=== PATIENT | male | born 1950 | race Caucasian/White ===

== ENCOUNTER → 2017-12-21 13:20 | Outpatient (CLI) | payer MEDICARE, SELFPAY ==
[2017-12-21 14:35] LABS: INR 3.3 (1.0-3.5)
== END ==
PROVIDERS: Emergency Medicine; PCP Family Medicine; Visit Provider Family Medicine
DX: I48.91 Unspecified atrial fibrillation (principal); Z79.01 Long term (current) use of anticoagulants
CPT/HCPCS: 36415; 85610

== ENCOUNTER → 2017-12-28 12:58 | Outpatient (CLI) | payer MEDICARE, SELFPAY ==
[2017-12-28 15:17] LABS: INR 2.9 (1.0-3.5); Prothrombin Time 27.5 sec (9.3-10.8)
== END ==
PROVIDERS: PCP Family Medicine; Visit Provider Family Medicine
DX: I48.91 Unspecified atrial fibrillation (principal); Z79.01 Long term (current) use of anticoagulants
CPT/HCPCS: 36415; 85610

== ENCOUNTER 2018-01-05 10:10 | Outpatient (CLI) | payer MEDICARE, SELFPAY ==
[2018-01-05 10:51] LABS: INR 2.9 (1.0-3.5); Prothrombin Time 27.6 sec (9.3-10.8)
== END 2018-01-05 10:30 ==
PROVIDERS: PCP Family Medicine; Visit Provider Family Medicine
DX: I48.91 Unspecified atrial fibrillation (principal); Z79.01 Long term (current) use of anticoagulants
CPT/HCPCS: 36415; 85610

== ENCOUNTER 2018-02-05 11:25 | Outpatient (CLI) | payer MEDICARE, SELFPAY ==
[2018-02-05 12:42] LABS: Prothrombin Time 19.4 sec (9.3-10.8)
== END 2018-02-05 11:45 ==
PROVIDERS: PCP Family Medicine; Visit Provider Emergency Medicine
DX: I48.91 Unspecified atrial fibrillation (principal); Z79.01 Long term (current) use of anticoagulants
CPT/HCPCS: 36415; 85610

== ENCOUNTER 2018-03-18 08:02 | Outpatient (CLI) | payer MEDICARE, SELFPAY ==
[2018-03-18 11:37] LABS: INR 2.4 (1.0-3.5)
== END 2018-03-18 08:22 ==
PROVIDERS: Emergency Medicine; PCP Family Medicine; Visit Provider Family Medicine
DX: I48.91 Unspecified atrial fibrillation (principal); Z79.01 Long term (current) use of anticoagulants
CPT/HCPCS: 36415; 85610

== ENCOUNTER 2018-04-09 10:53 | Outpatient (CLI) | payer MEDICARE, SELFPAY ==
[2018-04-09 11:26] LABS: INR 2.6 (1.0-3.5); Prothrombin Time 24.5 sec (9.3-10.8)
== END 2018-04-09 11:13 ==
PROVIDERS: PCP Family Medicine; Visit Provider Family Medicine
DX: I48.91 Unspecified atrial fibrillation (principal); Z79.01 Long term (current) use of anticoagulants
CPT/HCPCS: 36415; 85610

== ENCOUNTER 2018-05-08 17:07 | Emergency (ER) | payer MEDICARE, SELFPAY ==
[2018-05-08 17:13] VITALS: BP 150/104; PULSE 80; RESP 12; TEMP 37.3; O2SAT 96
--- NOTE | 2018-05-08 17:38 | NUR.NOTE ---
Nursing Note: MD Mcmahon is at the bedside.
--- NOTE | 2018-05-08 18:10 | DI.RAD_ITS ---
SYMPTOM/DIAGNOSIS: PRODUCTIVE COUGH FRONTAL AND LATERAL CHEST: Comparison is made with 03/08/16. The heart is mildly enlarged but stable. Pulmonary vasculature is within normal limits. There is again seen a large hiatal hernia. The lungs are free of infiltrates or effusions. No pneumothoraces are identified. The bones are intact. IMPRESSION: No acute pulmonary process.
--- NOTE | 2018-05-08 18:16 | ED.GENADUL_ITS ---
Discharge Plan Disposition Patient Disposition: HOME Discharge Details Chief Complaint: GenMedical Clinical Impression: Cough, URI (upper respiratory infection) Primary Care Provider: Dylan Easton ED Provider: Vladislav Mcmahon Home Meds and New Rx's Prescriptions: Continued zoster vaccine live (PF) [Zostavax (PF)] 19,400 UNIT/0.65 ML suspension for reconstitution 0.5 ml SQ ONCE Qty: 1 RF: 0 amlodipine 5 MG tablet 5 mg PO DAILY Qty: 90 RF: 4 magnesium oxide [MagOx] 400 MG tablet 400 mg PO BID Qty: 60 RF: 11 Advair Diskus 1 EACH blister with device 1 puff Inhalation BID Qty: 3 RF: 4 omeprazole 20 MG capsule,delayed release(DR/EC) 20 mg PO DAILY Qty: 90 RF: 4 lisinopril 40 MG tablet 1 tab PO DAILY Qty: 90 RF: 4 loratadine [Claritin] 10 MG tablet 1 tab PO DAILY Qty: 90 RF: 4 metoprolol tartrate 25 MG tablet 12.5 mg PO BID Qty: 90 RF: 3 levalbuterol tartrate [Xopenex HFA] 15 GM HFA aerosol inhaler 2 puff Inhalation QID PRNQty: 3 RF: 4 digoxin 250 mcg tablet 0.25 mg PO DAILY Qty: 90 RF: 4 warfarin [Coumadin] 5 mg tablet See Rx Instructions PO .COMPLEX Qty: 100 RF: 3 acetaminophen [Mapap Extra Strength] 500 MG tablet 1,000 mg PO Q6H PRN PRNRF: 0 Discharge Instructions Instructions: Upper Respiratory Infection (ED) Additional Instructions: Please drink plenty of fluids to stay hydrated. Allow for plenty of rest. Please contact your primary care physician to arrange follow-up. Return to the ER for any worsening or new concerning symptoms. Referrals: Dylan Easton MD [Primary Care Provider] - Discharge Data Discharge Date/Time-TO BE ENTERED AT DEPARTURE: 05/08/18 19:20 Medical Decision Making 67yo m here with cough, myalgias, headache, fever over the past 2 days. Patient did receive influenza immunization. Rapid flu testing was negative here today. Considered pneumonia: Lungs are clear, patient saturating well in no respiratory distress. Chest x-ray reviewed and interpreted by radiology: Large hiatal hernia, no evidence of acute cardiopulmonary disease. Suspect viral URI. Supportive care advised. Reassessment, patient remained stable. Usual and customary discharge instructions were provided. HPI General Mode of arrival: ambulatory . Date/Time Provider Initiated Documentation: 05/08/18 17:29 . Limitations to Documentation: no limitations . Information obtained by: patient and family . HPI Narrative: 67-year-old male with multiple medical problems including history of asthma, diabetes, hypertension, presents with chief complaint of cough. Patient notes that he has had cough for the past 2 days. Cough is intermittently productive of white sputum. He has associated full body aches, feels feverish, headaches, no chest pain or shortness of breath. Symptoms are moderate. No modifiers. Flu immunization is up-to-date. He also notes that the mild swelling of his lower lip yesterday that has resolved. Related Data Home Medications Medication Instructions Recorded Confirmed acetaminophen [Mapap Extra 1,000 mg PO Q6H PRN PRN 02/07/13 05/08/18 Strength] zoster vaccine live (PF) [Zostavax 0.5 ml SQ ONCE #1 vial 12/18/16 (PF)] Advair Diskus 1 puff INHALATION BID #3 disk 11/13/17 05/08/18 amlodipine 5 mg PO DAILY #90 tab-cap 11/13/17 05/08/18 levalbuterol tartrate [Xopenex HFA] 2 puff INHALATION QID PRN #3 11/13/17 05/08/18 inhaler lisinopril 1 tab PO DAILY #90 tab 11/13/17 loratadine [Claritin] 1 tab PO DAILY #90 tab 11/13/17 05/08/18 magnesium oxide [MagOx] 400 mg PO BID #60 tab-cap 11/13/17 05/08/18 metoprolol tartrate 12.5 mg PO BID #90 tab-cap 11/13/17 05/08/18 omeprazole 20 mg PO DAILY #90 tab-cap 11/13/17 05/08/18 digoxin 250 mcg tablet 0.25 mg PO DAILY #90 tab 01/07/18 05/08/18 warfarin 5 mg tablet See Rx Instructions PO .COMPLEX 03/29/18 05/08/18 #100 tab-cap Previous Rx's Medication Instructions Recorded Advair Diskus 1 puff INHALATION BID #3 disk 11/13/17 amlodipine 5 mg PO DAILY #90 tab-cap 11/13/17 lisinopril 1 tab PO DAILY #90 tab 11/13/17 loratadine [Claritin] 1 tab PO DAILY #90 tab 11/13/17 magnesium oxide [MagOx] 400 mg PO BID #60 tab-cap 11/13/17 metoprolol tartrate 12.5 mg PO BID #90 tab-cap 11/13/17 omeprazole 20 mg PO DAILY #90 tab-cap 11/13/17 digoxin 250 mcg tablet 0.25 mg PO DAILY #90 tab 01/07/18 warfarin 5 mg tablet See Rx Instructions PO .COMPLEX 03/29/18 #100 tab-cap Allergies Allergy/AdvReac Type Severity Reaction Status Date / Time doxycycline Allergy Intermediate FACIAL RASH Unverified 05/08/18 17:18 Tetracyclines Allergy Intermediate FACIAL RASH Unverified 05/08/18 17:18 General Stated Complaint: GenMedical DANIA: 3 Review of Systems Constitutional Reports body ache(s) and Reports fever(s) ENT Reports nasal congestion and Reports post nasal drip Respiratory Reports cough Genitourinary Denies dysuria [facility] Medical History Asthma Atrial fibrillation Hypertension Surgical History Repair of inguinal hernia Family History Mother Diabetes Essential hypertension Stroke Father Essential hypertension Asthma Sister Alzheimer disease Sister Essential hypertension Depression Sister No problems noted. Sister No problems noted. Sister No problems noted. Brother Diabetes Essential hypertension Stroke Brother No problems noted. Son ADHD Daughter Alcohol abuse Depression Social History Smoking/Tobacco Use Status: Never Exam Const General: cooperative and no acute distress HENMT Head: normocephalic and atraumatic Mouth: oral mucosae normal and moist mucous membranes Throat: posterior oropharynx normal Eyes Conjunctivae: normal conjunctivae Sclera: normal sclerae Neck Neck: trachea midline and supple Resp Auscultation: clear to auscultation bilaterally, no rales, no rhonchi and no wheezes Cardio Jugular venous pressure: no JVD Rate: regular rate and not tachycardic Rhythm: regular rhythm GI Palpation: soft, not firm, no guarding, no masses, not rigid and nontender Skin General skin exam: no rashes or lesions noted Neuro General: alert, awake, oriented x3 and tone normal Extrem General: no edema Psych Appearance: grossly normal Mental Status: mental status grossly normal Speech and Movement: speech and movement normal Course Vital Signs Temperature 37.3 C 05/08/18 17:13 Pulse 80 05/08/18 17:13 Respiratory Rate 12 05/08/18 17:13 Blood Pressure 150/104 H 05/08/18 17:13 Pulse Oximetry 96 05/08/18 17:13 Temperature 37.3 C 05/08/18 17:13 Temperature Source Temporal Artery Scan 05/08/18 17:13 Pulse 80 05/08/18 17:13 Respiratory Rate 12 05/08/18 17:13 Respiratory Effort 05/08/18 17:48 Blood Pressure 150/104 H 05/08/18 17:13 Blood Pressure Position Sitting 05/08/18 17:13 Pulse Oximetry 96 05/08/18 17:13 Oxygen Delivery Method Room Air 05/08/18 17:13 Oxygen Flow Rate 0 05/08/18 17:13 Pain Level 0 05/08/18 17:13 Lab/Test Results Lab/Test Results: 05/08/18 17:22 Nasopharynx Influenza Types A,B Antigen - Final
--- NOTE | 2018-05-08 19:00 | DI.VRAD_ITS ---
EXAM: XR Chest, 2 Views EXAM DATE/TIME: 05/08/2018 6:11 PM CLINICAL HISTORY: 67 years old, male; Signs and symptoms; Cough; Patient HX: Cough productive; Per PT: Have had 2-3 days TECHNIQUE: XR of the chest, 2 views. COMPARISON: CR PORTABLE CHEST ONE VIEW 03/08/2016 5:19 PM FINDINGS: Large hiatal hernia. No focal pulmonary consolidation. Mild cardiomegaly unchanged. Costophrenic angles sharp. Bony structures unremarkable for age. IMPRESSION: 1. Large hiatal hernia. 2. No evidence of acute cardiopulmonary disease. Dictated and Authenticated by: Sb Wilson MD. Ordering:DEMETRIS Loomis MD
[2018-05-08 19:16] VITALS: BP 158/97; PULSE 75; RESP 17; TEMP 37.2; O2SAT 96
[2018-05-08] MEDS: Acetaminophen 325 MG TAB 650 MG PO (19:18)
== END 2018-05-08 19:20 | disposition home or self-care (01) ==
PROVIDERS: Emergency Provider Student in an Organized Health Care Education/Training Program; PCP Family Medicine
DX: R05 Cough (principal); J06.9 Acute upper respiratory infection, unspecified; M79.10 Myalgia, unspecified site; R50.9 Fever, unspecified; I10 Essential (primary) hypertension
CPT/HCPCS: 87449; 99283; 71046

== ENCOUNTER 2018-05-10 01:42 | Outpatient (CLI) | payer MEDICARE, SELFPAY ==
[2018-05-10 11:51] LABS: INR 2.8 (0.9-1.1); Prothrombin Time 28.7 sec (9.3-11.0)
== END 2018-05-10 02:02 ==
PROVIDERS: Emergency Medicine; PCP Family Medicine; Visit Provider Family Medicine
DX: I48.91 Unspecified atrial fibrillation (principal); Z79.01 Long term (current) use of anticoagulants
CPT/HCPCS: 36415; 85610

== ENCOUNTER 2018-06-10 14:44 | Outpatient (CLI) | payer MEDICARE, SELFPAY ==
[2018-06-10 15:11] LABS: Prothrombin Time 25.7 sec (9.3-11.0)
[2018-06-10 15:14] LABS: INR 2.5 (0.9-1.1)
[2018-06-10 16:35] LABS: Magnesium 1.6 mg/dL (1.8-2.4); TSH 2.04 uIU/mL (0.358-3.74)
== END 2018-06-10 15:04 ==
PROVIDERS: PCP Family Medicine; Visit Provider Family Medicine
DX: E83.42 Hypomagnesemia (principal); R53.83 Other fatigue; I48.91 Unspecified atrial fibrillation; Z79.01 Long term (current) use of anticoagulants
CPT/HCPCS: 36415; 83735; 84443; 85610

== ENCOUNTER 2018-07-14 13:31 | Outpatient (CLI) | payer MEDICARE, SELFPAY ==
[2018-07-14 14:12] LABS: Prothrombin Time 28.8 sec (9.3-11.0)
[2018-07-14 14:14] LABS: INR 2.8 (0.9-1.1)
== END 2018-07-14 13:51 ==
PROVIDERS: Emergency Medicine; PCP Family Medicine; Visit Provider Family Medicine
DX: I48.91 Unspecified atrial fibrillation (principal); Z79.01 Long term (current) use of anticoagulants
CPT/HCPCS: 36415; 85610

== ENCOUNTER 2018-07-19 11:43 | Emergency (ER) | payer MEDICARE, SELFPAY ==
[2018-07-19 12:20] VITALS: BP 147/97; PULSE 68; RESP 18; TEMP 37; O2SAT 99
--- NOTE | 2018-07-19 12:33 | W.ED.GENAD ---
Discharge Plan Disposition Patient Disposition: HOME Condition: Stable Discharge Details Chief Complaint: Vascular Clinical Impression: Leg pain, Cellulitis Reason For Visit: bunch on low leg Primary Care Provider: Dylan Easton ED Provider: Khalida Mcmahon Home Meds and New Rx's Prescriptions: New clindamycin HCl 150 mg capsule 450 mg PO QID 10 Days Qty: 120 RF: 0 No Action amlodipine 5 MG tablet 5 mg PO DAILY Qty: 90 RF: 4 magnesium oxide [MagOx] 400 MG tablet 400 mg PO BID Qty: 60 RF: 11 fluticasone propion-salmeterol [Advair Diskus] 1 EACH blister with device 1 puff Inhalation BID Qty: 3 RF: 4 omeprazole 20 MG capsule,delayed release(DR/EC) 20 mg PO DAILY Qty: 90 RF: 4 lisinopril 40 MG tablet 1 tab PO DAILY Qty: 90 RF: 4 loratadine [Claritin] 10 MG tablet 1 tab PO DAILY Qty: 90 RF: 4 metoprolol tartrate 25 MG tablet 12.5 mg PO BID Qty: 90 RF: 3 levalbuterol tartrate [Xopenex HFA] 15 GM HFA aerosol inhaler 2 puff Inhalation QID PRNQty: 3 RF: 4 digoxin 250 mcg tablet 0.25 mg PO DAILY Qty: 90 RF: 4 warfarin [Coumadin] 5 mg tablet See Rx Instructions PO .COMPLEX Qty: 100 RF: 3 acetaminophen [Mapap Extra Strength] 500 MG tablet 1,000 mg PO Q6H PRN PRNRF: 0 Discharge Instructions Instructions: Cellulitis (ED), Leg Pain (ED) Additional Instructions: Please return immediately to the emergency department if you develop any new or worsening symptoms or if you become otherwise concerned. It is extremely important that you make an appointment to be seen in follow-up for this visit as soon as possible by your primary care doctor, and that you return here for wound check in 48 hours. Referrals: Dylan Easton MD [Primary Care Provider] - Discharge Data Discharge Date/Time-TO BE ENTERED AT DEPARTURE: 07/19/18 16:38 Medical Decision Making Jesse Carranza is a 67-year-old man with history of A. fib on Coumadin, GERD, COPD, hypertension presents emergency department with left lower leg swelling and pain without known trauma. On exam patient is well and nontoxic appearing. There is erythema over the anterior left lower leg and general edema of the lower leg with focal area of edema to the anterior leg adjacent to erythema. The extremity is neurovascularly intact. There is no joint tenderness palpation and there is full range of motion of the knee and ankle. Concern for occult trauma causing hematoma/cellulitis, DVT, doubt abscess. Doubt neoplasm. Exam/history is not consistent with sepsis, PE, other acute emergent life-threatening process. Plan for x-rays, ultrasound. Imaging studies negative for DVT, acute bony process. Plan to aspirate fluid collection for possible culture. Skin was anesthetized with 1 cc 1% lidocaine and was cleaned and prepped in the usual sterile fashion. Aspiration was attempted, but no fluid was returned. Plan for clindamycin for cellulitis and outpatient follow-up for recheck. I had a lengthy discussion with the patient regarding return to emergency department precautions and home care. Patient was discharged with clear outpatient follow-up plans. Patient verbalized understanding of the plan and was amenable. All questions were answered. Medical Records Medical records reviewed: Yes I reviewed the patient's medical records. Imaging Data Radiologic Study: Attestation: I personally reviewed and interpreted this imaging study as follows: Radiologist's impression: LEFT LOWER EXTREMITY ULTRASOUND: The deeps veins of the left lower extremity show normal compression, augmentation and color flow. No evidence of a deep venous thrombus is identified. The saphenofemoral junction appears unremarkable. There is an ovoid complex hypoechoic area in the lower leg. No internal blood flow is seen. It measures 4.4 x 1.6 x 4.2 cm. This may represent a hematoma. Please correlate with the patient's history. Abscess is considered less likely. Mass can not be entirely excluded. There is edema seen in the soft tissues of the lower leg. IMPRESSION: 1. No evidence of a left lower extremity DVT. 2. 4.4 cm complex lesion in the lower leg anteriorly corresponding to an area of swelling on physical exam. No internal blood flow is seen. This may represent a complex fluid collection such as a hematoma. Abscess is considered less likely. Mass can not be entirely excluded. Please correlate clinically. LEFT LEG: Two views. No acute fracture or dislocation is identified. No suspicious lytic or sclerotic lesions are seen. There does appear to be some soft tissue swelling of the lower leg. IMPRESSION: 1. No acute fracture or dislocation. 2. Soft tissue swelling. HPI General Mode of arrival: ambulatory. Date/Time Provider Initiated Documentation: 07/19/18 12:33. Limitations to Documentation: no limitations. Information obtained by: patient, RN notes reviewed and old records reviewed. HPI Narrative: Jesse Carranza is a 67-year-old man with a history of asthma, hypertension, A. fib on Coumadin presented to the emergency department with leg pain. Patient reports that about 4 days ago he noticed that there was a bump on his left leg, and also that his left leg seemed swollen and painful. He reports the pain is worse when he stands. He denies any trauma or injury to the area. He has had no recent falls. He denies any other pain, fevers, cough, shortness of breath, numbness/tingling, weakness. Otherwise in his usual state of health. Has never had similar symptoms in the past. Has been eating and drinking as usual. Related Data Home Medications Medication Instructions Recorded Confirmed acetaminophen [Mapap Extra 1,000 mg PO Q6H PRN PRN 02/07/13 07/21/18 Strength] amlodipine 5 mg PO DAILY #90 tab-cap 11/13/17 07/21/18 fluticasone propion-salmeterol 1 puff INHALATION BID #3 disk 11/13/17 07/21/18 [Advair Diskus] levalbuterol tartrate [Xopenex HFA] 2 puff INHALATION QID PRN #3 11/13/17 07/21/18 inhaler lisinopril 1 tab PO DAILY #90 tab 11/13/17 07/21/18 loratadine [Claritin] 1 tab PO DAILY #90 tab 11/13/17 07/21/18 magnesium oxide [MagOx] 400 mg PO BID #60 tab-cap 11/13/17 07/21/18 metoprolol tartrate 12.5 mg PO BID #90 tab-cap 11/13/17 07/21/18 omeprazole 20 mg PO DAILY #90 tab-cap 11/13/17 07/21/18 digoxin 250 mcg tablet 0.25 mg PO DAILY #90 tab 01/07/18 07/21/18 warfarin 5 mg tablet See Rx Instructions PO .COMPLEX 03/29/18 07/21/18 #100 tab-cap clindamycin HCl 450 mg PO QID 10 Days #120 cap 07/19/18 07/21/18 Previous Rx's Medication Instructions Recorded amlodipine 5 mg PO DAILY #90 tab-cap 11/13/17 fluticasone propion-salmeterol 1 puff INHALATION BID #3 disk 11/13/17 [Advair Diskus] lisinopril 1 tab PO DAILY #90 tab 11/13/17 loratadine [Claritin] 1 tab PO DAILY #90 tab 11/13/17 magnesium oxide [MagOx] 400 mg PO BID #60 tab-cap 11/13/17 metoprolol tartrate 12.5 mg PO BID #90 tab-cap 11/13/17 omeprazole 20 mg PO DAILY #90 tab-cap 11/13/17 digoxin 250 mcg tablet 0.25 mg PO DAILY #90 tab 01/07/18 warfarin 5 mg tablet See Rx Instructions PO .COMPLEX 03/29/18 #100 tab-cap clindamycin HCl 450 mg PO QID 10 Days #120 cap 07/19/18 Allergies Allergy/AdvReac Type Severity Reaction Status Date / Time doxycycline Allergy Intermediate FACIAL RASH Verified 07/21/18 14:03 Tetracyclines Allergy Intermediate FACIAL RASH Verified 07/21/18 14:03 General Stated Complaint: Vascular DANIA: 3 Review of Systems Review of Systems Constitutional: denies fevers Eyes: denies eye pain ENT: denies facial pain, dental pain, sore throat Cardiovascular: denies chest pain, edema Respiratory: denies SOB, cough GI: denies abdominal pain, vomiting, diarrhea : denies flank pain MSK: denies back pain, neck pain, arthralgias, reports leg pain as per HPI Skin: Reports rash to lower leg in area of pain Neuro: denies headaches, numbness, weakness [facility] Social History Smoking/Tobacco Use Status: Never Alcohol Intake: never Drug use: Never Substance use type: does not use Do you feel safe at home: Yes Do you feel safe in your relationship?: Yes Exam Narrative Exam Narrative: Constitutional: well and [id number], pleasant, conversing normally HENT: head atraumatic/normocephalic/normal inspection, mucous membranes moist Eyes: conjunctiva normal, sclera normal, pupils 3mm b/l Neck: no stridor, normal ROM, trachea midline Resp: normal work of breathing, LCTAB Cardio: normal rate, normal rhythm, no murmur appreciated Back: normal inspection, no rash Skin: warm, dry, normal color, no rash Neuro: alert, not altered, grossly non-focal, normal tone Ext: Left lower leg with 1+ nonpitting edema to mid calf, 4 x 10 cm anterior erythema with adjacent 4 x 4 centimeter area of focal edema without overlying erythema. No apparent skin wound. DP pulses intact and symmetric. There is tenderness over focal edema and over erythema, no posterior calf tenderness and no tenderness of the ankle or knee. Psych: normal mood, normal affect, normal behavior Course Vital Signs Temperature 37 C 07/19/18 12:20 Pulse 68 07/19/18 12:20 Respiratory Rate 18 07/19/18 12:20 Blood Pressure 147/97 H 07/19/18 12:20 Pulse Oximetry 99 07/19/18 12:20 Temperature 37 C 07/19/18 12:20 Temperature Source Temporal Artery Scan 07/19/18 12:20 Pulse 68 07/19/18 12:20 Respiratory Rate 18 07/19/18 12:20 Blood Pressure 147/97 H 07/19/18 12:20 Pulse Oximetry 99 07/19/18 12:20 Oxygen Delivery Method Room Air 07/19/18 12:20 Oxygen Flow Rate 0 07/19/18 12:20
--- NOTE | 2018-07-19 13:34 | DI.US_ITS ---
SYMPTOMS/DIAGNOSIS: PAIN, REDNESS, SWELLING LEFT LOWER EXTREMITY ULTRASOUND: The deeps veins of the left lower extremity show normal compression, augmentation and color flow. No evidence of a deep venous thrombus is identified. The saphenofemoral junction appears unremarkable. There is an ovoid complex hypoechoic area in the lower leg. No internal blood flow is seen. It measures 4.4 x 1.6 x 4.2 cm. This may represent a hematoma. Please correlate with the patient's history. Abscess is considered less likely. Mass can not be entirely excluded. There is edema seen in the soft tissues of the lower leg. IMPRESSION: 1. No evidence of a left lower extremity DVT. 2. 4.4 cm complex lesion in the lower leg anteriorly corresponding to an area of swelling on physical exam. No internal blood flow is seen. This may represent a complex fluid collection such as a hematoma. Abscess is considered less likely. Mass can not be entirely excluded. Please correlate clinically. The findings were discussed with the emergency department on the date of the examination.
--- NOTE | 2018-07-19 13:35 | DI.RAD_ITS ---
SYMPTOMS/DIAGNOSIS: LEG PAIN, NO TRAUMA LEFT LEG: Two views. No acute fracture or dislocation is identified. No suspicious lytic or sclerotic lesions are seen. There does appear to be some soft tissue swelling of the lower leg. IMPRESSION: 1. No acute fracture or dislocation. 2. Soft tissue swelling.
[2018-07-19] MEDS: Clindamycin 150 MG CAP 450 MG PO (16:33)
== END 2018-07-19 16:38 | disposition home or self-care (01) ==
PROVIDERS: Emergency Provider Student in an Organized Health Care Education/Training Program; PCP Family Medicine
DX: L03.116 Cellulitis of left lower limb (principal); J44.9 Chronic obstructive pulmonary disease, unspecified; I10 Essential (primary) hypertension; Z79.01 Long term (current) use of anticoagulants
CPT/HCPCS: 99284; 73590; 93971; 99283

== ENCOUNTER 2018-08-06 08:46 | Outpatient (CLI) | payer MEDICARE, SELFPAY ==
[2018-08-06 09:31] LABS: HCT 49.2 % (40.0-50.0); HGB 16.6 g/dL (13.5-17.5); Mean Corp. HGB Concentration 33.7 g/dL (32.0-36.0); Mean Corpuscular Hemoglobin 30.5 pg (27.0-33.0); Mean Corpuscular Volume 90.4 fL (80-95); Mean Platelet Volume 11.5 fL (8.0-11.0); Platelet Count 191 x1000/uL (130-400); RBC 5.44 m/cumm (4.50-6.00); RBC Distribution Width 13.4 % (11.8-14.1); White Blood Cell Count 10.44 k/cumm (4.4-10.8)
[2018-08-06 09:46] LABS: INR 2.1 (0.9-1.1); Prothrombin Time 21.5 sec (9.3-11.0)
[2018-08-06 14:49] LABS: Digoxin 0.88 ng/mL (0.90-2.00)
== END 2018-08-06 09:06 ==
PROVIDERS: PCP Family Medicine; Visit Provider Family Medicine
DX: I48.2 Chronic atrial fibrillation (principal); R53.83 Other fatigue; Z79.899 Other long term (current) drug therapy; Z79.01 Long term (current) use of anticoagulants
CPT/HCPCS: 36415; 85027; 80162; 85610

== ENCOUNTER 2018-08-30 13:30 | Outpatient (CLI) | payer MEDICARE, SELFPAY ==
[2018-08-30 14:16] LABS: Prothrombin Time 30.6 sec (9.3-11.0)
== END 2018-08-30 13:50 ==
PROVIDERS: Emergency Medicine; PCP Family Medicine; Visit Provider Family Medicine
DX: I48.91 Unspecified atrial fibrillation (principal); Z79.01 Long term (current) use of anticoagulants; Z79.899 Other long term (current) drug therapy
CPT/HCPCS: 36415; 85610

== ENCOUNTER 2018-10-12 08:42 | Outpatient (CLI) | payer MEDICARE, SELFPAY ==
[2018-10-12 13:10] LABS: INR 2.7 (0.9-1.1); Prothrombin Time 27.1 sec (9.3-11.0)
== END 2018-10-12 09:02 ==
PROVIDERS: PCP Family Medicine; Visit Provider Family Medicine
DX: I48.91 Unspecified atrial fibrillation (principal); Z79.01 Long term (current) use of anticoagulants
CPT/HCPCS: 36415; 85610

== ENCOUNTER 2018-11-17 13:12 | Outpatient (CLI) | payer MEDICARE, SELFPAY ==
[2018-11-17 14:03] LABS: Prothrombin Time 30.4 sec (9.3-11.0)
== END 2018-11-17 13:32 ==
PROVIDERS: PCP Family Medicine; Visit Provider Emergency Medicine
DX: I48.91 Unspecified atrial fibrillation (principal); Z79.01 Long term (current) use of anticoagulants
CPT/HCPCS: 36415; 85610

== ENCOUNTER 2018-12-16 08:15 | Outpatient (CLI) | payer MEDICARE, SELFPAY ==
[2018-12-16 13:21] LABS: INR 2.8 (0.9-1.1); Prothrombin Time 28.3 sec (9.3-11.0)
== END 2018-12-16 08:35 ==
PROVIDERS: Emergency Medicine; PCP Family Medicine; Visit Provider Family Medicine
DX: I48.91 Unspecified atrial fibrillation (principal); Z79.01 Long term (current) use of anticoagulants
CPT/HCPCS: 36415; 85610

== ENCOUNTER 2019-01-21 07:33 | Outpatient (CLI) | payer MEDICARE, SELFPAY ==
[2019-01-21 08:15] LABS: INR 2.2 (0.9-1.1); Prothrombin Time 21.4 sec (9.3-11.0)
[2019-01-21 09:23] LABS: Anion Gap 8.2 mmol/L (3-11); BUN 14 mg/dL (7-18); CO2 27.8 mmol/L (21.0-32.0); CREATININE 1.02 mg/dL (0.70-1.30); Calcium 9.2 mg/dL (8.5-10.1); Calculated LDL 97 mg/dL; Chloride 103 mmol/L (98-107); Cholesterol 157 mg/dL (50-200); Glucose 91 mg/dL (70-100); HDL Cholesterol 52 mg/dL (40-60); Potassium 4.1 mmol/L (3.5-5.1); Sodium 139 mmol/L (136-145); Triglyceride 42 mg/dL (30-150)
== END 2019-01-21 07:53 ==
PROVIDERS: PCP Family Medicine; Visit Provider Emergency Medicine
DX: I10 Essential (primary) hypertension (principal); I48.91 Unspecified atrial fibrillation; Z79.01 Long term (current) use of anticoagulants
CPT/HCPCS: 36415; 80048; 80061; 85610

== ENCOUNTER 2019-03-16 12:29 | Outpatient (CLI) | payer MEDICARE, SELFPAY ==
[2019-03-16 14:07] LABS: INR 2.6 (0.9-1.1); Prothrombin Time 25.2 sec (9.3-11.0)
== END 2019-03-16 12:49 ==
PROVIDERS: PCP Family Medicine; Visit Provider Family Medicine
DX: I48.91 Unspecified atrial fibrillation (principal); Z79.01 Long term (current) use of anticoagulants
CPT/HCPCS: 36415; 85610

== ENCOUNTER 2019-04-04 13:02 | Outpatient (CLI) | payer MEDICARE, SELFPAY ==
[2019-04-04 14:29] LABS: Prothrombin Time 50.4 sec (9.3-11.0)
[2019-04-04 14:39] LABS: INR 5.2 (0.9-1.1)
== END 2019-04-04 13:22 ==
PROVIDERS: PCP Family Medicine; Visit Provider Emergency Medicine
DX: I48.91 Unspecified atrial fibrillation (principal); Z79.01 Long term (current) use of anticoagulants
CPT/HCPCS: 36415; 85610

== ENCOUNTER 2019-04-07 11:24 | Outpatient (CLI) | payer MEDICARE, SELFPAY ==
[2019-04-07 12:09] LABS: INR 2.4 (0.9-1.1); Prothrombin Time 23.9 sec (9.3-11.0)
== END 2019-04-07 11:44 ==
PROVIDERS: Emergency Medicine; PCP Family Medicine; Visit Provider Family Medicine
DX: I48.91 Unspecified atrial fibrillation (principal); Z79.01 Long term (current) use of anticoagulants; Z79.899 Other long term (current) drug therapy
CPT/HCPCS: 36415; 85610

== ENCOUNTER 2019-04-21 09:01 | Outpatient (CLI) | payer MEDICARE, SELFPAY ==
[2019-04-21 09:56] LABS: INR 2.1 (0.9-1.1); Prothrombin Time 20.9 sec (9.3-11.0)
== END 2019-04-21 09:21 ==
PROVIDERS: PCP Family Medicine; Visit Provider Emergency Medicine
DX: I48.91 Unspecified atrial fibrillation (principal); Z79.01 Long term (current) use of anticoagulants
CPT/HCPCS: 36415; 85610

== ENCOUNTER 2019-05-19 11:16 | Outpatient (CLI) | payer MEDICARE, SELFPAY ==
[2019-05-19 13:00] LABS: INR 2.4 (0.9-1.1); Prothrombin Time 23.3 sec (9.3-11.0)
== END 2019-05-19 11:36 ==
PROVIDERS: Emergency Medicine; PCP Family Medicine; Visit Provider Family Medicine
DX: I48.91 Unspecified atrial fibrillation (principal); Z79.01 Long term (current) use of anticoagulants; Z79.899 Other long term (current) drug therapy
CPT/HCPCS: 36415; 85610

== ENCOUNTER 2019-06-17 10:01 | Outpatient (CLI) | payer MEDICARE, SELFPAY ==
[2019-06-17 10:54] LABS: INR 2.1 (0.9-1.1); Prothrombin Time 20.6 sec (9.3-11.0)
== END 2019-06-17 10:21 ==
PROVIDERS: PCP Family Medicine; Visit Provider Emergency Medicine
DX: I48.91 Unspecified atrial fibrillation (principal); Z79.01 Long term (current) use of anticoagulants; Z79.899 Other long term (current) drug therapy
CPT/HCPCS: 36415; 85610

== ENCOUNTER 2019-12-01 09:42 | Outpatient (CLI) | payer MEDICARE, SELFPAY ==
[2019-12-01 13:12] LABS: INR 2.8 (0.9-1.1); Prothrombin Time 27.1 sec (9.3-11.0)
== END 2019-12-01 10:02 ==
PROVIDERS: PCP Family Medicine; Visit Provider Emergency Medicine
DX: I48.91 Unspecified atrial fibrillation (principal); Z79.01 Long term (current) use of anticoagulants; Z79.899 Other long term (current) drug therapy
CPT/HCPCS: 36415; 85610

== ENCOUNTER 2019-12-21 03:04 | Outpatient (CLI) | payer MEDICARE, SELFPAY ==
[2019-12-21 12:34] LABS: INR 2.8 (0.9-1.1); Prothrombin Time 27.3 sec (9.3-11.0)
== END 2019-12-21 03:24 ==
PROVIDERS: Emergency Medicine; PCP Family Medicine; Visit Provider Family Medicine
DX: I48.91 Unspecified atrial fibrillation (principal); Z79.01 Long term (current) use of anticoagulants; Z79.899 Other long term (current) drug therapy
CPT/HCPCS: 36415; 85610

== ENCOUNTER 2020-01-03 07:05 | Outpatient (CLI) | payer MEDICARE, SELFPAY ==
[2020-01-04 17:24] LABS: COVID-19 RT-PCR Result NEGATIVE (Negative)
== END 2020-01-03 07:25 ==
PROVIDERS: PCP Family Medicine; Visit Provider Family Medicine
DX: R06.09 Other forms of dyspnea (principal)
CPT/HCPCS: U0003

== ENCOUNTER 2020-01-06 01:15 | Outpatient (CLI) | payer MEDICARE, SELFPAY ==
[2020-01-06] MEDS: Albuterol HFA 18 GM 200 PUFF INH IH (16:20)
[2020-01-06] MEDS: Inhaler, Assist Device 1 EACH MC (16:20)
--- NOTE | 2020-01-11 07:44 | W.PFT ---
Date of service: 01/06/20 Time of Service: 03:32 Pulmonary Function Test Result Interpretation Spirometry: Shows mild obstructive airways disease, no bronchodilator response Lung Volumes: No evidence of restriction Diffusion Capacity: Mildly decreased, which is normal when corrected to alveolar volume Airway Pressure: Mildly elevated Impression Mild obstructive airways disease with no significant bronchodilator response, this is associated with mild diffusion defect and mildly elevated airways resistance. Clinical correlation recommended Clinical Correlation therefore is recommended.
== END 2020-01-06 01:35 ==
PROVIDERS: PCP Family Medicine; Visit Provider Family Medicine
DX: R06.09 Other forms of dyspnea (principal)
CPT/HCPCS: 94060; 94726; 94729

== ENCOUNTER 2020-03-23 01:31 | Outpatient (CLI) | payer MEDICARE, SELFPAY ==
[2020-03-23 12:52] LABS: Abs Immature Grans 0.03 10^3/uL (0.0-0.06); Absolute Basophil Count 0.09 10^3/uL (0.0-0.2); Absolute Lymphocyte Count 1.79 10^3/uL (1.2-3.4); Absolute Monocyte Count 1.04 10^3/uL (0.1-0.8); Absolute Neutrophil Count 5.45 10^3/uL (1.2-6.7); Eosinophils % 4.5; HCT 49.7 % (40.0-50.0); HGB 16.5 g/dL (13.5-17.5); Immature Grans % 0.3; Lymphocytes % 20.3; MCH 30.2 pg (27.0-33.0); MCHC 33.2 % (32.0-36.0); MPV 11.6 fL (8.0-11.0); Monocytes % 11.8; Neutrophils % 62.1; Nucleated RBC 0 %; Platelet Count 174 10^3/uL (130-400); RBC 5.46 10^6/uL (4.36-5.78); RDW 13.1 % (11.8-14.1); RDW-SD 43.2 fL
[2020-03-23 13:21] LABS: Prothrombin Time 23.1 sec (9.3-11.0)
[2020-03-23 13:22] LABS: INR 2.3 (0.9-1.1)
[2020-03-23 13:30] LABS: ALT 29 U/L (16-63); AST 20 U/L (15-37); Albumin 3.7 g/dL (3.4-5.0); Alkaline Phosphatase 64 U/L (46-116); Anion Gap 6.8 mmol/L (3-11); BUN 13 mg/dL (7-18); Bilirubin, Total 1.3 mg/dL (0.2-1.0); CO2 29.2 mmol/L (21.0-32.0); CREATININE 1.06 mg/dL (0.70-1.30); Calcium 9.1 mg/dL (8.5-10.1); Chloride 102 mmol/L (98-107); Glucose 106 mg/dL (74-106); Magnesium 1.7 mg/dL (1.8-2.4); Potassium 4.4 mmol/L (3.5-5.1); Sodium 138 mmol/L (136-145); T4 8.3 ug/mL (4.7-13.3); TSH 1.14 uIU/mL (0.36-3.74); Total Protein 6.6 g/dL (6.4-8.2)
== END 2020-03-23 01:51 ==
PROVIDERS: PCP Family Medicine; Visit Provider Family Medicine
DX: I10 Essential (primary) hypertension (principal); I48.91 Unspecified atrial fibrillation; Z79.01 Long term (current) use of anticoagulants; Z79.899 Other long term (current) drug therapy
CPT/HCPCS: 36415; 80053; 85027; 83735; 84436; 84443; 85025; 85610

== ENCOUNTER → 2020-04-05 09:51 | Outpatient (BNVA) | payer MEDICARE, SELFPAY | PROVIDERS: PCP Family Medicine; Referring Provider Family Medicine; Visit Provider Physical Therapy Assistant | DX: K62.5 Hemorrhage of anus and rectum (principal); I10 Essential (primary) hypertension | CPT/HCPCS: 99212; 99213 ==

== ENCOUNTER 2020-04-18 02:36 | Outpatient (CLI) | payer MEDICARE, SELFPAY ==
[2020-04-18 12:32] LABS: INR 2.7 (0.9-1.1); Prothrombin Time 26.7 sec (9.3-11.0)
== END 2020-04-18 02:56 ==
PROVIDERS: PCP Family Medicine; Visit Provider Family Medicine
DX: I48.91 Unspecified atrial fibrillation (principal); Z79.01 Long term (current) use of anticoagulants
CPT/HCPCS: 36415; 85610

== ENCOUNTER 2020-05-23 03:58 | Outpatient (CLI) | payer MEDICARE, SELFPAY ==
[2020-05-23 12:52] LABS: Prothrombin Time 29.1 sec (9.3-11.0)
== END 2020-05-23 04:18 ==
PROVIDERS: PCP Family Medicine; Visit Provider Family Medicine
DX: I48.91 Unspecified atrial fibrillation (principal); Z79.01 Long term (current) use of anticoagulants
CPT/HCPCS: 36415; 85610

== ENCOUNTER 2020-07-10 03:21 | Outpatient (CLI) | payer MEDICARE, SELFPAY ==
[2020-07-10 14:04] LABS: INR 2.4 (0.9-1.1); Prothrombin Time 23.2 sec (9.3-11.0)
== END 2020-07-10 03:22 | disposition home or self-care (01) ==
LOC: LOS 03:21
PROVIDERS: Emergency Medicine; PCP Family Medicine; Visit Provider Family Medicine
DX: I48.91 Unspecified atrial fibrillation (principal); Z79.01 Long term (current) use of anticoagulants
CPT/HCPCS: 36415; 85610

== ENCOUNTER 2020-08-16 07:14 | Outpatient (CLI) | payer MEDICARE, SELFPAY ==
[2020-08-16 12:33] LABS: INR 2.3 (0.9-1.1); Prothrombin Time 22.9 sec (9.3-11.0)
[2020-08-16 12:51] LABS: Digoxin 0.73 ng/mL (0.90-2.00)
== END 2020-08-16 07:15 | disposition home or self-care (01) ==
LOC: LOS 07:18
PROVIDERS: PCP Family Medicine; Visit Provider Family Medicine
DX: I48.91 Unspecified atrial fibrillation (principal); Z79.01 Long term (current) use of anticoagulants; Z79.899 Other long term (current) drug therapy
CPT/HCPCS: 36415; 80162; 85610

== ENCOUNTER 2020-08-31 01:46 | Outpatient (CLI) | payer MEDICARE, SELFPAY ==
[2020-08-31 13:07] LABS: Magnesium 1.6 mg/dL (1.8-2.4)
[2020-08-31 13:13] LABS: INR 2.6 (0.9-1.1); Prothrombin Time 25.2 sec (9.3-11.0)
== END 2020-08-31 01:47 | disposition home or self-care (01) ==
LOC: LOS 01:47
PROVIDERS: Emergency Medicine; PCP Family Medicine; Visit Provider Family Medicine
DX: I10 Essential (primary) hypertension (principal); E83.42 Hypomagnesemia; I48.91 Unspecified atrial fibrillation; Z79.01 Long term (current) use of anticoagulants
CPT/HCPCS: 36415; 82565; 83735; 85610

== ENCOUNTER 2020-11-13 07:29 | Outpatient (CLI) | payer MEDICARE, SELFPAY ==
[2020-11-13 12:28] LABS: HGB 16.3 g/dL (13.5-17.5); MCH 30.6 pg (27.0-33.0); MCHC 33.3 % (32.0-36.0); MCV 92.1 fL (80-95); MPV 12.1 fL (8.0-11.0); Platelet Count 177 10^3/uL (130-400); RBC 5.32 10^6/uL (4.36-5.78); RDW 13.2 % (11.8-14.1); RDW-SD 44.7 fL; WBC 10.17 10^3/uL (4.4-10.8)
[2020-11-13 12:40] LABS: INR 2.4 (0.9-1.1); Prothrombin Time 23.5 sec (9.3-11.0)
== END 2020-11-13 07:30 | disposition home or self-care (01) ==
PROVIDERS: Emergency Medicine; PCP Family Medicine; Visit Provider Family Medicine
DX: D64.9 Anemia, unspecified (principal); I48.91 Unspecified atrial fibrillation; Z79.01 Long term (current) use of anticoagulants
CPT/HCPCS: 36415; 85027; 85610

== ENCOUNTER 2020-12-18 03:09 | Outpatient (CLI) | payer MEDICARE, SELFPAY ==
[2020-12-18 12:35] LABS: INR 2.2 (0.9-1.1); Prothrombin Time 21.8 sec (9.3-11.0)
== END 2020-12-18 03:10 | disposition home or self-care (01) ==
LOC: LOS 03:10
PROVIDERS: PCP Family Medicine; Visit Provider Family Medicine
DX: I48.91 Unspecified atrial fibrillation (principal); Z79.01 Long term (current) use of anticoagulants
CPT/HCPCS: 36415; 85610

== ENCOUNTER 2021-01-14 03:58 | Outpatient (CLI) | payer MEDICARE, SELFPAY ==
[2021-01-14 13:08] LABS: Magnesium 1.5 mg/dL (1.8-2.4)
[2021-01-14 13:57] LABS: INR 2.9 (0.9-1.1); Prothrombin Time 28.7 sec (9.3-11.0)
== END 2021-01-14 03:59 | disposition home or self-care (01) ==
LOC: LOS 03:59
PROVIDERS: PCP Family Medicine; Visit Provider Family Medicine
DX: E83.42 Hypomagnesemia (principal); I48.91 Unspecified atrial fibrillation
CPT/HCPCS: 36415; 83735; 85610

== ENCOUNTER 2021-03-08 03:35 | Outpatient (CLI) | payer MEDICARE, SELFPAY ==
[2021-03-08 13:03] LABS: Magnesium 1.7 mg/dL (1.8-2.4)
== END 2021-03-08 03:36 | disposition home or self-care (01) ==
LOC: LOS 03:35
PROVIDERS: PCP Family Medicine; Visit Provider Family Medicine
DX: E83.42 Hypomagnesemia (principal)
CPT/HCPCS: 36415; 83735

== ENCOUNTER 2021-03-29 12:23 | Outpatient (CLI) | payer MEDICARE, SELFPAY ==
--- NOTE | 2021-03-29 12:15 | RT.EKG_ITS ---
APPROVED REPORT Exam: Resting ECG Reason for Exam: covid + Patient Location: O HR:66 bpm ECG Measurements Heart Rate 66 AXIS LA [id number] P [id number] QRSd 112 QRS -23 QT 408 T 116 QTc 427 Conclusion Atrial fibrillation...V-rate 56- 79, irreg A-activity LVH with repolarization abnormalities ...ST >0.15mV, V1-V5
== END 2021-03-29 12:24 | disposition home or self-care (01) ==
LOC: DI.CM 12:23
PROVIDERS: PCP Family Medicine; Visit Provider Nurse Practitioner Family
DX: R07.9 Chest pain, unspecified (principal)
CPT/HCPCS: 93010

== ENCOUNTER 2021-03-29 13:39 | Emergency (ER) | payer MEDICARE, SELFPAY ==
[2021-03-29] VITALS (14 sets, daily range): BP systolic 144–180; BP diastolic 79–124; PULSE 65–79; RESP 16–23; TEMP 36.5–37; O2SAT 94–98
--- NOTE | 2021-03-29 13:45 | RT.EKG_ITS ---
APPROVED REPORT Exam: Resting ECG Reason for Exam: cp, changes Patient Location: E HR:74 bpm ECG Measurements Heart Rate 74 AXIS MT [id number] P [id number] QRSd 109 QRS -31 QT 372 T 135 QTc 413 Conclusion Atrial fibrillation...V-rate 57- 83, irreg A-activity Left axis deviation...QRS axis (-30,-90) Repol abnrm suggests ischemia, lateral leads...ST dep, T neg, I aVL V5 V6 no stemi
[2021-03-29 14:14] LABS: Abs Immature Grans 0.09 10^3/uL (0.0-0.06); Absolute Basophil Count 0.08 10^3/uL (0.0-0.2); Absolute Eosinophil Count 0.26 10^3/uL (0.0-0.7); Absolute Lymphocyte Count 2.08 10^3/uL (1.2-3.4); Absolute Monocyte Count 0.98 10^3/uL (0.1-0.8); Absolute Neutrophil Count 7.36 10^3/uL (1.2-6.7); Basophils % 0.7; Eosinophils % 2.4; HGB 16.1 g/dL (13.5-17.5); Immature Grans % 0.8; Lymphocytes % 19.2; MCH 29.7 pg (27.0-33.0); MCHC 32.9 % (32.0-36.0); MCV 90.2 fL (80-95); MPV 11.4 fL (8.0-11.0); Neutrophils % 67.9; Nucleated RBC 0 %; Platelet Count 200 10^3/uL (130-400); RBC 5.43 10^6/uL (4.36-5.78); RDW 12.8 % (11.8-14.1); RDW-SD 42.3 fL; WBC 10.84 10^3/uL (4.4-10.8)
[2021-03-29 14:25] LABS: INR 2.7 (0.9-1.1); Prothrombin Time 26.2 sec (9.3-11.0)
[2021-03-29 14:30] LABS: ALT 27 U/L (16-63); AST 20 U/L (15-37); Albumin 3.6 g/dL (3.4-5.0); Alkaline Phosphatase 79 U/L (46-116); Anion Gap 8.1 mmol/L (3-11); BUN 18 mg/dL (7-18); Bilirubin, Total 0.6 mg/dL (0.2-1.0); CO2 25.9 mmol/L (21.0-32.0); Chloride 102 mmol/L (98-107); Glucose 123 mg/dL (74-106); Potassium 3.9 mmol/L (3.5-5.1); Sodium 136 mmol/L (136-145); Troponin I < 0.05 ng/mL (<0.06)
[2021-03-29 14:48] LABS: D-Dimer 172 ng/mlFEU (<500)
--- NOTE | 2021-03-29 14:48 | ED.GENADUL_ITS ---
Discharge Plan Disposition Patient Disposition: HOME Condition: Stable Discharge Details Clinical Impression: Right-sided chest wall pain Primary Care Provider: Angel Abebe ED Provider: Vladislav Mcmahon Home Meds and New Rx's Prescriptions: Continued finasteride 5 mg tablet 5 mg PO DAILY Qty: 30 RF: 11 hydrocortisone [Preparation H Hydrocortisone] 1 % cream 1 applic topical BID PRNRF: 0 warfarin 5 mg tablet See Rx Instructions mg PO .COMPLEX Qty: 100 RF: 3 levalbuterol tartrate [Xopenex HFA] 45 mcg/actuation HFA aerosol inhaler 2 puff Inhalation QID PRN (Reason: shortness of breath or wheezing) Qty: 3 RF: 4 fluticasone propion-salmeterol [Advair Diskus] 500-50 mcg/dose blister with device 1 ea Inhalation BID Qty: 3 RF: 4 loratadine [Claritin] 10 mg tablet 10 mg PO DAILY Qty: 90 RF: 4 magnesium oxide [MagOx] 400 mg (241.3 mg magnesium) tablet 400 mg PO BID Qty: 180 RF: 4 omeprazole 20 mg capsule,delayed release(DR/EC) 20 mg PO DAILY Qty: 90 RF: 4 amlodipine 5 mg tablet 5 mg PO DAILY Qty: 90 RF: 4 lisinopril 40 mg tablet 40 mg PO DAILY Qty: 90 RF: 4 digoxin 250 mcg (0.25 mg) tablet 250 mcg PO DAILY Qty: 90 RF: 1 metoprolol tartrate 25 mg tablet 12.5 mg PO BID Qty: 90 RF: 3 furosemide 20 mg tablet 20 mg PO DAILY PRN (Reason: edema) Qty: 30 RF: 0 benzonatate [Tessalon Perles] 100 mg capsule 100 mg PO TID PRN (Reason: cough) Qty: 20 RF: 0 acetaminophen [Mapap Extra Strength] 500 MG tablet 1,000 mg PO Q6H PRN PRNRF: 0 Discharge Instructions Instructions: Chest Wall Pain (ED), COVID-19 (Coronavirus Disease 2019) (ED), Instructions for Self Monitoring Oxygen Saturation Additional Instructions: Please contact your primary care physician to arrange follow-up. Return to the ER immediately for any worsening or new concerning symptoms. Discharge Data Discharge Date/Time-TO BE ENTERED AT DEPARTURE: 03/29/21 15:22 Medical Decision Making Medical Records Medical records narrative: 70yo m with multiple medical problems with recently diagnosed COVID here with right lateral chest pain with cough and on palpation. History and exam consistent with musculoskeletal chest pain. Patient saturating well and in no respiratory distress. INR was checked and therapeutic. Presentation is not consistent with acute pulmonary embolism. Screening EKG performed and interpreted by me: no stemi, please see report. Troponin negative. Presentation is not consistent with ACS. A medical screening exam was performed and patient was stable. Plan for discharge with PCP followup. Disposition decision was made weighing the risks and benefits of hospitalization versus outpatient treatment, the risk for further decompensation, and the patient's wishes. The patient was stable and requested discharge. Prior to discharge, my usual and customary return precautions were reviewed with the patient - this included follow-up instructions and reason to return to the emergency department if condition worsens, does not improve as expected, or other new concerns arise. Lab Data Lab results reviewed: Yes I reviewed the patient's lab results. HPI General Mode of arrival: ambulatory . Date/Time Provider Initiated Documentation: 03/29/21 13:59 . Limitations to Documentation: no limitations . Information obtained by: patient . HPI Narrative: 70-year-old male with multiple medical problems including history of f atrial fibrillation, asthma, hypertension, GERD, atypical chest pain, and recently positive for COVID-19 diagnosed 2 days ago, sent from [facility] with chief complaint of chest pain. Pain is sharp. Pain is moderate with cough and on palpation of right chest wall only. Patient notes associated fatigue, chills, weakness, headache, productive cough with white to yellow sputum, shortness of breath with home O2 saturation rates 96 to 100%, Symptoms started approximately 6 days ago. Chest pain over the past couple days. He attributes pain to coughing and muscular. No associated leg swelling or calf pain. Related Data Home Medications Medication Instructions Recorded Confirmed acetaminophen [Mapap Extra 1,000 mg PO Q6H PRN PRN 02/07/13 03/29/21 Strength] hydrocortisone 1 % topical cream 1 applic TOPICAL BID PRN 04/05/20 03/29/21 loratadine 10 mg tablet 10 mg PO DAILY #90 tab 05/03/20 03/29/21 magnesium oxide 400 mg (241.3 mg 400 mg PO BID #180 tab 05/03/20 03/29/21 magnesium) tablet omeprazole 20 mg capsule,delayed 20 mg PO DAILY #90 tab-cap 07/26/20 03/29/21 release finasteride 5 mg tablet 5 mg PO DAILY #30 tab 08/15/20 03/29/21 amlodipine 5 mg tablet 5 mg PO DAILY #90 tab-cap 10/25/20 03/29/21 lisinopril 40 mg tablet 40 mg PO DAILY #90 tab 10/25/20 03/29/21 digoxin 250 mcg (0.25 mg) tablet 250 mcg PO DAILY #90 tab 11/07/20 03/29/21 metoprolol tartrate 25 mg tablet 12.5 mg PO BID #90 tab-cap 11/09/20 03/29/21 furosemide 20 mg tablet 20 mg PO DAILY PRN #30 tab 12/15/20 03/29/21 fluticasone 500 mcg-salmeterol 50 1 ea INHALATION BID #3 disk 01/08/21 03/29/21 mcg/dose blistr powdr for inhalation levalbuterol tartrate 45 2 puff INHALATION QID PRN #3 01/08/21 03/29/21 mcg/actuation aerosol inhaler inhaler warfarin 5 mg tablet See Rx Instructions PO .COMPLEX 01/08/21 03/29/21 #100 tab-cap benzonatate 100 mg capsule 100 mg PO TID PRN #20 cap 02/27/21 03/29/21 Previous Rx's Medication Instructions Recorded loratadine 10 mg tablet 10 mg PO DAILY #90 tab 05/03/20 magnesium oxide 400 mg (241.3 mg 400 mg PO BID #180 tab 05/03/20 magnesium) tablet omeprazole 20 mg capsule,delayed 20 mg PO DAILY #90 tab-cap 07/26/20 release finasteride 5 mg tablet 5 mg PO DAILY #30 tab 08/15/20 amlodipine 5 mg tablet 5 mg PO DAILY #90 tab-cap 10/25/20 lisinopril 40 mg tablet 40 mg PO DAILY #90 tab 10/25/20 digoxin 250 mcg (0.25 mg) tablet 250 mcg PO DAILY #90 tab 11/07/20 metoprolol tartrate 25 mg tablet 12.5 mg PO BID #90 tab-cap 11/09/20 furosemide 20 mg tablet 20 mg PO DAILY PRN #30 tab 12/15/20 fluticasone 500 mcg-salmeterol 50 1 ea INHALATION BID #3 disk 01/08/21 mcg/dose blistr powdr for inhalation levalbuterol tartrate 45 2 puff INHALATION QID PRN #3 01/08/21 mcg/actuation aerosol inhaler inhaler warfarin 5 mg tablet See Rx Instructions PO .COMPLEX 01/08/21 #100 tab-cap benzonatate 100 mg capsule 100 mg PO TID PRN #20 cap 02/27/21 Allergies Allergy/AdvReac Type Severity Reaction Status Date / Time doxycycline Allergy Intermediate FACIAL RASH Verified 03/29/21 12:00 Tetracyclines Allergy Intermediate FACIAL RASH Verified 03/29/21 12:00 General Stated Complaint: Chest Pain DANIA: 2 Review of Systems Constitutional Constitutional: Reports body ache(s) and Reports chills Cardiovascular Cardiovascular: Reports chest pain [facility] Active Problem List (Updated 03/29/21 @ 14:49 by Vladislav Mcmahon MD) Right-sided chest wall pain (Acute) Screening for colon cancer (Acute) Daytime sleepiness (Acute) Dyspnea on exertion (Acute) BPH w urinary obs/LUTS (Acute) Hypotension (Acute) Chronic anticoagulation (Acute) Cellulitis (Acute) 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) Anticoagulated on warfarin (Chronic) Asthma (Chronic) Essential hypertension (Chronic 02/21/13) Family hx of prostate cancer (Chronic) Hypomagnesemia (Chronic 08/22/13) GERD (gastroesophageal reflux disease) (Chronic) Chronic atrial fibrillation (Chronic) Medical History (Updated 03/29/21 @ 14:49 by Vladilsav Mcmahon MD) Abnormal weight loss (04/14/12) Asthma Atrial fibrillation Hypertension Surgical History Repair of inguinal hernia LEFT Status post inguinal hernia repair Family History Mother Diabetes Stroke Alcohol abuse Hypertension Father Asthma Prostate cancer Heart disease Sister Alzheimer disease Sister Essential hypertension Depression Sister No problems noted. Sister No problems noted. Sister No problems noted. Brother Diabetes Essential hypertension Stroke Brother No problems noted. Son ADHD Alcohol abuse Former Daughter Alcohol abuse Depression Hypertension Other Family hx of prostate cancer Social History Smoking/Tobacco Use Status: Former Tobacco Use Second Hand Exposure: Yes Smoking risk assessment performed?: Yes Alcohol Intake: former Drug use: Never Substance use type: does not use Household members: spouse Housing: house Communication Needs: Hard of Hearing, Corrective Lenses and Cannot Read Do you need help understanding health information?: Often Pets and animals: Yes (chicken, ronn) Pets and animals: cat(s), farm animals and other Details: [place] Sexually active: No Do you think of yourself as: straight/heterosexual Current gender identity: male What is your relationship status?: How often do you talk on the phone with friends or family?: twice per week How often do you get together with friends or relatives?: three or more times per week How often do you attend sabianism or lutheran services?: decline to answer Do you belong to any clubs or organized social groups?: no Panel score (0-1 are the most socially isolated patients): 2 Frequency: daily Christine/Temple: Yazidism Special christine needs: No Seatbelt use: always Drive intox or ride 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: No Do you feel safe at home: Yes Do you feel safe in your relationship?: Yes Exam Const General: cooperative and no acute distress HENMT Head: normocephalic and atraumatic Mouth: moist mucous membranes Eyes Conjunctivae: normal conjunctivae Sclera: normal sclerae Neck Neck: trachea midline Chest Chest: no crepitus and tenderness pectoral muscle on the right with point tenderness laterally Resp Effort & Inspection: normal respiratory effort, able to speak in complete sentences and not labored Auscultation: rales bilaterally (scattered ) and no wheezes Cardio Rate: regular rate and not tachycardic Rhythm: regular rhythm GI Palpation: soft, not firm, no guarding, no masses, not rigid and nontender Skin General skin exam: no rashes or lesions noted Neuro General: patient alert, patient awake, patient oriented x3 and tone normal Extrem General: no calf tenderness and no edema Psych Appearance: grossly normal Mental Status: mental status grossly normal Speech and Movement: speech and movement normal Course Vital Signs Vital signs: Vital Signs Temperature 36.5 C 03/29/21 13:42 Pulse 77 03/29/21 13:42 Respiratory Rate 16 03/29/21 13:42 Blood Pressure 180/107 H 03/29/21 13:42 Pulse Oximetry 98 03/29/21 13:42 Temperature 36.5 C 03/29/21 13:42 Temperature Source Skin 03/29/21 13:42 Pulse 74 03/29/21 14:31 Pulse 78 03/29/21 14:31 Respiratory Rate 23 03/29/21 14:40 Respiratory Effort 03/29/21 14:01 Blood Pressure 152/99 H 03/29/21 14:31 Blood Pressure Mean 111 03/29/21 14:31 Pulse Oximetry 98 03/29/21 14:40 Pain Level 0 03/29/21 13:42 Lab/Test Results Lab/Test Results: Laboratory Tests Range/Units 03/29/21 03/29/21 03/29/21 14:05 14:05 14:05 WBC (4.4-10.8) 10^3/uL 10.84 H RBC (4.36-5.78) 10^6/uL 5.43 Hgb (13.5-17.5) g/dL 16.1 Hct (40.0-50.0) % 49.0 MCV (80-95) fL 90.2 MCH (27.0-33.0) pg 29.7 MCHC (32.0-36.0) % 32.9 RDW (11.8-14.1) % 12.8 Plt Count (130-400) 10^3/uL 200 MPV (8.0-11.0) fL 11.4 H Immature Gran % 0.8 Neutrophils % 67.9 Lymphocytes % 19.2 Monocytes % 9.0 Eosinophils % 2.4 Basophils % 0.7 Nucleated RBC % % 0 Absolute Neutrophils (1.2-6.7) 10^3/uL 7.36 H Absolute Lymphocytes (1.2-3.4) 10^3/uL 2.08 Absolute Monocytes (0.1-0.8) 10^3/uL 0.98 H Absolute Eosinophils (0.0-0.7) 10^3/uL 0.26 Absolute Basophils (0.0-0.2) 10^3/uL 0.08 PT (9.3-11.0) sec 26.2 H INR (0.9-1.1) 2.7 H Sodium (136-145) mmol/L 136 Potassium (3.5-5.1) mmol/L 3.9 Chloride (98-107) mmol/L 102 Carbon Dioxide (21.0-32.0) mmol/L 25.9 Anion Gap (3-11) mmol/L 8.1 BUN (7-18) mg/dL 18 Creatinine (0.70-1.30) mg/dL 1.0 Estimated GFR/1.73 m2 (mL/min/1.73m2) >= 60.00 Glucose (74-106) mg/dL 123 H Calcium (8.5-10.1) mg/dL 9.0 Total Bilirubin (0.2-1.0) mg/dL 0.6 AST (15-37) U/L 20 ALT (16-63) U/L 27 Alkaline Phosphatase (46-116) U/L 79 Troponin I (<0.06) ng/mL < 0.05 Total Protein (6.4-8.2) g/dL 7.0 Albumin (3.4-5.0) g/dL 3.6
== END 2021-03-29 15:22 | disposition home or self-care (01) ==
PROVIDERS: Emergency Provider Student in an Organized Health Care Education/Training Program; PCP Family Medicine
DX: U07.1 COVID-19 (principal); R07.82 Intercostal pain; R05.1 Acute cough; R53.83 Other fatigue
CPT/HCPCS: 36415; 80053; 93005; 99284; 84484; 85025; 85379; 85610; 93010

== ENCOUNTER 2021-05-21 02:29 | Outpatient (CLI) | payer MEDICARE, SELFPAY ==
[2021-05-21 12:57] LABS: INR 2.3 (0.9-1.1); Prothrombin Time 22.4 sec (9.3-11.0)
== END 2021-05-21 02:30 | disposition home or self-care (01) ==
LOC: LBO 02:30
PROVIDERS: PCP Family Medicine; Visit Provider Family Medicine
DX: I48.20 Chronic atrial fibrillation, unspecified (principal)
CPT/HCPCS: 36415; 85610

== ENCOUNTER 2021-06-18 09:31 | Outpatient (CLI) | payer MEDICARE, SELFPAY ==
[2021-06-18 11:05] LABS: INR 1.9 (0.9-1.1); Prothrombin Time 18.5 sec (9.3-11.0)
== END 2021-06-18 09:32 | disposition home or self-care (01) ==
LOC: LBO 09:33
PROVIDERS: Emergency Medicine; PCP Family Medicine; Visit Provider Family Medicine
DX: I48.91 Unspecified atrial fibrillation (principal); Z79.01 Long term (current) use of anticoagulants
CPT/HCPCS: 36415; 85610

== ENCOUNTER 2021-07-31 07:43 | Outpatient (REF) | payer MEDICARE, SELFPAY ==
[2021-07-31 08:16] LABS: INR 2.2 (0.9-1.1); Prothrombin Time 22.1 sec (9.3-11.0)
== END 2021-07-31 07:44 | disposition home or self-care (01) ==
LOC: LBO 07:43
PROVIDERS: PCP Family Medicine; Visit Provider Emergency Medicine
DX: I48.20 Chronic atrial fibrillation, unspecified (principal)
CPT/HCPCS: 36415; 85610

== ENCOUNTER 2021-09-17 02:15 | Outpatient (CLI) | payer MEDICARE, SELFPAY ==
[2021-09-17 15:34] LABS: INR 3.1 (0.9-1.1); Prothrombin Time 30.3 sec (9.3-11.0)
== END 2021-09-17 02:16 | disposition home or self-care (01) ==
LOC: LOS 02:17
PROVIDERS: PCP Family Medicine; Visit Provider Family Medicine
DX: I48.20 Chronic atrial fibrillation, unspecified (principal); Z79.01 Long term (current) use of anticoagulants
CPT/HCPCS: 36415; 85610

== ENCOUNTER 2021-10-18 01:19 | Outpatient (CLI) | payer MEDICARE, SELFPAY ==
[2021-10-18 12:33] LABS: INR 2.3 (0.9-1.1); Prothrombin Time 21.7 sec (9.3-11.0)
== END 2021-10-18 01:20 | disposition home or self-care (01) ==
LOC: LOS 01:20
PROVIDERS: PCP Family Medicine; Visit Provider Family Medicine
DX: I48.20 Chronic atrial fibrillation, unspecified (principal); Z79.01 Long term (current) use of anticoagulants
CPT/HCPCS: 36415; 85610

== ENCOUNTER 2021-12-11 09:16 | Outpatient (CLI) | payer MEDICARE, SELFPAY ==
[2021-12-11 12:36] LABS: INR 2.9 (0.9-1.1); Prothrombin Time 27.7 sec (9.3-11.0)
== END 2021-12-11 09:17 | disposition home or self-care (01) ==
LOC: LOS 09:16
PROVIDERS: PCP Family Medicine; Visit Provider Family Medicine
DX: I48.20 Chronic atrial fibrillation, unspecified (principal)
CPT/HCPCS: 36415; 85610

== ENCOUNTER 2022-01-15 01:44 | Outpatient (CLI) | payer MEDICARE, SELFPAY ==
[2022-01-15 13:03] LABS: Calculated LDL 99 mg/dL (<100); Cholesterol 158 mg/dL (<200); Digoxin 0.87 ng/mL (0.90-2.00); HDL Cholesterol 36 mg/dL (40-60); Magnesium 1.6 mg/dL (1.8-2.4); Triglyceride 117 mg/dL (<150)
[2022-01-15 13:04] LABS: INR 2.6 (0.9-1.1); Prothrombin Time 24.9 sec (9.3-11.0)
[2022-01-15 13:59] LABS: Hemoglobin A1C 5.8 % (<5.7)
[2022-01-16 10:40] LABS: Lab Add On Test DONE
[2022-01-16 11:18] LABS: Vitamin B12 556 pg/mL (193-986)
[2022-01-17 10:17] LABS: Syphilis Serology (RPR) Negative (Negative)
== END 2022-01-15 01:45 | disposition home or self-care (01) ==
LOC: LOS 01:44
PROVIDERS: PCP Family Medicine; Visit Provider Family Medicine
DX: I48.20 Chronic atrial fibrillation, unspecified (principal)
CPT/HCPCS: 36415; 80061; 80162; 82607; 83036; 83735; 85610; 86592

== ENCOUNTER 2022-03-12 03:22 | Outpatient (CLI) | payer MEDICARE, SELFPAY ==
[2022-03-12 14:02] LABS: INR 2.3 (0.9-1.1); Prothrombin Time 22.1 sec (9.3-11.0)
== END 2022-03-12 03:23 | disposition home or self-care (01) ==
LOC: LBO 03:22
PROVIDERS: Emergency Medicine; PCP Family Medicine; Visit Provider Family Medicine
DX: I48.20 Chronic atrial fibrillation, unspecified (principal)
CPT/HCPCS: 36415; 85610

== ENCOUNTER 2022-03-19 16:03 | Outpatient (CLI) | payer MEDICARE, SELFPAY ==
[2022-03-19 16:03] LABS: INR 2.1 (0.9-1.1); Prothrombin Time 20.4 sec (9.3-11.0)
== END 2022-03-19 16:04 | disposition home or self-care (01) ==
LOC: LBO 16:06
PROVIDERS: PCP Family Medicine; Visit Provider Emergency Medicine
DX: I48.20 Chronic atrial fibrillation, unspecified (principal); Z79.01 Long term (current) use of anticoagulants
CPT/HCPCS: 36415; 85610

== ENCOUNTER 2022-04-23 18:33 | Emergency (ER) | payer MEDICARE, SELFPAY ==
[2022-04-23 18:36] VITALS: BP 137/80; PULSE 70; RESP 18; TEMP 37; O2SAT 97
--- NOTE | 2022-04-23 20:15 | DI.RAD_ITS ---
Exam(s) XR CHEST 2V PA LATERAL EXAM: XR CHEST 2V PA LATERAL CLINICAL HISTORY: cough TECHNIQUE: 2D digital imaging was performed. COMPARISON: CR XR CHEST 2V PA LATERAL from 05/08/2018 FINDINGS: There is a moderate to large size hiatal hernia. HEART: Normal size. Aorta: Not dilated. PULMONARY VASCULATURE: Normal. LUNGS: Increased interstitial markings. No overt pulmonary edema. Nodular density seen posteriorly could represent developing infiltrate. Question of other vague pulmonary densities. PLEURAL SPACE: No pleural effusion or pneumothorax. BONE:Stable mild upper thoracic compression fracture. IMPRESSION: Patchy infiltrates. Follow-up recommended post treatment. DATA REPOSITORY: RADIATION DOSE DELIVERED:
[2022-04-23 20:54] LABS: Abs Immature Grans 0.21 10^3/uL (0.0-0.06); Absolute Basophil Count 0.07 10^3/uL (0.0-0.2); Absolute Eosinophil Count 0.26 10^3/uL (0.0-0.7); Absolute Neutrophil Count 12.47 10^3/uL (1.2-6.7); Basophils % 0.4; Eosinophils % 1.5; HCT 43.6 % (40.0-50.0); HGB 14.8 g/dL (13.5-17.5); Immature Grans % 1.2; Lymphocytes % 12.3; MCHC 33.9 % (32.0-36.0); MCV 88 fL (80-95); MPV 10.8 fL (8.0-11.0); Monocytes % 13.3; Neutrophils % 71.3; Platelet Count 263 10^3/uL (130-400); RBC 4.93 10^6/uL (4.36-5.78); RDW-SD 42.3 fL; WBC 17.49 10^3/uL (4.4-10.8)
[2022-04-23 20:56] LABS: Absolute Lymphocyte Count 2.15 10^3/uL (1.2-3.4); Absolute Monocyte Count 2.33 10^3/uL (0.1-0.8)
[2022-04-23] MEDS: Albuterol/Ipratropium 3 ML UPD VIAL UPD (21:02)
[2022-04-23] MEDS: Normal Saline 500 ML IV (21:02)
[2022-04-23 21:05] LABS: Diff Comment Agrees w/ Instrument; RBC Morphology Normal
[2022-04-23 21:08] LABS: ALT 47 U/L (16-63); AST 34 U/L (15-37); Albumin 3.1 g/dL (3.4-5.0); Alkaline Phosphatase 103 U/L (46-116); Anion Gap 9.1 mmol/L (3-11); BUN 18 mg/dL (7-18); Bilirubin, Total 0.8 mg/dL (0.2-1.0); CO2 27.9 mmol/L (21.0-32.0); CREATININE 1.2 mg/dL (0.70-1.30); Calcium 9.5 mg/dL (8.5-10.1); Chloride 97 mmol/L (98-107); Estimated GFR 64.65 (mL/min/1.73m2); Glucose 103 mg/dL (74-106); Potassium 3.1 mmol/L (3.5-5.1); Sodium 134 mmol/L (136-145); Total Protein 7.4 g/dL (6.4-8.2)
[2022-04-23 21:20] LABS: COVID-19 PCR Negative (Negative); Influenza A PCR Negative (Negative); Influenza B PCR Negative (Negative); RSV PCR Negative (Negative)
[2022-04-23] MEDS: Potassium Chloride 20 MEQ TABCR 40 MEQ PO (21:21)
[2022-04-23 21:25] LABS: Source Nasopharynx
--- NOTE | 2022-04-23 21:39 | DI.VRAD_ITS ---
PROCEDURE INFORMATION: Exam: XR Chest Exam date and time: 04/23/2022 9:29 PM Age: 71 years old Clinical indication: Cough TECHNIQUE: Imaging protocol: Radiologic exam of the chest. Views: 2 views. COMPARISON: CR XR CHEST 2V PA LATERAL 05/08/2018 6:21 PM FINDINGS: Lungs: Chronic interstitial prominence with superimposed suspected opacity in the left lower lobe. Pleural spaces: No pleural effusion. No pneumothorax. Heart/Mediastinum: Large retrocardiac hiatal hernia suspected. Mild cardiomegaly. Bones/joints: Unremarkable. IMPRESSION: Interstitial pneumonitis versus edema and suspected mild left basilar opacity. Developing pneumonia can not be completely excluded Suspected large retrocardiac hiatal hernia Dictated and Authenticated by: Shahbaz Gonzales MD. Ordering:KATRINA Espinal MD
--- NOTE | 2022-04-23 21:55 | ED.GENADUL_ITS ---
Discharge Plan Disposition Patient Disposition: Home Condition: Stable Discharge Details Clinical Impression: Pneumonia Primary Care Provider: Angel Abebe ED Provider: Teddy Alfaro Home Meds and New Rx's Prescriptions: New benzonatate 200 mg capsule 200 mg PO TID PRN (Reason: cough) Qty: 30 0RF benzonatate 100 mg capsule 100 mg PO TID PRN (Reason: cough) Qty: 20 0RF Continued hydrocortisone [Preparation H Hydrocortisone] 1 % cream 1 applic topical BID PRN omeprazole 20 mg capsule,delayed release(DR/EC) 20 mg PO DAILY Qty: 90 4RF losartan 100 mg tablet 100 mg PO DAILY Qty: 90 3RF donepezil 5 mg tablet 5 mg PO DAILY Qty: 30 2RF levalbuterol tartrate [Xopenex HFA] 45 mcg/actuation HFA aerosol inhaler 2 puff Inhalation QID PRN (Reason: shortness of breath or wheezing) Qty: 3 4RF fluticasone propion-salmeterol [Advair Diskus] 500-50 mcg/dose blister with device 1 ea Inhalation BID Qty: 3 4RF furosemide 20 mg tablet 20 mg PO DAILY PRN (Reason: edema) Qty: 30 0RF digoxin 250 mcg (0.25 mg) tablet 250 mcg PO DAILY Qty: 90 3RF magnesium oxide [MagOx] 400 mg (241.3 mg magnesium) tablet 400 mg PO BID Qty: 180 4RF metoprolol tartrate 25 mg tablet 12.5 mg PO BID Qty: 90 3RF Rx Instructions: take an additional half tablet as needed for sustained HR over 120 bpm amlodipine 5 mg tablet 5 mg PO DAILY Qty: 90 4RF warfarin 5 mg tablet See Rx Instructions PO .COMPLEX Qty: 100 3RF Protocol: Dose Management Condition: Thursday Dose/Route: 5 mg Instruction: 1 x 5 mg tablet Condition: Thursday Dose/Route: 2.5 mg Instruction: 0.5 x 5 mg tablets Condition: Thursday Dose/Route: 5 mg Instruction: 1 x 5 mg tablet Condition: Thursday Dose/Route: 2.5 mg Instruction: 0.5 x 5 mg tablets Condition: Dose/Route: 5 mg Instruction: 1 x 5 mg tablet Condition: Thursday Dose/Route: 2.5 mg Instruction: 0.5 x 5 mg tablets Condition: Thursday Dose/Route: 5 mg Instruction: 1 x 5 mg tablet Protocol Text: Adjustment Start Date: Thursday03/19/22 INR Value: 2.1 INR Date: 03/19/22 Recheck Date: 04/18/22 Dose Instruction: 0-2 tabs PO Daily; DOSE BASED ON INR Rx Instructions: 0-2 tabs PO Daily as directed by [facility]; DOSE BASED ON INR tamsulosin 0.4 mg capsule 0.4 mg PO DAILY furosemide [Lasix] 40 mg tablet 40 mg PO DAILY PRN (Reason: edema) Qty: 90 3RF acetaminophen [Mapap Extra Strength] 500 MG tablet 1,000 mg PO Q6H PRN PRN Label Comments: Pt states he took it a couple of weeks ago No Action amoxicillin-pot clavulanate 875-125 mg tablet 1 tab PO Q12H 2 Days Qty: 4 0RF Rx Instructions: Script for two extra days of antibiotics. prednisone 20 mg tablet 60 mg PO DAILY 5 Days Qty: 15 0RF Rx Instructions: 3 tablets by mouth once a day for 5 days Discharge Instructions Instructions: Pneumonia (ED) Additional Instructions: It is important that you get plenty of rest and stay well-hydrated. If you have any significant worsening of symptoms, lack of improvement in the next 48 hours, or have any further concerns for change in your condition return immediately to the emergency department for reassessment. Otherwise take antibiotics as prescribed and follow-up with primary care provider preferably in 3 days. Referrals: Angel Abebe MD [Primary Care Provider] - 3 days Discharge Data Discharge Date/Time-TO BE ENTERED AT DEPARTURE: 04/23/22 23:12 Medical Decision Making Patient presenting to the emergency department for chief complaint of cough and chest congestion along with body aches and malaise that has been worsening over the past 10 days. They do state approximately 2 weeks ago patient was around their grandchild who then later found out the family had influenza. Initially patient had typical cold symptoms but due to lack of improvement and slight worsening they are presenting for evaluation. Patient has stable vital signs, afebrile, not hypoxic. Patient has some slight rhonchi heard in the left lung but right lung is clear lung sounds, remainder of HEENT exam is unremarkable, normal cardiac exam. Rapid COVID flu testing was negative. Given patient's ill appearance and abnormal lung sounds we will perform chest x-ray and labs. Pending results we will give DuoNeb, 500 mL fluid bolus. Reviewed labs and patient has a white count of 17.49, increased neutrophils and monocytes otherwise unremarkable CBC. Sodium is 134, potassium is 3.1, and chloride is 97, remainder of CMP is unremarkable. Patient is also negative on fluvid for COVID flu and RSV. Chest x-ray does show findings suggestive of left basilar pneumonia. We will start patient on Augmentin and see if Tessalon Perles help with patient's cough. Did reassess patient after nebulizer and patient did state improvement of symptoms. Patient's curb 65 score is 1-2 with only consideration of 2 is confusion but patient does have baseline cognitive impairment making it difficult to fully assess this. I do feel that given stable vital signs no hypoxia and patient able to tolerate p.o. medications at patient is able to be safely discharged at this time with low threshold for return for new or worsening symptoms. Patient and significant other agree with this plan of care. After discussion of diagnosis and plan of care patient has no further needs, questions, or concerns and states clear understanding to return to the emergency department for any worsening symptoms. This documentation was generated using [facility] dictation system, please disregard any oddities of phrase or misspellings. Imaging Data Radiologic Study: Attestation: I personally reviewed and interpreted this imaging study as follows: Imaging: X-Ray Radiologist's impression: Exam: XR Chest Exam date and time: 04/23/2022 9:29 PM Age: 71 years old Clinical indication: Cough TECHNIQUE: Imaging protocol: Radiologic exam of the chest. Views: 2 views. COMPARISON: CR XR CHEST 2V PA LATERAL 05/08/2018 6:21 PM FINDINGS: Lungs: Chronic interstitial prominence with superimposed suspected opacity in the left lower lobe. Pleural spaces: No pleural effusion. No pneumothorax. Heart/Mediastinum: Large retrocardiac hiatal hernia suspected. Mild cardiomegaly. Bones/joints: Unremarkable. IMPRESSION: Interstitial pneumonitis versus edema and suspected mild left basilar opacity. Developing pneumonia can not be completely excluded Suspected large retrocardiac hiatal hernia HPI General Mode of arrival: ambulatory . Date/Time Provider Initiated Documentation: 04/23/22 18:40 . Limitations to Documentation: no limitations . Information obtained by: patient, family and RN notes reviewed . History of Present Illness 71 year old M presents to the emergency department with the chief complaint of Cough congestion body aches, described as moderate, Quality is described as aching, Patient started experiencing this day(s) (10) and it has been constant. No relieving factors improve symptom(s), Other factors that worsen symptoms (Was around ill grandchild) . Patient did receive the following treatments prior to arrival, other ([id number] meds) Related Data Home Medications Medication Instructions Recorded Confirmed acetaminophen 500 mg tablet (Mapap 1,000 mg PO Q6H PRN PRN 02/07/13 04/29/22 Extra Strength) hydrocortisone 1 % topical cream 1 applic topical BID PRN 04/05/20 04/29/22 (Preparation H Hydrocortisone) furosemide 20 mg tablet 20 mg PO DAILY PRN edema #30 tabs 12/15/20 04/29/22 fluticasone 500 mcg-salmeterol 50 1 ea inhalation BID ##3 01/08/21 04/29/22 mcg/dose blistr powdr for inhalation (Advair Diskus) levalbuterol tartrate 45 2 puff inhalation QID PRN 01/08/21 04/29/22 mcg/actuation aerosol inhaler shortness of breath or wheezing ##3 (Xopenex HFA) digoxin 250 mcg (0.25 mg) tablet 250 mcg PO DAILY #90 tabs 05/06/21 04/29/22 magnesium oxide 400 mg (241.3 mg 400 mg PO BID #180 tabs 05/06/21 04/29/22 magnesium) tablet (MagOx) omeprazole 20 mg capsule,delayed 20 mg PO DAILY #90 tab-caps 07/09/21 04/29/22 release metoprolol tartrate 25 mg tablet 12.5 mg PO BID #90 tab-caps 10/31/21 04/29/22 donepezil 5 mg tablet 5 mg PO DAILY #30 tabs 01/16/22 04/29/22 losartan 100 mg tablet 100 mg PO DAILY #90 tabs 01/16/22 04/29/22 amlodipine 5 mg tablet 5 mg PO DAILY #90 tab-caps 01/21/22 04/29/22 warfarin 5 mg tablet See Rx Instructions PO .COMPLEX 01/30/22 04/29/22 #100 tab-caps tamsulosin 0.4 mg capsule 0.4 mg PO DAILY 02/20/22 04/29/22 furosemide 40 mg tablet (Lasix) 40 mg PO DAILY PRN edema #90 tabs 04/22/22 04/29/22 benzonatate 100 mg capsule 100 mg PO TID PRN cough #20 caps 04/23/22 04/29/22 benzonatate 200 mg capsule 200 mg PO TID PRN cough #30 caps 04/23/22 04/29/22 amoxicillin 875 mg-potassium 1 tab PO Q12H 2 days #4 tabs 04/29/22 04/29/22 clavulanate 125 mg tablet prednisone 20 mg tablet 60 mg PO DAILY 5 days #15 tabs 04/29/22 04/29/22 Previous Rx's Medication Instructions Recorded furosemide 20 mg tablet 20 mg PO DAILY PRN edema #30 tabs 12/15/20 fluticasone 500 mcg-salmeterol 50 1 ea inhalation BID ##3 01/08/21 mcg/dose blistr powdr for inhalation (Advair Diskus) levalbuterol tartrate 45 2 puff inhalation QID PRN 01/08/21 mcg/actuation aerosol inhaler shortness of breath or wheezing ##3 (Xopenex HFA) digoxin 250 mcg (0.25 mg) tablet 250 mcg PO DAILY #90 tabs 05/06/21 magnesium oxide 400 mg (241.3 mg 400 mg PO BID #180 tabs 05/06/21 magnesium) tablet (MagOx) omeprazole 20 mg capsule,delayed 20 mg PO DAILY #90 tab-caps 07/09/21 release metoprolol tartrate 25 mg tablet 12.5 mg PO BID #90 tab-caps 10/31/21 donepezil 5 mg tablet 5 mg PO DAILY #30 tabs 01/16/22 losartan 100 mg tablet 100 mg PO DAILY #90 tabs 01/16/22 amlodipine 5 mg tablet 5 mg PO DAILY #90 tab-caps 01/21/22 warfarin 5 mg tablet See Rx Instructions PO .COMPLEX 01/30/22 #100 tab-caps furosemide 40 mg tablet (Lasix) 40 mg PO DAILY PRN edema #90 tabs 04/22/22 benzonatate 100 mg capsule 100 mg PO TID PRN cough #20 caps 04/23/22 benzonatate 200 mg capsule 200 mg PO TID PRN cough #30 caps 04/23/22 amoxicillin 875 mg-potassium 1 tab PO Q12H 2 days #4 tabs 04/29/22 clavulanate 125 mg tablet prednisone 20 mg tablet 60 mg PO DAILY 5 days #15 tabs 04/29/22 Allergies Allergy/AdvReac Type Severity Reaction Status Date / Time doxycycline Allergy Intermediate FACIAL RASH Verified 04/29/22 13:25 Tetracyclines Allergy Intermediate FACIAL RASH Verified 04/29/22 13:25 TAMI Inhibitors AdvReac Intermediate cough Verified 04/29/22 13:25 General Stated Complaint: RespSymp DANIA: 4 Review of Systems Constitutional Constitutional: Reports chills, Reports fever(s), Denies headache(s), Reports lethargy, Reports malaise and Reports poor appetite Eyes Eyes: Reports system reviewed and no additional complaints, except as documented ENT Ears, Nose, Mouth, and Throat: Denies headache(s), Reports nasal congestion, Denies nasal discharge and Denies sore throat Cardiovascular Cardiovascular: Denies chest pain, Denies syncope and Denies dyspnea Respiratory Respiratory: Reports chest congestion, Reports cough, Reports pain with cough and Denies dyspnea Gastrointestinal Gastrointestinal: Denies abdominal pain, Denies diarrhea, Denies nausea and Denies vomiting Musculoskeletal Musculoskeletal: Reports myalgias Integumentary/Breasts Skin/Breast: Denies rash Neurologic Neurologic: Denies syncope and Denies headache(s) PFSH All Active Problems (Updated 04/23/22 @ 22:54 by Teddy Alfaro NP) Pneumonia (Acute) Urinary retention (Acute) Per Jael urologist Memory impairment (Acute) Cognitive change (Acute) Peripheral edema (Acute) Right-sided chest wall pain (Acute) Screening for colon cancer (Acute) Daytime sleepiness (Acute) Dyspnea on exertion (Acute) BPH w urinary obs/LUTS (Acute) Hypotension (Acute) Chronic anticoagulation (Acute) Cellulitis (Acute) 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) Anticoagulated on warfarin (Chronic) A-fib INR goal 2-3 Asthma (Chronic) Essential hypertension (Chronic 02/21/13) Family hx of prostate cancer (Chronic) Hypomagnesemia (Chronic 08/22/13) GERD (gastroesophageal reflux disease) (Chronic) Chronic atrial fibrillation (Chronic) Medical History (Updated 04/23/22 @ 22:54 by Teddy Alfaro NP) Abnormal weight loss (04/14/12) Asthma Atrial fibrillation Hypertension Surgical History Repair of inguinal hernia LEFT Status post inguinal hernia repair Family History Mother Diabetes Stroke Alcohol abuse Hypertension Father Asthma Prostate cancer Heart disease Sister Alzheimer disease Sister Essential hypertension Depression Sister No problems noted. Sister No problems noted. Sister No problems noted. Brother Diabetes Essential hypertension Stroke Brother No problems noted. Son ADHD Alcohol abuse Former Daughter Alcohol abuse Depression Hypertension Other Family hx of prostate cancer Social History Smoking/Tobacco Use Status: Former Tobacco Use Second Hand Exposure: Yes Smoking risk assessment performed?: Yes Alcohol Intake: former Drug use: Never Substance use type: does not use Household members: spouse Housing: house Communication Needs: Hard of Hearing, Corrective Lenses and Cannot Read Do you need help understanding health information?: Often Pets and animals: Yes (chicken, ernesto) Pets and animals: cat(s), farm animals and other Details: Ernesto Sexually active: No Do you think of yourself as: straight/heterosexual Current gender identity: male What is your relationship status?: How often do you talk on the phone with friends or family?: twice per week How often do you get together with friends or relatives?: three or more times per week How often do you attend oriental orthodox or restoration services?: decline to answer Do you belong to any clubs or organized social groups?: no Panel score (0-1 are the most socially isolated patients): 2 Frequency: daily Christine/Buddhist: Jew Special christine needs: No Seatbelt use: always 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 Do you feel safe at home: Yes Do you feel safe in your relationship?: Yes Exam Const General: cooperative, comfortable and no acute distress Orientation: alert and awake [facility] Head: normal to inspection, normocephalic and atraumatic Ears: hearing grossly normal bilaterally and TM's normal bilaterally General nose exam: external nose normal Face and sinus: no erythema Mouth: oral mucosae normal, no drooling, no muffled voice and no trismus Throat: posterior oropharynx normal Neck Neck: normal visual inspection, full ROM, no lymphadenopathy, no meningeal signs, trachea midline and supple Resp Effort & Inspection: normal respiratory effort, able to speak in complete sentences and cough Quality of cough: dry Auscultation: rhonchi left upper and left lower Cardio Rate: regular rate Rhythm: regular rhythm Heart Sounds: S1 normal, S2 normal, normal S1 and S2, no click, no gallops, no murmurs and no rubs Skin General skin exam: no rashes or lesions noted and dry skin (warm) Neuro General: patient alert, patient awake, patient oriented x3, gait normal and moves all extremities Cognition: normal cognition Speech: speech normal Course Vital Signs Vital signs: Vital Signs Temperature 37.0 C 04/23/22 18:36 Pulse 70 04/23/22 18:36 Respiratory Rate 18 04/23/22 18:36 Blood Pressure 137/80 04/23/22 18:36 Pulse Oximetry 97 04/23/22 18:36 Temperature 37.0 C 04/23/22 18:36 Temperature Source Tympanic 04/23/22 18:36 Pulse 70 04/23/22 18:36 Respiratory Rate 18 04/23/22 18:36 Respiratory Effort 04/23/22 19:49 Respiratory Depth Normal 04/23/22 19:49 Blood Pressure 137/80 04/23/22 18:36 Blood Pressure Position Sitting 04/23/22 18:36 Pulse Oximetry 97 04/23/22 18:36 Oxygen Delivery Method Room Air 04/23/22 18:36 Oxygen Flow Rate 0 04/23/22 18:36 Pain Level 7 04/23/22 18:36 Lab/Test Results Lab/Test Results: 04/23/22 21:10 Blood Blood Culture - Pending 04/23/22 20:47 Blood Blood Culture - Pending Laboratory Tests Range/Units 04/23/22 04/23/22 04/23/22 20:35 20:47 20:47 WBC (4.4-10.8) 10^3/uL 17.49 H RBC (4.36-5.78) 10^6/uL 4.93 Hgb (13.5-17.5) g/dL 14.8 Hct (40.0-50.0) % 43.6 MCV (80-95) fL 88 MCH (27.0-33.0) pg 30.0 MCHC (32.0-36.0) % 33.9 RDW (11.8-14.1) % 13.0 Plt Count (130-400) 10^3/uL 263 MPV (8.0-11.0) fL 10.8 Immature Gran % 1.2 Neutrophils % 71.3 Lymphocytes % 12.3 Monocytes % 13.3 Eosinophils % 1.5 Basophils % 0.4 Nucleated RBC % (0.0-0.3) % 0.0 Absolute Neutrophils (1.2-6.7) 10^3/uL 12.47 H Absolute Lymphocytes (1.2-3.4) 10^3/uL 2.15 Absolute Monocytes (0.1-0.8) 10^3/uL 2.33 H Absolute Eosinophils (0.0-0.7) 10^3/uL 0.26 Absolute Basophils (0.0-0.2) 10^3/uL 0.07 RBC Morphology Normal Sodium (136-145) mmol/L 134 L Potassium (3.5-5.1) mmol/L 3.1 L Chloride (98-107) mmol/L 97 L Carbon Dioxide (21.0-32.0) mmol/L 27.9 Anion Gap (3-11) mmol/L 9.1 BUN (7-18) mg/dL 18 Creatinine (0.70-1.30) mg/dL 1.2 Est GFR (CKD-EPI 2020) (mL/min/1.73m2) 64.65 Glucose (74-106) mg/dL 103 Calcium (8.5-10.1) mg/dL 9.5 Total Bilirubin (0.2-1.0) mg/dL 0.8 AST (15-37) U/L 34 ALT (16-63) U/L 47 Alkaline Phosphatase (46-116) U/L 103 Total Protein (6.4-8.2) g/dL 7.4 Albumin (3.4-5.0) g/dL 3.1 L COVID-19 Source Nasopharynx SARS-CoV-2 (PCR) (Negative) Negative Influenza Type A (PCR) (Negative) Negative Influenza Type B (PCR) (Negative) Negative RSV (PCR) (Negative) Negative
[2022-04-23] MEDS: Benzonatate 100 MG CAP PO (22:26)
[2022-04-23] MEDS: Amoxicillin 875/Clav. 125 TAB PO (22:26)
--- NOTE | 2022-04-23 23:03 | NUR.NOTE ---
Referral faxed to [facility] Medical PCP Dr Abebe to f/u 04/25/22, for pneumonia.Nursing Note:
[2022-04-23] MEDS: Amox. 875/Clav. 125, 2 TABS/BTL 1 TAB PO (23:04)
== END 2022-04-23 23:12 | disposition home or self-care (01) ==
PROVIDERS: Emergency Provider Nurse Practitioner Family; PCP Family Medicine
DX: J18.9 Pneumonia, unspecified organism (principal); I10 Essential (primary) hypertension; J45.909 Unspecified asthma, uncomplicated; I48.91 Unspecified atrial fibrillation; Z79.51 Long term (current) use of inhaled steroids; Z20.822 Contact with and (suspected) exposure to COVID-19; Z79.01 Long term (current) use of anticoagulants
CPT/HCPCS: 80053; 87040; 87637; 94640; 96360; 96361; 99284; 71046; 85025; J7620

== ENCOUNTER 2022-05-21 03:30 | Outpatient (CLI) | payer OTHER, SELFPAY ==
[2022-05-21 13:06] LABS: INR 1.9 (0.9-1.1); Prothrombin Time 18.8 sec (9.3-11.0)
== END 2022-05-21 03:31 | disposition home or self-care (01) ==
PROVIDERS: Emergency Medicine; PCP Family Medicine; Visit Provider Family Medicine
DX: I48.20 Chronic atrial fibrillation, unspecified (principal)
CPT/HCPCS: 36415; 85610

== ENCOUNTER 2022-05-29 01:44 | Outpatient (CLI) | payer OTHER, SELFPAY ==
--- NOTE | 2022-05-29 07:15 | DI.RAD_ITS ---
Exam(s) XR CHEST 2V PA LATERAL EXAM: XR CHEST 2V PA LATERAL CLINICAL HISTORY: reassess inflitrates,f/u pneumonia, j18.9. TECHNIQUE: 2D digital imaging was performed. COMPARISON: CR XR CHEST 2V PA LATERAL from 05/08/2018 CR,XR XR CHEST 2V PA LATERAL from 04/23/2022 FINDINGS: 2 views: Again noted is a very large retrocardiac hiatal hernia which measures 15 cm across by 15 cm craniocau theresa. Contains fluid level. Heart size is upper normal. The mediastinum is otherwise dnot widened. Left lung is clear. On the right side there is a 12 x 5 millimeter right upper lobe nodule noted, no t previously present. No other focal abnormalities. IMPRESSION: There is a 12 x 5 millimeter right upper lobe nodule now evident. This was not evident on prior ches t x-rays. Large retrocardiac hiatal hernia again noted. DATA REPOSITORY: RADIATION DOSE DELIVERED:
== END 2022-05-29 02:04 ==
PROVIDERS: PCP Family Medicine; Visit Provider Family Medicine
DX: J18.9 Pneumonia, unspecified organism (principal); R91.1 Solitary pulmonary nodule
CPT/HCPCS: 71046

== ENCOUNTER 2022-05-29 02:28 | Outpatient (CLI) | payer OTHER, SELFPAY ==
[2022-05-29 11:13] LABS: Abs Immature Grans 0.05 10^3/uL (0.0-0.06); Absolute Basophil Count 0.09 10^3/uL (0.0-0.2); Absolute Eosinophil Count 0.23 10^3/uL (0.0-0.7); Absolute Monocyte Count 1.36 10^3/uL (0.1-0.8); Absolute Neutrophil Count 9.32 10^3/uL (1.2-6.7); Basophils % 0.7; Eosinophils % 1.8; HCT 40.2 % (40.0-50.0); HGB 13.5 g/dL (13.5-17.5); Immature Grans % 0.4; Lymphocytes % 15.3; MCH 30.5 pg (27.0-33.0); MCHC 33.6 % (32.0-36.0); MCV 91 fL (80-95); MPV 10.8 fL (8.0-11.0); Monocytes % 10.4; Neutrophils % 71.4; Platelet Count 265 10^3/uL (130-400); RBC 4.43 10^6/uL (4.36-5.78); RDW 13.6 % (11.8-14.1); RDW-SD 45.6 fL; WBC 13.05 10^3/uL (4.4-10.8)
[2022-05-29 11:17] LABS: Albumin 3.3 g/dL (3.4-5.0); Anion Gap 8.8 mmol/L (3-11); CO2 25.2 mmol/L (21.0-32.0); Chloride 101 mmol/L (98-107); INR 1.8 (0.9-1.1); Potassium 4.1 mmol/L (3.5-5.1); Prothrombin Time 17.5 sec (9.3-11.0); Sodium 135 mmol/L (136-145)
== END 2022-05-29 02:29 | disposition home or self-care (01) ==
LOC: LBO 02:28
PROVIDERS: PCP Family Medicine; Visit Provider Family Medicine
DX: D64.9 Anemia, unspecified (principal); E87.1 Hypo-osmolality and hyponatremia; E88.09 Other disorders of plasma-protein metabolism, not elsewhere classified; I10 Essential (primary) hypertension; I48.20 Chronic atrial fibrillation, unspecified
CPT/HCPCS: 36415; 80051; 82040; 85025; 85610

== ENCOUNTER 2022-07-16 02:47 | Outpatient (CLI) | payer OTHER, SELFPAY ==
[2022-07-16 12:30] LABS: ESR 14 mm/hr (0-20)
[2022-07-16 12:33] LABS: C-Reactive Protein 2.33 mg/dL (0.0-0.3); Magnesium 1.6 mg/dL (1.8-2.4)
== END 2022-07-16 02:48 | disposition home or self-care (01) ==
LOC: LOS 02:47
PROVIDERS: PCP Family Medicine; Visit Provider Family Medicine
DX: E83.42 Hypomagnesemia (principal); M79.18 Myalgia, other site; R41.89 Other symptoms and signs involving cognitive functions and awareness
CPT/HCPCS: 36415; 85652; 83735; 86140

== ENCOUNTER 2022-07-23 14:55 | Outpatient (CLI) | payer OTHER, SELFPAY ==
--- NOTE | 2022-07-23 12:01 | DI.RAD_ITS ---
Exam(s) XR CHEST 2V PA LATERAL EXAM: XR CHEST 2V PA LATERAL CLINICAL HISTORY: reassess RUL nodule, chronic cough, R05.3 TECHNIQUE: 2D digital imaging was performed of the chest. Two images were obtained. PA and lateral views were obtained. COMPARISON: CR XR CHEST 2V PA LATERAL from 05/29/2022 FINDINGS: MEDIASTINUM: There is a large hiatal hernia. HEART: Normal. PULMONARY VASCULATURE: Normal. LUNGS: Clear. The small density seen above the right clavicle in the right lung apex is not visualiz ed on the current examination. No pulmonary nodules are seen. PLEURAL SPACE: No pleural effusion or pneumothorax. BONE:Within normal limits for the patient's age. OTHER FINDINGS:Normal. IMPRESSION: 1. No acute pulmonary findings. 2. The previously seen density in the right lung apex is not visualized on the current examination. DATA REPOSITORY: RADIATION DOSE DELIVERED:
== END 2022-07-23 15:15 ==
LOC: DI 14:55
PROVIDERS: PCP Family Medicine; Visit Provider Family Medicine
DX: R05.3 Chronic cough (principal); R91.8 Other nonspecific abnormal finding of lung field
CPT/HCPCS: 71046

== ENCOUNTER 2022-08-13 13:23 | Outpatient (CLI) | payer OTHER, SELFPAY ==
[2022-08-13 13:49] LABS: Prothrombin Time 30.2 sec (9.3-11.0)
== END 2022-08-13 13:24 | disposition home or self-care (01) ==
LOC: LBO 13:23
PROVIDERS: PCP Family Medicine; Visit Provider Family Medicine
DX: I48.91 Unspecified atrial fibrillation (principal); Z79.01 Long term (current) use of anticoagulants
CPT/HCPCS: 36415; 85610

== ENCOUNTER 2022-09-11 02:57 | Outpatient (CLI) | payer OTHER, SELFPAY ==
[2022-09-11 12:31] LABS: INR 1.9 (0.9-1.1)
== END 2022-09-11 02:58 | disposition home or self-care (01) ==
LOC: LOS 02:57
PROVIDERS: PCP Family Medicine; Visit Provider Family Medicine
DX: I48.20 Chronic atrial fibrillation, unspecified (principal); Z79.01 Long term (current) use of anticoagulants
CPT/HCPCS: 36415; 85610

== ENCOUNTER 2022-09-26 01:21 | Outpatient (CLI) | payer OTHER, SELFPAY ==
[2022-09-26 12:38] LABS: INR 2.5 (0.9-1.1); Prothrombin Time 25.3 sec (9.3-11.0)
== END 2022-09-26 01:22 | disposition home or self-care (01) ==
LOC: LOS 01:21
PROVIDERS: PCP Family Medicine; Visit Provider Family Medicine
DX: I48.91 Unspecified atrial fibrillation (principal); Z79.01 Long term (current) use of anticoagulants
CPT/HCPCS: 36415; 85610

== ENCOUNTER 2022-10-17 01:48 | Outpatient (CLI) | payer OTHER, SELFPAY ==
[2022-10-17 12:42] LABS: INR 1.9 (0.9-1.1); Prothrombin Time 19.5 sec (9.3-11.0)
== END 2022-10-17 01:49 | disposition home or self-care (01) ==
LOC: LOS 01:48
PROVIDERS: PCP Family Medicine; Visit Provider Family Medicine
DX: I48.91 Unspecified atrial fibrillation (principal)
CPT/HCPCS: 36415; 85610

== ENCOUNTER 2022-10-29 10:42 | Outpatient (CLI) | payer OTHER, SELFPAY ==
[2022-10-29 10:51] LABS: INR 2.8 (0.9-1.1); Prothrombin Time 28.4 sec (9.3-11.0)
== END 2022-10-29 10:43 | disposition home or self-care (01) ==
LOC: LBO 10:43
PROVIDERS: PCP Family Medicine; Visit Provider Family Medicine
DX: I48.91 Unspecified atrial fibrillation (principal)
CPT/HCPCS: 36415; 85610

== ENCOUNTER 2022-11-10 02:49 | Outpatient (CLI) | payer OTHER, SELFPAY ==
[2022-11-10 12:49] LABS: Prothrombin Time 30.4 sec (9.3-11.0)
== END 2022-11-10 02:50 | disposition home or self-care (01) ==
LOC: LOS 02:49
PROVIDERS: PCP Family Medicine; Visit Provider Family Medicine
DX: I48.91 Unspecified atrial fibrillation (principal); Z79.01 Long term (current) use of anticoagulants
CPT/HCPCS: 36415; 85610

== ENCOUNTER 2022-11-13 14:27 | Emergency (ER) | payer OTHER, SELFPAY ==
[2022-11-13 14:32] VITALS: BP 154/91; PULSE 77; RESP 18; TEMP 37; O2SAT 97
--- NOTE | 2022-11-13 15:51 | W.ED.GENAD ---
Discharge Plan Disposition Patient Disposition: Home Discharge Details Clinical Impression: Acute urinary retention, Supratherapeutic INR Primary Care Provider: Angel Abebe ED Provider: Dylan Madison Selden Meds and New Rx's Prescriptions: Continued hydrocortisone [Preparation H Hydrocortisone] 1 % cream 1 applic topical BID PRN losartan 100 mg tablet 100 mg PO DAILY Qty: 90 3RF levalbuterol tartrate [Xopenex HFA] 45 mcg/actuation HFA aerosol inhaler 2 puff Inhalation QID PRN (Reason: shortness of breath or wheezing) Qty: 3 4RF fluticasone propion-salmeterol [Advair Diskus] 500-50 mcg/dose blister with device 1 ea Inhalation BID Qty: 3 4RF omeprazole 20 mg capsule,delayed release(DR/EC) 20 mg PO DAILY Qty: 90 4RF warfarin 5 mg tablet See Rx Instructions PO .COMPLEX Qty: 100 3RF Protocol: Dose Management Condition: Thursday Dose/Route: 5 mg Instruction: 1 x 5 mg tablet Condition: Thursday Dose/Route: 5 mg Instruction: 1 x 5 mg tablet Condition: Thursday Dose/Route: 5 mg Instruction: 1 x 5 mg tablet Condition: Thursday Dose/Route: 5 mg Instruction: 1 x 5 mg tablet Condition: Dose/Route: 5 mg Instruction: 1 x 5 mg tablet Condition: Thursday Dose/Route: 2.5 mg Instruction: 0.5 x 5 mg tablets Condition: Thursday Dose/Route: 5 mg Instruction: 1 x 5 mg tablet Protocol Text: Adjustment Start Date: Thursday11/10/22 INR Value: 3.0 INR Date: 11/10/22 Recheck Date: 11/17/22 Dose Instruction: 0-2 tabs PO Daily; DOSE BASED ON INR Rx Instructions: 0-2 tabs PO Daily as directed by [facility]; DOSE BASED ON INR prednisone 20 mg tablet 10 - 20 mg PO DAILY Qty: 18 0RF Rx Instructions: 1 tab/day for 5 days, then 1/2 tab/day for 25 days furosemide 20 mg tablet 20 mg PO DAILY PRN (Reason: edema) Qty: 30 0RF amlodipine 5 mg tablet 5 mg PO DAILY Qty: 90 4RF tamsulosin 0.4 mg capsule 0.4 mg PO DAILY furosemide [Lasix] 40 mg tablet 40 mg PO DAILY PRN (Reason: edema) Qty: 90 3RF donepezil 10 mg tablet 10 mg PO DAILY Qty: 90 3RF digoxin 250 mcg (0.25 mg) tablet 250 mcg PO DAILY Qty: 90 3RF magnesium oxide [MagOx] 400 mg (241.3 mg magnesium) tablet 400 mg PO BID Qty: 180 4RF metoprolol tartrate 25 mg tablet 12.5 mg PO BID Qty: 90 3RF Rx Instructions: take an additional half tablet as needed for sustained HR over 120 bpm acetaminophen [Mapap Extra Strength] 500 MG tablet 1,000 mg PO Q6H PRN PRN Patient Comments: Pt states he took it a couple of weeks ago Discharge Instructions Instructions: Urinary Retention in Men (ED) Additional Instructions: Please read all of the information that accompanies these instructions. You were seen in the emergency department for your abdominal pain. You were found to have acute urinary retention. A Paz catheter was placed. Also please note that your INR was 3.4. Please hold you are warfarin tonight. Please call the urology team at [facility] for follow-up next week. Please return to the emergency department if develop fevers chills nausea vomiting or do not make urine at least once every 8 hours while awake. Discharge Data Discharge Date/Time-TO BE ENTERED AT DEPARTURE: 11/13/22 18:02 Medical Decision Making This is a 73-year-old normothermic and not tachycardic 72-year-old male with BPH and lower urinary tract symptoms with recurrent history most concerning for acute urinary retention. No pain out of proportion to suggest Hilda's gangrene. No nausea nor vomiting to suggest systemic symptoms. Patient is on warfarin for atrial fibrillation so we will obtain INR basic labs to ensure the patient has not developed any obstructive uropathy and plan on reinserting patient's Paz catheter as he had greater than 200 cc of urine on postvoid residual bladder scan per nursing. We will ensure that he does not have any clot hematuria that would require bladder irrigation. We will touch base with urology to arrange close outpatient follow-up. Will obtain urinalysis to assess for UTI. No flank pain to suggest ureterolithiasis. No abdominal pain to suggest AAA. No right lower quadrant tenderness to suggest appendicitis. No left lower quadrant tenderness to suggest diverticulitis. No perineal pain nor crepitance to suggest Fourniers. 5:26 PM Urinalysis showing moderate blood. Microscopy with 5-10 RBCs per high-powered field. Supratherapeutic INR at 3.4. Basic metabolic panel with no GUILLERMINA. Very mild hyperglycemia. No anion gap to suggest DKA. Normal bicarbonate. CBC with mild leukocytosis improved compared to prior. No anemia. No thrombocytopenia. Patient's Paz catheter has put out approximately 550 cc of urine. I have placed a consult with [facility] urology. Patient will call for urology follow-up.W e will provide ED return indications including any dysuria frequency fevers chills or any current urinary retention. Given no gross hematuria my suspicion for clot hematuria is low so we will defer CBI at this point time. 5:[address] Navarro from urology at [facility]. He reported that he could not help arrange expedited outpatient follow-up but he advised that the patient call his urology provider in the morning or send a message through the [facility] portal. I passed on his recommendations the patient. I advised hold this evening warafin dose and following up w/PCP concerning INR recheck. Chronic conditions affecting the care of the patient: BPH History obtained from an outside historian: patient's External record review: [facility] EMR Medications: N/A Social determinants of health affecting disposition: N/A Management discussed with: urology at [facility] Treatment/interventions considered: hospitalization but deferred in favor of an empiric trial of expectant outpatient managment Response to therapies provided: imported pain sp Paz HPI General Date/Time Provider Initiated Documentation: 11/13/22 15:50. HPI Narrative: This is a 72-year-old male with history of BPH and lower urinary tract symptoms s/p spontaneous voiding trial yesterday with urology at [facility] after having a catheter for the past year now with decreased urine output since 4 AM this morning concerning for recurrent obstruction with retention. No fevers. Denies abdominal pain. No chest pain. No dysuria nor frequency. He is on warfarin for atrial fibrillation. He had a catheter in place for a year until yesterday. He arrives with his . He reports that he is uncircumcised. He has not noticed any rash to his penis. He has no pain in his penis or his perineum. Related Data Home Medications Medication Instructions Recorded Confirmed acetaminophen 500 mg tablet (Mapap 1,000 mg PO Q6H PRN PRN 02/07/13 11/13/22 Extra Strength) hydrocortisone 1 % topical cream 1 applic topical BID PRN 04/05/20 11/13/22 (Preparation H Hydrocortisone) furosemide 20 mg tablet 20 mg PO DAILY PRN edema #30 tabs 12/15/20 11/13/22 fluticasone 500 mcg-salmeterol 50 1 ea inhalation BID ##3 01/08/21 11/13/22 mcg/dose blistr powdr for inhalation (Advair Diskus) levalbuterol tartrate 45 2 puff inhalation QID PRN 01/08/21 11/13/22 mcg/actuation aerosol inhaler shortness of breath or wheezing ##3 (Xopenex HFA) losartan 100 mg tablet 100 mg PO DAILY #90 tabs 01/16/22 11/13/22 amlodipine 5 mg tablet 5 mg PO DAILY #90 tab-caps 01/21/22 11/13/22 tamsulosin 0.4 mg capsule 0.4 mg PO DAILY 02/20/22 11/13/22 furosemide 40 mg tablet (Lasix) 40 mg PO DAILY PRN edema #90 tabs 04/22/22 11/13/22 donepezil 10 mg tablet 10 mg PO DAILY #90 tabs 05/13/22 11/13/22 digoxin 250 mcg (0.25 mg) tablet 250 mcg PO DAILY #90 tabs 05/15/22 11/13/22 omeprazole 20 mg capsule,delayed 20 mg PO DAILY #90 tab-caps 07/01/22 11/13/22 release magnesium oxide 400 mg (241.3 mg 400 mg PO BID #180 tabs 07/28/22 11/13/22 magnesium) tablet (MagOx) prednisone 20 mg tablet 10 - 20 mg PO DAILY #18 tabs 08/27/22 11/13/22 warfarin 5 mg tablet See Rx Instructions PO .COMPLEX 08/27/22 11/13/22 #100 tab-caps metoprolol tartrate 25 mg tablet 12.5 mg PO BID #90 tab-caps 10/18/22 11/13/22 Previous Rx's Medication Instructions Recorded furosemide 20 mg tablet 20 mg PO DAILY PRN edema #30 tabs 12/15/20 fluticasone 500 mcg-salmeterol 50 1 ea inhalation BID ##3 01/08/21 mcg/dose blistr powdr for inhalation (Advair Diskus) levalbuterol tartrate 45 2 puff inhalation QID PRN 01/08/21 mcg/actuation aerosol inhaler shortness of breath or wheezing ##3 (Xopenex HFA) losartan 100 mg tablet 100 mg PO DAILY #90 tabs 01/16/22 amlodipine 5 mg tablet 5 mg PO DAILY #90 tab-caps 01/21/22 furosemide 40 mg tablet (Lasix) 40 mg PO DAILY PRN edema #90 tabs 04/22/22 donepezil 10 mg tablet 10 mg PO DAILY #90 tabs 05/13/22 digoxin 250 mcg (0.25 mg) tablet 250 mcg PO DAILY #90 tabs 05/15/22 omeprazole 20 mg capsule,delayed 20 mg PO DAILY #90 tab-caps 07/01/22 release magnesium oxide 400 mg (241.3 mg 400 mg PO BID #180 tabs 07/28/22 magnesium) tablet (MagOx) prednisone 20 mg tablet 10 - 20 mg PO DAILY #18 tabs 08/27/22 warfarin 5 mg tablet See Rx Instructions PO .COMPLEX 08/27/22 #100 tab-caps metoprolol tartrate 25 mg tablet 12.5 mg PO BID #90 tab-caps 10/18/22 Allergies Allergy/AdvReac Type Severity Reaction Status Date / Time doxycycline Allergy Intermediate FACIAL RASH Verified 11/13/22 14:39 Tetracyclines Allergy Intermediate FACIAL RASH Verified 11/13/22 14:39 TAMI Inhibitors AdvReac Intermediate cough Verified 11/13/22 14:39 General Stated Complaint: Urinary DANIA: 3 PFSH All Active Problems (Updated 11/13/22 @ 17:31 by Dylan Madison MD) Acute urinary retention (Acute) Supratherapeutic INR (Acute) Tremor (Acute) Muscle pain (Acute) Low back pain (Acute) Lung nodule (Acute) Chronic atrial fibrillation (Chronic) GERD (gastroesophageal reflux disease) (Chronic) Neurodermatitis (Chronic) Hypomagnesemia (Chronic 08/22/13) Family hx of prostate cancer (Chronic) Essential hypertension (Chronic 02/21/13) Asthma (Chronic) Anticoagulated on warfarin (Chronic) A-fib INR goal 2-3 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) Cellulitis (Acute) Chronic anticoagulation (Acute) Hypotension (Acute) BPH w urinary obs/LUTS (Acute) Dyspnea on exertion (Acute) Daytime sleepiness (Acute) Screening for colon cancer (Acute) Right-sided chest wall pain (Acute) Peripheral edema (Acute) Cognitive change (Acute) Memory impairment (Acute) Urinary retention (Acute) Per [place] urologist Hypoalbuminemia (Acute) Right upper lobe pulmonary nodule (Acute) Elevated white blood cell count (Acute) Hiatal hernia (Chronic) Medical History (Updated 11/13/22 @ 17:31 by Dylan Madison MD) Abnormal weight loss (04/14/12) Asthma Atrial fibrillation Hypertension Surgical History Repair of inguinal hernia LEFT Status post inguinal hernia repair Family History Mother Diabetes Stroke Alcohol abuse Hypertension Father Asthma Prostate cancer Heart disease Sister Alzheimer disease Sister Essential hypertension Depression Sister No problems noted. Sister No problems noted. Sister No problems noted. Brother Diabetes Essential hypertension Stroke Brother No problems noted. Son ADHD Alcohol abuse Former Daughter Alcohol abuse Depression Hypertension Other Family hx of prostate cancer Social History Smoking/Tobacco Use Status: Former Tobacco Use Second Hand Exposure: Yes Smoking risk assessment performed?: Yes Alcohol Intake: former Drug use: Never Substance use type: does not use Household members: spouse Housing: house Communication Needs: Hard of Hearing, Corrective Lenses and Cannot Read Do you need help understanding health information?: Often Pets and animals: Yes (chicken, ernesto) Pets and animals: cat(s), farm animals and other Details: Ernesto Sexually active: No Do you think of yourself as: straight/heterosexual Current gender identity: male What is your relationship status?: How often do you talk on the phone with friends or family?: twice per week How often do you get together with friends or relatives?: three or more times per week How often do you attend anabaptism or roman catholic services?: decline to answer Do you belong to any clubs or organized social groups?: no Panel score (0-1 are the most socially isolated patients): 2 Frequency: daily Christine/Cheondoism: Jehovah'S Witness Special christine needs: No Seatbelt use: always Drive intox or ride w/intox experienced truck driver: No Do you feel safe at home: Yes Do you feel safe in your relationship?: Yes Exam Narrative Exam Narrative: General: Well-appearing in no acute distress speaking in complete sentences. Head: Normocephalic, atraumatic. Eye: Extraocular eye movements intact. No conjunctival injection. No scleral icterus. Ear, nose, mouth, throat: Grossly normal inspection. Normal voice, handling secretions normally. Neck: Trachea midline. Cardiovascular: Well-perfused distal extremities. Respiratory: Nonlabored respiration. Gastrointestinal: Nondistended abdomen.Minimal suprapubic tenderness. No rebound. No guarding. No right lower quadrant tenderness : Uncircumcised penis. Trace urine at the urethral meatus. No crepitance. No pain out of proportion. No rashes to the perineum. Musculoskeletal: No edema. Moving all 4 extremities spontaneously. Skin: Normal for age and race, grossly normal temperature and turgor. No acute rash. Neurologic: Alert and appropriate, no apparent acute deficits. Psychiatric: Mood and manner are appropriate. Grooming and personal hygiene are appropriate. Course Vital Signs Vital signs: Vital Signs Temperature 37.0 C 11/13/22 14:32 Pulse 77 11/13/22 14:32 Respiratory Rate 18 11/13/22 14:32 Blood Pressure 154/91 H 11/13/22 14:32 Pulse Oximetry 97 11/13/22 14:32 Temperature 37.0 C 11/13/22 14:32 Pulse 77 11/13/22 14:32 Respiratory Rate 18 11/13/22 14:32 Blood Pressure 154/91 H 11/13/22 14:32 Blood Pressure Position Sitting 11/13/22 14:32 Pulse Oximetry 97 11/13/22 14:32 Oxygen Delivery Method Room Air 11/13/22 14:32 Oxygen Flow Rate 0 11/13/22 14:32 Pain Level 8 11/13/22 14:32
[2022-11-13 16:39] LABS: Abs Immature Grans 0.07 10^3/uL (0.0-0.06); Absolute Basophil Count 0.09 10^3/uL (0.0-0.2); Absolute Eosinophil Count 0.21 10^3/uL (0.0-0.7); Absolute Lymphocyte Count 1.42 10^3/uL (1.2-3.4); Absolute Neutrophil Count 9.25 10^3/uL (1.2-6.7); Basophils % 0.7; Eosinophils % 1.7; HCT 43.2 % (40.0-50.0); HGB 14.8 g/dL (13.5-17.5); Immature Grans % 0.6; Lymphocytes % 11.6; MCH 30.2 pg (27.0-33.0); MCHC 34.3 % (32.0-36.0); MCV 88 fL (80-95); MPV 10.9 fL (8.0-11.0); Monocytes % 9.7; Neutrophils % 75.7; Platelet Count 250 10^3/uL (130-400); RDW 13.5 % (11.8-14.1); RDW-SD 43.7 fL; WBC 12.22 10^3/uL (4.4-10.8)
[2022-11-13] MEDS: Lidocaine 2% Jelly 6 ML SYR (16:40)
[2022-11-13 16:42] LABS: Absolute Monocyte Count 1.19 10^3/uL (0.1-0.8)
[2022-11-13 16:48] LABS: INR 3.4 (0.9-1.1)
[2022-11-13 16:52] LABS: Anion Gap 10.5 mmol/L (3-11); BUN 17 mg/dL (7-18); CO2 24.5 mmol/L (21.0-32.0); Calcium 9.6 mg/dL (8.5-10.1); Chloride 101 mmol/L (98-107); Estimated GFR 79.97 (mL/min/1.73m2); Glucose 115 mg/dL (74-106); Potassium 3.9 mmol/L (3.5-5.1); Sodium 136 mmol/L (136-145)
[2022-11-13 16:59] LABS: Bilirubin Negative (Negative); Blood Moderate (Negative); Clarity Clear (Clear); Glucose Negative (Negative); Ketones Negative (Negative); Leukocyte Esterase Negative (Negative); Nitrite Negative (Negative); Specific Gravity 1.015 (1.005-1.025); Urobilinogen 0.2 mg/dL (Up to 0.2); pH 5.5 (5-8)
[2022-11-13 17:06] LABS: Bacteria Few HPF (Negative); C & S Indicated? Yes; Casts Negative LPF (Negative); Crystals Negative HPF (Negative); Epithelial Cells Rare HPF (Negative); Mucus Negative (Negative); Other Cells Rare Transitional (Negative)
[2022-11-13 18:02] VITALS: BP 168/97; PULSE 75; TEMP 36.6; O2SAT 97
== END 2022-11-13 18:02 | disposition home or self-care (01) ==
PROVIDERS: Emergency Provider Emergency Medicine; PCP Family Medicine
DX: R33.9 Retention of urine, unspecified (principal); R33.8 Other retention of urine; R79.1 Abnormal coagulation profile; I48.91 Unspecified atrial fibrillation; I10 Essential (primary) hypertension; Z79.01 Long term (current) use of anticoagulants; Z79.899 Other long term (current) drug therapy
CPT/HCPCS: 36415; 51702; 80048; 99283; 81003; 81015; 85025; 85610; 87086

== ENCOUNTER 2022-11-18 02:45 | Outpatient (CLI) | payer OTHER, SELFPAY ==
[2022-11-18 12:20] LABS: INR 2.4 (0.9-1.1); Prothrombin Time 24.4 sec (9.3-11.0)
== END 2022-11-18 02:46 | disposition home or self-care (01) ==
LOC: LOS 02:49
PROVIDERS: PCP Family Medicine; Visit Provider Family Medicine
DX: I48.91 Unspecified atrial fibrillation (principal); Z79.01 Long term (current) use of anticoagulants
CPT/HCPCS: 36415; 85610

== ENCOUNTER 2022-12-04 04:34 | Outpatient (CLI) | payer OTHER, SELFPAY ==
[2022-12-04 14:30] LABS: INR 3.2 (0.9-1.1); Prothrombin Time 32.5 sec (9.3-11.0)
== END 2022-12-04 04:35 | disposition home or self-care (01) ==
LOC: LOS 04:34
PROVIDERS: PCP Family Medicine; Visit Provider Family Medicine
DX: I48.91 Unspecified atrial fibrillation (principal); Z79.01 Long term (current) use of anticoagulants
CPT/HCPCS: 36415; 85610

== ENCOUNTER 2022-12-12 16:41 | Outpatient (CLI) | payer OTHER, SELFPAY ==
[2022-12-12 16:10] LABS: INR 2.5 (0.9-1.1)
== END 2022-12-12 16:42 | disposition home or self-care (01) ==
LOC: LBO 16:41
PROVIDERS: PCP Family Medicine; Visit Provider Family Medicine
DX: I48.91 Unspecified atrial fibrillation (principal)
CPT/HCPCS: 36415; 85610

== ENCOUNTER 2022-12-31 19:51 | Outpatient (CLI) | payer OTHER, SELFPAY ==
[2022-12-31 15:17] LABS: INR 1.5 (0.9-1.1); Prothrombin Time 15.3 sec (9.3-11.0)
== END 2022-12-31 19:52 | disposition home or self-care (01) ==
LOC: LBO 19:52
PROVIDERS: PCP Family Medicine; Visit Provider Family Medicine
DX: I48.91 Unspecified atrial fibrillation (principal); Z79.01 Long term (current) use of anticoagulants
CPT/HCPCS: 36415; 85610

== ENCOUNTER 2023-01-09 01:40 | Outpatient (CLI) | payer OTHER, SELFPAY ==
[2023-01-09 12:33] LABS: INR 1.5 (0.9-1.1); Prothrombin Time 15.1 sec (9.3-11.0)
== END 2023-01-09 01:41 | disposition home or self-care (01) ==
LOC: LOS 01:40
PROVIDERS: PCP Family Medicine; Visit Provider Family Medicine
DX: I48.91 Unspecified atrial fibrillation (principal); Z79.01 Long term (current) use of anticoagulants
CPT/HCPCS: 36415; 85610

== ENCOUNTER 2023-01-19 16:43 | Outpatient (CLI) | payer OTHER, SELFPAY ==
[2023-01-19 16:25] LABS: INR 2.5 (0.9-1.1); Prothrombin Time 25.6 sec (9.3-11.0)
== END 2023-01-19 16:44 | disposition home or self-care (01) ==
LOC: LBO 16:44
PROVIDERS: PCP Family Medicine; Visit Provider Family Medicine
DX: I48.91 Unspecified atrial fibrillation (principal); Z79.01 Long term (current) use of anticoagulants
CPT/HCPCS: 36415; 85610

== ENCOUNTER 2023-01-29 15:59 | Outpatient (CLI) | payer OTHER, SELFPAY ==
[2023-01-29 15:12] LABS: INR 2.9 (0.9-1.1); Prothrombin Time 29.5 sec (9.3-11.0)
== END 2023-01-29 16:00 | disposition home or self-care (01) ==
LOC: LBO 16:00
PROVIDERS: PCP Family Medicine; Visit Provider Family Medicine
DX: I48.91 Unspecified atrial fibrillation (principal); Z79.01 Long term (current) use of anticoagulants
CPT/HCPCS: 36415; 85610

== ENCOUNTER 2023-01-30 11:56 | Emergency (ER) | payer OTHER, SELFPAY ==
[2023-01-30 12:12] VITALS: BP 163/114; PULSE 67; RESP 18; TEMP 36.5; O2SAT 98
--- NOTE | 2023-01-31 09:50 | NUR.NOTE ---
Per status event pt LWBS @ 2007 Nursing Note:
== END 2023-01-30 13:52 | disposition left against medical advice (07) ==
LOC: ER 12:19
PROVIDERS: PCP Family Medicine
DX: Z53.21 Procedure and treatment not carried out due to patient leaving prior to being seen by health care provider (principal)

== ENCOUNTER 2023-01-31 12:34 | Emergency (ER) | payer OTHER, SELFPAY ==
[2023-01-31 12:28] VITALS: BP 148/97; PULSE 68; RESP 20; TEMP 36.8; O2SAT 98
[2023-01-31] MEDS: Oxymetazolone 0.05% SPRAY 15 ML BTL NS (13:15)
[2023-01-31] MEDS: Tranexamic Acid 1,000 MG/10 ML VIAL 500 MG NS (13:16)
--- NOTE | 2023-01-31 13:25 | ED.GENADUL_ITS ---
Discharge Plan Disposition Patient Disposition: Home Condition: Improving Discharge Details Chief Complaint: Epistaxis Clinical Impression: Epistaxis Primary Care Provider: Angel Abebe ED Provider: Daljit Oconnor Home Meds and New Rx's Prescriptions: No Action hydrocortisone [Preparation H Hydrocortisone] 1 % cream 1 applic topical BID PRN levalbuterol tartrate [Xopenex HFA] 45 mcg/actuation HFA aerosol inhaler 2 puff Inhalation QID PRN (Reason: shortness of breath or wheezing) Qty: 3 4RF fluticasone propion-salmeterol [Advair Diskus] 500-50 mcg/dose blister with device 1 ea Inhalation BID Qty: 3 4RF omeprazole 20 mg capsule,delayed release(DR/EC) 20 mg PO DAILY Qty: 90 4RF prednisone 20 mg tablet 10 - 20 mg PO DAILY Qty: 18 0RF Rx Instructions: 1 tab/day for 5 days, then 1/2 tab/day for 25 days furosemide 20 mg tablet 20 mg PO DAILY PRN (Reason: edema) Qty: 30 0RF amlodipine 5 mg tablet 5 mg PO DAILY Qty: 90 4RF tamsulosin 0.4 mg capsule 0.4 mg PO DAILY furosemide [Lasix] 40 mg tablet 40 mg PO DAILY PRN (Reason: edema) Qty: 90 3RF donepezil 10 mg tablet 10 mg PO DAILY Qty: 90 3RF digoxin 250 mcg (0.25 mg) tablet 250 mcg PO DAILY Qty: 90 3RF magnesium oxide [MagOx] 400 mg (241.3 mg magnesium) tablet 400 mg PO BID Qty: 180 4RF metoprolol tartrate 25 mg tablet 12.5 mg PO BID Qty: 90 3RF Rx Instructions: take an additional half tablet as needed for sustained HR over 120 bpm losartan 100 mg tablet 100 mg PO DAILY Qty: 90 3RF warfarin 5 mg tablet See Rx Instructions PO .COMPLEX Qty: 100 3RF Protocol: Dose Management Condition: Thursday Dose/Route: 5 mg Instruction: 1 x 5 mg tablet Condition: Thursday Dose/Route: 5 mg Instruction: 1 x 5 mg tablet Condition: Thursday Dose/Route: 5 mg Instruction: 1 x 5 mg tablet Condition: Thursday Dose/Route: 5 mg Instruction: 1 x 5 mg tablet Condition: Dose/Route: 5 mg Instruction: 1 x 5 mg tablet Condition: Thursday Dose/Route: 5 mg Instruction: 1 x 5 mg tablet Condition: Thursday Dose/Route: 5 mg Instruction: 1 x 5 mg tablet Protocol Text: Adjustment Start Date: 01/29/23 INR Value: 2.9 INR Date: 01/29/23 Recheck Date: 02/12/23 Dose Instruction: 0-2 tabs PO Daily; DOSE BASED ON INR Rx Instructions: 0-2 tabs PO Daily as directed by [facility]; DOSE BASED ON INR acetaminophen [Mapap Extra Strength] 500 MG tablet 1,000 mg PO Q6H PRN PRN Patient Comments: Pt states he took it a couple of weeks ago Discharge Instructions Instructions: Nosebleed (ED) Medical Decision Making 72-year-old male presents with resolved epistaxis. Patient is on Coumadin, held his last dose. Most recent INR on 01/29 is 2.9. Hemodynamically stable afebrile nontoxic. Will administer Afrin and TXA intranasally. Will give home care instructions and return precautions. 13: 41 patient remains free of epistaxis after Afrin and TXA administration. Home care instructions and return precautions given HPI General Date/Time Provider Initiated Documentation: 01/31/23 12:37 . HPI Narrative: 72-year-old male on Coumadin presents with atraumatic epistaxis. Related Data Home Medications Medication Instructions Recorded Confirmed acetaminophen 500 mg tablet (Mapap 1,000 mg PO Q6H PRN PRN 02/07/13 11/13/22 Extra Strength) hydrocortisone 1 % topical cream 1 applic topical BID PRN 04/05/20 11/13/22 (Preparation H Hydrocortisone) furosemide 20 mg tablet 20 mg PO DAILY PRN edema #30 tabs 12/15/20 11/13/22 fluticasone 500 mcg-salmeterol 50 1 ea inhalation BID ##3 01/08/21 11/13/22 mcg/dose blistr powdr for inhalation (Advair Diskus) levalbuterol tartrate 45 2 puff inhalation QID PRN 01/08/21 11/13/22 mcg/actuation aerosol inhaler shortness of breath or wheezing ##3 (Xopenex HFA) amlodipine 5 mg tablet 5 mg PO DAILY #90 tab-caps 01/21/22 11/13/22 tamsulosin 0.4 mg capsule 0.4 mg PO DAILY 02/20/22 11/13/22 furosemide 40 mg tablet (Lasix) 40 mg PO DAILY PRN edema #90 tabs 04/22/22 11/13/22 donepezil 10 mg tablet 10 mg PO DAILY #90 tabs 05/13/22 11/13/22 digoxin 250 mcg (0.25 mg) tablet 250 mcg PO DAILY #90 tabs 05/15/22 11/13/22 omeprazole 20 mg capsule,delayed 20 mg PO DAILY #90 tab-caps 07/01/22 11/13/22 release magnesium oxide 400 mg (241.3 mg 400 mg PO BID #180 tabs 07/28/22 11/13/22 magnesium) tablet (MagOx) prednisone 20 mg tablet 10 - 20 mg PO DAILY #18 tabs 08/27/22 11/13/22 metoprolol tartrate 25 mg tablet 12.5 mg PO BID #90 tab-caps 10/18/22 11/13/22 losartan 100 mg tablet 100 mg PO DAILY #90 tabs 01/20/23 warfarin 5 mg tablet See Rx Instructions PO .COMPLEX 01/21/23 #100 tab-caps Previous Rx's Medication Instructions Recorded furosemide 20 mg tablet 20 mg PO DAILY PRN edema #30 tabs 12/15/20 fluticasone 500 mcg-salmeterol 50 1 ea inhalation BID ##3 01/08/21 mcg/dose blistr powdr for inhalation (Advair Diskus) levalbuterol tartrate 45 2 puff inhalation QID PRN 01/08/21 mcg/actuation aerosol inhaler shortness of breath or wheezing ##3 (Xopenex HFA) amlodipine 5 mg tablet 5 mg PO DAILY #90 tab-caps 01/21/22 furosemide 40 mg tablet (Lasix) 40 mg PO DAILY PRN edema #90 tabs 04/22/22 donepezil 10 mg tablet 10 mg PO DAILY #90 tabs 05/13/22 digoxin 250 mcg (0.25 mg) tablet 250 mcg PO DAILY #90 tabs 05/15/22 omeprazole 20 mg capsule,delayed 20 mg PO DAILY #90 tab-caps 07/01/22 release magnesium oxide 400 mg (241.3 mg 400 mg PO BID #180 tabs 07/28/22 magnesium) tablet (MagOx) prednisone 20 mg tablet 10 - 20 mg PO DAILY #18 tabs 08/27/22 metoprolol tartrate 25 mg tablet 12.5 mg PO BID #90 tab-caps 10/18/22 losartan 100 mg tablet 100 mg PO DAILY #90 tabs 01/20/23 warfarin 5 mg tablet See Rx Instructions PO .COMPLEX 01/21/23 #100 tab-caps Allergies Allergy/AdvReac Type Severity Reaction Status Date / Time doxycycline Allergy Intermediate FACIAL RASH Verified 11/13/22 14:39 Tetracyclines Allergy Intermediate FACIAL RASH Verified 11/13/22 14:39 TAMI Inhibitors AdvReac Intermediate cough Verified 11/13/22 14:39 General Stated Complaint: Epistaxis DANIA: 4 Review of Systems Narrative: Review of Systems Constitutional: negative Eyes: negative ENT: Epistaxis Cardiovascular: negative Respiratory: negative Gastrointestinal: negative : negative Musculoskeletal: negative Skin: negative Neurologic: negative Psych: negative PFSH All Active Problems (Updated 01/31/23 @ 13:41 by Daljit Oconnor MD) Epistaxis (Acute) Tremor (Acute) Muscle pain (Acute) Low back pain (Acute) Lung nodule (Acute) Chronic atrial fibrillation (Chronic) GERD (gastroesophageal reflux disease) (Chronic) Neurodermatitis (Chronic) Hypomagnesemia (Chronic 08/22/13) Family hx of prostate cancer (Chronic) Essential hypertension (Chronic 02/21/13) Asthma (Chronic) Anticoagulated on warfarin (Chronic) A-fib INR goal 2-3 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) Cellulitis (Acute) Chronic anticoagulation (Acute) Hypotension (Acute) BPH w urinary obs/LUTS (Acute) Dyspnea on exertion (Acute) Daytime sleepiness (Acute) Screening for colon cancer (Acute) Right-sided chest wall pain (Acute) Peripheral edema (Acute) Cognitive change (Acute) Memory impairment (Acute) Urinary retention (Acute) Per [place] urologist Hypoalbuminemia (Acute) Right upper lobe pulmonary nodule (Acute) Elevated white blood cell count (Acute) Hiatal hernia (Chronic) Medical History (Updated 01/31/23 @ 13:41 by Daljit Oconnor MD) Abnormal weight loss (04/14/12) Asthma Atrial fibrillation Hypertension Surgical History Repair of inguinal hernia LEFT Status post inguinal hernia repair Family History Mother Diabetes Stroke Alcohol abuse Hypertension Father Asthma Prostate cancer Heart disease Sister Alzheimer disease Sister Essential hypertension Depression Sister No problems noted. Sister No problems noted. Sister No problems noted. Brother Diabetes Essential hypertension Stroke Brother No problems noted. Son ADHD Alcohol abuse Former Daughter Alcohol abuse Depression Hypertension Other Family hx of prostate cancer Social History Smoking/Tobacco Use Status: Former Tobacco Use Second Hand Exposure: Yes Smoking risk assessment performed?: Yes Alcohol Intake: former Drug use: Never Substance use type: does not use Household members: spouse Housing: house Communication Needs: Hard of Hearing, Corrective Lenses and Cannot Read Do you need help understanding health information?: Often Pets and animals: Yes (chicken, ernesto) Pets and animals: cat(s), farm animals and other Details: Ernesto Sexually active: No Do you think of yourself as: straight/heterosexual Current gender identity: male What is your relationship status?: How often do you talk on the phone with friends or family?: twice per week How often do you get together with friends or relatives?: three or more times per week How often do you attend spiritism or anglican services?: decline to answer Do you belong to any clubs or organized social groups?: no Panel score (0-1 are the most socially isolated patients): 2 Frequency: daily Christine/Christianity: Bahai Special christine needs: No Seatbelt use: always 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 Do you feel safe at home: Yes Do you feel safe in your relationship?: Yes Exam Narrative Exam Narrative: Physical Examination General: alert, awake, cooperative, resting comfortably, no acute distress HEENT: normocephalic, atraumatic; PERRL, EOM intact, conjunctiva normal; no nasal discharge; moist mucous membranes, oral and pharyngeal mucosa normal, tolerating secretions; no current epistaxis Neck: supple, trachea midline; full ROM Chest: normal to inspection Respiratory: normal respiratory effort, speaking in full sentences, clear to auscultation, no wheezing, rales or rhonchi Cardiac: regular rate, regular rhythm, S1S2 intact, no murmurs rubs or gallops GI: abdomen soft, non-tender, non-distended; no palpable mass or hepatosplenomegaly Skin: no lesions, rashes or trauma appreciated Neuro: AAOx3, normal speech, moving all extremities Psych: Appropriate mood and affect Course Vital Signs Vital signs: Vital Signs Temperature 36.8 C 01/31/23 12:28 Pulse 68 01/31/23 12:28 Respiratory Rate 20 01/31/23 12:28 Blood Pressure 148/97 H 01/31/23 12:28 Pulse Oximetry 98 01/31/23 12:28 Temperature 36.8 C 01/31/23 12:28 Temperature Source Oral 01/31/23 12:28 Pulse 68 01/31/23 12:28 Respiratory Rate 20 01/31/23 12:28 Blood Pressure 148/97 H 01/31/23 12:28 Blood Pressure Position Sitting 01/31/23 12:28 Pulse Oximetry 98 01/31/23 12:28 Oxygen Delivery Method Room Air 01/31/23 12:28 Oxygen Flow Rate 0 01/31/23 12:28
[2023-01-31 13:52] VITALS: BP 155/78; PULSE 69; RESP 18; O2SAT 98
== END 2023-01-31 14:24 | disposition home or self-care (01) ==
PROVIDERS: Emergency Provider Emergency Medicine; PCP Family Medicine
DX: R04.0 Epistaxis (principal)
CPT/HCPCS: 99283

== ENCOUNTER 2023-02-06 02:01 | Outpatient (CLI) | payer OTHER, SELFPAY ==
[2023-02-06 12:29] LABS: INR 1.7 (0.9-1.1)
== END 2023-02-06 02:02 | disposition home or self-care (01) ==
LOC: LOS 02:01
PROVIDERS: PCP Family Medicine; Visit Provider Family Medicine
DX: I48.91 Unspecified atrial fibrillation (principal); Z79.01 Long term (current) use of anticoagulants
CPT/HCPCS: 36415; 85610

== ENCOUNTER 2023-03-04 18:08 | Outpatient (CLI) | payer OTHER, SELFPAY ==
[2023-02-13 16:18] LABS: INR 2.7 (0.9-1.1)
== END 2023-03-04 18:09 | disposition home or self-care (01) ==
LOC: LBO 18:09
PROVIDERS: PCP Family Medicine; Visit Provider Family Medicine
DX: I48.91 Unspecified atrial fibrillation (principal)
CPT/HCPCS: 36415; 87077; 85610; 87086; 87186

== ENCOUNTER 2023-03-30 19:53 | Outpatient (CLI) | payer OTHER, SELFPAY ==
[2023-03-30 11:49] LABS: Prothrombin Time 37.8 sec (9.1-11.1)
[2023-03-30 11:53] LABS: INR 4.3 (0.9-1.1)
== END 2023-03-30 19:54 | disposition home or self-care (01) ==
LOC: LBO 19:54
PROVIDERS: PCP Family Medicine; Visit Provider Family Medicine
DX: I48.91 Unspecified atrial fibrillation (principal)
CPT/HCPCS: 36415; 85610

== ENCOUNTER 2023-04-07 02:19 | Outpatient (CLI) | payer OTHER, SELFPAY ==
[2023-04-07 13:20] LABS: INR 2.8 (0.9-1.1); Prothrombin Time 25.5 sec (9.1-11.1)
== END 2023-04-07 02:20 | disposition home or self-care (01) ==
LOC: LOS 02:20
PROVIDERS: PCP Family Medicine; Visit Provider Family Medicine
DX: I48.91 Unspecified atrial fibrillation (principal); Z79.01 Long term (current) use of anticoagulants
CPT/HCPCS: 36415; 85610

== ENCOUNTER 2023-04-08 12:38 | Outpatient (CLI) | payer OTHER, SELFPAY ==
[2023-03-20 16:23] LABS: INR 3.2 (0.9-1.1)
== END 2023-04-08 12:39 | disposition home or self-care (01) ==
LOC: LBO 12:39
PROVIDERS: PCP Family Medicine; Visit Provider Family Medicine
DX: I48.91 Unspecified atrial fibrillation (principal)
CPT/HCPCS: 36415; 85610

== ENCOUNTER 2023-04-14 04:34 | Outpatient (CLI) | payer OTHER, SELFPAY ==
[2023-04-14 12:35] LABS: INR 2.9 (0.9-1.1); Prothrombin Time 26.5 sec (9.1-11.1)
[2023-04-14 12:54] LABS: Magnesium 1.6 mg/dL (1.8-2.4)
== END 2023-04-14 04:35 | disposition home or self-care (01) ==
LOC: LOS 04:36
PROVIDERS: PCP Family Medicine; Visit Provider Family Medicine
DX: E83.42 Hypomagnesemia
CPT/HCPCS: 36415; 80162; 83735; 85610

== ENCOUNTER 2023-04-29 01:48 | Outpatient (CLI) | payer OTHER, SELFPAY ==
[2023-04-29 11:12] LABS: INR 3.2 (0.9-1.1); Prothrombin Time 29.2 sec (9.1-11.1)
[2023-04-29 12:01] LABS: Digoxin 0.81 ng/mL (0.90-2.00)
== END 2023-04-29 01:49 | disposition home or self-care (01) ==
LOC: LBO 01:49
PROVIDERS: PCP Family Medicine; Visit Provider Family Medicine
DX: I48.91 Unspecified atrial fibrillation (principal); Z79.01 Long term (current) use of anticoagulants
CPT/HCPCS: 36415; 80162; 85610

== ENCOUNTER 2023-06-01 13:57 | Observation (INO) | payer OTHER, SELFPAY ==
[2023-06-01 14:03] VITALS: BP 165/106; PULSE 69; RESP 17; TEMP 36.8; O2SAT 99
--- NOTE | 2023-06-01 14:12 | ED.GENADUL_ITS ---
HPI General Date/Time Provider Initiated Documentation: 06/01/23 14:12 . HPI Narrative: MDM This is a chronically ill-appearing normothermic and not tachycardic 72-year-old male with head strike on warfarin concerning for the possibility of intracranial hemorrhage for which he will undergo CT head. Patient also has some mild right- sided weakness concerning for the possibility of a CVA. He also has some truncal ataxia and as result he will benefit from an MRI if his CT scan does not show any acute intraparenchymal or axial hemorrhage. Will obtain INR level check his digoxin level and obtain ECG basic labs and troponin. No tonic-clonic activity to suggest benefit from EEG as my suspicion for seizure is low. No nuchal rigidity nor fevers to suggest meningitis I do not feel that the patient requires an EEG. Patient is slightly confused however he is not encephalopathic. He is mildly hypertensive but not a drinker so my suspicion for alcohol withdrawal is low. No pain out of proportion to suggest necrotizing soft tissue infection. No chest pain to suggest PE. No dysuria no frequency so doubt UTI. No abdominal pain so doubt intra-abdominal infection. I considered tPA however the patient is certainly outside of the window and given his warfarin use is not a candidate for systemic thrombolysis. I considered large vessel occlusion however in the absence of any pronator drift in the absence of any dysarthria I felt that large vessel occlusion was less likely so we will def er CT angiogram of head and neck. 3 PM No obvious bleed on my preliminary interpretation of the patient's CT head and as result I ordered a dry MRI to assess for CVA. CBC lacks anemia thrombocytopenia and leukocytosis. Therapeutic INR. 4:11 PM Negative troponin. Basic metabolic panel with no GUILLERMINA. No acute electrolyte abnormalities. Therapeutic digoxin level. MRI brain complete, read pending. 5:[address] Mack who agreed graciously to hospitalize patient. MRI with no acute infarct. Given his weakness and difficulty ambulating I do not feel that he is safe for discharge. He will require a physical therapy evaluation. Chronic conditions affecting the care of the patient: Anticoagulation on warfarin History obtained from an outside historian: Patient's External record review: [facility] [place] [Diagnostic interpretations performed by me: Per my independent interpretation chest x-ray shows:Chest x-ray showing interstitial congestion more prominent compared to 2 years ago. Per my independent interpretation EKG shows: Narrow complex atrial fibrillation at a rate of 54. Normal axis. QTc within normal limits. Inferior and lateral new and more pronounced T wave inversions. No significant ST segment abnormalities. Mild ST segment upsloping slightly more pronounced in V2 and V3 compared to prior. Prior dated 3 years ago. ]Medications: N/A Social determinants of health affecting disposition: N/A Management discussed with: Radiologist hospitalist Treatment/interventions considered: N/A Response to therapies provided: N/A HPI This is a 72-year-old male on warfarin in setting of atrial fibrillation arrived to the emergency department with his following a fall which he sustained nearly 48 hours ago. Patient was reportedly sleeping in bed and fell out of bed onto the floor. He lives in a mobile home and was stuck between a box his bed and the cupboard. He had pain on the right side of his head. Subsequently he has felt weak on his right side. His describes him furniture surfing through their house. He was resistant to coming to the emergency department 2 nights ago and again yesterday as he and his were hosting family members from out of town for a celebration. says that he has been limping and walking off to the side. He has also been losing his balance more frequently. He denies nausea vomiting fevers chills cough chest pain shortness of breath. He does not smoke tobacco, drink alcohol nor use illicits. He does notice some right-sided weakness. Exam General: Chronically ill-appearing in no acute distress speaking in complete sentences. Head: Normocephalic, atraumatic. Eye:[Pupils equal, round reactive to light.] Extraocular eye movements intact. No conjunctival injection. No scleral icterus. Ear, nose, mouth, throat: Grossly normal inspection. Normal voice, handling secretions normally. Neck: Trachea midline. Cardiovascular: Regular slow rate Respiratory: Nonlabored respiration. Clear lungs bilaterally Gastrointestinal: Nondistended abdomen. Soft nontender Musculoskeletal: No edema. Moving all 4 extremities spontaneously. Skin: Normal for age and race, grossly normal temperature and turgor. No acute rash. Neurologic: GCS 14: E4, V4, M6. Cranial nerves II through XII intact grossly. No pronator drift. Mild right-sided dysmetria. Positive Romberg sign. 4 out of 5 right upper extremity strength on hand grasp. 5 out of 5 left upper extremity strength. 4 out of 5 right upper extremity strength on dorsi and plantarflexion at the foot. 5 out of 5 left lower extremity strength. Minor decreased sensation throughout the face right upper and lower extremity compared to left approximately 75%. Related Data Home Medications Medication Instructions Recorded Confirmed acetaminophen 500 mg tablet (Mapap 1,000 mg PO Q6H PRN PRN 02/07/13 06/01/23 Extra Strength) hydrocortisone 1 % topical cream 1 applic topical BID PRN 04/05/20 06/01/23 (Preparation H Hydrocortisone) furosemide 20 mg tablet 20 mg PO DAILY PRN edema #30 tabs 12/15/20 06/01/23 fluticasone 500 mcg-salmeterol 50 1 ea inhalation BID ##3 01/08/21 06/01/23 mcg/dose blistr powdr for inhalation (Advair Diskus) levalbuterol tartrate 45 2 puff inhalation QID PRN 01/08/21 06/01/23 mcg/actuation aerosol inhaler shortness of breath or wheezing ##3 (Xopenex HFA) tamsulosin 0.4 mg capsule 0.4 mg PO DAILY 02/20/22 06/01/23 magnesium oxide 400 mg (241.3 mg 400 mg PO BID #180 tabs 07/28/22 06/01/23 magnesium) tablet (MagOx) prednisone 20 mg tablet 10 - 20 mg (0.5 - 1 x 20 mg) PO 08/27/22 06/01/23 DAILY #18 tabs metoprolol tartrate 25 mg tablet 12.5 mg (1/2 x 25 mg) PO BID #90 10/18/22 tab-caps losartan 100 mg tablet 100 mg PO DAILY #90 tabs 01/20/23 06/01/23 donepezil 10 mg tablet 10 mg PO DAILY #90 tabs 02/09/23 06/01/23 amlodipine 5 mg tablet 5 mg PO DAILY #90 tab-caps 04/08/23 06/01/23 furosemide 40 mg tablet (Lasix) 40 mg PO DAILY PRN edema #90 tabs 04/08/23 06/01/23 omeprazole 20 mg capsule,delayed 20 mg PO DAILY #90 tab-caps 04/08/23 06/01/23 release digoxin 250 mcg (0.25 mg) tablet 250 mcg PO DAILY #90 tabs 05/19/23 06/01/23 warfarin 5 mg tablet See Rx Instructions PO .COMPLEX 05/21/23 06/01/23 #100 tab-caps Previous Rx's Medication Instructions Recorded furosemide 20 mg tablet 20 mg PO DAILY PRN edema #30 tabs 12/15/20 fluticasone 500 mcg-salmeterol 50 1 ea inhalation BID ##3 01/08/21 mcg/dose blistr powdr for inhalation (Advair Diskus) levalbuterol tartrate 45 2 puff inhalation QID PRN 01/08/21 mcg/actuation aerosol inhaler shortness of breath or wheezing ##3 (Xopenex HFA) magnesium oxide 400 mg (241.3 mg 400 mg PO BID #180 tabs 07/28/22 magnesium) tablet (MagOx) prednisone 20 mg tablet 10 - 20 mg (0.5 - 1 x 20 mg) PO 08/27/22 DAILY #18 tabs metoprolol tartrate 25 mg tablet 12.5 mg (1/2 x 25 mg) PO BID #90 10/18/22 tab-caps losartan 100 mg tablet 100 mg PO DAILY #90 tabs 01/20/23 donepezil 10 mg tablet 10 mg PO DAILY #90 tabs 02/09/23 amlodipine 5 mg tablet 5 mg PO DAILY #90 tab-caps 04/08/23 furosemide 40 mg tablet (Lasix) 40 mg PO DAILY PRN edema #90 tabs 04/08/23 omeprazole 20 mg capsule,delayed 20 mg PO DAILY #90 tab-caps 04/08/23 release digoxin 250 mcg (0.25 mg) tablet 250 mcg PO DAILY #90 tabs 05/19/23 warfarin 5 mg tablet See Rx Instructions PO .COMPLEX 05/21/23 #100 tab-caps Allergies Allergy/AdvReac Type Severity Reaction Status Date / Time doxycycline Allergy Intermediate FACIAL RASH Verified 05/07/23 10:25 Tetracyclines Allergy Intermediate FACIAL RASH Verified 05/07/23 10:25 TAMI Inhibitors AdvReac Intermediate cough Verified 05/07/23 10:25 General Stated Complaint: CVA/TIA DANIA: 3 Course Vital Signs Vital signs: Vital Signs Temperature 36.8 C 06/01/23 14:03 Pulse 69 06/01/23 14:03 Respiratory Rate 17 06/01/23 14:03 Blood Pressure 165/106 H 01/29/24 14:03 Pulse Oximetry 99 06/01/23 14:03 Temperature 36.8 C 06/01/23 14:03 Temperature Source Oral 06/01/23 14:03 Pulse 69 06/01/23 14:03 Respiratory Rate 17 06/01/23 14:03 Blood Pressure 165/106 H 06/01/23 14:03 Pulse Oximetry 99 06/01/23 14:03 Oxygen Delivery Method Room Air 06/01/23 14:03 Oxygen Flow Rate 0 06/01/23 14:03 Medical Decision Making Quality:SDOH Health Related Social Needs: No Data to Display PFSH All Active Problems (Updated 06/01/23 @ 17:45 by Kade Mack MD) Ambulatory dysfunction (Acute) Positive Romberg test (Acute) Hx of falling (Acute) Hearing loss (Acute) Tremor (Acute) Muscle pain (Acute) Low back pain (Acute) Lung nodule (Acute) Chronic atrial fibrillation (Chronic) GERD (gastroesophageal reflux disease) (Chronic) Neurodermatitis (Chronic) Hypomagnesemia (Chronic 08/22/13) Family hx of prostate cancer (Chronic) Essential hypertension (Chronic 02/21/13) Asthma (Chronic) Anticoagulated on warfarin (Chronic) A-fib INR goal 2-3 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) Cellulitis (Acute) Chronic anticoagulation (Acute) Hypotension (Acute) BPH w urinary obs/LUTS (Acute) Dyspnea on exertion (Acute) Daytime sleepiness (Acute) Screening for colon cancer (Acute) Right-sided chest wall pain (Acute) Peripheral edema (Acute) Cognitive change (Acute) Memory impairment (Acute) Urinary retention (Acute) Per [place] urologist Hypoalbuminemia (Acute) Right upper lobe pulmonary nodule (Acute) Elevated white blood cell count (Acute) Hiatal hernia (Chronic) Medical History (Updated 06/01/23 @ 17:45 by Kade Mack MD) Abnormal weight loss (04/14/12) Asthma Hypertension Atrial fibrillation Surgical History Status post inguinal hernia repair Repair of inguinal hernia LEFT Family History Mother Diabetes Stroke Alcohol abuse Hypertension Father Asthma Prostate cancer Heart disease Sister Alzheimer disease Sister Essential hypertension Depression Sister No problems noted. Sister No problems noted. Sister No problems noted. Brother Diabetes Essential hypertension Stroke Brother No problems noted. Son ADHD Alcohol abuse Former Daughter Alcohol abuse Depression Hypertension Other Family hx of prostate cancer Social History (Updated 04/09/23 @ 12:38 by Razia Davies) Smoking/Tobacco Use Status: Former Tobacco Use Second Hand Exposure: Yes Smoking risk assessment performed?: Yes Alcohol Intake: former Drug use: Never Substance use type: does not use Household members: spouse and children Housing: house Number of Children: 2 number of grandchildren: 3 Communication Needs: Hard of Hearing, Corrective Lenses, Cannot Read and Language Barriers Education Level: elementary school Details: 8th grade Do you need help understanding health information?: Often current occupation: Disabled Pets and animals: Yes (chicken, ernesto) Pets and animals: cat(s), farm animals and other Details: Ernesto Sexually active: No Do you think of yourself as: straight/heterosexual Current gender identity: male What is your relationship status?: How often do you talk on the phone with friends or family?: once per week Do you belong to any clubs or organized social groups?: no Panel score (0-1 are the most socially isolated patients): 1 What type of physical activity do you participate in: none Christine/Holiness: Scientology Special christine needs: No Agree to transfusion: Yes Seatbelt use: always 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 Working smoke detector in home: Yes Carbon monox detector in home: Yes Firearms in home: No Do you feel safe at home: Yes Do you feel safe in your relationship?: Yes Victim of physical abuse: No Victim of emotional abuse: No Victim of sexual abuse: No Discharge Plan Disposition Patient Disposition: Admit to [facility] Discharge Details Clinical Impression: Hx of falling, Positive Romberg test Admit Date/Time: 06/01/23 17:12 Admit Provider: Kade Mack Attending Provider: Kade Mack Primary Care Provider: Angel Abebe ED Provider: Dylan Madison Discharge Data Discharge Date/Time-TO BE ENTERED AT DEPARTURE: 06/01/23 18:34
--- NOTE | 2023-06-01 14:15 | RT.EKG_ITS ---
APPROVED REPORT Exam: Resting ECG Reason for Exam: Weakness Patient Location: E HR:54 bpm ECG Measurements Heart Rate 54 AXIS [place] [id number] P [id number] QRSd 98 QRS 62 QT 414 T -39 QTc 391 Conclusion Atrial fibrillation...V-rate 44- 68, irreg A-activity Repol abnrm suggests ischemia, diffuse leads...ST-T neg, ant/lat/inf ST elevation, consider anterior injury...ST >0.15mV, V1-V5 Narrow complex atrial fibrillation at a rate of 54. Normal axis. QTc within normal limits. Inferio r and lateral new and more pronounced T wave inversions. No significant ST segment abnormalities. M ild ST segment upsloping slightly more pronounced in V2 and V3 compared to prior. Prior dated 3 year s ago.
--- NOTE | 2023-06-01 14:15 | DI.RAD_ITS ---
Exam(s) XR CHEST 1V IN DI DEPT EXAM: XR CHEST 1V IN DI DEPT CLINICAL HISTORY: History of falling TECHNIQUE: 2D digital imaging was performed of the chest. Two images were obtained. AP views were obtained. COMPARISON: CR XR CHEST 2V PA LATERAL from 07/23/2022 FINDINGS: There is poor inspiration with crowding of the pulmonary vasculature. MEDIASTINUM: There is a hiatal hernia. HEART: Cardiomegaly. PULMONARY VASCULATURE: Normal. LUNGS: Clear. PLEURAL SPACE: No pleural effusion or pneumothorax. BONE:Within normal limits for the patient's age. OTHER FINDINGS:Normal. IMPRESSION: No acute pulmonary findings. DATA REPOSITORY: RADIATION DOSE DELIVERED:
--- NOTE | 2023-06-01 14:30 | DI.MRI_ITS ---
Exam(s) MR BRAIN WO EXAM: MR BRAIN WO CLINICAL HISTORY: ?CVA TECHNIQUE: Multiplanar multisequence MRI of the brain was performed. COMPARISON: CT CT HEAD WO from 06/01/2023 FINDINGS: CEREBRAL PARENCHYMA: There is no evidence of intracranial hemorrhage, mass effect, or shift of midline structures. There are no extra-axial fluid collections. Ventricles are not enlarged or shifted. There is no significant focal signal abnormality in the cerebellar hemispheres nor within the cristiane, m idbrain, and thalami. There is abundant FLAIR bright signal foci in the bilateral periventricular white matter, not associa keturah with hemorrhage, surrounding edema, nor restricted diffusion. There is no significant focal signal abnormality evident on diffusion imaging to suggest acute ischem ic event. PITUITARY GLAND: No mass nor parasellar abnormality. No obvious abnormality in the cavernous sinuses. FLOW VOIDS: The expected flow void are noted. No evidence of obvious aneurysm nor obvious vascular ma lformation. PARANASAL SINUSES: Mucosal thickening is noted throughout the paranasal sinuses. No fluid levels. ORBITS: No obvious findings. IMPRESSION: Findings are consistent with abundant bilateral chronic small vessel ischemic changes. No evidence o f restricted diffusion to suggest acute infarct at this time. Called by myself to ER provider. DATA REPOSITORY:
[2023-06-01 14:41] LABS: Abs Immature Grans 0.05 10^3/uL (0.0-0.06); Absolute Basophil Count 0.11 10^3/uL (0.0-0.2); Absolute Eosinophil Count 0.51 10^3/uL (0.0-0.7); Absolute Lymphocyte Count 1.91 10^3/uL (1.2-3.4); Absolute Monocyte Count 1.08 10^3/uL (0.1-0.8); Absolute Neutrophil Count 6.07 10^3/uL (1.2-6.7); Basophils % 1.1; Eosinophils % 5.2; HCT 44.9 % (40.0-50.0); HGB 14.9 g/dL (13.5-17.5); Immature Grans % 0.5; Lymphocytes % 19.6; MCH 28.2 pg (27.0-33.0); MCHC 33.2 % (32.0-36.0); MCV 85 fL (80-95); MPV 11.8 fL (8.0-11.0); Monocytes % 11.1; Neutrophils % 62.5; Platelet Count 194 10^3/uL (130-400); RBC 5.29 10^6/uL (4.36-5.78); RDW-SD 43.1 fL; WBC 9.73 10^3/uL (4.4-10.8)
--- NOTE | 2023-06-01 14:45 | DI.CT_ITS ---
Exam(s) CT HEAD WO EXAM: CT HEAD WO CLINICAL HISTORY: Head strike warfarin. TECHNIQUE: Imaging Protocol: Axial computed tomography images with coronal and sagittal reformatted images were created and reviewed COMPARISON: No exams were available for comparison FINDINGS: Ventricles and Extra axial spaces: Normal in size and morphology for the patient's age. Hemorrhage: None. Cerebral parenchyma: There are areas of decreased attenuation in the white matter consistent with sma ll vessel ischemic disease. No mass effect is identified. Midline shift: None. Brainstem/Cerebellum: Normal. Calvarium: Normal. Visualized Paranasal sinuses/Mastoids: There is mucosal thickening in the visualized paranasal sinuse s. Soft Tissues: Soft tissue is seen in the external auditory canals likely reflecting cerumen. IMPRESSION: 1. No acute intracranial process. 2. Findings were discussed with Dr. Madison at 3:01 p.m. on 06/01/2023. RADIATION DOSE DELIVERED: 705.68mGy.cm Total DLP DATA REPOSITORY: All CT scans at this facility are submitted to the National Radiology Data Registry (NRDR) Dose Index Registry (DIR) with the [employer] (ACR). RADIATION OPTIMIZATION: All CT scans at this facility use at least one of these dose optimization te chniques: automated exposure control; mA and/or kV adjustment per patient size (includes targeted exa ms where dose is matched to clinical indication); or iterative reconstruction.
[2023-06-01 14:53] LABS: INR 2.3 (0.9-1.1); Prothrombin Time 21.6 sec (9.1-11.1)
[2023-06-01 15:06] LABS: Anion Gap 10.5 mmol/L (3-11); BUN 17 mg/dL (7-18); CO2 28.5 mmol/L (21.0-32.0); CREATININE 1.1 mg/dL (0.70-1.30); Calcium 9.5 mg/dL (8.5-10.1); Chloride 101 mmol/L (98-107); Digoxin 0.95 ng/mL (0.90-2.00); Estimated GFR 71.32 (mL/min/1.73m2); Glucose 98 mg/dL (74-106); Sodium 140 mmol/L (136-145); Troponin I < 50 ng/L (< or =60)
--- NOTE | 2023-06-01 17:12 | HPE_ITS ---
Date of service: 06/01/23 Time of Service: 17:35 Assessment and Plan Assessment and plan (1) Ambulatory dysfunction: Status: Acute Assessment and plan: -Patient initially presented with concern for CVA, however CT and MRI negative -continues to have difficulty ambulating, and does also have a history of frequent falls -appreciate PT consultation in AM (2) Hx of falling: Status: Acute Assessment and plan: -as noted above (3) Chronic atrial fibrillation: Status: Chronic Assessment and plan: -continue home regimen (4) GERD (gastroesophageal reflux disease): Status: Chronic Assessment and plan: -continue home PPI (5) Essential hypertension: Status: Chronic Assessment and plan: -continue home regimen (6) Cognitive change: Status: Acute History of Present Illness History of Present Illness Chief Complaint: fall roughly 48hrs ago Narrative: 72 year old male with PMH of a-fib on warfarin, HTN, GERD, BPH, and memory impairment who presents to the ED about 48hrs after experiencing a fall at home. The patients states that two night ago the patient was sleeping and fell out of bed and was stuck between the bed and cupboard. He was eventually able to get up and state that he had pain on the right side of his head and some right sided weakness. The patient was resistant to coming to the ED but ultimetly agreed earlier today. However, since falling his states that he has been furniture surfing throughout their mobile home, needing to hold on to something in order to ambulate. He denies any PINA, lightheadedness, visual changes, errol pain, SOB, nausea, vomiting or diarrhea. In the ED the patient was noted as having normal vitals, CBC, CMP and UA. He also had a negative head CT and MRI. However, while in the ED he continued to have ambulatory difficulty. Therefore ED physician paged hospitalist for observation of a patient with ongoing ambulatory dysfunction who will require a PT consultation in the morning. Review of Systems All systems reviewed & are unremarkable except as noted in HPI and below PFSH All Active Problems (Updated 06/01/23 @ 17:45 by Kade Mack MD) Ambulatory dysfunction (Acute) Positive Romberg test (Acute) Hx of falling (Acute) Hearing loss (Acute) Tremor (Acute) Muscle pain (Acute) Low back pain (Acute) Lung nodule (Acute) Chronic atrial fibrillation (Chronic) GERD (gastroesophageal reflux disease) (Chronic) Neurodermatitis (Chronic) Hypomagnesemia (Chronic 08/22/13) Family hx of prostate cancer (Chronic) Essential hypertension (Chronic 02/21/13) Asthma (Chronic) Anticoagulated on warfarin (Chronic) A-fib INR goal 2-3 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) Cellulitis (Acute) Chronic anticoagulation (Acute) Hypotension (Acute) BPH w urinary obs/LUTS (Acute) Dyspnea on exertion (Acute) Daytime sleepiness (Acute) Screening for colon cancer (Acute) Right-sided chest wall pain (Acute) Peripheral edema (Acute) Cognitive change (Acute) Memory impairment (Acute) Urinary retention (Acute) Per [place] urologist Hypoalbuminemia (Acute) Right upper lobe pulmonary nodule (Acute) Elevated white blood cell count (Acute) Hiatal hernia (Chronic) Medical History (Updated 06/01/23 @ 17:45 by Kade Mack MD) Abnormal weight loss (04/14/12) Asthma Hypertension Atrial fibrillation Surgical History Status post inguinal hernia repair Repair of inguinal hernia LEFT Family History Mother Diabetes Stroke Alcohol abuse Hypertension Father Asthma Prostate cancer Heart disease Sister Alzheimer disease Sister Essential hypertension Depression Sister No problems noted. Sister No problems noted. Sister No problems noted. Brother Diabetes Essential hypertension Stroke Brother No problems noted. Son ADHD Alcohol abuse Former Daughter Alcohol abuse Depression Hypertension Other Family hx of prostate cancer Social History (Updated 04/09/23 @ 12:38 by Razia Davies) Smoking/Tobacco Use Status: Former Tobacco Use Second Hand Exposure: Yes Smoking risk assessment performed?: Yes Alcohol Intake: former Drug use: Never Substance use type: does not use Household members: spouse and children Housing: house Number of Children: 2 number of grandchildren: 3 Communication Needs: Hard of Hearing, Corrective Lenses, Cannot Read and Language Barriers Education Level: elementary school Details: 8th grade Do you need help understanding health information?: Often current occupation: Disabled Pets and animals: Yes (chicken, ronn) Pets and animals: cat(s), farm animals and other Details: [place] Sexually active: No Do you think of yourself as: straight/heterosexual Current gender identity: male What is your relationship status?: How often do you talk on the phone with friends or family?: once per week Do you belong to any clubs or organized social groups?: no Panel score (0-1 are the most socially isolated patients): 1 What type of physical activity do you participate in: none Christine/Gnosticist: Taoist Special christine needs: No Agree to transfusion: Yes Seatbelt use: always Drive intox or ride w/intox waste collection driver: No Working smoke detector in home: Yes Carbon monox detector in home: Yes Firearms in home: No Do you feel safe at home: Yes Do you feel safe in your relationship?: Yes Victim of physical abuse: No Victim of emotional abuse: No Victim of sexual abuse: No Meds Allergies and Home Medications Allergies Allergy/AdvReac Type Severity Reaction Status Date / Time doxycycline Allergy Intermediate FACIAL RASH Verified 05/07/23 10:25 Tetracyclines Allergy Intermediate FACIAL RASH Verified 05/07/23 10:25 TAMI Inhibitors AdvReac Intermediate cough Verified 05/07/23 10:25 Home Medications Medication Instructions Recorded Confirmed Type acetaminophen 500 mg tablet (Mapap 1,000 mg PO Q6H PRN PRN 02/07/13 06/01/23 History Extra Strength) hydrocortisone 1 % topical cream 1 applic topical BID PRN 04/05/20 06/01/23 History (Preparation H Hydrocortisone) furosemide 20 mg tablet 20 mg PO DAILY PRN edema #30 tabs 12/15/20 06/01/23 Rx fluticasone 500 mcg-salmeterol 50 1 ea inhalation BID ##3 01/08/21 06/01/23 Rx mcg/dose blistr powdr for inhalation (Advair Diskus) levalbuterol tartrate 45 2 puff inhalation QID PRN 01/08/21 06/01/23 Rx mcg/actuation aerosol inhaler shortness of breath or wheezing ##3 (Xopenex HFA) tamsulosin 0.4 mg capsule 0.4 mg PO DAILY 02/20/22 06/01/23 History magnesium oxide 400 mg (241.3 mg 400 mg PO BID #180 tabs 07/28/22 06/01/23 Rx magnesium) tablet (MagOx) prednisone 20 mg tablet 10 - 20 mg (0.5 - 1 x 20 mg) PO 08/27/22 06/01/23 Rx DAILY #18 tabs metoprolol tartrate 25 mg tablet 12.5 mg (1/2 x 25 mg) PO BID #90 10/18/22 06/01/23 Rx tab-caps losartan 100 mg tablet 100 mg PO DAILY #90 tabs 01/20/23 06/01/23 Rx donepezil 10 mg tablet 10 mg PO DAILY #90 tabs 02/09/23 06/01/23 Rx amlodipine 5 mg tablet 5 mg PO DAILY #90 tab-caps 04/08/23 06/01/23 Rx furosemide 40 mg tablet (Lasix) 40 mg PO DAILY PRN edema #90 tabs 04/08/23 06/01/23 Rx omeprazole 20 mg capsule,delayed 20 mg PO DAILY #90 tab-caps 04/08/23 06/01/23 Rx release digoxin 250 mcg (0.25 mg) tablet 250 mcg PO DAILY #90 tabs 05/19/23 06/01/23 Rx warfarin 5 mg tablet See Rx Instructions PO .COMPLEX 05/21/23 06/01/23 Rx #100 tab-caps Exam Narrative Exam Narrative: Elderly gentleman laying in bed in no acute distress, awake, alert, oriented to person and place, heart irregularly irregular, lungs CTAB, abdomen soft, non- tender, nondistended, CN II-XII intact, PEERLA, mild weakness in right upper and lower extremity as compared to the left upper and lower extremity Results Labs 06/02/23 06:40 06/01/23 14:30 Labs: Laboratory Results - last 24 hr 06/01/23 14:30 WBC 9.73 RBC 5.29 Hgb 14.9 Hct 44.9 MCV 85 MCH 28.2 MCHC 33.2 RDW 14.0 Plt Count 194 MPV 11.8 H Immature Gran % 0.5 Neutrophils % 62.5 Lymphocytes % 19.6 Monocytes % 11.1 Eosinophils % 5.2 Basophils % 1.1 Nucleated RBC % 0.0 Absolute Neutrophils 6.07 Absolute Lymphocytes 1.91 Absolute Monocytes 1.08 H Absolute Eosinophils 0.51 Absolute Basophils 0.11 PT 21.6 H INR 2.3 H Sodium 140 Potassium 4.0 Chloride 101 Carbon Dioxide 28.5 Anion Gap 10.5 BUN 17 Creatinine 1.1 Est GFR (CKD-EPI 2020) 71.32 Glucose 98 Calcium 9.5 Troponin I < 50 Digoxin 0.95 Last Vital Signs Temp 98.2 F 06/01/23 14:03 Pulse 69 06/01/23 14:03 Resp 17 06/01/23 14:03 BP 165/106 H 06/01/23 14:03 Pulse Ox 99 06/01/23 14:03 Time Spent Time spent with Patient: >75 minutes Time was spent: preparing to see the patient(eg.review tests), obtaining and/or reviewing separately otained hiistory, ordering medications,tests, procedures, referring, communicating with other health occasional caregiver, indepentently interpreting results, counseling the patient and care coordination
[2023-06-01 18:05] VITALS: BP 190/90; PULSE 62; RESP 19; TEMP 36.5; O2SAT 99
[2023-06-01 18:12] VITALS: BP 203/138; PULSE 62; RESP 19; TEMP 36.5; O2SAT 99
[2023-06-01 20:03] VITALS: BP 155/75; PULSE 63; RESP 18; TEMP 36.2; O2SAT 97
--- NOTE | 2023-06-01 20:49 | NUR.NOTE ---
Patient refused magnesium oxide and metopolol tonight as he took it in this morning .Nursing Note:
[2023-06-01] MEDS: Digoxin 0.25 MG TAB PO (21:17)
[2023-06-01] MEDS: Normal Saline Flush 10 ML SYR IVP (21:22)
[2023-06-01 22:50] VITALS: BP 172/101; PULSE 61; RESP 20; TEMP 36.6; O2SAT 95
[2023-06-02 02:46] VITALS: BP 155/70; PULSE 64; RESP 16; TEMP 36.6; O2SAT 96
[2023-06-02 06:54] LABS: HCT 40.6 % (40.0-50.0); HGB 13.5 g/dL (13.5-17.5); MCH 28.2 pg (27.0-33.0); MCHC 33.3 % (32.0-36.0); MCV 85 fL (80-95); MPV 11.9 fL (8.0-11.0); Platelet Count 187 10^3/uL (130-400); RBC 4.79 10^6/uL (4.36-5.78); RDW 13.9 % (11.8-14.1); RDW-SD 43.5 fL; WBC 10.22 10^3/uL (4.4-10.8)
[2023-06-02 06:58] LABS: INR 2.1 (0.9-1.1); Prothrombin Time 19.5 sec (9.1-11.1)
[2023-06-02 07:00] LABS: Anion Gap 9.3 mmol/L (3-11); BUN 14 mg/dL (7-18); CO2 24.7 mmol/L (21.0-32.0); Calcium 9.3 mg/dL (8.5-10.1); Chloride 102 mmol/L (98-107); Estimated GFR 79.97 (mL/min/1.73m2); Glucose 102 mg/dL (74-106); Magnesium 1.6 mg/dL (1.8-2.4); Potassium 3.9 mmol/L (3.5-5.1); Sodium 136 mmol/L (136-145)
[2023-06-02] MEDS: Budesonide/Formoterol 160/4.5 6 GM 60 PUFF INH IH (08:09)
[2023-06-02 08:14] VITALS: BP 134/68; PULSE 65; RESP 16; TEMP 36.4; O2SAT 98
[2023-06-02] MEDS: Magnesium Oxide 400 MG TAB PO (08:15)
[2023-06-02] MEDS: Metoprolol 12.5 MG TAB PO (08:15)
[2023-06-02] MEDS: Donepezil 5 MG TAB 10 MG PO (08:15)
[2023-06-02] MEDS: Tamsulosin 0.4 MG CAPCR PO (08:15)
[2023-06-02] MEDS: Omeprazole 20 MG CAPCR PO (08:15)
[2023-06-02] MEDS: Losartan 50 MG TAB 100 MG PO (08:15)
[2023-06-02] MEDS: amLODIPine 5 MG TAB PO (08:16)
[2023-06-02] MEDS: Normal Saline Flush 10 ML SYR IVP (08:17)
[2023-06-02] MEDS: Warfarin 5 MG TAB PO (10:23)
[2023-06-02 11:26] VITALS: BP 138/73; PULSE 58; RESP 16; TEMP 36.2; O2SAT 97
--- NOTE | 2023-06-02 13:55 | IN_ITS ---
PT Notes Visit Reasons: ambulatory dysfunction Physical Therapy Inpatient Initial Evaluation Date: 06/02/2023 Referring Doctor: Kade Mack MD PT Orders: PT CONSULT: Eval/Treat Precautions: Fall. Standard. Activity as tolerated. Patient Profile/Admitting Diagnosis: It is a 52-year-old male who presented to the ED on 06/01/2020 due to an incidence of rolling off the bed at home followed by mild right sided weakness. Patient was admitted to [facility] of care for close monitoring acute ambulatory dysfunction, history of falling, chronic AF, GERD, essential hypertension, and cognitive change. 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) Cellulitis (Acute) Chronic anticoagulation (Acute) Hypotension (Acute) BPH w urinary obs/LUTS (Acute) Dyspnea on exertion (Acute) Daytime sleepiness (Acute) Screening for colon cancer (Acute) Right-sided chest wall pain (Acute) Peripheral edema (Acute) Cognitive change (Acute) Memory impairment (Acute) Urinary retention (Acute) Per Jael urologistHypoalbuminemia (Acute) Right upper lobe pulmonary nodule (Acute) Elevated white blood cell count (Acute) Hiatal hernia (Chronic) Medical History (Updated 06/01/23 @ 17:45 by Kade Mack MD) Abnormal weight loss (04/14/12) Asthma Hypertension Atrial fibrillation Surgical History Status post inguinal hernia repair Repair of inguinal hernia LEFT Social History/Home Situation: Lives with in a mobile home with 3 steps to enter with a rail on one side. Independent with all aspects of mobility ADL performance using no assistive device. Equipment Owned/DME: None Subjective: Per , patient has been showing signs of early dementia. Adds that the patient has rolled off the bed three times in the past year. No actual falls in the past [address] Verbalized that he is back to how he has been. Hoping to go home when cleared by MD. Objective: General Observation: Seated on bedside chair. present in room. No facial droop noted. No lines attached. Mental Status: Alert and oriented as to person, place,and purpose. Able to pay attention, focus, and respond appropriately. Pain: Denies Vital Signs: 99% SaO2 on room air, 155/95 mmHg, 64 bpm after walking about 150 feet 96% SaO2 on rom air, 164/93 mmHg, 63 bpm after 30-sec0nd chair rise test ROM: Right Upper Extremity: Shoulder Flexion WFL. Shoulder abduction WFL. Elbow flexion WFL. Wrist flexion WFL. Functional opening and closing of hand WFL. Left Upper Extremity: Shoulder Flexion WFL. Shoulder abduction WFL. Elbow flexion WFL. Wrist flexion WFL. Functional opening and closing of hand WFL. Right Lower Extremity: Hip flexion WFL. Hip abduction WFL. Knee flexion WFL. Ankle dorsiflexion WFL. Ankle plantarflexion WFL. Left Lower Extremity: Hip flexion WFL. Hip abduction WFL. Knee flexion WFL. Ankle dorsiflexion WFL. Ankle plantarflexion WFL. Strength: Right Upper Extremity: Shoulder flexors 4/5. Shoulder abductors 4/5. Elbow flexors 5/5. Elbow extensors 5/5. Environmental Research Project Manager strong. Left Upper Extremity: Shoulder flexors 4/5. Shoulder abductors 4/5. Elbow flexors 5/5. Elbow extensors 5/5. Environmental Research Project Manager strong. Right Lower Extremity: Hip flexors 4+/5. Hip abductors 4+/5. Knee flexors 5/5. K nee extensors 5/5. Ankle dorsiflexors 4/5. Ankle plantarflexors 4/5. Left Lower Extremity: Hip flexors 4+/5. Hip abductors 4+/5. Knee flexors 5/5. Knee extensors 5/5. Ankle dorsiflexors 4/5. Ankle plantarflexors 4/5. Bed Mobility/Transfers: Rolling with independent Supine to sit independent Sit to supine independent Sit to stand independent Stand to sit independent Bed to reclining chair independent Reclining chair to bed independent Gait: 150 feet + 300 feet using no AD. No LOB. Gait pattern unremarkable. Stairs: Up-and-down 6 x 4 inch steps and 4 x 6 inch steps without holding onto rails supervision assist only. Balance: Static Sitting: Normal Dynamic Sitting: Normal Static Standing: Normal Dynamic Standing: Good Special Tests: Mobility Limitations Standardized Measure [facility] AM-PAC 6 clicks Basic Mobility Inpatient Short Form: Raw Score: [facility] Score: 0% deficit 4 stage balance test: Able to maintain feet together and semitandem stance for 10 seconds but unable to do so with full tandem and 1 legged stance. Informed Consent/Education: Patient was instructed in purpose of PT consult. Assessment: Patient does not require skilled services at this time. Independent with all aspects of ADLs without the need for an assistive device. Patient is assessed as a 47264 low complexity based on the following: History: 72-year-old male with past medical history as indicated above Examination: As above Presentation: As above Decision Makin low complexity Goals: N/A. PT eval only. Plan of Care/Treatment Plan: N/A. PT eval only. DISCHARGE RECOMMENDATIONS: [X] Home with no services. Home when medically cleared by hospitalist. [] Home with services [specify] [] Home with outpatient PT [] [] SNF for continued rehabilitation [] [] [facility] [] [] SNF versus LTC based on ability to participate and progress [] [X] recommended to patient and patient's to consider placing a padded bed rail on side of bed where patient sleeps. TREATMENT CODE/TIME: 13411 x 20 minutes for 1 unit, 98792 x 15 minutes for 1 unit beginning at 13:55 PM. Thank you for the opportunity to participate in the care of this patient. Caron Salazar PT, DPT, CLT [facility] [place], [place]
--- NOTE | 2023-06-02 14:30 | DSE_ITS ---
Date of service: 06/02/23 Time of Service: 16:19 DS: Diagnosis Discharge Diagnosis (1) Ambulatory dysfunction: Status: Acute Asessment and Plan: -Patient initially presented with concern for CVA, however CT and MRI negative -continues to have difficulty ambulating, and does also have a history of frequent falls -appreciate PT consultation; patient cleared, was determined to ambulate independently and required no needs (2) Hx of falling: Status: Acute (3) Chronic atrial fibrillation: Status: Chronic Asessment and Plan: - Continue home medication regimen (4) GERD (gastroesophageal reflux disease): Status: Chronic (5) Essential hypertension: Status: Chronic Asessment and Plan: - Continue home medication regimen (6) Cognitive change: Status: Acute Discharge Plan Disposition Patient Disposition: Home Condition: Good Discharge Details Reason For Visit: ambulatory dysfunction Admit Date/Time: 06/01/23 17:12 Admit Provider: Kade Mack Attending Provider: Kade Mack Primary Care Provider: Angel Abebe Hospital Course Hospital Course: Patient initially presented after a fall 1939 8 hours prior to arrival off and hitting his head. His head CT and MRI were negative for brain bleed and CVA however, patient continued to have ambulatory dysfunction and imbalance. However, while he was admitted overnight he was seen by physical therapy on the morning and determined to have no physical therapy requirements or ambulatory dysfunction and was thus able to be discharged home. Home Meds and New Rx's Prescriptions: Continued hydrocortisone [Preparation H Hydrocortisone] 1 % cream 1 applic topical BID PRN amlodipine 5 mg tablet 5 mg PO DAILY Qty: 90 4RF furosemide [Lasix] 40 mg tablet 40 mg PO DAILY PRN (Reason: edema) Qty: 90 3RF omeprazole 20 mg capsule,delayed release(DR/EC) 20 mg PO DAILY Qty: 90 4RF warfarin 5 mg tablet See Rx Instructions PO .COMPLEX Qty: 100 3RF Protocol: Dose Management Condition: Thursday Dose/Route: 5 mg Instruction: 1 x 5 mg tablet Condition: Thursday Dose/Route: 5 mg Instruction: 1 x 5 mg tablet Condition: Thursday Dose/Route: 5 mg Instruction: 1 x 5 mg tablet Condition: Thursday Dose/Route: 2.5 mg Instruction: 0.5 x 5 mg tablets Condition: Dose/Route: 5 mg Instruction: 1 x 5 mg tablet Condition: Thursday Dose/Route: 5 mg Instruction: 1 x 5 mg tablet Condition: Thursday Dose/Route: 2.5 mg Instruction: 0.5 x 5 mg tablets Protocol Text: Adjustment Start Date: 05/21/23 INR Value: 2.3 INR Date: 05/21/23 Recheck Date: 06/20/23 Dose Instruction: 0-2 tabs PO Daily; DOSE BASED ON INR Rx Instructions: 0-2 tabs PO Daily as directed by [facility]; DOSE BASED ON INR levalbuterol tartrate [Xopenex HFA] 45 mcg/actuation HFA aerosol inhaler 2 puff Inhalation QID PRN (Reason: shortness of breath or wheezing) Qty: 3 4RF fluticasone propion-salmeterol [Advair Diskus] 500-50 mcg/dose blister with device 1 ea Inhalation BID Qty: 3 4RF prednisone 20 mg tablet 10 - 20 mg PO DAILY Qty: 18 0RF Rx Instructions: 1 tab/day for 5 days, then 1/2 tab/day for 25 days tamsulosin 0.4 mg capsule 0.4 mg PO DAILY magnesium oxide [MagOx] 400 mg (241.3 mg magnesium) tablet 400 mg PO BID Qty: 180 4RF metoprolol tartrate 25 mg tablet 12.5 mg PO BID Qty: 90 3RF Rx Instructions: take an additional half tablet as needed for sustained HR over 120 bpm losartan 100 mg tablet 100 mg PO DAILY Qty: 90 3RF donepezil 10 mg tablet 10 mg PO DAILY Qty: 90 3RF digoxin 250 mcg (0.25 mg) tablet 250 mcg PO DAILY Qty: 90 3RF acetaminophen [Mapap Extra Strength] 500 MG tablet 1,000 mg PO Q6H PRN PRN Patient Comments: Pt states he took it a couple of weeks ago Discharge Instructions Stand Alone Forms: Nursing Discharge Form Referrals: Angel Abebe MD [Primary Care Provider] - 06/10/23 10:20 am Activity:: Activity as Tolerated Equipment/Supplies:: No Equipment Needed Diet:: As Tolerated Discharge Orders Discharge Orders: Discharge Order (Routine); Ordered 06/02/23 Ordered By: Kade Mack Discharge Data Discharge Date/Time-TO BE ENTERED AT DEPARTURE: 06/02/23 16:09 DS: Summary Time Spent with Patient providing and/or coordinating discharge services: Greater than 30 minutes Status at Discharge Functional status at discharge: independent ambulation Overall status at discharge: patient is back to baseline Mental Status: mental status grossly normal Speech and Movement: speech and movement normal Mood: congruent mood Affect: normal affect Quality:SDOH Health Related Social Needs: No Data to Display Exam Narrative Exam Narrative: Well-appearing older gentleman sitting up in the edge of the bed in no acute distress, ANO x 4, hard of hearing which is baseline, heart regular rate rhythm, lungs clear to auscultation bilaterally, abdomen soft, nontender, nondistended, cranial nerves II through XII intact, PERRLA, normal sensation and strength in bilateral upper and lower extremities Psych Mental Status: mental status grossly normal Speech and Movement: speech and movement normal Mood: congruent mood Affect: normal affect DS: Data Vitals/I&O Vitals and I&O: Vital Signs Temperature 97.2 F L 06/02/23 11:26 Temperature Source Tympanic 06/02/23 11:26 Pulse 58 L 06/02/23 11:26 Pulse Rhythm Irregular 06/02/23 08:33 Respiratory Rate 16 06/02/23 11:26 Respiratory Effort Normal, Non-Labored 06/02/23 08:33 Respiratory Depth Normal 06/02/23 08:33 Respiratory Pattern Normal 06/02/23 08:33 Blood Pressure 138/73 06/02/23 11:26 Pulse Oximetry 97 06/02/23 11:26 Oxygen Delivery Method Room Air 06/02/23 11:26 Oxygen Flow Rate 0 06/02/23 11:26 Pain Level 0 06/02/23 11:26 Comment Manual BP 190/90. Nurse in room when vitals were taken. 06/01/23 18:12 Intake & Output 06/01/23 06/02/23 06/02/23 17:59 05:59 17:59 Intake Total Output Total 300 / 300 200 / 200 Balance -300 / -300 -190 / -190 Weight 194 lb 188 lb 4.396 oz Intake: IV Output: Urine 300 / 300 200 / 200 Other: Urine Color Yellow Yellow Urine Appearance Clear Clear Urine Odor Normal None Stool Size Moderate Stool Characteristics Liquid Brown Voiding Methods Toilet Urinal Urinal Data Completed and Pending Labs on day of discharge: Labs from last 24 hours 06/02/23 06/01/23 06:40 14:30 WBC 10.22 9.73 RBC 4.79 5.29 Hgb 13.5 14.9 Hct 40.6 44.9 MCV 85 85 MCH 28.2 28.2 MCHC 33.3 33.2 RDW 13.9 14.0 Plt Count 187 194 MPV 11.9 H 11.8 H Immature Gran % 0.5 Neutrophils % 62.5 Lymphocytes % 19.6 Monocytes % 11.1 Eosinophils % 5.2 Basophils % 1.1 Nucleated RBC % 0.0 Absolute Neutrophils 6.07 Absolute Lymphocytes 1.91 Absolute Monocytes 1.08 H Absolute Eosinophils 0.51 Absolute Basophils 0.11 PT 19.5 H 21.6 H INR 2.1 H 2.3 H Sodium 136 140 Potassium 3.9 4.0 Chloride 102 101 Carbon Dioxide 24.7 28.5 Anion Gap 9.3 10.5 BUN 14 17 Creatinine 1.0 1.1 Est GFR (CKD-EPI 2020) 79.97 71.32 Glucose 102 98 Calcium 9.3 9.5 Magnesium 1.6 L Troponin I < 50 Digoxin 0.95 PFSH All Active Problems (Updated 06/01/23 @ 17:45 by Kade Mack MD) Ambulatory dysfunction (Acute) Positive Romberg test (Acute) Hx of falling (Acute) Hearing loss (Acute) Tremor (Acute) Muscle pain (Acute) Low back pain (Acute) Lung nodule (Acute) Chronic atrial fibrillation (Chronic) GERD (gastroesophageal reflux disease) (Chronic) Neurodermatitis (Chronic) Hypomagnesemia (Chronic 08/22/13) Family hx of prostate cancer (Chronic) Essential hypertension (Chronic 02/21/13) Asthma (Chronic) Anticoagulated on warfarin (Chronic) A-fib INR goal 2-3 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) Cellulitis (Acute) Chronic anticoagulation (Acute) Hypotension (Acute) BPH w urinary obs/LUTS (Acute) Dyspnea on exertion (Acute) Daytime sleepiness (Acute) Screening for colon cancer (Acute) Right-sided chest wall pain (Acute) Peripheral edema (Acute) Cognitive change (Acute) Memory impairment (Acute) Urinary retention (Acute) Per Jael urologist Hypoalbuminemia (Acute) Right upper lobe pulmonary nodule (Acute) Elevated white blood cell count (Acute) Hiatal hernia (Chronic) Medical History (Updated 06/01/23 @ 17:45 by Kade Mack MD) Abnormal weight loss (04/14/12) Asthma Hypertension Atrial fibrillation Surgical History Status post inguinal hernia repair Repair of inguinal hernia LEFT Family History Mother Diabetes Stroke Alcohol abuse Hypertension Father Asthma Prostate cancer Heart disease Sister Alzheimer disease Sister Essential hypertension Depression Sister No problems noted. Sister No problems noted. Sister No problems noted. Brother Diabetes Essential hypertension Stroke Brother No problems noted. Son ADHD Alcohol abuse Former Daughter Alcohol abuse Depression Hypertension Other Family hx of prostate cancer Social History (Updated 04/09/23 @ 12:38 by Razia Davies) Smoking/Tobacco Use Status: Former Tobacco Use Second Hand Exposure: Yes Smoking risk assessment performed?: Yes Alcohol Intake: former Drug use: Never Substance use type: does not use Household members: spouse and children Housing: house Number of Children: 2 number of grandchildren: 3 Communication Needs: Hard of Hearing, Corrective Lenses, Cannot Read and Language Barriers Education Level: elementary school Details: 8th grade Do you need help understanding health information?: Often current occupation: Disabled Pets and animals: Yes (chicken, ronn) Pets and animals: cat(s), farm animals and other Details: [place] Sexually active: No Do you think of yourself as: straight/heterosexual Current gender identity: male What is your relationship status?: How often do you talk on the phone with friends or family?: once per week Do you belong to any clubs or organized social groups?: no Panel score (0-1 are the most socially isolated patients): 1 What type of physical activity do you participate in: none Christine/Latter-Day: Jewish Special christine needs: No Agree to transfusion: Yes Seatbelt use: always Drive intox or ride w/intox local combination truck driver: No Working smoke detector in home: Yes Carbon monox detector in home: Yes Firearms in home: No Do you feel safe at home: Yes Do you feel safe in your relationship?: Yes Victim of physical abuse: No Victim of emotional abuse: No Victim of sexual abuse: No Time Spent with Patient Time Spent with Patient: <45 minutes Time was spent: preparing to see the patient(eg.review tests), obtaining and/or reviewing separately otained hiistory, ordering medications,tests, procedures, referring, communicating with other health ostomy care nurse, indepentently interpreting results, counseling the patient and care coordination
[2023-06-02 15:25] VITALS: BP 136/76; PULSE 65; RESP 18; TEMP 36.2; O2SAT 98
--- NOTE | 2023-06-02 17:03 | CHAPLAIN ---
Ed was resting in bed when I visited. He said he is from [place] and talked about some of the wild animals he has seen near his house including moose, deer and bears. He thought his might visit later today Ed was discharged this afternoon.
== END 2023-06-02 16:09 | disposition home or self-care (01) ==
LOC: ER 17:08 → MS 18:03
PROVIDERS: Admitting Provider Family Medicine; Emergency Provider Emergency Medicine; PCP Family Medicine; Visit Provider Family Medicine
DX: R41.89 Other symptoms and signs involving cognitive functions and awareness (principal); Z91.81 History of falling; I48.20 Chronic atrial fibrillation, unspecified; R29.6 Repeated falls; Z79.01 Long term (current) use of anticoagulants; I10 Essential (primary) hypertension; R41.3 Other amnesia; K21.9 Gastro-esophageal reflux disease without esophagitis; M54.50 Low back pain, unspecified; R91.1 Solitary pulmonary nodule; L28.0 Lichen simplex chronicus; J45.909 Unspecified asthma, uncomplicated; N40.1 Benign prostatic hyperplasia with lower urinary tract symptoms; N13.8 Other obstructive and reflux uropathy; R60.0 Localized edema
CPT/HCPCS: 00123; 36415; 80048; 85027; 93005; 94640; 97161; 97530; 99285; 70450; 70551; 71045; 80162; 83735; 84484; 85025; 85610; 93010; 99223; 99239; G0378; J3490

== ENCOUNTER 2023-06-22 10:36 | Outpatient (CLI) | payer OTHER, SELFPAY ==
[2023-06-22 15:35] LABS: INR 2.4 (0.9-1.1); Prothrombin Time 22.5 sec (9.1-11.1)
== END 2023-06-22 10:37 | disposition home or self-care (01) ==
LOC: LBO 06-23 10:37
PROVIDERS: PCP Family Medicine; Visit Provider Family Medicine
DX: I48.91 Unspecified atrial fibrillation (principal); Z79.01 Long term (current) use of anticoagulants
CPT/HCPCS: 36415; 85610

== ENCOUNTER 2023-07-07 16:18 | Outpatient (CLI) | payer OTHER, SELFPAY ==
[2023-07-07 15:14] LABS: INR 2.3 (0.9-1.1); Prothrombin Time 21.4 sec (9.1-11.1)
== END 2023-07-07 16:19 | disposition home or self-care (01) ==
LOC: LBO 16:19
PROVIDERS: PCP Family Medicine; Visit Provider Family Medicine
DX: I48.0 Paroxysmal atrial fibrillation (principal)
CPT/HCPCS: 36415; 85610

== ENCOUNTER 2023-08-18 04:07 | Outpatient (CLI) | payer OTHER, SELFPAY ==
[2023-08-18 12:47] LABS: INR 2.2 (0.9-1.1); Prothrombin Time 20.5 sec (9.1-11.1)
== END 2023-08-18 04:08 | disposition home or self-care (01) ==
LOC: LOS 04:07
PROVIDERS: PCP Family Medicine; Visit Provider Family Medicine
DX: I48.0 Paroxysmal atrial fibrillation (principal)
CPT/HCPCS: 36415; 85610

== ENCOUNTER 2023-09-18 12:38 | Outpatient (CLI) | payer OTHER, SELFPAY ==
[2023-09-18 12:06] LABS: INR 2.2 (0.9-1.1); Prothrombin Time 20.6 sec (9.1-11.1)
== END 2023-09-18 12:39 | disposition home or self-care (01) ==
LOC: LBO 12:39
PROVIDERS: PCP Family Medicine; Visit Provider Family Medicine
DX: I48.91 Unspecified atrial fibrillation (principal)
CPT/HCPCS: 36415; 85610

== ENCOUNTER 2023-10-20 22:21 | Emergency (ER) | payer OTHER, SELFPAY ==
--- OUTSIDE RECORDS SUMMARY | 2023-10-20 22:24 | XMS_ITS | Continuity of Care Document ---
Author Name Unknown Organization [facility] Address [address] [place] [address] Care Team Providers Care Supervisor [employer] Name Role Phone Angel Abebe Primary Care Physician [phone] Encounter [facility] Date(s): 10/31/22 - 10/31/22 [facility] [address] [place] [address] Discharge Disposition: Home Allergies, Adverse Reactions, Alerts Substance Reaction Severity Status doxycycline Unknown Active tetracyclines Unknown Active Assessment and Plan Future Appointments Medications Advair Diskus 500 mcg-50 mcg inhalation powder 1 puffs, Inhale, BID, # 180 EA, 0 Refill(s) Start Date: 07/22/22 Status: Ordered amLODIPine 5 mg oral tablet 5 mg = 1 tab, Oral, Daily, # 30 tab, 0 Refill(s) Start Date: 07/22/22 Status: Ordered amoxicillin-clavulanate 875 mg-125 mg oral tablet 1 tab, Oral, every 12 hr, # 28 tab, 0 Refill(s) Start Date: 07/22/22 Stop Date: 08/05/22 Status: Ordered benzonatate 100 mg oral capsule 100 mg = 1 cap, Oral, TID, PRN as needed for cough, # 30 cap, 0 Refill(s) Start Date: 07/22/22 Stop Date: 08/01/22 Status: Ordered cefpodoxime 200 mg oral tablet 200 mg = 1 tab, Oral, Once, # 1 tab, 0 Refill(s) Start Date: 07/22/22 Status: Ordered diazePAM 10 mg oral tablet 10 mg = 1 tab, Oral, BID, PRN as needed for anxiety, 0 Refill(s) Start Date: 10/28/22 Status: Ordered digoxin 250 mcg (0.25 mg) oral tablet 250 mcg = 1 tab, Oral, Daily, # 30 tab, 0 Refill(s) Start Date: 07/22/22 Status: Ordered donepezil 10 mg oral tablet 10 mg = 1 tab, Oral, every day at bedtime, # 30 tab, 0 Refill(s) Start Date: 07/22/22 Status: Ordered enoxaparin 120 mg/0.8 mL injectable solution INJECT 0.8 ML SUBCUTANEOUSLY ONCE DAILY FOR 3 DAYS Start Date: 10/28/22 Status: Ordered finasteride 5 mg oral tablet 0 Refill(s) Start Date: 07/22/22 Status: Ordered furosemide 40 mg oral tablet 40 mg = 1 tab, Oral, Daily, # 30 tab, 0 Refill(s) Start Date: 07/22/22 Status: Ordered Lagevrio 200 mg oral capsule 0 Refill(s) Start Date: 07/22/22 Status: Ordered levalbuterol 45 mcg/inh inhalation aerosol 1 puffs, Inhale, every 6 hr, PRN as needed for wheezing, # 15 g, 0 Refill(s) Start Date: 07/22/22 Status: Ordered lisinopril 40 mg oral tablet 40 mg = 1 tab, Oral, Daily, # 90 tab, 0 Refill(s) Start Date: 07/22/22 Status: Ordered loratadine 10 mg oral tablet 10 mg = 1 tab, Oral, Daily, # 30 tab, 0 Refill(s) Start Date: 07/22/22 Status: Ordered losartan 100 mg oral tablet 0 Refill(s) Start Date: 07/22/22 Status: Ordered magnesium oxide 400 mg (241.3 mg elemental magnesium) oral tablet 400 mg = 1 tab, Oral, Daily, # 14 tab, 0 Refill(s) Start Date: 07/22/22 Stop Date: 08/05/22 Status: Ordered Metoprolol Tartrate 25 mg oral tablet 0 Refill(s) Start Date: 07/22/22 Status: Ordered omeprazole 20 mg oral delayed release capsule 0 Refill(s) Start Date: 07/22/22 Status: Ordered predniSONE 20 mg oral tablet 0 Refill(s) Start Date: 07/22/22 Status: Ordered tamsulosin 0.4 mg oral capsule 0.4 mg = 1 cap, Oral, Daily, # 30 cap, 0 Refill(s) Start Date: 07/22/22 Status: Ordered warfarin 5 mg oral tablet 0 Refill(s) Start Date: 07/22/22 Status: Ordered Problem List Condition Confirmation Course Effective Dates Status H ealth Status Informant Asthma Confirmed 08/29/20 Active Atrial fibrillation Confirmed 08/29/20 Active Atypical chest pain Confirmed 08/29/20 Active Bradycardia Confirmed 08/29/20 Active Essential hypertension Confirmed 08/29/20 Active Hypertensive disorder Confirmed 08/29/20 Active Hypomagnesemia Confirmed 08/29/20 Active Obstructive sleep apnea, adult Confirmed Active Obstructive sleep apnea syndrome Confirmed Active Snoring Confirmed 08/30/20 Active Weight loss Confirmed 08/29/20 Active Social History Social History Type Response Tobacco Never tobacco user T obacco Use:. Sex Male Patient Care team information Care Team Personnel Name: Angel Abebe MD Position: No Access Member Role: Primary Care Physician Address: Address: [address] [place] [address]- [place]
--- OUTSIDE RECORDS SUMMARY | 2023-10-20 22:24 | XMS_ITS | Continuity of Care Document ---
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 Name Role Phone Angel Abebe Primary Care Physician Encounter [facility] Date(s): 01/30/23 - 01/30/23 [facility] [address] [place] [address] Encounter Diagnosis UTI (urinary tract infection)(Discharge Diagnosis) - 01/30/23 Weakness(Discharge Diagnosis) - 01/30/23 Discharge Disposition: Home or Self Care Attending Physician: Malorie Kahn MD Admitting Physician: Malorie Kahn MD Allergies, Adverse Reactions, Alerts Substance Reaction Severity Status doxycycline Unknown Active tetracyclines Unknown Active Assessment and Plan Future Appointments Diagnostic Tests Pending * Urine Culture 01/30/23 Functional Status 01/30/23 Family Member Travel History No recent t ravel Recent Travel History No recent travel Other exposure to Infectious Disease Non e Medications Advair Diskus 500 mcg-50 mcg inhalation powder 1 puffs, Inhale, BID, # 180 EA, 0 Refill(s) Start Date: 07/22/22 Status: Ordered amLODIPine 5 mg oral tablet 5 mg = 1 tab, Oral, Daily, # 30 tab, 0 Refill(s) Start Date: 07/22/22 Status: Ordered cephalexin 500 mg oral capsule 500 mg = 1 cap, Oral, TID, X 7 days, # 21 cap, 0 Refill(s), 02/06/23 5:39:00 PM CDT, Pharmacy: [id number], 173, cm, 01/30/23 15:07:00 EDT, Height/Length Dosing, 85.03, kg, 01/30/23 15:07:00 EDT,Weight Dosing Start Date: 01/30/23 Stop Date: 02/06/23 Status: Ordered diazePAM 10 mg oral tablet [...] 0 Refill(s) Start Date: 07/22/22 Status: Ordered Mental Status 01/30/23 Eye Opening Response Keegan Spontaneous ly Best Verbal Response [place]ago Oriented Best Motor Response Keegan Obeys comman ds Sebago Coma Score 15 Problem List Condition Confirmation Course Effective Dates Status H ealth Status Informant Asthma Confirmed 08/29/20 Active Atrial fibrillation Confirmed 08/29/20 Active Atypical chest pain Confirmed 08/29/20 Active Bradycardia Confirmed 08/29/20 Active Essential hypertension Confirmed 08/29/20 Active Hypertensive disorder Confirmed 08/29/20 Active Hypomagnesemia Confirmed 08/29/20 Active Mixed sleep apnea Confirmed Active Obstructive sleep apnea, adult Confirmed Active Obstructive sleep apnea syndrome Confirmed Active Snoring Confirmed 08/30/20 Active Weight loss Confirmed 08/29/20 Active Results Laboratory List Name Date Urinalysis with Micro if Indicated and C ulture if Indicated 01/30/23 Urinalysis Microscopic 01/30/23 SARS-CoV-2 (COVID-19)/Flu/RSV ([facility]Xpert ) 01/30/23 Ammonia Level 01/30/23 Blood Gas Venous 01/30/23 CBC w/ Diff 01/30/23 Comprehensive Metabolic Panel 01/30/23 Digoxin Lvl 01/30/23 PT/ INR 01/30/23 Thyroid Stimulating Hormone (TSH) 3 Troponin-I 01/30/23 Automated Diff 01/30/23 Glucose POCT 01/30/23 Most recent to oldest [Reference Range]: 1 WBC [5.0-10.0 x10^3/mcL] 11.6 x10^3/mcL *HI* (01/30/23 3:32 PM) RBC [4.6-6.0 x10^6/mcL] 5.3 x10^6/mcL (01/30/23 3:32 PM) Neutro Auto [40.0-75.0 %] 68.7 % (01/30/23 3:32 PM) Lymph Auto [20.0-50.0 %] 16.5 % *LOW* (01/30/23 3:32 PM) Nicholas Auto [2.0-15.0 %] 9.1 % (01/30/23 3:32 PM) Basophil Auto [0.0-1.0 %] 0.9 % (01/30/23 3:32 PM) Prothrombin Time [9.0-11.0 seconds] 25.7 seconds *HI* (01/30/23 3:32 PM) INR 2.7 1 *NA* (01/30/23 3:32 PM) BUN [7-18 mg/dL] 12 mg/dL (01/30/23 3:32 PM) Glucose POC [74-106 mg/dL] 113 mg/dL *HI* (01/30/23 3:23 PM) UA Color Pale Yellow (01/30/23 5:21 PM) UA WBC [0-3] 10-25 *ABN* (01/30/23 5:21 PM) Glucose Level [74-106 mg/dL] 104 mg/dL (01/30/23 3:32 PM) Potassium Level [3.5-5.1 mmol/L] 3.7 mmo l/L (01/30/23 3:32 PM) MCV [80.0-96.0 fL] 89.8 fL (01/30/23 3:32 PM) UA Urobilinogen Normal (01/30/23 5:21 PM) UA Bili [Negative] Negative (01/30/23 5:21 PM) CO2 Total Venous 30 mmol/L *NA* (01/30/23 4:20 PM) UA Ketones Negative (01/30/23 5:21 PM) HCO3 Venous [22-30 mmol/L] 28 mmol/L (01/30/23 4:20 PM) AST [15-37 unit/L] 16 unit/L (01/30/23 3:32 PM) ALT [16-63 unit/L] 23 unit/L (01/30/23 3:32 PM) MCHC [31.0-35.0 g/dL] 33.3 g/dL (01/30/23 3:32 PM) Troponin-I [0.0-76.2 pg/mL] 35.2 pg/mL (01/30/23 3:32 PM) Sodium Level [136-145 mmol/L] 135 mmol/L *LOW* (01/30/23 3:32 PM) UA RBC [0-2] 0-2 (01/30/23 5:21 PM) UA Leuk Est 2+ *ABN* (01/30/23 5:21 PM) UA Nitrite Positive *ABN* (01/30/23 5:21 PM) UA Glucose [Negative] Negative (01/30/23 5:21 PM) Hct [41.0-51.0 %] 47.4 % (01/30/23 3:32 PM) UA Bacteria Moderate /HPF *ABN* (01/30/23 5:21 PM) Calcium Level [8.5-10.1 mg/dL] 9.5 mg/dL (01/30/23 3:32 PM) Albumin Level [3.4-5.0 g/dL] 3.9 g/dL (01/30/23 3:32 PM) Protein Total [6.4-8.2 g/dL] 7.6 g/dL (01/30/23 3:32 PM) UA Protein Negative (01/30/23 5:21 PM) MCH [26.0-32.0 pg] 29.9 pg (01/30/23 3:32 PM) Neutro Absolute 8.0 x10^3/mcL *NA* (01/30/23 3:32 PM) Bilirubin Total [0.2-1.0 mg/dL] 1.1 mg/d L *HI* (01/30/23 3:32 PM) Hgb [14.0-18.0 g/dL] 15.8 g/dL (01/30/23 3:32 PM) Alk Phos [46-146 unit/L] 90 unit/L (01/30/23 3:32 PM) UA Blood Negative (01/30/23 5:21 PM) pCO2 Mario [33-47 mmHg] 48 mmHg *HI* (01/30/23 4:20 PM) UA Mucous None Seen /HPF (01/30/23 5:21 PM) UA Spec Grav 1.015 *NA* (01/30/23 5:21 PM) Platelets [130-450 x10^3/mcL] 198 x10^3/ mcL (01/30/23 3:32 PM) CO2 [21-32 mmol/L] 28 mmol/L (01/30/23 3:32 PM) UA Squam Epithelial [None Seen] Rare (01/30/23 5:21 PM) TSH [0.358-3.740 mcIntlUnit/mL] 2.170 mc IntlUnit/mL (01/30/23 3:32 PM) Ammonia Level [11-32 umol/L] 6 umol/L *LOW* (01/30/23 4:20 PM) pO2 Mario 30 mmHg *NA* (01/30/23 4:20 PM) UA pH 7.5 *NA* (01/30/23 5:21 PM) pH Mario [7.32-7.43 pH unit(s)] 7.38 pH un it(s) (01/30/23 4:20 PM) O2 Sat Mario 57 % *NA* (01/30/23 4:20 PM) Digoxin Level [0.50-1.20 ng/mL] 0.90 ng/ mL (01/30/23 3:32 PM) eGFR Non-AA [>=60] 85 (01/30/23 3:32 PM) eGFR AA [>=60] 85 (01/30/23 3:32 PM) Base Excess Venous 2.3 mmol/L *NA* (01/30/23 4:20 PM) UA Appear Cloudy *ABN* (01/30/23 5:21 PM) Chloride Level [98-107 mmol/L] 99 mmol/L (01/30/23 3:32 PM) RDW-CV [11.5-14.5 %] 13.1 % (01/30/23 3:32 PM) Imm Gran Auto [0.0-0.9 %] 0.5 % (01/30/23 3:32 PM) UA Culture Ind?. Indicated (01/30/23 5:21 PM) Creatinine Level [0.70-1.30 mg/dL] 0.95 mg/dL (01/30/23 3:32 PM) SARS-CoV-2(Covid19)PCR([facility]pert COVFLURSV) [Negative] Negative (01/30/23 4:48 PM) Flu A ([facility]pert COVFLURSV) [Negative] Nega tive (01/30/23 4:48 PM) RSV ([facility]pert COVFLURSV) [Negative] Negati ve (01/30/23 4:48 PM) Flu B ([facility]Xpert COVFLURSV) [Negative] Nega tive (01/30/23 4:48 PM) Eos, Auto [1.0-6.0 %] 4.3 % (01/30/23 3:32 PM) 1Interpretive Data: INR 2-2.5 Prophylaxis: Short term DVT INR 2-3 Prophylaxis: hip and femur surgery Therapy: DVT (3 mos) PE (3-6 mos) TIA (residential) Atr Fib (residential) Syst. emb post [place] Mitral Stenosis with emboli (bed bug exterminator) Tissue prosthetic valves (3 mos min) INR 3-4.5 Therapy: recurrent DVT, PE (bed bug exterminator) Prosthetic heart valves (bed bug exterminator) Vital Signs Most recent to oldest [Reference Range]: 1 2 3 Temperature Temporal Artery [36-38 Deg C] 35.7 Deg C *LOW* (01/30/23 2:56 PM) Peripheral Pulse Rate [60-100 bpm] 69 bpm (01/30/23 6:43 PM) 70 bpm (01/30/23 6:14 PM) 67 bpm (01/30/23 4:02 PM) Heart Rate Monitored [60-100 bpm] 71 bpm (01/30/23 6:43 PM) 73 bpm (01/30/23 6:14 PM) 56 bpm *LOW* (01/30/23 4:02 PM) Respiratory Rate [12-24 br/min] 15 br/min (01/30/23 6:43 PM) 14 br/min (01/30/23 6:14 PM) 15 br/min (01/30/23 4:02 PM) Blood Pressure [90-140/60-90 mmHg] 159/92mmHg *HI* (01/30/23 6:43 PM) 159/99mmHg *HI* (01/30/23 6:14 PM) 143/84mmHg *HI* (01/30/23 4:02 PM) Mean Arterial Pressure, Cuff [65-140 mmHg] 114 mmHg (01/30/23 6:43 PM) 119 mmHg (01/30/23 6:14 PM) 104 mmHg (01/30/23 4:02 PM) Weight Dosing 85.03 kg (01/30/23 3:07 PM) Weight Estimated 85.03 kg (01/30/23 2:56 PM) Height/Length Dosing 173.000 cm (01/30/23 3:07 PM) Height/Length Estimated 173.000 cm (01/30/23 2:56 PM) Social History Social History Type Response Tobacco Never tobacco user T obacco Use:. Sex Male Hospital Discharge Instructions Patient Education 01/30/2023 17:41:17 Weakness, Jjow-zo-Ersc Weakness Weakness is a lack of strength. You may feel weak all over your body (generalized), or you may feelweak in one part of your body (focal). There are many potential causes of weakness. Sometimes, the cause of your weakness may not be known. Some causes of weakness can be serious, so it is important to see your doctor. Follow these instructions at home: Activity ??? Rest as needed. ??? Try to get enough sleep. Most adults need 7???8 hours of sleep each night. Talk to your doctor about how much sleep you need. ??? Do exercises, such as arm curls and leg raises, for 30 minutes at least 2 days a week or as told by your doctor. ??? Think about working with a physical therapist or associate trainer to help you get stronger. General instructions ??? Take ufcb-ucl-imqduwm and prescription medicines only as told by your doctor. ??? Eat a healthy, well-balanced diet. This includes: ??? Proteins to build muscles, such as lean meats and fish. ??? Fresh fruits and vegetables. ??? Carbohydrates to boost energy, such as whole grains. ??? Drink enough fluid to keep your pee (urine) pale yellow. ??? Keep all follow-up visits. Contact a doctor if: ??? Your weakness does not get better or it gets worse. ??? Your weakness affects your ability to: ??? Think clearly. ??? Do your normal daily activities. Get help right away if: ??? You have sudden weakness on one side of your face or body. ??? You have chest pain. ??? You have trouble breathing or shortness of breath. ??? You have problems with how you see (vision). ??? You have trouble talking or swallowing. ??? You have trouble standing or walking. ??? You are light-headed or faint. These symptoms may be an emergency. Get help right away. Call 911. ??? Do not wait to see if the symptoms will go away. ??? Do not drive yourself to the hospital. Summary ??? Weakness is a lack of strength. You may feel weak all over your body or just in one part of your body. ??? There are many potential causes of weakness. Sometimes, the cause of your weakness may not be known. ??? Rest as needed, and try to get enough sleep. Most adults need 7???8 hours of sleep each night. ??? Eat a healthy, well-balanced diet. This information is not intended to replace advice given to you by your health care provider. Make sure you discuss any questions you have with your health care provider. Document Revised: 03/23/2022 Document Reviewed: 03/23/2022 [employer] Patient Education ?? 2022 [employer]. 01/30/2023 17:41:12 Urinary Tract Infection, Adult Urinary Tract Infection, Adult A urinary tract infection (UTI) is an infection of any part of the urinary tract. The urinary tractincludes the kidneys, ureters, bladder, and urethra. These organs make, store, and get rid of urinein the body. An upper UTI affects the ureters and kidneys. A lower UTI affects the bladder and urethra. What are the causes? Most urinary tract infections are caused by bacteria in your genital area around your urethra, where urine leaves your body. These bacteria grow and cause inflammation of your urinary tract. What increases the risk? You are more likely to develop this condition if: ??? You have a urinary catheter that stays in place. ??? You are not able to control when you urinate or have a bowel movement (incontinence). ??? You are female and you: ??? Use a spermicide or diaphragm for control. ??? Have low estrogen levels. ??? Are . ??? You have certain genes that increase your risk. ??? You are sexually active. ??? You take antibiotic medicines. ??? You have a condition that causes your flow of urine to slow down, such as: ??? An enlarged prostate, if you are male. ??? Blockage in your urethra. ??? A kidney stone. ??? A nerve condition that affects your bladder control (neurogenic bladder). ??? Not getting enough to drink, or not urinating often. ??? You have certain medical conditions, such as: ??? Diabetes. ??? A weak disease-fighting system (immunesystem). ??? Sickle cell disease. ??? Gout. ??? Spinal cord injury. What are the signs or symptoms? Symptoms of this condition include: ??? Needing to urinate right away (urgency). ??? Frequent urination. This may include small amounts of urine each time you urinate. ??? Pain or burning with urination. ??? Blood in the urine. ??? Urine that smells bad or unusual. ??? Trouble urinating. ??? Cloudy urine. ??? Vaginal discharge, if you are female. ??? Pain in the abdomen or the lower back. You may also have: ??? Vomiting or a decreased appetite. ??? Confusion. ??? Irritability or tiredness. ??? A fever or chills. ??? Diarrhea. The first symptom in older adults may be confusion. In some cases, they may not have any symptoms until the infection has worsened. How is this diagnosed? This condition is diagnosed based on your medical history and a physical exam. You may also have other tests, including: ??? Urine tests. ??? Blood tests. ??? Tests for STIs (sexually transmitted infections). If you have had more than one UTI, a cystoscopy or imaging studies may be done to determine the cause of the infections. How is this treated? Treatment for this condition includes: ??? Antibiotic medicine. ??? Rvsn-tck-riabvkj medicines to treat discomfort. ??? Drinking enough water to stay hydrated. If you have frequent infections or have other conditions such as a kidney stone, you may need to see a health care provider who specializes in the urinary tract (urologist). In rare cases, urinary tract infections can cause sepsis. Sepsis is a life- threatening condition that occurs when the body responds to an infection. Sepsis is treated in the hospital with IV antibiotics, fluids, and other medicines. Follow these instructions at home: Medicines ??? Take zkrt-fyg-klqxkjk and prescription medicines only as told by your health care provider. ??? If you were prescribed an antibiotic medicine, take it as told by your health care provider. Donot stop using the antibiotic even if you start to feel better. General instructions ??? Make sure you: ??? Empty your bladder often and completely. Do not hold urine for long periods of time. ??? Empty your bladder after sex. ??? Wipe from front to back after urinating or having a bowel movement if you are female. Use each tissue only one time when you wipe. ??? Drink enough fluid to keep your urine pale yellow. ??? Keep all follow-up visits. This is important. Contact a health care provider if: ??? Your symptoms do not get better after 1???2 days. ??? Your symptoms go away and then return. Get help right away if: ??? You have severe pain in your back or your lower abdomen. ??? You have a fever or chills. ??? You have nausea or vomiting. Summary ??? A urinary tract infection (UTI) is an infection of any part of the urinary tract, which includes the kidneys, ureters, bladder, and urethra. ??? Most urinary tract infections are caused by bacteria in your genital area. ??? Treatment for this condition often includes antibiotic medicines. ??? If you were prescribed an antibiotic medicine, take it as told by your health care provider. Donot stop using the antibiotic even if you start to feel better. ??? Keep all follow-up visits. This is important. This information is not intended to replace advice given to you by your health care provider. Make sure you discuss any questions you have with your health care provider. Document Revised: 11/30/2020 Document Reviewed: 11/30/2020 [employer] Patient Education ?? 2022 [employer]. Follow Up Care 01/30/2023 14:56:00 With:Angel Abebe MD Address: [address] [place] [id number] When:1 to 2 weeks Physician Emergency department Note * Jassi Spann MD: PERFORM Event Display: ED Note Physician Authored Date: [id number] GINA JACOB :1950 Age:72 years Sex:Male Visit Date:01/30/2023 Primary Care Physician: Angel Abebe MD Basic Information Time Seen: Jassi Spann MD / 01/30/2023 15:12 Chief Complaint states He's on coumadin 5 mg a day. His INR yesterday 2.9 at [facility]. He got up this morning andwas feeling okay, then he had a gushing nose bleed, then he started to get a PINA over his right eye.then his right arm was numb and tingling at 1030 am History Of Present Illness: 72-year-old male patient of Dr. Angel Abebe in [facility] is brought to the ER for evaluation of??a number of different symptoms.?? Patient was at [facility] this morning and after waiting 2 hours??to be seen decided to bring him to [facility].?? She reports that he had a headache today at some point he had a nosebleed out of the right nare, had a headache above his right eye,the patient tells me that it does not really hurt right now if anything it is only mild.?? And there was mention of the right arm being tingly??this morning. ??Then he was??somewhat just feeling weakall over.?? Indeed he reported that both legs felt weak.?? He has been shaky and he reports that hejust feels achy all over.?? No reported??chest pain or palpitation. ??He is on Coumadin because of a history of A-fib. ??His INR was 2.9 at [facility] yesterday.?? No abdominal pain. ??He has a chronic indwelling Paz catheter.?? No reported fevers.?? No abdominal pain no chest pain at this time no reported vomiting or diarrhea. ??Blood pressure has been running on the high side.?? According to chart he is on losartan amlodipine and lisinopril for hypertension. ?? reports that he has a chronic cough thought to be due to the??TAMI inhibitor. Review of Systems: Per HPI Physical Exam Vitals & Measurements T:??35.7?C ??(Temporal Artery)?? HR:??70??(Peripheral)?? HR:??73??(Monitored)?? RR:??14?? BP:??159/99?? SpO2:??100%?? HT:??173.000??cm?? WT:??85.03??kg??(Estimated)?? NIH Stroke Scale Score:??0?? O2 Therapy:??Room air?? General:??alert,??no acute distress.?? No respiratory distress, he looks little cold and shaky but does not look septic.?? Interacts appropriately.?? Answers questions appropriately. Skin:??warm,??dry. Head:??no??trauma,??normocephalic. Neck:??trachea??midline,??no??adenopathy,??no??tenderness.?? Neck is supple.?? No meningeal signs. Eye:??normal??conjunctiva, sclera??clear.?? Pulls are equal and??although small but reactive, external eye movements are normal. Cardiovascular:??irregular??rate and rhythm,??normal??peripheral perfusion. Respiratory: lungs??CTA, respirations??non-labored.?? No adventitious lung sounds heard. Chest wall:??no??deformity. Gastrointestinal:??soft,??non distended,??no??tenderness,??no??guarding. Extremities:??no??deformity,??no??trauma. Neurological:?? LOC??appropriate for age, , speech??normal.?? At this time does no focal weakness of all 4 extremities, he has normal sensation to all 4 extremities, no facial droop. Psychiatric:??cooperative, affect??appropriate for age, Medical Decision Making: Medical Decision-Making: Clinical lab tests: ordered and reviewed -??Yes Tests in the radiology section of CPT??: ordered and reviewed -??Yes Tests in the medicine section of CPT??: ordered and reviewed -??Yes ?? Obtain history from someone other than the patient -??Yes?? Review and summarize past medical records -??Yes ?? Independent visualization of images, tracings, or specimens? Yes ?? Per the Paz catheter was changed a week ago.?? Peers to be working well. ?? Stable here, as to 6 PM patient just finished eating supper he is sitting upright no acute distress. ??Head CT is unremarkable,??urine sample obtained from catheter not the bag suggest infection.?? Other labs are unremarkable.?? No signs of a stroke or acute coronary syndrome or??significant dehydration.?? We will give him Rocephin IV and??likely put him on cephalexin. ??Discharged in stable condition ?? Last 24 Hours?? Chemistry ? Event Name?? Event Result?? Date/Time?? Sodium Level 135 mmol/L??Low 01/30/23 15:32:04 Potassium Level 3.7 mmol/L 01/30/23 15:32:04 Chloride Level 99 mmol/L 01/30/23 15:32:04 CO2 28 mmol/L 01/30/23 15:32:04 Alk Phos 90 unit/L 01/30/23 15:32:04 AST 16 unit/L 01/30/23 15:32:04 ALT 23 unit/L 01/30/23 15:32:04 BUN 12 mg/dL 01/30/23 15:32:04 Glucose Level 104 mg/dL 01/30/23 15:32:04 Creatinine Level 0.95 mg/dL 01/30/23 15:32:04 eGFR AA 85 01/30/23 15:32:04 eGFR Non-AA 85 01/30/23 15:32:04 Calcium Level 9.5 mg/dL 01/30/23 15:32:04 Protein Total 7.6 g/dL 01/30/23 15:32:04 Albumin Level 3.9 g/dL 01/30/23 15:32:04 Bilirubin Total 1.1 mg/dL??High 01/30/23 15:32:04 Ammonia Level 6 umol/L??Low 01/30/23 16:20:00 Glucose POC 113 mg/dL??High 01/30/23 15:23:00 Troponin-I 35.2 pg/mL 01/30/23 15:32:04 TSH 2.17 mcIntlUnit/mL 01/30/23 15:32:04 ? Hematology ? Event Name?? Event Result?? Date/Time?? WBC 11.6 x10^3/mcL??High 01/30/23 15:32:04 RBC 5.3 x10^6/mcL 01/30/23 15:32:04 Hgb 15.8 g/dL 01/30/23 15:32:04 Hct 47.4 % 01/30/23 15:32:04 MCV 89.8 fL 01/30/23 15:32:04 MCH 29.9 pg 01/30/23 15:32:04 MCHC 33.3 g/dL 01/30/23 15:32:04 RDW-CV 13.1 % 01/30/23 15:32:04 Platelets 198 x10^3/mcL 01/30/23 15:32:04 Neutro Auto 68.7 % 01/30/23 15:32:04 Lymph Auto 16.5 %??Low 01/30/23 15:32:04 Nicholas Auto 9.1 % 01/30/23 15:32:04 Eos, Auto 4.3 % 01/30/23 15:32:04 Basophil Auto 0.9 % 01/30/23 15:32:04 Imm Gran Auto 0.5 % 01/30/23 15:32:04 Neutro Absolute 8 x10^3/mcL 01/30/23 15:32:04 ? Coagulation/Thrombosis ? Event Name?? Event Result?? Date/Time?? Prothrombin Time 25.7 seconds??High 01/30/23 15:32:04 INR 2.7 01/30/23 15:32:04 ? Urinalysis ? Event Name?? Event Result?? Date/Time?? UA Color Pale Yello 01/30/23 17:21:23 UA Appear CLOUDY. Abnormal 01/30/23 17:21:23 UA Glucose NEGATIVE 01/30/23 17:21:23 UA Bili NEGATIVE 01/30/23 17:21:23 UA Ketones NEGATIVE 01/30/23 17:21:23 UA Spec Grav 1.015 01/30/23 17:21:23 UA Blood NEGATIVE 01/30/23 17:21:23 UA pH 7.5 01/30/23 17:21:23 UA Protein NEGATIVE 01/30/23 17:21:23 UA Urobilinogen 0.2 Uro 01/30/23 17:21:23 UA Nitrite POSITIVE Abnormal 01/30/23 17:21:23 UA Leuk Est 2+ Abnormal 01/30/23 17:21:23 UA Culture Ind?. Indicated 01/30/23 17:21:23 UA WBC 10-25 Abnormal 01/30/23 17:21:23 UA RBC 0-2 01/30/23 17:21:23 UA Squam Epithelial Rare 01/30/23 17:21:23 UA Mucous None Seen 01/30/23 17:21:23 UA Bacteria Moderate Abnormal 01/30/23 17:21:23 ? Blood Gases ? Event Name?? Event Result?? Date/Time?? pH Mario 7.38 pH unit(s) 01/30/23 16:20:00 pCO2 Mario 48 mmHg??High 01/30/23 16:20:00 pO2 Mario 30 mmHg 01/30/23 16:20:00 HCO3 Venous 28 mmol/L 01/30/23 16:20:00 O2 Sat Mario 57 % 01/30/23 16:20:00 CO2 Total Venous 30 mmol/L 01/30/23 16:20:00 Base Excess Venous 2.3 mmol/L 01/30/23 16:20:00 ? All Other Results ? Event Name?? Event Result?? Date/Time?? Digoxin Level 0.9 ng/mL 01/30/23 15:32:04 SARS-CoV-2(Covid19)PCR([facility]pert COVFLURSV) NEGATIVE 01/30/23 16:48:52 Flu A ([facility]pert COVFLURSV) NEGATIVE 01/30/23 16:48:52 Flu B ([facility]pert COVFLURSV) Neg-GeneXPert 01/30/23 16:48:52 RSV ([facility]pert COVFLURSV) Neg-GeneXPert 01/30/23 16:48:52 ?* Final Report * ? URL This document has an image ?? CT Brain/Head w/o Contrast PROCEDURE INFORMATION:?? Exam: CT Head Without Contrast?? Exam date and time: 01/30/2023 3:37 PM?? Age: 72 years old?? Clinical indication: Headache? TECHNIQUE:?? Imaging protocol: Computed tomography of the head without contrast.?? Radiation optimization: All CT scans at this facility use at least?? one of these dose optimization techniques: automated exposure?? control; mA and/or kV adjustment per patient size (includes targeted?? exams where dose is matched to clinical indication); or iterative?? reconstruction.? REPORTING DATA:?? Count of CT and Cardiac NM exams in prior 12 months: This patient has?? received 0 known CTs and 0 known cardiac nuclear medicine studies in?? the 12 months prior to the current study.? COMPARISON:?? No relevant prior studies available.? FINDINGS:?? Brain: There are mild periventricular and subcortical lucencies?? consistent with chronic microvascular ischemic changes.The evans-white?? differentiation is maintained. No hemorrhage. No edema.?? Cerebral ventricles: No ventriculomegaly.?? Paranasal sinuses: Visualized sinuses are unremarkable. No fluid?? levels.?? Mastoid air cells: Visualized mastoid air cells are well aerated.? Bones/joints: Unremarkable. No acute fracture.?? Soft tissues: Unremarkable.? IMPRESSION:?? No acute intracranial abnormality. Chronic microvascular ischemic changes. ?? Report signed by: Reynaldo Power On 01/30/2023 ??16:14:17 ?? [1] Procedure No Qualifying Data Assessment/Plan 1.??UTI (urinary tract infection)??N39.0 2.??Weakness??R53.1 Orders: cephalexin 500 mg oral capsule, 500 mg = 1 cap, Oral, TID, X 7 days, # 21 cap, 0 Refill(s), 02/06/23 18:39:00 EDT, Pharmacy: [id number], 173, cm, 01/30/23 15:07:00 EDT, Height/Length Dosing, 85.03, kg, 01/30/23 15:07:00 EDT, Weight Dosing Discharge Patient, 01/30/23 18:38:00 EDT, Home Independently, Constant Indicator Urine Culture, Urine, Stat collect, ST - Stat, 01/30/23 17:21:23 EDT, Once, Nurse collect, Collected, 01/30/23 17:21:23 EDT, Print Label, [id number] Patient Education Weakness, [id number] Urinary Tract Infection, Adult Follow Up With When Contact Information Angel Abebe MD Within 1 to [address] [place] [address]- Additional Instructions: Medication Reconciliation New Prescription cephalexin (cephalexin 500 mg oral capsule)1 Capsules Oral (given by mouth) 3 times a day for 7 Days. Refills: 0. ?? Unchanged amLODIPine (amLODIPine 5 mg oral tablet)1 tab Oral (given by mouth) every day. ?? diazePAM (diazePAM 10 mg oral tablet)1 tab Oral (given by mouth) 2 times a day as needed as needed for anxiety. ?? digoxin (digoxin 250 mcg (0.25 mg) oral tablet)1 tab Oral (given by mouth) every day. ?? donepezil (donepezil 10 mg oral tablet)1 tab Oral (given by mouth) every night at bedtime. ?? enoxaparin (enoxaparin 120 mg/0.8 mL injectable solution)INJECT 0.8 ML SUBCUTANEOUSLY ONCE DAILY FOR 3 DAYS. ?? finasteride (finasteride 5 mg oral tablet) ?? fluticasone-salmeterol (Advair Diskus 500 mcg-50 mcg inhalation powder)1 Puffs Inhale (breathe in) 2 times a day. ?? furosemide (furosemide 40 mg oral tablet)1 tab Oral (given by mouth) every day. ?? levalbuterol (levalbuterol 45 mcg/inh inhalation aerosol)1 Puffs Inhale (breathe in) every 6 hours as needed as needed for wheezing. ?? lisinopril (lisinopril 40 mg oral tablet)1 tab Oral (given by mouth) every day. ?? loratadine (loratadine 10 mg oral tablet)1 tab Oral (given by mouth) every day. ?? losartan (losartan 100 mg oral tablet) ?? magnesium oxide (magnesium oxide 400 mg (241.3 mg elemental magnesium) oral tablet)1 tab Oral (given by mouth) every day for 14 Days. ?? metoprolol (Metoprolol Tartrate 25 mg oral tablet) ?? omeprazole (omeprazole 20 mg oral delayed release capsule) ?? tamsulosin (tamsulosin 0.4 mg oral capsule)1 Capsules Oral (given by mouth) every day. ?? warfarin (warfarin 5 mg oral tablet) Problem List/Past Medical History Ongoing Asthma Atrial fibrillation Atypical chest pain Bradycardia Essential hypertension Hypertensive disorder Hypomagnesemia Mixed sleep apnea Obstructive sleep apnea syndrome Obstructive sleep apnea, adult Snoring Weight loss Historical No qualifying data Medication Administration Given cefTRIAXone, IV Piggyback Allergies doxycycline tetracyclines Social History Alcohol Never Electronic Cigarette/Vaping Electronic Cigarette Use: Never. Substance Use Never Tobacco Never tobacco user Tobacco Use:. Diagnostic Results ECG EKG shows LVH??with some repolarization anomaly, A-fib with rate being controlled. ??I have no previous EKGs for comparison. Lab Results Blood Gases?? LATEST RESULTS?? pH Mario?? 01/30/23 16:20?? 7.38?? pCO2 Mario?? 01/30/23 16:20?? 48 ??High?? pO2 Mario?? 01/30/23 16:20?? 30?? HCO3 Venous?? 01/30/23 16:20?? 28?? O2 Sat Mario?? 01/30/23 16:20?? 57?? CO2 Total Venous?? 01/30/23 16:20?? 30?? Base Excess Venous?? 01/30/23 16:20?? 2.3? CBC and Differential?? LATEST RESULTS?? WBC?? 01/30/23 15:32?? 11.6 ??High?? RBC?? 01/30/23 15:32?? 5.3?? Hgb?? 01/30/23 15:32?? 15.8?? Hct?? 01/30/23 15:32?? 47.4?? MCV?? 01/30/23 15:32?? 89.8?? MCH?? 01/30/23 15:32?? 29.9?? MCHC?? 01/30/23 15:32?? 33.3?? RDW-CV?? 01/30/23 15:32?? 13.1?? Platelets?? 01/30/23 15:32?? 198?? Neutro Auto?? 01/30/23 15:32?? 68.7?? Lymph Auto?? 01/30/23 15:32?? 16.5 ??Low?? Nicholas Auto?? 01/30/23 15:32?? 9.1?? Eos, Auto?? 01/30/23 15:32?? 4.3?? Basophil Auto?? 01/30/23 15:32?? 0.9?? Imm Gran Auto?? 01/30/23 15:32?? 0.5?? Neutro Absolute?? 01/30/23 15:32?? 8.0? Coagulation?? LATEST RESULTS?? Prothrombin Time?? 01/30/23 15:32?? 25.7 ??High?? INR?? 01/30/23 15:32?? 2.7? Routine Chemistry?? LATEST RESULTS?? Sodium Level?? 01/30/23 15:32?? 135 ??Low?? Potassium Level?? 01/30/23 15:32?? 3.7?? Chloride Level?? 01/30/23 15:32?? 99?? CO2?? 01/30/23 15:32?? 28?? Alk Phos?? 01/30/23 15:32?? 90?? AST?? 01/30/23 15:32?? 16?? ALT?? 01/30/23 15:32?? 23?? BUN?? 01/30/23 15:32?? 12?? Glucose Level?? 01/30/23 15:32?? 104?? Creatinine Level?? 01/30/23 15:32?? 0.95?? eGFR AA?? 01/30/23 15:32?? 85?? eGFR Non-AA?? 01/30/23 15:32?? 85?? Calcium Level?? 01/30/23 15:32?? 9.5?? Protein Total?? 01/30/23 15:32?? 7.6?? Albumin Level?? 01/30/23 15:32?? 3.9?? Bilirubin Total?? 01/30/23 15:32?? 1.1 ??High?? Ammonia Level?? 01/30/23 16:20?? 6 ??Low?? Glucose POC?? 01/30/23 15:23?? 113 ??High? Cardiac Isoenzymes?? LATEST RESULTS?? Troponin-I?? 01/30/23 15:32?? 35.2? Thyroid Studies?? LATEST RESULTS?? TSH?? 01/30/23 15:32?? 2.170? Therapeutic Drug Monitoring?? LATEST RESULTS?? Digoxin Level?? 01/30/23 15:32?? 0.90? UA Macroscopic?? LATEST RESULTS?? UA Color?? 01/30/23 17:21?? Pale Yellow?? UA Appear?? 01/30/23 17:21?? Cloudy Abnormal?? UA Glucose?? 01/30/23 17:21?? Negative?? UA Bili?? 01/30/23 17:21?? Negative?? UA Ketones?? 01/30/23 17:21?? Negative?? UA Spec Grav?? 01/30/23 17:21?? 1.015?? UA Blood?? 01/30/23 17:21?? Negative?? UA pH?? 01/30/23 17:21?? 7.5?? UA Protein?? 01/30/23 17:21?? Negative?? UA Urobilinogen?? 01/30/23 17:21?? Normal?? UA Nitrite?? 01/30/23 17:21?? Positive Abnormal?? UA Leuk Est?? 01/30/23 17:21?? 2+ Abnormal?? UA Culture Ind?.?? 01/30/23 17:21?? Indicated? UA Microscopic?? LATEST RESULTS?? UA WBC?? 01/30/23 17:21?? 10-25 Abnormal?? UA RBC?? 01/30/23 17:21?? 0-2?? UA Squam Epithelial?? 01/30/23 17:21?? Rare?? UA Mucous?? 01/30/23 17:21?? None Seen?? UA Bacteria?? 01/30/23 17:21?? Moderate Abnormal? Infectious Disease?? LATEST RESULTS?? SARS-CoV-2(Covid19)PCR([facility])?? 01/30/23 16:48?? Negative?? Flu A ([facility]OV[facility])?? 01/30/23 16:48?? Negative?? Flu B ([facility])?? 01/30/23 16:48?? Negative?? RSV ([facility])?? 01/30/23 16:48?? Negative? [1]??CT Brain/Head w/o Contrast; [employer], Generated 01/30/2023 15:37 EDT Electronically Signed on 01/30/23 06:43 PM Jassi Spann MD Emergency department Discharge instructions * Jassi Spann MD: PERFORM Event Display: ED Discharge Information Authored Date: [id number] CECIL GINA :1950 Age:72 years Sex:Male Visit Date:01/30/2023 Primary Care Physician: Angel Abebe MD Discharge Instructions We would like to thank you for allowing us to assist you with your healthcare needs. The following includes patient education materials and information regarding your injury/illness. Diagnosis from Today's Visit UTI (urinary tract infection) Weakness Discharge Vitals Temperature??(Temporal Artery) 96.3 ??F (35.7 ??C) Heart Rate??(Peripheral) 70 Heart Rate??(Monitored) 73 Respiratory Rate?? 14 Blood Pressure?? 159/99?? Height?? 68.11 in (173.000 cm) Weight??(Estimated) 187.49 lb (85.03 kg) Allergies doxycycline tetracyclines What to Do Next Instructions from Your Care Team Plenty of water, prescription for an antibiotic to treat what appears to be a urine infection sent to your pharmacy.?? Follow-up with your doctor next week for reassessment. You Need to Schedule the Following Appointments Follow Up with??Angel Abebe MD When:??Within 1 to 2 weeks Where: [address] [place] [address]- Upcoming Scheduled Appointments 2022 8:45 AM EST ?? With: Hiwot Dwyer [facility] [employer] Where: [facility] [address] [place] [address] Status: Confirmed You were treated today on an emergency basis; it may be cali to contact your primary care provider to notify them of your visit today. You may have been referred to your regular doctor or a specialist, please follow up as instructed. If your condition worsens or you can't get in to see the doctor, contact the Emergency Department. Medications What How Much When Instructions Next Dose New cephalexin (cephalexin 500 mg oral capsule) 1 Capsules Oral (given by mouth) 3 times a day Duration: 7 Days Pickup at [facility] Unchanged amLODIPine (amLODIPine 5 mg oral tablet) 1 tab Oral (given by mouth) Every day Unchanged diazePAM (diazePAM 10 mg oral tablet) 1 tab Oral (given by mouth) 2 times a day as needed for as needed for anxiety Unchanged digoxin (digoxin 250 mcg (0.25 mg) oral tablet) 1 tab Oral (given by mouth) Every day Unchanged donepezil (donepezil 10 mg oral tablet) 1 tab Oral (given by mouth) Every night at bedtime Unchanged enoxaparin (enoxaparin 120 mg/ 0.8 mL injectable solution) INJECT 0.8 ML SUBCUTANEOUSLY ONCE DAILY FOR 3 DAYS ?? Unchanged finasteride (finasteride 5 mg oral tablet) Unchanged fluticasone-salmeterol (Advair Diskus 500 mcg-50 mcg inhalation powder) 1 Puffs Inhale (breathe in) 2 times a day Unchanged furosemide (furosemide 40 mg oral tablet) 1 tab Oral (given by mouth) Every day Unchanged levalbuterol (levalbuterol 45 mcg/ inh inhalation aerosol) 1 Puffs Inhale (breathe in) Every 6 hours as needed for as needed for wheezing Unchanged lisinopril (lisinopril 40 mg oral tablet) 1 tab Oral (given by mouth) Every day Unchanged loratadine (loratadine 10 mg oral tablet) 1 tab Oral (given by mouth) Every day Unchanged losartan (losartan 100 mg oral tablet) Unchanged magnesium oxide (magnesium oxide 400 mg (241.3 mg elemental magnesium) oral tablet) 1 tab Oral (given by mouth) Every day Duration: 14 Days Unchanged metoprolol (Metoprolol Tartrate 25 mg oral tablet) Unchanged omeprazole (omeprazole 20 mg oral delayed release capsule) Unchanged tamsulosin (tamsulosin 0.4 mg oral capsule) 1 Capsules Oral (given by mouth) Every day Unchanged warfarin (warfarin 5 mg oral tablet) Pharmacy Information [id number]: [address], [place] [id number] [phone] Education Materials Weakness Weakness is a lack of strength. You may feel weak all over your body (generalized), or you may feelweak in one part of your body (focal). There are many potential causes of weakness. Sometimes, the cause of your weakness may not be known. Some causes of weakness can be serious, so it is important to see your doctor. Follow these instructions at home: Activity ? Rest as needed. ? Try to get enough sleep. Most adults need 7???8 hours of sleep each night. Talk to your doctor about how much sleep you need. ? Do exercises, such as arm curls and leg raises, for 30 minutes at least 2 days a week or as told byyour doctor. ? Think about working with a physical therapist or associate trainer to help you get stronger. General instructions ? Take pawy-tsr-qfbyrcj and prescription medicines only as told by your doctor. ? Eat a healthy, well-balanced diet. This includes: ? Proteins to build muscles, such as lean meats and fish. ? Fresh fruits and vegetables. ? Carbohydrates to boost energy, such as whole grains. ? Drink enough fluid to keep your pee (urine) pale yellow. ? Keep all follow-up visits. Contact a doctor if: ? Your weakness does not get better or it gets worse. ? Your weakness affects your ability to: ? Think clearly. ? Do your normal daily activities. Get help right away if: ? You have sudden weakness on one side of your face or body. ? You have chest pain. ? You have trouble breathing or shortness of breath. ? You have problems with how you see (vision). ? You have trouble talking or swallowing. ? You have trouble standing or walking. ? You are light-headed or faint. These symptoms may be an emergency. Get help right away. Call 911. ? Do not wait to see if the symptoms will go away. ? Do not drive yourself to the hospital. Summary ? Weakness is a lack of strength. You may feel weak all over your body or just in one part of your body. ? There are many potential causes of weakness. Sometimes, the cause of your weakness may not be known. ? Rest as needed, and try to get enough sleep. Most adults need 7???8 hours of sleep each night. ? Eat a healthy, well-balanced diet. This information is not intended to replace advice given to you by your health care provider. Make sure you discuss any questions you have with your health care provider. Document Revised: 03/23/2022 Document Reviewed: 03/23/2022 [employer] Patient Education ?? 2022 [employer]. Urinary Tract Infection, Adult A urinary tract infection (UTI) is an infection of any part of the urinary tract. The urinary tractincludes the kidneys, ureters, bladder, and urethra. These organs make, store, and get rid of urinein the body. An upper UTI affects the ureters and kidneys. A lower UTI affects the bladder and urethra. What are the causes? Most urinary tract infections are caused by bacteria in your genital area around your urethra, where urine leaves your body. These bacteria grow and cause inflammation of your urinary tract. What increases the risk? You are more likely to develop this condition if: ? You have a urinary catheter that stays in place. ? You are not able to control when you urinate or have a bowel movement (incontinence). ? You are female and you: ? Use a spermicide or diaphragm for control. ? Have low estrogen levels. ? Are . ? You have certain genes that increase your risk. ? You are sexually active. ? You take antibiotic medicines. ? You have a condition that causes your flow of urine to slow down, such as: ? An enlarged prostate, if you are male. ? Blockage in your urethra. ? A kidney stone. ? A nerve condition that affects your bladder control (neurogenic bladder). ? Not getting enough to drink, or not urinating often. ? You have certain medical conditions, such as: ? Diabetes. ? A weak disease-fighting system (immunesystem). ? Sickle cell disease. ? Gout. ? Spinal cord injury. What are the signs or symptoms? Symptoms of this condition include: ? Needing to urinate right away (urgency). ? Frequent urination. This may include small amounts of urine each time you urinate. ? Pain or burning with urination. ? Blood in the urine. ? Urine that smells bad or unusual. ? Trouble urinating. ? Cloudy urine. ? Vaginal discharge, if you are female. ? Pain in the abdomen or the lower back. You may also have: ? Vomiting or a decreased appetite. ? Confusion. ? Irritability or tiredness. ? A fever or chills. ? Diarrhea. The first symptom in older adults may be confusion. In some cases, they may not have any symptoms until the infection has worsened. How is this diagnosed? This condition is diagnosed based on your medical history and a physical exam. You may also have other tests, including: ? Urine tests. ? Blood tests. ? Tests for STIs (sexually transmitted infections). If you have had more than one UTI, a cystoscopy or imaging studies may be done to determine the cause of the infections. How is this treated? Treatment for this condition includes: ? Antibiotic medicine. ? Cznf-esd-dltlzge medicines to treat discomfort. ? Drinking enough water to stay hydrated. If you have frequent infections or have other conditions such as a kidney stone, you may need to see a health care provider who specializes in the urinary tract (urologist). In rare cases, urinary tract infections can cause sepsis. Sepsis is a life- threatening condition that occurs when the body responds to an infection. Sepsis is treated in the hospital with IV antibiotics, fluids, and other medicines. Follow these instructions at home: Medicines ? Take vksu-hil-mxhxgbl and prescription medicines only as told by your health care provider. ? If you were prescribed an antibiotic medicine, take it as told by your health care provider. Do notstop using the antibiotic even if you start to feel better. General instructions ? Make sure you: ? Empty your bladder often and completely. Do not hold urine for long periods of time. ? Empty your bladder after sex. ? Wipe from front to back after urinating or having a bowel movement if you are female. Use each tissue only one time when you wipe. ? Drink enough fluid to keep your urine pale yellow. ? Keep all follow-up visits. This is important. Contact a health care provider if: ? Your symptoms do not get better after 1???2 days. ? Your symptoms go away and then return. Get help right away if: ? You have severe pain in your back or your lower abdomen. ? You have a fever or chills. ? You have nausea or vomiting. Summary ? A urinary tract infection (UTI) is an infection of any part of the urinary tract, which includes the kidneys, ureters, bladder, and urethra. ? Most urinary tract infections are caused by bacteria in your genital area. ? Treatment for this condition often includes antibiotic medicines. ? If you were prescribed an antibiotic medicine, take it as told by your health care provider. Do notstop using the antibiotic even if you start to feel better. ? Keep all follow-up visits. This is important. This information is not intended to replace advice given to you by your health care provider. Make sure you discuss any questions you have with your health care provider. Document Revised: 11/30/2020 Document Reviewed: 11/30/2020 [employer] Patient Education ?? 2022 [employer] Tests Performed Medications and Immunizations Administered Given cefTRIAXone, IV Piggyback Lab Test Name Test Result Date/Time pH Mario 7.38 pH unit(s) 01/30/2023 16:20 EDT pCO2 Mario 48 mmHg 01/30/2023 16:20 EDT pO2 Mario 30 mmHg 01/30/2023 16:20 EDT HCO3 Venous 28 mmol/L 01/30/2023 16:20 EDT O2 Sat Mario 57 % 01/30/2023 16:20 EDT CO2 Total Venous 30 mmol/L 01/30/2023 16:20 EDT Base Excess Venous 2.3 mmol/L 01/30/2023 16:20 EDT WBC 11.6 x10^3/mcL 01/30/2023 15:32 EDT RBC 5.3 x10^6/mcL 01/30/2023 15:32 EDT Hgb 15.8 g/dL 01/30/2023 15:32 EDT Hct 47.4 % 01/30/2023 15:32 EDT MCV 89.8 fL 01/30/2023 15:32 EDT MCH 29.9 pg 01/30/2023 15:32 EDT MCHC 33.3 g/dL 01/30/2023 15:32 EDT RDW-CV 13.1 % 01/30/2023 15:32 EDT Platelets 198 x10^3/mcL 01/30/2023 15:32 EDT Neutro Auto 68.7 % 01/30/2023 15:32 EDT Lymph Auto 16.5 % 01/30/2023 15:32 EDT Nicholas Auto 9.1 % 01/30/2023 15:32 EDT Eos, Auto 4.3 % 01/30/2023 15:32 EDT Basophil Auto 0.9 % 01/30/2023 15:32 EDT Imm Gran Auto 0.5 % 01/30/2023 15:32 EDT Neutro Absolute 8.0 x10^3/mcL 01/30/2023 15:32 EDT Prothrombin Time 25.7 seconds 01/30/2023 15:32 EDT INR 2.7 01/30/2023 15:32 EDT Sodium Level 135 mmol/L 01/30/2023 15:32 EDT Potassium Level 3.7 mmol/L 01/30/2023 15:32 EDT Chloride Level 99 mmol/L 01/30/2023 15:32 EDT CO2 28 mmol/L 01/30/2023 15:32 EDT Alk Phos 90 unit/L 01/30/2023 15:32 EDT AST 16 unit/L 01/30/2023 15:32 EDT ALT 23 unit/L 01/30/2023 15:32 EDT BUN 12 mg/dL 01/30/2023 15:32 EDT Glucose Level 104 mg/dL 01/30/2023 15:32 EDT Creatinine Level 0.95 mg/dL 01/30/2023 15:32 EDT eGFR AA 85 01/30/2023 15:32 EDT eGFR Non-AA 85 01/30/2023 15:32 EDT Calcium Level 9.5 mg/dL 01/30/2023 15:32 EDT Protein Total 7.6 g/dL 01/30/2023 15:32 EDT Albumin Level 3.9 g/dL 01/30/2023 15:32 EDT Bilirubin Total 1.1 mg/dL 01/30/2023 15:32 EDT Ammonia Level 6 umol/L 01/30/2023 16:20 EDT Glucose POC 113 mg/dL 01/30/2023 15:23 EDT Troponin-I 35.2 pg/mL 01/30/2023 15:32 EDT TSH 2.170 mcIntlUnit/mL 01/30/2023 15:32 EDT Digoxin Level 0.90 ng/mL 01/30/2023 15:32 EDT UA Color Pale Yello 01/30/2023 17:21 EDT UA Appear CLOUDY. 01/30/2023 17:21 EDT UA Glucose NEGATIVE 01/30/2023 17:21 EDT UA Bili NEGATIVE 01/30/2023 17:21 EDT UA Ketones NEGATIVE 01/30/2023 17:21 EDT UA Spec Grav 1.015 01/30/2023 17:21 EDT UA Blood NEGATIVE 01/30/2023 17:21 EDT UA pH 7.5 01/30/2023 17:21 EDT UA Protein NEGATIVE 01/30/2023 17:21 EDT UA Urobilinogen 0.2 Uro 01/30/2023 17:21 EDT UA Nitrite POSITIVE 01/30/2023 17:21 EDT UA Leuk Est 2+ 01/30/2023 17:21 EDT UA Culture Ind?. Indicated 01/30/2023 17:21 EDT UA WBC 10-25 01/30/2023 17:21 EDT UA RBC 0-2 01/30/2023 17:21 EDT UA Squam Epithelial Rare 01/30/2023 17:21 EDT UA Mucous None Seen 01/30/2023 17:21 EDT UA Bacteria Moderate 01/30/2023 17:21 EDT SARS-CoV-2(Covid19)PCR([facility]OV[facility]) NEGATIVE 01/30/2023 16:48 EDT Flu A ([facility]OV[facility]) NEGATIVE 01/30/2023 16:48 EDT Flu B ([facility]OV[facility]) Neg-GeneXPert 01/30/2023 16:48 EDT RSV ([facility]OV[facility]) Neg-GeneXPert 01/30/2023 16:48 EDT Patient/Escalator Constructor Signature Patient Name:GINA JACOB I have received this information and my questions have been answered. Patient/Escalator Constructor Name: Patient/Escalator Constructor Signature: Relationship to Patient: Witness Name/Signature: Date: Electronically Signed on: 01/30/2023 18:43 EDTSigned by:RIAN Emergency department Note * Irma Villalba: PERFORM Event Display: ED Notes Authored Date: Patient Care team information Care Team Personnel Name: Angel Abebe MD Position: No Access Member Role: Informed Provider Address: Address: [address] Name: Jassi Spann MD Position: Physician Member Role: ED Physician Address: Address: [address] [place] [address] Name: Kristyn Martines RN Position: Nurse Member Role: ED Nurse Care Team Related Persons Name: BENOIT JACOB
--- OUTSIDE RECORDS SUMMARY | 2023-10-20 22:24 | XMS_ITS | Continuity of Care Document ---
Author Name Unknown Organization [facility] Address [address] [place] [address] Care Team Providers Care Patent Paralegal Name Role Phone Angel Abebe Primary Care Physician [phone] [facility]): [facility]26/23 - 01/26/23 [facility] [address] [place] [address] Encounter Diagnosis Mixed sleep apnea(Discharge Diagnosis) - 01/26/23 Discharge Disposition: Home or Self Care Attending Physician: Hiwot Dwyer RAT TRAPPER Allergies, Adverse Reactions, Alerts Substance Reaction Severity [...] 08/30/20 Active Weight loss Confirmed 08/29/20 Active Vital Signs Most recent to oldest [Reference Range]: 1 Peripheral Pulse Rate [60-100 bpm] 74 bp m (01/26/23 3:25 PM) Blood Pressure [90-140/60-90 mmHg] 136/7 8mmHg (01/26/23 3:25 PM) Weight 85.09 kg (01/26/23 3:25 PM) Weight Measured (lbs) 187.591 lb (01/26/23 3:25 PM) Height 173 cm (01/26/23 3:25 PM) Height/Length Measured (inches) 68.11 in ch (01/26/23 3:25 PM) BSA Measured 2.02 m2 (01/26/23 3:25 PM) Body Mass Index 28.43 kg/m2 (01/26/23 3:25 PM) Social History Social History Type Response Tobacco Never tobacco user T obacco Use:. Sex Male Progress note * Christian Ledesma M: PERFORM Event Display: Progress Note - Physician Authored Date: [id number] Physician Outpatient Note * Hiwot Dwyer RAT TRAPPER: PERFORM Event Display: Office Clinic Note Physician Authored Date: [id number] GINA JACOB :1950 Age:72 years Sex:Male Visit Date:01/26/2023 Primary Care Physician: Angel Abebe MD History of Present Illness Kianjel Jacob has a visit for YULISA follow-up. His accompanies him to the visit and helps to answer questions. He checked in 17 minutes late. ?? Alfredo was seen by me on 10/29/2022. He has a medical history to include asthma, chronic a-fib, HTN, hypomagnesemia, and BPH. ?? He noted symptoms of loud snoring, nocturia, excessive daytime sleepiness (ESS 14), sleep fragmentation, nocturnal gasping, leg kicks in sleep and falling out of bed. ?? Polysomnogram was completed on 09/13/2020 (BMI 29.12). Sleep efficiency was 46%, AHI 34.2/hr, RDI 44.7/hr, REM AHI 32.3/hr, REM RDI 46.2/hr, supine AHI 48/hr, right lateral AHI N/A, left lateral AHI 4/hr, sp02 estrella 88%, 0 minutes were spent at a saturation <88%, arousal index 38/hr, PLMi 0/hr, PLM arousal index 0/hr. EKG showed a-fib. Some centrals noted but did not meet 50% of events. ?? PSG 05/08/2021 (BMI 29.64), AHI 29/hr, sp02 estrella 89%, PLMi 6.6/hr, PLMai 1.3/hr. CPAP 7-16 cm ordered 06/20/21 but at his last visit with me in September 2021 and again in 07/2022??he had still not received his CPAP so I ordered it AGAIN. ?? Last visit he was using CPAP 7-16 cm with a residual AHI of 21/hr. I set CPAP to 10-16 cm and ordered a titration. ?? Titration Polysomnogram was completed on??12/20/2022 (BMI 27.42) and I reviewed the results with??him in detail today. 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 EKG showed a-fib. BiPAP with BR 10/min recommended. ?? Alfredo says that he slept about the same while here for the study as he does at home. He still uses CPAP most every night and things are pretty good but he got a new mask in the mail and he can't get it to connect to his machine. Physical Exam N/A Clinic Assessment/Plan 1.??Mixed sleep apnea??G47.39 YULISA diagnosed in 2020 with an AHI of 34.2/hr. He??is using CPAP 7-16 cm. He has excellent compliance but his AHI is still elevated at 18/hr. 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 BiPAP ST with BR 9/min offered better control and BiPAP ST recommended. I placed an order for BiPAP ST Imax 18 cm, Charly 12 cm, PS 6 cm, BR 10/min. If his insurance will not cover a ST then I will order BiPAP Imax 25 cm, Charly 12 cm, PS 6 cm. I set his CPAP to 10-18 cm today because it was still at 7-16 cm. He is reminded he will need to meet insurance compliance requirements.I will see him back in two months. He is asked to call our office for any sleep related questions or concerns. I provided greater than 30 minutes in the care of this patient, more than half the time was spent in [id number] counseling. Problem List/Past Medical History Ongoing Asthma Atrial fibrillation Atypical chest pain Bradycardia Essential hypertension Hypertensive disorder Hypomagnesemia Mixed sleep apnea Obstructive sleep apnea syndrome Obstructive sleep apnea, adult Snoring Weight loss Historical No qualifying data Medications What How Much When Instructions Unchanged amLODIPine (amLODIPine 5 mg oral tablet) 1 tab Oral (given by mouth) Every day Unchanged amoxicillin-clavulanate (amoxicillin-clavulanate 875 mg-125 mg oral tablet) 1 tab Oral (given by mouth) Every 12 hours Duration: 14 Days Unchanged benzonatate (benzonatate 100 mg oral capsule) 1 Capsules Oral (given by mouth) 3 times a day as needed for as needed for cough Duration: 10 Days Unchanged cefpodoxime (cefpodoxime 200 mg oral tablet) 1 tab Oral (given by mouth) Once Unchanged diazePAM (diazePAM 10 mg oral tablet) [...] (Metoprolol Tartrate 25 mg oral tablet) Unchanged molnupiravir (Lagevrio 200 mg oral capsule) Unchanged omeprazole (omeprazole 20 mg oral delayed release capsule) Unchanged predniSONE (predniSONE 20 mg oral tablet) Unchanged tamsulosin (tamsulosin 0.4 mg oral capsule) 1 Capsules Oral (given by mouth) Every day Unchanged warfarin (warfarin 5 mg oral tablet) Allergies doxycycline tetracyclines Social History Electronic Cigarette/Vaping Electronic Cigarette Use: Never. Tobacco Never tobacco user Tobacco Use:. Electronically Signed on 01/26/23 03:20 PM Hiwot Dwyer NP Patient Care team information Care Team Personnel Name: Angel Abebe MD Position: No Access Member Role: Primary Care Physician Address: Address: [address]
--- OUTSIDE RECORDS SUMMARY | 2023-10-20 22:25 | XMS_ITS | Continuity of Care Document ---
Author Name Unknown Organization [facility] Address [address] [place] [address] Care Team Providers Care Flue Gas Analyst Name Role Phone Andrae GONZALEZ, Angel Primary Care Physician Mile vailable Encounter [facility] NBR [id number] Date(s): 03/20/22 - 03/20/22 [facility] [address] [place] [address]- [place] Discharge Disposition: Home or Self Care Attending Physician: Lucy Lee APRN Allergies, Adverse Reactions, Alerts Substance Reaction Severity Status doxycycline Severe Active tetracycline Severe Active Assessment and Plan Future Appointments Future Scheduled Tests Radiology* US Kidney Bladder 02/21/22 Medications Acetaminophen Extra Strength Gelcaps 500 mg QID, 2 Unknown, 0 Refill(s) Start Date: 02/13/22 Status: Ordered Advair Diskus 500 mcg-50 mcg inhalation powder BID, 1 Unknown, 0 Refill(s) Start Date: 02/13/22 Status: Ordered amLODIPine 5 mg oral tablet 5 mg = 1 tab, Oral, Daily, # 90 tab, 0 Refill(s) Start Date: 02/13/22 Status: Ordered cefpodoxime 200 mg oral tablet 200 mg = 1 tab, Oral, every 12 hr, # 14 tab, 0 Refill(s), Pharmacy: [id number], 177, cm, 03/16/22 12:14:00 EST, Height/Length Dosing, 95, kg, 03/16/22 12:14:00 EST, Weight Dosing Start Date: 03/16/22 Stop Date: 03/23/22 Status: Ordered digoxin 250 mcg (0.25 mg) oral tablet 90 EA, TAKE ONE TABLET BY MOUTH EVERY DAY, 0 Refill(s) Start Date: 02/13/22 Status: Ordered dilTIAZem 300 mg/24 hours oral capsule, extended release 1 Unknown, 0 Refill(s) Start Date: 02/13/22 Status: Ordered donepezil 5 mg oral tablet 5 mg = 1 tab, Oral, every day at bedtime, # 90 tab, 0 Refill(s) Start Date: 02/13/22 Status: Ordered loratadine 10 mg oral capsule 1 Unknown, 0 Refill(s) Start Date: 02/13/22 Status: Ordered losartan 100 mg oral tablet 100 mg = 1 tab, Oral, Daily, # 90 tab, 0 Refill(s) Start Date: 02/13/22 Status: Ordered magnesium oxide 400 mg (241.3 mg elemental magnesium) oral tablet 1 Unknown, 0 Refill(s) Start Date: 02/13/22 Status: Ordered metoprolol tartrate 25 mg oral tablet 1 Unknown, 0 Refill(s) Start Date: 02/13/22 Status: Ordered omeprazole 0 Refill(s) Start Date: 02/09/22 Status: Ordered omeprazole 20 mg oral delayed release capsule 90 EA, TAKE ONE CAPSULE BY MOUTH EVERY DAY, 0 Refill(s) Start Date: 02/13/22 Status: Ordered tamsulosin 0.4 mg oral capsule 0.4 mg = 1 cap, Oral, Daily, please take at bedtime, # 365 cap, 3 Refill(s), Pharmacy: [id number], 175, cm, 02/09/22 15:04:00 EDT, Height/Length Dosing, 100, kg, 02/09/22 15:04:00 EDT, Weight Dosing Start Date: 02/13/22 Stop Date: 02/12/26 Status: Ordered warfarin 5 mg oral tablet 100 EA, TAKE 0-2 TABLETS BY MOUTH DAILY DIRECTED BY [facility]; DOSE BASE INR, 0 Refill(s) Start Date: 02/13/22 Status: Ordered Xopenex HFA 45 mcg/inh inhalation aerosol 1 Unknown, 0 Refill(s) Start Date: 02/13/22 Status: Ordered Problem List Condition Confirmation Course Effective Dates Status Health St atus Informant Atrial fibrillation Confirmed Active 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 Elevated PSA Confirmed Active Social History Social History Type Response Tobacco Never tobacco user T obacco Use:. Sex Patient Care team information Personnel Name: Angel Abebe MD
--- OUTSIDE RECORDS SUMMARY | 2023-10-20 22:25 | XMS_ITS | Continuity of Care Document ---
Author Name Unknown Organization [facility] Address [address] [place] [address] Care Team Providers Care Rn Imaging Name Role Phone YUMIKO MUNOZ MD Primary Care Physician Encounter [facility] [id number] Date(s): 01/06/23 - 01/06/23 [facility] [address] [place] [address]- Encounter Diagnosis BPH with obstruction/lower urinary tract symptoms(Discharge Diagnosis) - 01/06/23 Elevated PSA(Discharge Diagnosis) - 01/06/23 Discharge Disposition: Home or Self Care Attending Physician: Lucy Lee APRN Referring Physician: YUMIKO MUNOZ MD Allergies, Adverse Reactions, Alerts Substance Reaction Severity Status doxycycline Severe Active tetracycline Severe Active Assessment and Plan Future Appointments Future Scheduled Tests Radiology* US Kidney Bladder 02/21/22 Functional Status 01/06/23 Family Member Travel History No recent t ravel Recent Travel History No recent travel Other exposure to Infectious Disease Non e Medications Acetaminophen Extra Strength Gelcaps 500 mg QID, 2 Unknown, 0 Refill(s) Start Date: 02/13/22 Status: Ordered Advair Diskus 500 mcg-50 mcg inhalation powder BID, 1 Unknown, 0 Refill(s) Start Date: 02/13/22 Status: Ordered amLODIPine 5 mg oral tablet 5 mg = 1 tab, Oral, Daily, # 90 tab, 0 Refill(s) Start Date: 02/13/22 Status: Ordered digoxin 250 mcg (0.25 mg) [...] 0 Refill(s) Start Date: 02/13/22 Status: Ordered finasteride 5 mg oral tablet 5 mg = 1 tab, Oral, Daily, # 90 tab, 4 Refill(s), Pharmacy: [facility], 177, cm, 03/16/22 12:14:00 EST, Height/Length Dosing, 95, kg, 03/16/22 12:14:00 EST, Weight Dosing Start Date: 04/05/22 Stop Date: 06/29/23 Status: Ordered loratadine 10 mg oral capsule [...] Refill(s) Start Date: 02/13/22 Status: Ordered omeprazole 20 mg oral delayed release capsule 90 EA, TAKE ONE CAPSULE BY MOUTH EVERY DAY, 0 Refill(s) Start Date: 02/13/22 Status: Ordered warfarin 5 mg oral tablet 100 EA, TAKE 0-2 TABLETS BY MOUTH DAILY DIRECTED BY [facility]; DOSE BASE INR, 0 Refill(s) Start Date: 02/13/22 Status: Ordered Xopenex HFA 45 mcg/inh inhalation aerosol 1 Unknown, 0 Refill(s) Start Date: 02/13/22 Status: Ordered Problem List Condition Confirmation Course Effective Dates Status Health St atus Informant Atrial fibrillation Confirmed Active 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 Procedures Procedure Date Related Diagnosis Body Site Status Hernia repair Completed Tonsillectomy and adenoidectomy Completed Vital Signs Most recent to oldest [Reference Range]: 1 Temperature Temporal Artery [36-38 Deg C ] 36.9 Deg C (01/06/23 3:01 PM) Peripheral Pulse Rate [60-100 bpm] 69 bp m (01/06/23 3:01 PM) Blood Pressure [90-140/60-90 mmHg] 160/9 0mmHg *HI* (01/06/23 3:01 PM) Weight 83.01 kg (01/06/23 3:01 PM) Weight Measured (lbs) 183.006 lb (01/06/23 3:01 PM) [place] Body Weight Calculated 73 kg (01/06/23 3:01 PM) Height 177.8 cm (01/06/23 3:01 PM) Height/Length Measured (inches) 70 inch (01/06/23 3:01 PM) BSA Measured 2.02 m2 (01/06/23 3:01 PM) Body Mass Index 26.26 kg/m2 (01/06/23 3:01 PM) Social History Social History Type Response Tobacco Never tobacco user T obacco Use:. Sex Physician Outpatient Note * Lucy Lee APRN: PERFORM Event Display: Office Clinic Note Physician Authored Date: [id number] GINA JACOB :1950 Age:72 years Sex:Male Visit Date:01/06/2023 Primary Care Physician: YUMIKO MUNOZ MD Chief Complaint Routine Indwelling Catheter Change History of Present Illness Mr. Jacob is a pleasant 72 year-old ??man who presents to the clinic today for franks catheter change.??He was last seen by us on 12/09/22.??He has been seen by [facility] urology department and is in the process of being scheduled for a Green Light Laser TURP to be done by Dr. Barros. As of today, he does not have a surgical date. I called [facility] Urology and was told Mr. Jacob should be getting a call in the next couple of days for scheduling. ?? He has BPH/LUTS and urinary retention as well as elevated PSA.?? He has a history of acute on chronic urinary retention in February 2022, and has been managing his bladder with a franks catheter since that time.?He has an elevated PSA of 10.48, evaluated by pelvic MRI on 03/25/22.?? This showed a 77 gm prostate, and was graded PI-RADS 2.?He underwent TRUS biopsy with Dr. Bryan on 09/01/21. I went over the results with both he and his on 09/16/22. Prostate is negative for cancer. ?? CT Abd/Pelvis obtained on 02/09/22 revealed: Distended urinary bladder with bladder diverticulum possibly sequela of longstanding neurogenic bladder and or bladder outlet obstruction. Moderate to large hiatal hernia (from radiologist read). ?? He is currently taking finasteride.?? He stopped tamsulosin after he failed several voiding trials while on it. ?? PSA: 02/13/22:? 10.48 Review of Systems per history of present illness Physical Exam Vitals & Measurements T:??36.9?C ??(Temporal Artery)?? HR:??69??(Peripheral)?? BP:??160/90?? SpO2:??97%?? HT:??177.8??cm?? WT:??83.01??kg?? BMI:??26.26?? BSA:??2.02?? deferred Procedure Franks Catheter Change ?? The patient was placed in the supine position, and the urethral catheter was removed.?? The perineum was then prepped and draped in standard sterile fashion.? A 16 Fr??Coude catheter was placedatraumatically per urethra after instillation of 1% lidocaine jelly. Clear urine was noted??and theballoon was inflated with 10 ml sterile water.? The catheter was placed to gravity drainage.?? The patient tolerated the procedure well. Assessment/Plan 1.??BPH with obstruction/lower urinary tract symptoms??N40.1 1. Continue taking finasteride 5 mg po qd. 2. Currently managing obstruction with indwelling franks catheter. Surgical intervention pending at [facility]. 3. Follow up in four weeks in case surgery has not occurred yet. 2.??Elevated PSA??R97.20 Assessed with pelvic MRI and resulted with a PI-RADS 2. Patient requested definitive diagnosis withprostate biopsy's which were negative for malignancy. He has a 77 gm prostate. Mr. Jacob is a pleasant 72 year-old man with BPH, bladder outlet obstruction, and urinary??retention managing??his bladder with an??indwelling franks catheter. He has recently seen [facility] urology in referral. He is in the process of being scheduled for a Green Light Laser TURP. We will see him every four weeks for catheter change until surgical intervention is completed. ?? Problem List/Past Medical History Ongoing Atrial fibrillation BPH with obstruction/lower urinary tract symptoms Historical No qualifying data Procedure/Surgical History ???Hernia repair???Tonsillectomy and adenoidectomy Medications Acetaminophen Extra Strength Gelcaps 500 mg, QID Advair Diskus 500 mcg-50 mcg inhalation powder, BID amLODIPine 5 mg oral tablet, 5 mg= 1 tab, Oral, Daily digoxin 250 mcg (0.25 mg) oral tablet dilTIAZem 300 mg/24 hours oral capsule, extended release donepezil 5 mg oral tablet, 5 mg= 1 tab, Oral, every night at bedtime finasteride 5 mg oral tablet, 5 mg= 1 tab, Oral, Daily, 4 refills loratadine 10 mg oral capsule losartan 100 mg oral tablet, 100 mg= 1 tab, Oral, Daily magnesium oxide 400 mg (241.3 mg elemental magnesium) oral tablet metoprolol tartrate 25 mg oral tablet omeprazole 20 mg oral delayed release capsule warfarin 5 mg oral tablet Xopenex HFA 45 mcg/inh inhalation aerosol Allergies doxycycline tetracycline Social History Alcohol Never Electronic Cigarette/Vaping Electronic Cigarette Use: Never. Tobacco Never tobacco user Tobacco Use:. Family History Asthma: Father. Diabetes mellitus: Mother. Hypertension: Mother and Father. Stroke: Mother. Electronically Signed on 01/06/23 04:07 PM Lucy Lee APRN Patient Care team information Care Team Personnel Name: YUMIKO MUNOZ MD Position: No Access Member Role: Primary Care Physician Address: Address: [address] [place] [id number] [facility] Care Team Related Persons Name: BENOIT JACOB Address: Home
--- OUTSIDE RECORDS SUMMARY | 2023-10-20 22:25 | XMS_ITS | Continuity of Care Document ---
Author Name Unknown Organization [facility] Ambulatory Clinics Address [address] [place] [address] Care Team Providers Care Control Systems Technician Name Role Phone YUMIKO MUNOZ MD Primary Care Physician [phone] Encounter [facility] NBR [id number] Date(s): 09/16/22 - 09/16/22 [facility] Ambulatory Clinics [address] [place] [address]- Encounter Diagnosis BPH with obstruction/lower urinary tract symptoms(Discharge Diagnosis) - 09/16/22 Elevated PSA(Discharge Diagnosis) - 09/16/22 Discharge Disposition: Home or Self Care Attending Physician: Lucy Lee APRN Referring Physician: Kelsea Bryan MD Allergies, Adverse Reactions, Alerts Substance Reaction Severity Status doxycycline Severe Active tetracycline Severe Active Assessment and Plan Future Appointments Future Scheduled Tests Radiology* US Kidney Bladder 02/21/22 Functional Status 09/16/22 Other exposure to Infectious Disease Non e [...] # 14 tab, 0 Refill(s), [facility]acy: [facility], 177, cm, 03/16/22 12:14:00 EST, Height/Length [...] # 90 tab, 4 Refill(s), [facility]acy: [facility], 177, cm, 03/16/22 12:14:00 EST, Height/Length [...] 0-2 TABLETS BY MOUTH DAILY DIRECTED BY [facility]; DOSE BASE INR, 0 Refill(s) Start Date: 02/13/22 Status: Ordered Xopenex HFA 45 mcg/inh inhalation aerosol 1 Unknown, 0 Refill(s) Start Date: 02/13/22 Status: Ordered Problem List Condition Confirmation Course Effective Dates Status Health St [facility] Informant Atrial fibrillation Confirmed Active 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 Vital Signs Most recent to oldest [Reference Range]: 1 Temperature Temporal Artery [36-38 Deg C ] 36.5 Deg C (09/16/22 3:45 PM) Peripheral Pulse Rate [60-100 bpm] 80 bp m (09/16/22 3:45 PM) Respiratory Rate [12-24 br/min] 16 br/mi n (09/16/22 3:45 PM) Blood Pressure [90-140/60-90 mmHg] 132/7 4mmHg (09/16/22 3:45 PM) Social History Social History Type Response Tobacco Never tobacco user T obacco Use:. Sex Physician Outpatient Note * Lucy Lee APRN: PERFORM Event Display: Office Clinic Note Physician Authored Date: [id number] GINA JACOB :1950 Age:71 years Sex:Male Visit Date:09/16/2022 Primary Care Physician: YUMIKO MUNOZ MD Chief Complaint follow up of prostate biopsy results, BPH, and urinary retention History of Present Illness Mr. Jacob is a pleasant 71 year-old man who presents to the clinic today??to discuss recent prostate biopsy results. ??He is accompanied by his , Ale. He underwent TRUS guided biopsies with Dr. Bryan on 09/01/22. Biopsy results are negative for cancer. He wishes to move forward with a referral to [facility] to discuss UroLift procedure versus a more invasive procedure such as green light laser TURP or Prostatectomy. ?? He has BPH/LUTS and urinary retention as well as elevated PSA.?? He has a history of acute on chronic urinary retention in February 2022, and has been managing his bladder with a franks catheter since that time.?He has an elevated PSA of 10.48, and underwent pelvic MRI on 03/25/22.?? This showed a77 gm prostate, and was graded PI-RADS 2.? CT Abd/Pelvis obtained on 02/09/22 revealed: Distended urinary bladder with bladder diverticulum possibly sequela of longstanding neurogenic bladder and or bladder outlet obstruction. Moderate to large hiatal hernia (from radiologist read). ?? He is currently taking finasteride.?? He stopped tamsulosin after he failed several voiding trials while on it. He is managing his bladder with an indwelling franks catheter since 02/19/22. ?? PSA ?? 02/13/22: 10.482 Review of Systems Constitutional:?No??fevers,?No??chills,?No??sweats Eye:?No??recent visual problems, wears glasses ENT:?No??ear pain,?No??nasal congestion,?No??sore throat Respiratory:?No??shortness of breath,?No??cough Cardiovascular:?positive for A-fib, Hypertension Gastrointestinal:?positive for GERD Genitourinary:?No??hematuria, yes urinary retention and enlarged prostate, elevated PSA, bladderdiverticulum Ab/Lymph:?No??bruising tendency,?No??swollen lymph glands Endocrine:?No??excessive thirst,??No??excessive hunger Musculoskeletal:??No??back pain,??No??neck pain,??No??joint pain,??No??muscle pain,??Positive for??decreased range of motion Integumentary:?No??rash,?No??pruritus,?No??abrasions Neurologic: Alert & oriented X 4 Psychiatric:?No??anxiety,?No??depression Physical Exam Vitals & Measurements T:??36.5?C ??(Temporal Artery)?? HR:??80??(Peripheral)?? RR:??16?? BP:??132/74?? SpO2:??95%?? GENERAL APPEARANCE:??alert and oriented in NAD; appropriate with good affect.?? NEURO:??grossly intact.?? HEENT:??NCAT; EOMI.?? NECK:??supple.?? CHEST:??symmetric excursions.?? ABDOMEN:??deferred.?? MUSCULOSKELETAL:??good gait and station.?? EXTREMITIES:??no c/c/e??.?? BACK/SPINE:??deferred. :??deferred. Assessment/Plan 1.??BPH with obstruction/lower urinary tract symptoms??N40.1 1. Continue finasteride 5 mg po qd. 2. Referral to the urology service at [facility] to discuss photovaporization vs urolift procedure now that it is known??he does not have prostate??cancer. ??I am hesitant that urolift is the best option for him but it is where he would like to start. He is aware that he may not receive the outcome that he hopes for and may need additional surgical intervention. 3. Continue indwelling franks catheter in the interim. Follow up in three weeks for routine catheterchange. 2.??Elevated PSA??R97.20 Repeat PSA in 02/23. Mr. Jacob is a pleasant 71 year-old man with urinary retention??and BPH.?? His PSA is elevated in the 10 range.??He is?? currently taking??finasteride, and managing his bladder with an indwelling franks catheter.??Referral to [facility] urology for definitive treatment. Referral Orders Referral Management, Medical Service: Urology, Reason: patient wishes to discuss Urolift procedure vs green light laser turp, Treatment: Indwelling franks catheter Pelvic MRI- PI-RADS 2 TRUS-negative for cancer, Start: 09/16/22, Instructions: Please refer to [facility] urol... Problem List/Past Medical History Ongoing Atrial fibrillation BPH with obstruction/lower urinary tract symptoms Historical No qualifying data Medications Acetaminophen Extra Strength Gelcaps 500 mg, QID Advair Diskus 500 mcg-50 mcg inhalation powder, BID amLODIPine 5 mg oral tablet, 5 mg= 1 tab, Oral, Daily cefpodoxime 200 mg oral tablet, 200 mg= 1 tab, Oral, every 12 hr digoxin 250 mcg (0.25 mg) oral tablet [...] metoprolol tartrate 25 mg oral tablet omeprazole omeprazole 20 mg oral delayed release capsule warfarin 5 mg oral tablet Xopenex HFA 45 mcg/inh inhalation aerosol Allergies doxycycline tetracycline Social History Alcohol Never Electronic Cigarette/Vaping Electronic Cigarette Use: Never. Tobacco Never tobacco user Tobacco Use:. Family History Asthma: Father. Diabetes mellitus: Mother. Hypertension: Mother and Father. Stroke: Mother. Electronically Signed on 09/16/22 08:11 PM Lee Lucy ROSS Patient Care team information Care Team Personnel Name: YUMIKO MUNOZ MD Position: No Access Member Role: Primary Care Physician Address: Address: [address] [place] [phone] [facility] Care Team Related Persons Name: BENOIT JACOB Address: Home
--- OUTSIDE RECORDS SUMMARY | 2023-10-20 22:25 | XMS_ITS | Continuity of Care Document ---
Author Name Unknown Organization [facility] Ambulatory Clinics Address [address] [place] [address] Care Team Providers Care Sign Painter Name Role Phone YUMIKO MUNOZ MD Primary Care Physician Encounter [facility] NBR [id number] Date(s): 11/06/22 - 11/06/22 [facility] Ambulatory Clinics [address] [place] [address]- Encounter Diagnosis BPH with obstruction/lower urinary tract symptoms(Discharge Diagnosis) - 11/06/22 Elevated PSA(Discharge Diagnosis) - 11/06/22 Discharge Disposition: Home or Self Care Attending Physician: Lucy Lee APRN Allergies, Adverse Reactions, Alerts Substance Reaction Severity Status doxycycline Severe Active tetracycline Severe Active Assessment and Plan Future Appointments Future Scheduled Tests Radiology* US Kidney Bladder 02/21/22 Functional Status 11/06/22 Other exposure to Infectious Disease Non e [...] hr, # 14 tab, 0 Refill(s), [facility]acy[facility], 177, cm, 03/16/22 12:14:00 EST, Height/Length [...] Daily, # 90 tab, 4 Refill(s), Pharmacy: [facility], 177, cm, 03/16/22 12:14:00 EST, Height/Length [...] 0-2 TABLETS BY MOUTH DAILY DIRECTED BY [facility]; DOSE BASE INR, 0 Refill(s) Start [...] Temperature Temporal Artery [36-38 Deg C ] 36.4 Deg C (11/06/22 12:54 PM) Peripheral Pulse Rate [60-100 bpm] 93 bp m (11/06/22 12:54 PM) Respiratory Rate [12-24 br/min] 18 br/mi n (11/06/22 12:54 PM) Blood Pressure [90-140/60-90 mmHg] 138/8 2mmHg (11/06/22 12:54 PM) Social History Social History Type Response Tobacco Never tobacco user T obacco Use:. Sex Patient Care team information Care Team Personnel Name: YUMIKO MUNOZ MD Position: No Access Member Role: Primary Care Physician Address: Address: [address] [place] [phone] [facility] Care Team Related Persons Name: BENOIT JACOB Address: Home
--- OUTSIDE RECORDS SUMMARY | 2023-10-20 22:25 | XMS_ITS | Continuity of Care Document ---
Author Name Unknown Organization [facility] Ambulatory Clinics Address [address] [place] [address] Care Team Providers Care Folding Machine Setter Name Role Phone YUMIKO MUNOZ MD Primary Care Physician Encounter [facility] NBR [id number] Date(s): 09/23/22 - 09/23/22 [facility] Ambulatory Clinics [address] [place], [place] [address] Discharge Disposition: Home or Self Care Attending Physician: Lucy Lee APRN Allergies, Adverse Reactions, Alerts Substance Reaction Severity Status doxycycline Severe Active tetracycline Severe Active Assessment and Plan Future Appointments Future Scheduled Tests Radiology* US Kidney Bladder 02/21/22 Functional Status 09/23/22 Other exposure to Infectious Disease Non e [...] hr, # 14 tab, 0 Refill(s), Pharmacy: [facility] #94, 177, cm, 03/16/22 12:14:00 EST, Height/Length [...] Daily, # 90 tab, 4 Refill(s), [facility]acy: [facility], 177, cm, 03/16/22 12:14:00 EST, Height/Length [...] 0-2 TABLETS BY MOUTH DAILY DIRECTED BY [facility]; DOSE BASE INR, 0 Refill(s) Start Date: [...] Temperature Temporal Artery [36-38 Deg C ] 36.3 Deg C (09/23/22 3:36 PM) Peripheral Pulse Rate [60-100 bpm] 56 bp m *LOW* (5/23/23 3:36 PM) Respiratory Rate [12-24 br/min] 18 br/mi n (09/23/22 3:36 PM) Blood Pressure [90-140/60-90 mmHg] 132/7 6mmHg (09/23/22 3:36 PM) Social History Social History Type Response Tobacco Never tobacco user T obacco Use:. Sex Patient Care team information Care Team Personnel Name: YUIMKO MUNOZ MD Position: No Access Member Role: Primary Care Physician Address: Address: [address] [place] [phone] [facility] Care Team Related Persons Name: BENOIT JACOB Address: Home
--- OUTSIDE RECORDS SUMMARY | 2023-10-20 22:25 | XMS_ITS | Continuity of Care Document ---
Author Name Unknown Organization [facility] Ambulatory Clinics Address [address] [place] [address] Care Team Providers Care Supervisor Curing Room Name Role Phone YUMIKO MUNOZ MD Primary Care Physician Encounter [facility] NBR [id number] Date(s): 07/02/22 - 07/02/22 [facility] Ambulatory Clinics [address] [place] [address]- Encounter Diagnosis BPH with obstruction/lower urinary tract symptoms(Discharge Diagnosis) - 07/02/22 Elevated PSA(Discharge Diagnosis) - 07/02/22 Discharge Disposition: Home or Self Care Attending Physician: Lucy Lee APRN Allergies, Adverse Reactions, Alerts Substance Reaction Severity Status doxycycline Severe Active tetracycline Severe Active Assessment and Plan Future Appointments Future Scheduled Tests Radiology* US Kidney Bladder 02/21/22 * US Biopsy Prostate 07/14/22 Medications Acetaminophen Extra Strength Gelcaps 500 mg [...] # 14 tab, 0 Refill(s), [facility]acy: [facility], 177, cm, 03/16/22 12:14:00 EST, Height/Length [...] Daily, # 90 tab, 4 Refill(s), Pharmacy: [facility] #94, 177, cm, 03/16/22 12:14:00 EST, Height/Length [...] 0-2 TABLETS BY MOUTH DAILY DIRECTED BY [facility]; DOSE BASE INR, 0 Refill(s) Start Date: 02/13/22 Status: Ordered Xopenex HFA 45 mcg/inh inhalation aerosol 1 Unknown, 0 Refill(s) Start Date: 02/13/22 Status: Ordered Problem List Condition Confirmation Course Effective Dates Status Health St [facility] Informant Atrial fibrillation Confirmed Active 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 Social History Social History Type Response Tobacco Never tobacco user T obacco Use:. Sex Physician Outpatient Note * Lucy Lee, COMMERCIAL LIGHT FIXTURE ASSEMBLER: PERFORM Event Display: Office Clinic Note Physician Authored Date: [id number] GINA JACOB :1950 Age:71 years Sex:Male Visit Date:07/02/2022 Primary Care Physician: YUMIKO MUNOZ MD Chief Complaint BPH/LUTS, hx of urinary retention, elevated PSA History of Present Illness Mr. Jacob is a pleasant 71 y.o. man who presents to the clinic today for follow up of BPH/LUTS, elevated PSA, and routine franks catheter change. He is accompanied by his . He was last seen by urology on 06/06/22. He has a recent history of acute urinary retention. Voiding trial was initiated but failed. He??manages his bladder currently with an indwelling franks catheter.?? They would like tohave TRUS biopsies done to definitively rule out prostate cancer before moving forward with Green Light Laser TURP. Pelvic MRI resulted with a combined PI-RADS 2, (??unlikely that prostate cancer is present). ?? He was last seen in the ED on 03/16/22 with a chief complaint of urine leaking around the franks, and SP discomfort. WBC was elevated, and he was in urinary retention. Franks catheter was replaced, he was hydrated with IV fluids, and a??dose of IV antibiotics were given. Clinically, he quickly improved and was discharged home on a course of cefpodoxime 200 mg po bid x 7 days. ?? CT Abd/Pelvis obtained on 02/09/22 revealed: Distended urinary bladder with bladder diverticulum possibly sequela of longstanding neurogenic bladder and or bladder outlet obstruction. Moderate to large hiatal hernia (from radiologist read). ?? PSA of 10.48 obtained on 02/13/22 prompted further assessment with pelvic MRI which he obtained on 03/28/22. Impression: No focal lesions, BPH, and PI-RADS 2. ?? He is tolerating the franks catheter quite well. He states that he feels tugging at times. Reminded him to empty the drainage more frequently. We reviewed again the options available to manage his bladder. These include: continuing with indwelling franks catheter, placement of SP tube, Green Light laser TURP. He wishes to move forward with definitive surgical intervention once results of prostate biopsy's are known. He is hopeful that he will return to??voiding spontaneously.?? Review of Systems per history of present illness Physical Exam deferred Procedure Franks Catheter Change: ?? The patient was placed in the [...] Continue finasteride 5 mg po qd. 2. Continue indwelling franks catheter until definitive treatment with Green Light Laser TURP can becompleted. 3. Return in 4 weeks for routine catheter change. 2.??Elevated PSA??R97.20 ??1. Pelvic [place] done [place] [facility] and resulted with a combined PI-RADS 2, he wishes to proceed with TRUSbiopsies to definitively rule out prostate cancer prior to moving forward with Green Light Laser TURP [place] [facility] as well. TRUS has been scheduled for 07/14/[address] Bryan. 2. Referral to [facility] for the TURP with instructions to schedule after results of TRUS are known. Mr. Jacob is a pleasant 71 y.o. man with a recent acute episode of urinary retention in the likelycontext of BPH/LUTS. He is?? currently taking??finasteride, and managing his bladder with an indwelling franks catheter.?? He is scheduled for TRUS biopsies. Results will determine next steps for bladder management. Problem List/Past Medical History Ongoing Atrial fibrillation [...] inhalation aerosol Allergies doxycycline tetracycline Social History Electronic Cigarette/Vaping Electronic Cigarette Use: Never. Tobacco Never tobacco user Tobacco Use:. Electronically Signed on 07/02/22 01:09 PM Lucy Lee APRN Patient Care team information Care Team Personnel Name: YUMIKO MUONZ MD Position: No Access Member Role: Primary Care Physician Address: Address: [address] [place] [phone] [facility] Care Team Related Persons Name: BENOIT JACOB Address: Home
--- OUTSIDE RECORDS SUMMARY | 2023-10-20 22:25 | XMS_ITS | Continuity of Care Document ---
Author Name Unknown Organization [facility] Address [address] [place] [address] Care Team Providers Care Optometry Doctor Name Role Phone YUMIKO MUNOZ MD Primary Care Physician [phone] Encounter [facility] NBR [id number] Date(s): 09/01/22 - 09/01/[address] [address] Encounter Diagnosis Elevated prostate specific antigen [PSA](Final) - Discharge Disposition: Home or Self Care Attending Physician: Lucy Lee APRN Admitting Physician: Lucy Lee APRN Allergies, Adverse Reactions, Alerts Substance Reaction Severity Status doxycycline Severe Active tetracycline Severe Active Assessment and Plan Future Appointments Diagnostic Tests Pending * Pathology Request 09/01/22 Future Scheduled Tests Radiology* US Kidney Bladder [...] # 14 tab, 0 Refill(s), Pharmacy: [facility], 177, cm, 03/16/22 12:14:00 EST, Height/Length [...] # 90 tab, 4 Refill(s), Pharmacy: [facility], 177, cm, 03/16/22 12:14:00 EST, Height/Length [...] 0-2 TABLETS BY MOUTH DAILY DIRECTED BY [facility]; DOSE BASE INR, 0 Refill(s) Start [...] Role: Primary Care Physician Address: Address: [address] [place] [phone] [facility] Care Team Related Persons Name: BENOIT JACOB Address: Home
--- OUTSIDE RECORDS SUMMARY | 2023-10-20 22:25 | XMS_ITS | Continuity of Care Document ---
Author Name Unknown Organization [facility] Ambulatory Clinics Address [address] [place] [address] Care Team Providers Care Consulting Marine Engineer Name Role Phone YUMIKO MUNOZ MD Primary Care Physician Encounter [facility] NBR [id number] Date(s): 08/11/22 - 08/11/22 [facility] Ambulatory Clinics [address] [place] [address]- Discharge Disposition: Home Allergies, Adverse Reactions, Alerts Substance Reaction Severity Status doxycycline Severe Active tetracycline Severe Active Assessment and Plan Future Appointments Future Scheduled Tests Radiology* US Kidney Bladder 02/21/22 * US Biopsy Prostate 09/01/22 Medications Acetaminophen Extra Strength Gelcaps 500 mg [...] # 14 tab, 0 Refill(s), [facility]acy: [facility], 177, cm, 03/16/22 12:14:00 EST, Height/Length [...] Daily, # 90 tab, 4 Refill(s), Pharmacy: [facility] #94, 177, cm, 03/16/22 12:14:00 EST, Height/Length [...] 0-2 TABLETS BY MOUTH DAILY DIRECTED BY [facility]; DOSE BASE INR, 0 Refill(s) Start [...] Member Role: Primary Care Physician Address: Address: [address] [place] [phone] [place] Care Team Related Persons Name: BENOIT JACOB Address: Home
--- OUTSIDE RECORDS SUMMARY | 2023-10-20 22:25 | XMS_ITS | Continuity of Care Document ---
Author Name Unknown Organization [facility] Ambulatory Clinics Address [address] [place] [address] Care Team Providers Care Handle Bender Name Role Phone TAMMY GONZALEZ, YUMIKO Primary Care Physician Encounter [facility] NBR [id number] Date(s): 10/15/22 - 10/15/22 [facility] Ambulatory Clinics [address] [place] [address]- Discharge Disposition: Home Allergies, Adverse Reactions, Alerts [...] # 14 tab, 0 Refill(s), Pharmacy: [facility], 177, cm, 03/16/22 12:14:00 EST, Height/Length [...] Daily, # 90 tab, 4 Refill(s), Pharmacy: [facility] #[facility], 177, cm, 03/16/22 12:14:00 EST, Height/Length [...] BY MOUTH DAILY DIRECTED BY [facility]; DOSE BASE INR, 0 Refill(s) [...] Member Role: Primary Care Physician Address: Address: [address] [place] [phone] [facility] Care Team Related Persons Name: BENOIT JACOB Address: Home
--- OUTSIDE RECORDS SUMMARY | 2023-10-20 22:25 | XMS_ITS | Continuity of Care Document ---
Author Name Unknown Organization [facility] Ambulatory Clinics Address [address] [place] [address] Care Team Providers Care Bag Hanger Name Role Phone Andrae GONZALEZ, Angel Primary Care Physician Mile vailable Encounter [facility] NBR [id number] Date(s): 02/13/22 - 02/13/22 [facility] Ambulatory Clinics [address] [place] [address] [place] Encounter Diagnosis Urinary retention(Discharge Diagnosis) - 02/13/22 Discharge Disposition: Home or Self Care Attending Physician: Lucy Lee APRN Allergies, Adverse Reactions, Alerts Substance Reaction Severity Status doxycycline Severe Active tetracycline Severe Active Assessment and Plan Future Appointments Future Scheduled Tests Radiology* US Kidney Bladder 02/13/22 Functional Status 02/13/22 Living Environment Home Environment No qualifying data available Other exposure to Infectious Disease Non e [...] bedtime, # 365 cap, 3 Refill(s), Pharmacy: [facility], 175, cm, 02/09/22 15:04:00 EDT, Height/Length Dosing, 100, kg, 02/09/22 15:04:00 EDT, Weight Dosing Start Date: 02/13/22 Stop Date: 02/12/26 Status: Ordered warfarin 5 mg oral tablet 100 EA, TAKE 0-2 TABLETS BY MOUTH DAILY DIRECTED BY [facility]; DOSE BASE INR, 0 Refill(s) Start Date: 02/13/22 Status: Ordered Xopenex HFA 45 mcg/inh inhalation aerosol 1 Unknown, 0 Refill(s) Start Date: 02/13/22 Status: Ordered Vital Signs Most recent to oldest [Reference Range]: 1 Temperature Temporal Artery [36-38 Deg C ] 36.5 Deg C (02/13/22 10:36 AM) Apical Heart Rate [60-100 bpm] 75 bpm (02/13/22 10:36 AM) Respiratory Rate [12-24 br/min] 18 br/mi n (02/13/22 10:36 AM) Weight 95 kg (02/13/22 10:36 AM) Weight Measured (lbs) 209.439 lb (02/13/22 10:36 AM) [place] Body Weight Calculated 72.276 kg (02/13/22 10:36 AM) Height 177 cm (02/13/22 10:36 AM) Height/Length Measured (inches) 69.69 in (02/13/22 10:36 AM) BSA Measured 2.16 m2 (02/13/22 10:36 AM) Body Mass Index 30.32 kg/m2 (02/13/22 10:36 AM) Social History Social History Type Response Tobacco Never tobacco user T obacco Use:. Sex Patient Care team information Personnel Name: Angel Abebe MD
--- OUTSIDE RECORDS SUMMARY | 2023-10-20 22:25 | XMS_ITS | Continuity of Care Document ---
Author Name Unknown Organization [facility] Ambulatory Clinics Address [address] [place] [address] Care Team Providers Care Aniline Press Worker Name Role Phone YUMIKO MUNOZ MD Primary Care Physician Encounter [facility] NBR [id number] Date(s): 11/13/22 - 11/13/22 [facility] Ambulatory Clinics [address] [place] [address]- Discharge Disposition: Home Allergies, Adverse Reactions, Alerts [...] Daily, # 90 tab, 4 Refill(s), Pharmacy: [id number], 177, cm, 03/16/22 12:14:00 EST, Height/Length [...] 0-2 TABLETS BY MOUTH DAILY DIRECTED BY [facility]; DOSE BASE INR, 0 Refill(s) [...] Member Role: Primary Care Physician Address: Address: [address] [place] [id number] [facility] Care Team Related Persons Name: BENOIT JACOB Address: Home
--- OUTSIDE RECORDS SUMMARY | 2023-10-20 22:25 | XMS_ITS | Continuity of Care Document ---
Author Name Unknown Organization [facility] Ambulatory Clinics Address [address] [place] [address] Care Team Providers Care Nuclear Reactor Technician Name Role Phone Andrae GONZALZE, Angel Primary Care Physician Mile vailable Encounter [facility] NBR [id number] Date(s): 02/19/22 - 02/19/22 [facility] [address] [place] [address]- [place] Encounter Diagnosis Elevated PSA(Discharge Diagnosis) - 02/19/22 Discharge Disposition: Home or Self Care Attending Physician: Kelsea Bryan MD Attending Physician: Lucy Lee APRN Allergies, Adverse Reactions, Alerts Substance Reaction Severity Status doxycycline Severe Active tetracycline Severe Active Assessment and Plan Future Appointments Future Scheduled Tests Radiology* US Kidney Bladder 02/21/22 Functional Status 02/19/22 Living Environment Home Environment No qualifying data [...] bedtime, # 365 cap, 3 Refill(s), Pharmacy: [id number], 175, cm, 02/09/22 15:04:00 EDT, Height/Length Dosing, 100, kg, 02/09/22 15:04:00 EDT, Weight Dosing Start Date: 02/13/22 Stop Date: 02/12/26 Status: Ordered warfarin 5 mg oral tablet 100 EA, TAKE 0-2 TABLETS BY MOUTH DAILY DIRECTED BY [facility]; DOSE BASE INR, 0 Refill(s) Start Date: 02/13/22 Status: Ordered Xopenex HFA 45 mcg/inh inhalation aerosol 1 Unknown, 0 Refill(s) Start Date: 02/13/22 Status: Ordered Problem List Condition Confirmation Course Effective Dates Status Health St atus Informant Atrial fibrillation Confirmed Active 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 Elevated PSA Confirmed Active Vital Signs Most recent to oldest [Reference Range]: 1 Temperature Temporal Artery [36-38 Deg C ] 36.1 Deg C (02/19/22 2:57 PM) Apical Heart Rate [60-100 bpm] 68 bpm (02/19/22 2:57 PM) Respiratory Rate [12-24 br/min] 18 br/mi n (02/19/22 2:57 PM) Weight 95 kg (02/19/22 2:57 PM) Weight Measured (lbs) 209.439 lb (02/19/22 2:57 PM) [place] Body Weight Calculated 72.276 kg (02/19/22 2:57 PM) Height 177 cm (02/19/22 2:57 PM) Height/Length Measured (inches) 69.69 in (02/19/22 2:57 PM) BSA Measured 2.16 m2 (02/19/22 2:57 PM) Body Mass Index 30.32 kg/m2 (02/19/22 2:57 PM) Social History Social History Type Response Tobacco Never tobacco user T obacco Use:. Sex Patient Care team information Personnel Name: Angel Abbee MD
--- OUTSIDE RECORDS SUMMARY | 2023-10-20 22:25 | XMS_ITS | Continuity of Care Document ---
Author Name Unknown Organization [facility] Ambulatory Clinics Address [address] [place] [address] Care Team Providers Care Thread Spinner Name Role Phone YUMIKO MUNOZ MD Primary Care Physician Encounter [facility] NBR [id number] Date(s): 06/05/22 - 06/05/22 [facility] Ambulatory Clinics [address] [place] [address]- Encounter Diagnosis BPH with elevated PSA(Discharge Diagnosis) - 06/06/22 Elevated prostate specific antigen [PSA](Discharge Diagnosis) - 06/05/22 Discharge Disposition: Home or Self Care Attending Physician: Lucy Lee APRN Allergies, Adverse Reactions, Alerts Substance Reaction Severity Status doxycycline Severe Active tetracycline Severe Active Assessment and Plan Future Appointments Future Scheduled Tests Radiology* US Kidney Bladder 02/21/22 * US Biopsy Prostate 07/14/22 Functional Status 06/05/22 Living Environment Home Environment No qualifying data [...] hr, # 14 tab, 0 Refill(s), Pharmacy: [facility] #94, 177, cm, 03/16/22 12:14:00 EST, Height/Length [...] # 90 tab, 4 Refill(s), Pharmacy: [facility], 177, cm, 03/16/22 12:14:00 EST, Height/Length [...] 0-2 TABLETS BY MOUTH DAILY DIRECTED BY [facility]; DOSE BASE INR, 0 Refill(s) [...] Temperature Temporal Artery [36-38 Deg C ] 36.0 Deg C (06/05/22 1:39 PM) Apical Heart Rate [60-100 bpm] 58 bpm *LOW* (06/05/22 1:39 PM) Respiratory Rate [12-24 br/min] 14 br/mi n (06/05/22 1:39 PM) Weight 93 kg (06/05/22 1:39 PM) Weight Measured (lbs) 205.03 lb (06/05/22 1:39 PM) [place] Body Weight Calculated 73.181 kg (06/05/22 1:39 PM) Height 178 cm (06/05/22 1:39 PM) Height/Length Measured (inches) 70.08 in ch (06/05/22 1:39 PM) BSA Measured 2.14 m2 (06/05/22 1:39 PM) Body Mass Index 29.35 kg/m2 (06/05/22 1:39 PM) Social History Social History Type Response Tobacco Never tobacco user T obacco Use:. Sex Patient Care team information Personnel Name: YUMIKO MUNOZ MD Address: Address: [address] [place] [phone] [facility]
--- OUTSIDE RECORDS SUMMARY | 2023-10-20 22:25 | XMS_ITS | Continuity of Care Document ---
Author Name Unknown Organization [facility] Address [address] [place] [address] Care Team Providers Care Public Information Director Name Role Phone Angel Abebe MD Primary Care Physician Mile vailable Encounter LTTL_MD FIN NBR [id number] Date(s): 03/16/22 - 03/16/[address] [address] [place] Encounter Diagnosis Atrial fibrillation(Discharge Diagnosis) - 03/16/22 UTI (urinary tract infection)(Discharge Diagnosis) - 03/16/22 Discharge Disposition: Home or Self Care Attending Physician: Pete Howell DO Admitting Physician: Pete Howell DO Allergies, Adverse Reactions, Alerts Substance Reaction Severity Status doxycycline Severe Active tetracycline Severe Active Assessment and Plan Future Appointments Diagnostic Tests Pending * Blood Culture 03/16/22 * Blood Culture 03/16/22 * Urine Culture 03/16/22 Future Scheduled Tests Radiology* US Kidney Bladder [...] # 14 tab, 0 Refill(s), Pharmacy: [id number], 177, cm, 03/16/22 12:14:00 EST, Height/Length [...] # 365 cap, 3 Refill(s), Pharmacy: [facility], 175, cm, 02/09/22 15:04:00 EDT, Height/Length Dosing, [...] 0 Refill(s) Start Date: 02/13/22 Status: Ordered Mental Status 03/16/22 Eye Opening Response Keegan Spontaneous ly Best Verbal Response [place] Oriented Best Motor Response [place] Obeys comman ds Keegan Coma Score 15 Problem List Condition Confirmation Course Effective Dates Status Health St atus Informant Atrial fibrillation Confirmed Active 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 Elevated PSA Confirmed Active Results Laboratory List Name Date CBC w/ Diff 03/16/22 Comprehensive Metabolic Panel 03/16/22 Lactic Acid 03/16/22 PT/ INR 03/16/22 SARS-CoV-2 (COVID-19) PCR (GeneXpert) Urinalysis Microscopic 03/16/22 Urinalysis with Micro if Indicated and C ulture if Indicated 03/16/22 Digoxin Level 03/16/22 Automated Diff 03/16/22 Most recent to oldest [Reference Range]: 1 WBC [4.8-10.8 K/mcL] 16.7 K/mcL *HI* (03/16/22 1:06 PM) RBC [4.20-6.10 Million/mcL] 5.53 Million /mcL (03/16/22 1:06 PM) Neutro Auto [42.2-75.2 %] 84.8 % *HI* (03/16/22 1:06 PM) Lymph Auto [20.5-51.1 %] 6.6 % *LOW* (03/16/22 1:06 PM) [place] Auto [1.7-9.3 %] 6.9 % (03/16/22 1:06 PM) Basophil Auto [0.0-0.2 %] 0.5 % *HI* (03/16/22 1:06 PM) Prothrombin Time [9.1-10.6 seconds] 21.0 seconds *HI* (03/16/22 1:06 PM) INR [0.9-1.1] 2.1 *HI* (03/16/22 1:06 PM) BUN [8-26 mg/dL] 16 mg/dL (03/16/22 1:06 PM) UA Color [Yellow] Yellow (03/16/22 1:06 PM) UA WBC [0-3] >=100 *ABN* (03/16/22 1:06 PM) Glucose Level [74-106 mg/dL] 127 mg/dL *HI* (03/16/22 1:06 PM) Potassium Level [3.5-5.1 mmol/L] 3.5 mmo l/L (03/16/22 1:06 PM) Baso Absolute [0.0-0.2 K/mcL] 0.1 K/mcL (03/16/22 1:06 PM) MCV [80.0-99.0 fL] 90.1 fL (03/16/22 1:06 PM) UA Urobilinogen [0.2] 0.2 (03/16/22 1:06 PM) UA Bili [Negative] Negative (03/16/22 1:06 PM) UA Ketones [Negative] Negative (03/16/22 1:06 PM) AST [15-41 IntlUnit/L] 26 IntlUnit/L (03/16/22 1:06 PM) ALT [17-63 IntlUnit/L] 22 IntlUnit/L (03/16/22 1:06 PM) MCHC [32.0-36.0 g/dL] 33.3 g/dL (03/16/22 1:06 PM) Osmolality [275-295 mOsm/kg] 267 mOsm/kg *LOW* (03/16/22 1:06 PM) Sodium Level [134-143 mmol/L] 132 mmol/L *LOW* (03/16/22 1:06 PM) UA RBC [0-3] >=100 *ABN* (03/16/22 1:06 PM) UA Leuk Est [Negative] Large *ABN* (03/16/22 1:06 PM) Lymph Absolute [1.2-3.4 K/mcL] 1.1 K/mcL *LOW* (03/16/22 1:06 PM) UA Nitrite [Negative] Negative (03/16/22 1:06 PM) UA Glucose [Negative] Negative (03/16/22 1:06 PM) Hct [37.0-52.0 %] 49.8 % (03/16/22 1:06 PM) UA Bacteria [None Seen] None Seen 1 (03/16/22 1:06 PM) Calcium Level [8.9-10.3 mg/dL] 10.1 mg/d L (03/16/22 1:06 PM) [place] Absolute [0.1-0.6 K/mcL] 1.2 K/mcL *HI* (03/16/22 1:06 PM) Albumin Level [3.5-5.0 g/dL] 4.4 g/dL (03/16/22 1:06 PM) Protein Total [6.5-8.1 g/dL] 8.1 g/dL (03/16/22 1:06 PM) UA Protein [Negative] Trace *ABN* (03/16/22 1:06 PM) MCH [27.0-31.0 pg] 30.0 pg (03/16/22 1:06 PM) Neutro Absolute [1.4-6.5 K/mcL] 14.2 K/m cL *HI* (03/16/22 1:06 PM) Bilirubin Total [0.2-1.2 mg/dL] 1.2 mg/d L (03/16/22 1:06 PM) Hgb [12.0-18.0 g/dL] 16.6 g/dL (03/16/22 1:06 PM) Alk Phos [38-130 IntlUnit/L] 69 IntlUnit /L (03/16/22 1:06 PM) UA Blood [Negative] Large *ABN* (03/16/22 1:06 PM) MPV [7.4-10.4 fL] 11.9 fL *HI* (03/16/22 1:06 PM) UA Spec Grav 1.015 *NA* (03/16/22 1:06 PM) Platelets [130-400 K/mcL] 206 K/mcL (03/16/22 1:06 PM) CO2 [22-32 mmol/L] 24 mmol/L (03/16/22 1:06 PM) Eos Absolute [0.0-0.2 K/mcL] 0.1 K/mcL (03/16/22 1:06 PM) Lactic Acid Lvl [0.5-2.2 mmol/L] 2.6 mmo l/L *HI* (03/16/22 1:06 PM) UA Squam Epithelial [0-3] 0-3 (03/16/22 1:06 PM) UA pH 6.00 *NA* (03/16/22 1:06 PM) Digoxin Level [0.80-2.00 ng/mL] 0.60 ng/ mL *LOW* (03/16/22 12:30 PM) eGFR Non-AA 86 *NA* (03/16/22 1:06 PM) eGFR AA 86 *NA* (03/16/22 1:06 PM) UA Appear [Clear] Cloudy *ABN* (03/16/22 1:06 PM) Chloride Level [98-111 mmol/L] 96 mmol/L *LOW* (03/16/22 1:06 PM) RDW-CV [11.5-14.5 %] 13.3 % (03/16/22 1:06 PM) A/G Ratio 1.2 *NA* (03/16/22 1:06 PM) BUN/Creat Ratio [8.0-20.0] 16.8 (03/16/22 1:06 PM) Globulin 3.7 *NA* (03/16/22 1:06 PM) Imm Gran Absolute 0.10 *NA* (03/16/22 1:06 PM) Imm Gran Auto [0.0-0.5 %] 0.6 % *HI* (03/16/22 1:06 PM) UA Culture Ind?. [No] Yes (03/16/22 1:06 PM) Urine Srce Franks Cath (03/16/22 1:06 PM) SARS-CoV-2 (COVID-19) PCR (GeneXpert) [N egative] Negative (03/16/22 1:06 PM) Creatinine Level [0.61-1.24 mg/dL] 0.95 mg/dL (03/16/22 1:06 PM) Employed in healthcare? No *NA* (03/16/22 1:06 PM) Symptomatic as defined by CDC? No *NA* (03/16/22 1:06 PM) Hospitalized due to COVID-19? No *NA* (03/16/22 1:06 PM) In ICU? No *NA* (03/16/22 1:06 PM) Group care resident? No *NA* (03/16/22 1:06 PM) status? Not *NA* (03/16/22 1:06 PM) Anion Gap [3.0-12.0] 12.0 (03/16/22 1:06 PM) Eos, Auto [0.00-3.00 %] 0.60 % (03/16/22 1:06 PM) 1Result Comment: Field obstructed by white and red blood cells. Vital Signs Most recent to oldest [Reference Range]: 1 2 3 Temperature Oral [35.8-37.3 Deg C] 36.4 Deg C (03/16/22 11:49 AM) Peripheral Pulse Rate [60-100 bpm] 92 bpm (03/16/22 12:30 PM) 61 bpm (03/16/22 12:00 PM) 105 bpm *HI* (03/16/22 11:49 AM) Heart Rate Monitored [60-100 bpm] 60 bpm (03/16/22 3:30 PM) 65 bpm (03/16/22 2:45 PM) 65 bpm (03/16/22 2:30 PM) Respiratory Rate [12-24 br/min] 16 br/min (03/16/22 3:30 PM) 14 br/min (03/16/22 2:45 PM) 13 br/min (03/16/22 2:30 PM) Blood Pressure [90-140/60-90 mmHg] 139/89mmHg (03/16/22 3:30 PM) 135/72mmHg (03/16/22 2:30 PM) 136/87mmHg (03/16/22 2:00 PM) Mean Arterial Pressure Cuff 105 mmHg (03/16/22 3:30 PM) 92 mmHg (03/16/22 2:30 PM) 101 mmHg (03/16/22 2:00 PM) Weight Dosing 95.00 kg (03/16/22 12:14 PM) Weight Estimated 95.00 kg (03/16/22 11:49 AM) Height/Length Dosing 177.000 cm (03/16/22 12:14 PM) Height/Length Estimated 177.000 cm (03/16/22 11:49 AM) Social History Social History Type Response Tobacco Never tobacco user T obacco Use:. Sex Hospital Discharge Instructions Patient Education 03/16/2022 13:52:58 Urinary Tract Infection, Adult Urinary Tract Infection, [...] this condition includes: ??? Antibiotic medicine. ??? [id number] medicines to treat discomfort. ??? Drinking enough [...] these instructions at home: Medicines ??? Take [id number] and prescription medicines only as told by [...] provider. Document Revised: 11/30/2020 Document Reviewed: 11/30/2020 [employer] Patient Education ?? 2021 [employer]. Follow Up Care 03/16/2022 11:49:31 With:Follow up with primary care provider Address: When: only if needed Physician Emergency department Note * Jewel Zambrano MD: PERFORM, MODIFY, MODIFY Event Display: ED Note Physician Authored Date: [id number] GINA JACOB :1950 Age:71 years Sex:Male Visit Date:03/16/2022 Primary Care Physician: Angel Abebe MD Basic Information Time Seen: Pete Howell, DO / 03/16/2022 11:52 Chief Complaint Pt reports failure of chronic franks. Reports franks is leaking around the site. ??Pain reported. ??Pt is cool, diaphoretic and looks fatigued. Pt is unsteady on his feet, reports that to be abnormal. History Of Present Illness: 71-year-old male with a chronic indwelling Franks catheter presents with leakage around the catheter,??suprapubic discomfort,??and general malaise.?? No??contacts with anybody who is ill. ??No fever.?? Intermittently feeling dizzy.?? Has baseline COPD but no shortness of breath, cough, sore throat, or upper respiratory symptoms. ??No COVID-19 contacts. Review of Systems: Constitutional:?No??fevers,?No??chills,??has become slightly sweaty Eye:?No??recent visual problems ENT:?No??ear pain,?No??nasal congestion,?No??sore throat Respiratory:?No??shortness of breath,?No??cough Cardiovascular:?No??Chest pain,?No??palpitations,?No??syncope Gastrointestinal:?Nonausea,?No??vomiting,?No??diarrhea??or suprapubic tenderness Genitourinary:?No??hematuria Ab/Lymph:?No??bruising tendency,?No??swollen lymph glands Endocrine:??More thirsty over the last day to 2 days??no??excessive hunger Musculoskeletal:??No??back pain,??No??neck pain,??No??joint pain,??No??muscle pain,??No??decreased range of motion Integumentary:?No??rash,?No??pruritus,?No??abrasions Neurologic: Alert & oriented X 4??more tired Psychiatric:?No??anxiety,?No??depression Physical Exam Vitals & Measurements T:??36.4?C ??(Oral)?? HR:??65??(Monitored)?? RR:??13?? BP:??135/72?? SpO2:??98%?? HT:??177.000??cm?? WT:??95.00??kg??(Estimated)?? Pain Score:??4?? O2 Therapy:??Room air?? Skull exam reveals a initially's mildly diaphoretic, mildly confused uncomfortable??male complaining of suprapubic??discomfort.?? Head neck exam reveals mild diaphoresis, mildly dry mucous membranes,neck supple.?? Pupils are equal and reactive to light. ??He is fully oriented. His chest reveals clear breath sounds with an extended expiration phase but no wheezes or crackles.??His heart sounds are irregularly irregular and rapid with a rate around 110??on presentation.?? His abdomen is soft, with mild suprapubic tenderness. ??There is??no rebound or percussion tenderness. ??His extremities reveal trace edema. Medical Decision Making: Patient presents with what appears to be an infectious process initially. ??With an indwelling Franks catheter that is blocked and leaking around the outside, urinary tract source is??by far the most likely.?? Work-up was initiated and consistent with this with a elevated white blood cell count. ??He was also in urinary retention due to a blocked catheter due to infection.?? Throughout his ED stayhe maintained??excellent blood pressure and immediately upon??draining his bladder, his heart rate came down.?? Hydration and antibiotics led to a dramatic improvement in his??situation.?? Urinary tract infection was felt not to be systemic and he was safe for discharge. Procedure No Qualifying Data Reexamination/Reevaluation On reexamination the patient is alert and no longer diaphoretic.?? He answers questions normally. ??He states he feels dramatically better. ??He no longer has any suprapubic??discomfort,??and he feels more alert.?? He wishes to go home. Assessment/Plan UTI associated with??blocked Franks catheter??with secondary atrial fibrillation with rapid ventricular response,??controlled and treated effectively with??treatment of the underlying triggering condition. 1.??Atrial fibrillation??I48.91 Able. ??Rapid ventricular response corrected with??replacing Franks catheter, hydration and antibiotics. Ordered: cefpodoxime 200 mg oral tablet, 200 mg = 1 tab, Oral, every 12 hr, # 14 tab, 0 Refill(s), Pharmacy:[id number], 177, cm, 03/16/22 12:14:00 EST, Height/Length Dosing, 95, kg, 03/16/22 12:14:00 EST, Weight Dosing ?? 2.??UTI (urinary tract infection)??N39.0 Complete antibiotic course. ??Short course given due to??blocked catheter likely being the primary cause.?? 7 days followed adequate.?? Despite the??intermediate level lactate,??risk is felt low of discharge associated with significant hydration and antibiotics and dramatic improvement in clinical status. ??The patient knows to return promptly should he have worsening symptoms.?? He will check INR on 03/19 and make sure he dose not need to hold his warfarin due to antibiotic Ordered: cefpodoxime 200 mg oral tablet, 200 mg = 1 tab, Oral, every 12 hr, # 14 tab, 0 Refill(s), Pharmacy:[id number], 177, cm, 03/16/22 12:14:00 EST, Height/Length Dosing, 95, kg, 03/16/22 12:14:00 EST, Weight Dosing ?? Orders: Lactated Ringers Injection 1,000 mL, Total Volume (mL): 1,000, 1,000 mL, Soln- IV, IV, 250 mL/hr, Start Date: 03/16/22 12:29:00 EST, 95 kg, Populate Charting Weight From Order, 2.16, m2 Lactated Ringers Injection 1,000 mL, Total Volume (mL): 1,000, 1,000 mL, Soln- IV, IV, 500 mL/hr, Order Duration: 30 days, Start Date: 03/16/22 14:48:00 EST, Stop Date: 04/15/22 14:47:00 EST, 95 kg, Populate Charting Weight From Order, 2.16, m2 Normal Saline Flush, 10 mL, IV Flush, Injection, As Directed, PRN ground crew lines person, First Dose: 03/16/22 12:27:00 EST, Routine Blood Culture, Blood, Arm L, Stat collect, ST - Stat, 03/16/22 12:29:00 EST, Once, Nurse collect, Print Label Blood Culture, Blood, Hand R, Stat collect, ST - Stat, 03/16/22 12:29:00 EST, Once, Nurse collect, Print Label CV Electrocardiogram 12 Lead, 03/16/22 12:26:00 EST, Stat, Reason: Arrhythmia(s), Symptomatic, Frequency Once Stop date and time 03/16/22 12:26:00 EST, ORD_SET_REQ_DT_RANGE, Emile's Internal Person Id Lactic Acid, Blood, RT, 03/16/22 16:06:00 EST, Once, Lab Collect Peripheral IV Insertion, 03/16/22 12:26:00 EST Pulse Oximetry Continuous, 03/16/22 12:26:00 EST, Once, Stop date 03/16/22 12:26:00 EST Urine Culture, Urine, Catheter, Stat collect, ST - Stat, 03/16/22 13:06:00 EST, Once, Nurse collect, Collected, 03/16/22 13:06:00 EST, Print Label, [id number] Vital Signs, 03/16/22 12:26:00 EST, Once, Stop date 03/16/22 12:26:00 EST, Q15min until stable and SBP greater than 90, then Q1hour Patient Discharge Condition Markedly improved Discharge Disposition Stable Patient Education Urinary Tract Infection, Adult Follow Up With When Contact Information Follow up with primary care provider Only if needed Additional Instructions: Medication Reconciliation New Prescription cefpodoxime (cefpodoxime 200 mg oral tablet)1 tab Oral (given by mouth) every 12 hours for 7 Days. Refills: 0. ?? Unchanged acetaminophen (Acetaminophen Extra Strength Gelcaps 500 mg)4 times a day. 2 Unknown. ?? amLODIPine (amLODIPine 5 mg oral tablet)1 tab Oral (given by mouth) every day. ?? digoxin (digoxin 250 mcg (0.25 mg) oral tablet)90 EA, TAKE ONE TABLET BY MOUTH EVERY DAY. ?? dilTIAZem (dilTIAZem 300 mg/24 hours oral capsule, extended release)1 Unknown. ?? donepezil (donepezil 5 mg oral tablet)1 tab Oral (given by mouth) every night at bedtime. ?? fluticasone-salmeterol (Advair Diskus 500 mcg-50 mcg inhalation powder)2 times a day. 1 Unknown. ?? levalbuterol (Xopenex HFA 45 mcg/inh inhalation aerosol)1 Unknown. ?? loratadine (loratadine 10 mg oral capsule)1 Unknown. ?? losartan (losartan 100 mg oral tablet)1 tab Oral (given by mouth) every day. ?? magnesium oxide (magnesium oxide 400 mg (241.3 mg elemental magnesium) oral tablet)1 Unknown. ?? metoprolol (metoprolol tartrate 25 mg oral tablet)1 Unknown. ?? omeprazole ?? omeprazole (omeprazole 20 mg oral delayed release capsule)90 EA, TAKE ONE CAPSULE BY MOUTH EVERY DAY. ?? tamsulosin (tamsulosin 0.4 mg oral capsule)1 Capsules Oral (given by mouth) every day for 365 Days.please take at bedtime. Refills: 3. ?? warfarin (warfarin 5 mg oral tablet)100 EA, TAKE 0-2 TABLETS BY MOUTH DAILY DIRECTED BY [facility]; DOSE BASE INR. Problem List/Past Medical History Ongoing Atrial fibrillation BPH with obstruction/lower urinary tract symptoms Elevated PSA Historical No qualifying data Medication Administration Given Lactated Ringers Injection, 1000 mL, IV Lactated Ringers Injection, 1000 mL, IV acetaminophen, 1000 mg, IV Piggyback cefTRIAXone, 1 g, IV Piggyback Allergies doxycycline tetracycline Social History Electronic Cigarette/Vaping Electronic Cigarette Use: Never. Tobacco Never tobacco user Tobacco Use:. Lab Results CBC and Differential?? LATEST RESULTS?? HISTORICAL RESULTS?? WBC?? 03/16/22 13:06?? 16.7 ??High?? 02/09/22?? 17.6 ??High?? RBC?? 03/16/22 13:06?? 5.53?? 02/09/22?? 5.65?? Hgb?? 03/16/22 13:06?? 16.6?? 02/09/22?? 16.9?? Hct?? 03/16/22 13:06?? 49.8?? 02/09/22?? 50.0?? MCV?? 03/16/22 13:06?? 90.1?? 02/09/22?? 88.5?? MCH?? 03/16/22 13:06?? 30.0?? 02/09/22?? 29.9?? MCHC?? 03/16/22 13:06?? 33.3?? 02/09/22?? 33.8?? RDW-CV?? 03/16/22 13:06?? 13.3?? 02/09/22?? 13.8?? Platelets?? 03/16/22 13:06?? 206?? 02/09/22?? 227?? MPV?? 03/16/22 13:06?? 11.9 ??High?? 02/09/22?? 11.4 ??High?? Neutro Auto?? 03/16/22 13:06?? 84.8 ??High? Lymph Auto?? 03/16/22 13:06?? 6.6 ??Low? [place] Auto?? 03/16/22 13:06?? 6.9? Eos, Auto?? 03/16/22 13:06?? 0.60? Basophil Auto?? 03/16/22 13:06?? 0.5 ??High? Imm Gran Auto?? 03/16/22 13:06?? 0.6 ??High? Neutro Absolute?? 03/16/22 13:06?? 14.2 ??High? Lymph Absolute?? 03/16/22 13:06?? 1.1 ??Low? [place] Absolute?? 03/16/22 13:06?? 1.2 ??High? Eos Absolute?? 03/16/22 13:06?? 0.1? Baso Absolute?? 03/16/22 13:06?? 0.1? Imm Gran Absolute?? 03/16/22 13:06?? 0.10? Coagulation?? LATEST RESULTS?? Prothrombin Time?? 03/16/22 13:06?? 21.0 ??High?? INR?? 03/16/22 13:06?? 2.1 ??High? Routine Chemistry?? LATEST RESULTS?? HISTORICAL RESULTS?? Sodium Level?? 03/16/22 13:06?? 132 ??Low?? 02/09/22?? 131 ??Low?? Potassium Level?? 03/16/22 13:06?? 3.5?? 02/09/22?? 4.0?? Chloride Level?? 03/16/22 13:06?? 96 ??Low?? 02/09/22?? 97 ??Low?? CO2?? 03/16/22 13:06?? 24?? 02/09/22?? 21 ??Low?? Alk Phos?? 03/16/22 13:06?? 69?? 02/09/22?? 65?? AST?? 03/16/22 13:06?? 26?? 02/09/22?? 32?? ALT?? 03/16/22 13:06?? 22?? 02/09/22?? 21?? BUN?? 03/16/22 13:06?? 16?? 02/09/22?? 24?? Glucose Level?? 03/16/22 13:06?? 127 ??High?? 02/09/22?? 112 ??High?? Creatinine Level?? 03/16/22 13:06?? 0.95?? 02/09/22?? 1.40 ??High?? BUN/Creat Ratio?? 03/16/22 13:06?? 16.8?? 02/09/22?? 17.1?? eGFR AA?? 03/16/22 13:06?? 86?? 02/09/22?? 54?? eGFR Non-AA?? 03/16/22 13:06?? 86?? 02/09/22?? 54?? Calcium Level?? 03/16/22 13:06?? 10.1?? 02/09/22?? 9.8?? Protein Total?? 03/16/22 13:06?? 8.1?? 02/09/22?? 7.5?? Albumin Level?? 03/16/22 13:06?? 4.4?? 02/09/22?? 4.2?? Globulin?? 03/16/22 13:06?? 3.7?? 02/09/22?? 3.3?? A/G Ratio?? 03/16/22 13:06?? 1.2?? 02/09/22?? 1.3?? Bilirubin Total?? 03/16/22 13:06?? 1.2?? 02/09/22?? 1.8 ??High?? Anion Gap?? 03/16/22 13:06?? 12.0?? 02/09/22?? 13.0 ??High?? Lactic Acid Lvl?? 03/16/22 13:06?? 2.6 ??High? Osmolality?? 03/16/22 13:06?? 267 ??Low?? 02/09/22?? 267 ??Low? Therapeutic Drug Monitoring?? LATEST RESULTS?? Digoxin Level?? 03/16/22 12:30?? 0.60 ??Low? UA Macroscopic?? LATEST RESULTS?? HISTORICAL RESULTS?? Urine Srce?? 03/16/22 13:06?? Franks Cath? UA Color?? 03/16/22 13:06?? Yellow?? 02/09/22?? Yellow?? UA Appear?? 03/16/22 13:06?? Cloudy Abnormal?? 02/09/22?? Slightly Cloudy Abnormal?? UA Glucose?? 03/16/22 13:06?? Negative?? 02/09/22?? Negative?? UA Bili?? 03/16/22 13:06?? Negative?? 02/09/22?? Negative?? UA Ketones?? 03/16/22 13:06?? Negative?? 02/09/22?? Negative?? UA Spec Grav?? 03/16/22 13:06?? 1.015?? 02/09/22?? 1.010?? UA Blood?? 03/16/22 13:06?? Large Abnormal?? 02/09/22?? Small Abnormal?? UA pH?? 03/16/22 13:06?? 6.00?? 02/09/22?? 7.50?? UA Protein?? 03/16/22 13:06?? Trace Abnormal?? 02/09/22?? Trace Abnormal?? UA Urobilinogen?? 03/16/22 13:06?? 0.2?? 02/09/22?? 0.2?? UA Nitrite?? 03/16/22 13:06?? Negative?? 02/09/22?? Negative?? UA Leuk Est?? 03/16/22 13:06?? Large Abnormal?? 02/09/22?? Negative?? UA Culture Ind?.?? 03/16/22 13:06?? Yes?? 02/09/22?? Yes? UA Microscopic?? LATEST RESULTS?? HISTORICAL RESULTS?? UA WBC?? 03/16/22 13:06?? >=100 Abnormal?? 02/09/22?? 0-3?? UA RBC?? 03/16/22 13:06?? >=100 Abnormal?? 02/09/22?? 4-6 Abnormal?? UA Squam Epithelial?? 03/16/22 13:06?? 0-3?? 02/09/22?? 4-6?? UA Bacteria?? 03/16/22 13:06?? None Seen?? 02/09/22?? 1+ Abnormal? Infectious Disease?? LATEST RESULTS?? SARS-CoV-2 (COVID-19) PCR (GeneXpert)?? 03/16/22 13:06?? Negative?? Employed in healthcare??? 03/16/22 13:06?? No?? Symptomatic as defined by CDC??? 03/16/22 13:06?? No?? Hospitalized due to COVID-19??? 03/16/22 13:06?? No?? In ICU??? 03/16/22 13:06?? No?? Group care resident??? 03/16/22 13:06?? No?? status??? 03/16/22 13:06?? Not ? Electronically Signed on 03/16/22 03:04 PM Jewel Zambrano MD Electronically Signed on 03/16/22 03:08 PM Jewel Zambrano MD Emergency department Discharge instructions * Jewel Zambrano MD: PERFORM Event Display: ED Discharge Information Authored Date: [id number] GINA JACOB :1950 Age:71 years Sex:Male Visit Date:03/16/2022 Primary Care Physician: Angel Abebe MD Discharge Instructions We would like to thank you for allowing us to assist you with your healthcare needs. The following includes patient education materials and information regarding your injury/illness. Diagnosis from Today's Visit Atrial fibrillation UTI (urinary tract infection) Discharge Vitals Temperature??(Oral) 97.5 ??F (36.4 ??C) Heart Rate??(Monitored) 65 Respiratory Rate?? 14 Blood Pressure?? 135/72?? Height?? 69.69 in (177.000 cm) Weight??(Estimated) 209.48 lb (95.00 kg) Allergies doxycycline tetracycline What to Do Next Instructions from Your Care Team Hydrate well.?? Return to ED for fever or unable to urinate.?? Complete antibiotic. Get INR checked on Mar 19.?? Make sure you get result as antibiotic may lead to blood getting toothin and you may need to hold??a dose of warfarin You Need to Schedule the Following Appointments Follow Up with??Follow up with primary care provider When:??Only if needed Upcoming Scheduled Appointments 2021 11:00 AM EST ?? With: uLcy Lee APRN Where: [facility] Urology Status: Confirmed You were treated today on [...] Emergency Department. Medications What How Much When Why Instructions Next Dose New cefpodoxime (cefpodoxime 200 mg oral tablet) 1 tab Oral (given by mouth) Every 12 hours Atrial fibrillation UTI (urinary tract infection) Duration: 7 Days Pickup at [facility] Unchanged acetaminophen (Acetaminophen Extra Strength Gelcaps 500 mg) 4 times a day 2 Unknown ?? Unchanged amLODIPine (amLODIPine 5 mg oral tablet) 1 tab Oral (given by mouth) Every day Unchanged digoxin (digoxin 250 mcg (0.25 mg) oral tablet) 90 EA, TAKE ONE TABLET BY MOUTH EVERY DAY ?? Unchanged dilTIAZem (dilTIAZem 300 mg/ 24 hours oral capsule, extended release) 1 Unknown ?? Unchanged donepezil (donepezil 5 mg oral tablet) 1 tab Oral (given by mouth) Every night at bedtime Unchanged fluticasone-salmeterol (Advair Diskus 500 mcg-50 mcg inhalation powder) 2 times a day 1 Unknown ?? Unchanged levalbuterol (Xopenex HFA 45 mcg/ inh inhalation aerosol) 1 Unknown ?? Unchanged loratadine (loratadine 10 mg oral capsule) 1 Unknown ?? Unchanged losartan (losartan 100 mg oral tablet) 1 tab Oral (given by mouth) Every day Unchanged magnesium oxide (magnesium oxide 400 mg (241.3 mg elemental magnesium) oral tablet) 1 Unknown ?? Unchanged metoprolol (metoprolol tartrate 25 mg oral tablet) 1 Unknown ?? Unchanged omeprazole Unchanged omeprazole (omeprazole 20 mg oral delayed release capsule) 90 EA, TAKE ONE CAPSULE BY MOUTH EVERY DAY ?? Unchanged tamsulosin (tamsulosin 0.4 mg oral capsule) 1 Capsules Oral (given by mouth) Every day Urinary retention Duration: 365 Days please take at bedtime ?? Unchanged warfarin (warfarin 5 mg oral tablet) 100 EA, TAKE 0-2 TABLETS BY MOUTH DAILY DIRECTED BY [facility]; DOSE BASE INR ?? Pharmacy Information [id number]: [address], [place] [id number] [phone] Education Materials Urinary Tract Infection, Adult A urinary tract [...] this condition includes: ? Antibiotic medicine. ? Jyrv-sen-roefsse medicines to treat discomfort. ? Drinking enough [...] these instructions at home: Medicines ? Take exip-yah-eemwhqt and prescription medicines only as told by [...] provider. Document Revised: 11/30/2020 Document Reviewed: 11/30/2020 [employer] Patient [employer] ?? 2021 [employer] Tests Performed Medications and Immunizations Administered Given Lactated Ringers Injection, 1000 mL, IV Lactated Ringers Injection, 1000 mL, IV acetaminophen, 1000 mg, IV Piggyback cefTRIAXone, 1 g, IV Piggyback Lab Test Name Test Result Date/Time WBC 16.7 K/mcL 03/16/2022 13:06 EST RBC 5.53 Million/mcL 03/16/2022 13:06 EST Hgb 16.6 g/dL 03/16/2022 13:06 EST Hct 49.8 % 03/16/2022 13:06 EST MCV 90.1 fL 03/16/2022 13:06 EST MCH 30.0 pg 03/16/2022 13:06 EST MCHC 33.3 g/dL 03/16/2022 13:06 EST RDW-CV 13.3 % 03/16/2022 13:06 EST Platelets 206 K/mcL 03/16/2022 13:06 EST MPV 11.9 fL 03/16/2022 13:06 EST Neutro Auto 84.8 % 03/16/2022 13:06 EST Lymph Auto 6.6 % 03/16/2022 13:06 EST [place] Auto 6.9 % 03/16/2022 13:06 EST Eos, Auto 0.60 % 03/16/2022 13:06 EST Basophil Auto 0.5 % 03/16/2022 13:06 EST Imm Gran Auto 0.6 % 03/16/2022 13:06 EST Neutro Absolute 14.2 K/mcL 03/16/2022 13:06 EST Lymph Absolute 1.1 K/mcL 03/16/2022 13:06 EST [place] Absolute 1.2 K/mcL 03/16/2022 13:06 EST Eos Absolute 0.1 K/mcL 03/16/2022 13:06 EST Baso Absolute 0.1 K/mcL 03/16/2022 13:06 EST Imm Gran Absolute 0.10 03/16/2022 13:06 EST Prothrombin Time 21.0 seconds 03/16/2022 13:06 EST INR 2.1 03/16/2022 13:06 EST Sodium Level 132 mmol/L 03/16/2022 13:06 EST Potassium Level 3.5 mmol/L 03/16/2022 13:06 EST Chloride Level 96 mmol/L 03/16/2022 13:06 EST CO2 24 mmol/L 03/16/2022 13:06 EST Alk Phos 69 IntlUnit/L 03/16/2022 13:06 EST AST 26 IntlUnit/L 03/16/2022 13:06 EST ALT 22 IntlUnit/L 03/16/2022 13:06 EST BUN 16 mg/dL 03/16/2022 13:06 EST Glucose Level 127 mg/dL 03/16/2022 13:06 EST Creatinine Level 0.95 mg/dL 03/16/2022 13:06 EST BUN/Creat Ratio 16.8 03/16/2022 13:06 EST eGFR AA 86 03/16/2022 13:06 EST eGFR Non-AA 86 03/16/2022 13:06 EST Calcium Level 10.1 mg/dL 03/16/2022 13:06 EST Protein Total 8.1 g/dL 03/16/2022 13:06 EST Albumin Level 4.4 g/dL 03/16/2022 13:06 EST Globulin 3.7 03/16/2022 13:06 EST A/G Ratio 1.2 03/16/2022 13:06 EST Bilirubin Total 1.2 mg/dL 03/16/2022 13:06 EST Anion Gap 12.0 03/16/2022 13:06 EST Lactic Acid Lvl 2.6 mmol/L 03/16/2022 13:06 EST Osmolality 267 mOsm/kg 03/16/2022 13:06 EST Digoxin Level 0.60 ng/mL 03/16/2022 12:30 EST Urine Srce Franks Cath 03/16/2022 13:06 EST UA Color YELLOW. 03/16/2022 13:06 EST UA Appear CLOUDY. 03/16/2022 13:06 EST UA Glucose NEGATIVE 03/16/2022 13:06 EST UA Bili NEGATIVE 03/16/2022 13:06 EST UA Ketones NEGATIVE 03/16/2022 13:06 EST UA Spec Grav 1.015 03/16/2022 13:06 EST UA Blood LARGE Clinitek 03/16/2022 13:06 EST UA pH 6.00 03/16/2022 13:06 EST UA Protein TRACE 03/16/2022 13:06 EST UA Urobilinogen 0.2 03/16/2022 13:06 EST UA Nitrite NEGATIVE 03/16/2022 13:06 EST UA Leuk Est LARGE Clinitek 03/16/2022 13:06 EST UA Culture Ind?. Yes 03/16/2022 13:06 EST UA WBC >=100 03/16/2022 13:06 EST UA RBC >=100 03/16/2022 13:06 EST UA Squam Epithelial 0-3 03/16/2022 13:06 EST UA Bacteria None Seen 03/16/2022 13:06 EST SARS-CoV-2 (COVID-19) PCR (GeneXpert) Neg-GeneXPert 03/16/2022 13:06 EST Employed in healthcare? No 03/16/2022 13:06 EST Symptomatic as defined by CDC? No 03/16/2022 13:06 EST Hospitalized due to COVID-19? No 03/16/2022 13:06 EST In ICU? No 03/16/2022 13:06 EST Group care resident? No 03/16/2022 13:06 EST status? Not 03/16/2022 13:06 EST Patient/Valet Parking Attendant Signature Patient Name:GINA JACOB I have received this information and my questions have been answered. Patient/Valet Parking Attendant Name: Patient/Valet Parking Attendant Signature: Relationship to Patient: Witness Name/Signature: Date: Electronically Signed on: 03/16/2022 15:39 ESTSigned by:PL * Jewel Zambrano MD: PERFORM Event Display: ED Discharge Information Authored Date: GINA JACOB :1950 Age:71 years Sex:Male Visit Date:03/16/2022 Primary Care Physician: Angel Abebe MD Discharge Instructions We would like to thank you for allowing us to assist you with your healthcare needs. The following includes patient education materials and information regarding your injury/illness. Diagnosis from Today's Visit Atrial fibrillation UTI (urinary tract infection) Discharge Vitals Temperature??(Oral) 97.5 ??F (36.4 ??C) Heart Rate??(Monitored) 65 Respiratory Rate?? 14 Blood Pressure?? 135/72?? Height?? 69.69 in (177.000 cm) Weight??(Estimated) 209.48 lb (95.00 kg) Allergies doxycycline tetracycline What to Do Next Instructions from Your Care Team Hydrate well.?? Return to ED for fever or unable to urinate.?? Complete antibiotic. Get INR checked on Mar 19.?? Make sure you get result as antibiotic may lead to blood getting toothin and you may need to hold??a dose of warfarin You Need to Schedule the Following Appointments Follow Up with??Follow up with primary care provider When:??Only if needed Upcoming Scheduled Appointments 2021 11:00 AM EST ?? With: Lucy Lee APRN Where: [facility] Urology Status: Confirmed You were treated today on [...] Emergency Department. Medications What How Much When Why Instructions Next Dose New cefpodoxime (cefpodoxime 200 mg oral tablet) 1 tab Oral (given by mouth) Every 12 hours Atrial fibrillation UTI (urinary tract infection) Duration: 7 Days Pickup at [facility] Unchanged acetaminophen (Acetaminophen Extra Strength Gelcaps 500 mg) 4 times a day 2 Unknown ?? Unchanged amLODIPine (amLODIPine 5 mg oral tablet) 1 tab Oral (given by mouth) Every day Unchanged digoxin (digoxin 250 mcg (0.25 mg) oral tablet) 90 EA, TAKE ONE TABLET BY MOUTH EVERY DAY ?? Unchanged dilTIAZem (dilTIAZem 300 mg/ 24 hours oral capsule, extended release) 1 Unknown ?? Unchanged donepezil (donepezil 5 mg oral tablet) 1 tab Oral (given by mouth) Every night at bedtime Unchanged fluticasone-salmeterol (Advair Diskus 500 mcg-50 mcg inhalation powder) 2 times a day 1 Unknown ?? Unchanged levalbuterol (Xopenex HFA 45 mcg/ inh inhalation aerosol) 1 Unknown ?? Unchanged loratadine (loratadine 10 mg oral capsule) 1 Unknown ?? Unchanged losartan (losartan 100 mg oral tablet) 1 tab Oral (given by mouth) Every day Unchanged magnesium oxide (magnesium oxide 400 mg (241.3 mg elemental magnesium) oral tablet) 1 Unknown ?? Unchanged metoprolol (metoprolol tartrate 25 mg oral tablet) 1 Unknown ?? Unchanged omeprazole Unchanged omeprazole (omeprazole 20 mg oral delayed release capsule) 90 EA, TAKE ONE CAPSULE BY MOUTH EVERY DAY ?? Unchanged tamsulosin (tamsulosin 0.4 mg oral capsule) 1 Capsules Oral (given by mouth) Every day Urinary retention Duration: 365 Days please take at bedtime ?? Unchanged warfarin (warfarin 5 mg oral tablet) 100 EA, TAKE 0-2 TABLETS BY MOUTH DAILY DIRECTED BY [facility]; DOSE BASE INR ?? Pharmacy Information [facility]: [address], [place] [id number] [phone] Education Materials Urinary Tract Infection, Adult A urinary tract [...] this condition includes: ? Antibiotic medicine. ? Hlqx-atg-jcqclwr medicines to treat discomfort. ? Drinking enough [...] these instructions at home: Medicines ? Take srqn-fwb-ktznbmk and prescription medicines only as told by [...] provider. Document Revised: 11/30/2020 Document Reviewed: 11/30/2020 [employer] Patient Education ?? 2021 [employer] Tests Performed Medications and Immunizations Administered Given Lactated Ringers Injection, 1000 mL, IV Lactated Ringers Injection, 1000 mL, IV acetaminophen, 1000 mg, IV Piggyback cefTRIAXone, 1 g, IV Piggyback Lab Test Name Test Result Date/Time WBC 16.7 K/mcL 03/16/2022 13:06 EST RBC 5.53 Million/mcL 03/16/2022 13:06 EST Hgb 16.6 g/dL 03/16/2022 13:06 EST Hct 49.8 % 03/16/2022 13:06 EST MCV 90.1 fL 03/16/2022 13:06 EST MCH 30.0 pg 03/16/2022 13:06 EST MCHC 33.3 g/dL 03/16/2022 13:06 EST RDW-CV 13.3 % 03/16/2022 13:06 EST Platelets 206 K/mcL 03/16/2022 13:06 EST MPV 11.9 fL 03/16/2022 13:06 EST Neutro Auto 84.8 % 03/16/2022 13:06 EST Lymph Auto 6.6 % 03/16/2022 13:06 EST [place] Auto 6.9 % 03/16/2022 13:06 EST Eos, Auto 0.60 % 03/16/2022 13:06 EST Basophil Auto 0.5 % 03/16/2022 13:06 EST Imm Gran Auto 0.6 % 03/16/2022 13:06 EST Neutro Absolute 14.2 K/mcL 03/16/2022 13:06 EST Lymph Absolute 1.1 K/mcL 03/16/2022 13:06 EST [place] Absolute 1.2 K/mcL 03/16/2022 13:06 EST Eos Absolute 0.1 K/mcL 03/16/2022 13:06 EST Baso Absolute 0.1 K/mcL 03/16/2022 13:06 EST Imm Gran Absolute 0.10 03/16/2022 13:06 EST Prothrombin Time 21.0 seconds 03/16/2022 13:06 EST INR 2.1 03/16/2022 13:06 EST Sodium Level 132 mmol/L 03/16/2022 13:06 EST Potassium Level 3.5 mmol/L 03/16/2022 13:06 EST Chloride Level 96 mmol/L 03/16/2022 13:06 EST CO2 24 mmol/L 03/16/2022 13:06 EST Alk Phos 69 IntlUnit/L 03/16/2022 13:06 EST AST 26 IntlUnit/L 03/16/2022 13:06 EST ALT 22 IntlUnit/L 03/16/2022 13:06 EST BUN 16 mg/dL 03/16/2022 13:06 EST Glucose Level 127 mg/dL 03/16/2022 13:06 EST Creatinine Level 0.95 mg/dL 03/16/2022 13:06 EST BUN/Creat Ratio 16.8 03/16/2022 13:06 EST eGFR AA 86 03/16/2022 13:06 EST eGFR Non-AA 86 03/16/2022 13:06 EST Calcium Level 10.1 mg/dL 03/16/2022 13:06 EST Protein Total 8.1 g/dL 03/16/2022 13:06 EST Albumin Level 4.4 g/dL 03/16/2022 13:06 EST Globulin 3.7 03/16/2022 13:06 EST A/G Ratio 1.2 03/16/2022 13:06 EST Bilirubin Total 1.2 mg/dL 03/16/2022 13:06 EST Anion Gap 12.0 03/16/2022 13:06 EST Lactic Acid Lvl 2.6 mmol/L 03/16/2022 13:06 EST Osmolality 267 mOsm/kg 03/16/2022 13:06 EST Digoxin Level 0.60 ng/mL 03/16/2022 12:30 EST Urine Srce Franks Cath 03/16/2022 13:06 EST UA Color YELLOW. 03/16/2022 13:06 EST UA Appear CLOUDY. 03/16/2022 13:06 EST UA Glucose NEGATIVE 03/16/2022 13:06 EST UA Bili NEGATIVE 03/16/2022 13:06 EST UA Ketones NEGATIVE 03/16/2022 13:06 EST UA Spec Grav 1.015 03/16/2022 13:06 EST UA Blood LARGE Clinitek 03/16/2022 13:06 EST UA pH 6.00 03/16/2022 13:06 EST UA Protein TRACE 03/16/2022 13:06 EST UA Urobilinogen 0.2 03/16/2022 13:06 EST UA Nitrite NEGATIVE 03/16/2022 13:06 EST UA Leuk Est LARGE Clinitek 03/16/2022 13:06 EST UA Culture Ind?. Yes 03/16/2022 13:06 EST UA WBC >=100 03/16/2022 13:06 EST UA RBC >=100 03/16/2022 13:06 EST UA Squam Epithelial 0-3 03/16/2022 13:06 EST UA Bacteria None Seen 03/16/2022 13:06 EST SARS-CoV-2 (COVID-19) PCR (GeneXpert) Neg-GeneXPert 03/16/2022 13:06 EST Employed in healthcare? No 03/16/2022 13:06 EST Symptomatic as defined by CDC? No 03/16/2022 13:06 EST Hospitalized due to COVID-19? No 03/16/2022 13:06 EST In ICU? No 03/16/2022 13:06 EST Group care resident? No 03/16/2022 13:06 EST status? Not 03/16/2022 13:06 EST Patient/Valet Parking Attendant Signature Patient Name:GINA JACOB I have received this information and my questions have been answered. Patient/Valet Parking Attendant Name: Patient/Valet Parking Attendant Signature: Relationship to Patient: Witness Name/Signature: Date: Electronically Signed on: 03/16/2022 15:10 ESTSigned by:RIANA Zambrano MD: PERFORM Event Display: ED Discharge Information Authored Date: [id number] GINA JACOB :1950 Age:71 years Sex:Male Visit Date:03/16/2022 Primary Care Physician: Angel Abebe MD Discharge Instructions We would like to thank you for allowing us to assist you with your healthcare needs. The following includes patient education materials and information regarding your injury/illness. Diagnosis from Today's Visit Atrial fibrillation UTI (urinary tract infection) Discharge Vitals Temperature??(Oral) 97.5 ??F (36.4 ??C) Heart Rate??(Monitored) 65 Respiratory Rate?? 14 Blood Pressure?? 135/72?? Height?? 69.69 in (177.000 cm) Weight??(Estimated) 209.48 lb (95.00 kg) Allergies doxycycline tetracycline What to Do Next Instructions from Your Care Team Hydrate well.?? Return to ED for fever or unable to urinate.?? Complete antibiotic. Get INR checked on Mar 19.?? Make sure you get result as antibiotic may lead to blood getting toothin and you may need to hold??a dose of warfarin You Need to Schedule the Following Appointments Follow Up with??Follow up with primary care provider When:??Only if needed Upcoming Scheduled Appointments 2021 11:00 AM EST ?? With: Lucy Lee APRN Where: [facility] Urology Status: Confirmed You were treated today on [...] Emergency Department. Medications What How Much When Why Instructions Next Dose New cefpodoxime (cefpodoxime 200 mg oral tablet) 1 tab Oral (given by mouth) Every 12 hours Atrial fibrillation UTI (urinary tract infection) Duration: 7 Days Pickup at [facility] Unchanged acetaminophen (Acetaminophen Extra Strength Gelcaps 500 mg) 4 times a day 2 Unknown ?? Unchanged amLODIPine (amLODIPine 5 mg oral tablet) 1 tab Oral (given by mouth) Every day Unchanged digoxin (digoxin 250 mcg (0.25 mg) oral tablet) 90 EA, TAKE ONE TABLET BY MOUTH EVERY DAY ?? Unchanged dilTIAZem (dilTIAZem 300 mg/ 24 hours oral capsule, extended release) 1 Unknown ?? Unchanged donepezil (donepezil 5 mg oral tablet) 1 tab Oral (given by mouth) Every night at bedtime Unchanged fluticasone-salmeterol (Advair Diskus 500 mcg-50 mcg inhalation powder) 2 times a day 1 Unknown ?? Unchanged levalbuterol (Xopenex HFA 45 mcg/ inh inhalation aerosol) 1 Unknown ?? Unchanged loratadine (loratadine 10 mg oral capsule) 1 Unknown ?? Unchanged losartan (losartan 100 mg oral tablet) 1 tab Oral (given by mouth) Every day Unchanged magnesium oxide (magnesium oxide 400 mg (241.3 mg elemental magnesium) oral tablet) 1 Unknown ?? Unchanged metoprolol (metoprolol tartrate 25 mg oral tablet) 1 Unknown ?? Unchanged omeprazole Unchanged omeprazole (omeprazole 20 mg oral delayed release capsule) 90 EA, TAKE ONE CAPSULE BY MOUTH EVERY DAY ?? Unchanged tamsulosin (tamsulosin 0.4 mg oral capsule) 1 Capsules Oral (given by mouth) Every day Urinary retention Duration: 365 Days please take at bedtime ?? Unchanged warfarin (warfarin 5 mg oral tablet) 100 EA, TAKE 0-2 TABLETS BY MOUTH DAILY DIRECTED BY [facility]; DOSE BASE INR ?? Pharmacy Information [facility]: [address], [place] [phone] Education Materials Urinary Tract Infection, Adult A urinary tract [...] this condition includes: ? Antibiotic medicine. ? Nviy-axw-skccuyw medicines to treat discomfort. ? Drinking enough [...] these instructions at home: Medicines ? Take capq-pdz-vssakvj and prescription medicines only as told by [...] provider. Document Revised: 11/30/2020 Document Reviewed: 11/30/2020 [employer] Patient Education ?? 2021 [employer] Tests Performed Medications and Immunizations Administered Given Lactated Ringers Injection, 1000 mL, IV Lactated Ringers Injection, 1000 mL, IV acetaminophen, 1000 mg, IV Piggyback cefTRIAXone, 1 g, IV Piggyback Lab Test Name Test Result Date/Time WBC 16.7 K/mcL 03/16/2022 13:06 EST RBC 5.53 Million/mcL 03/16/2022 13:06 EST Hgb 16.6 g/dL 03/16/2022 13:06 EST Hct 49.8 % 03/16/2022 13:06 EST MCV 90.1 fL 03/16/2022 13:06 EST MCH 30.0 pg 03/16/2022 13:06 EST MCHC 33.3 g/dL 03/16/2022 13:06 EST RDW-CV 13.3 % 03/16/2022 13:06 EST Platelets 206 K/mcL 03/16/2022 13:06 EST MPV 11.9 fL 03/16/2022 13:06 EST Neutro Auto 84.8 % 03/16/2022 13:06 EST Lymph Auto 6.6 % 03/16/2022 13:06 EST [place] Auto 6.9 % 03/16/2022 13:06 EST Eos, Auto 0.60 % 03/16/2022 13:06 EST Basophil Auto 0.5 % 03/16/2022 13:06 EST Imm Gran Auto 0.6 % 03/16/2022 13:06 EST Neutro Absolute 14.2 K/mcL 03/16/2022 13:06 EST Lymph Absolute 1.1 K/mcL 03/16/2022 13:06 EST [place] Absolute 1.2 K/mcL 03/16/2022 13:06 EST Eos Absolute 0.1 K/mcL 03/16/2022 13:06 EST Baso Absolute 0.1 K/mcL 03/16/2022 13:06 EST Imm Gran Absolute 0.10 03/16/2022 13:06 EST Prothrombin Time 21.0 seconds 03/16/2022 13:06 EST INR 2.1 03/16/2022 13:06 EST Sodium Level 132 mmol/L 03/16/2022 13:06 EST Potassium Level 3.5 mmol/L 03/16/2022 13:06 EST Chloride Level 96 mmol/L 03/16/2022 13:06 EST CO2 24 mmol/L 03/16/2022 13:06 EST Alk Phos 69 IntlUnit/L 03/16/2022 13:06 EST AST 26 IntlUnit/L 03/16/2022 13:06 EST ALT 22 IntlUnit/L 03/16/2022 13:06 EST BUN 16 mg/dL 03/16/2022 13:06 EST Glucose Level 127 mg/dL 03/16/2022 13:06 EST Creatinine Level 0.95 mg/dL 03/16/2022 13:06 EST BUN/Creat Ratio 16.8 03/16/2022 13:06 EST eGFR AA 86 03/16/2022 13:06 EST eGFR Non-AA 86 03/16/2022 13:06 EST Calcium Level 10.1 mg/dL 03/16/2022 13:06 EST Protein Total 8.1 g/dL 03/16/2022 13:06 EST Albumin Level 4.4 g/dL 03/16/2022 13:06 EST Globulin 3.7 03/16/2022 13:06 EST A/G Ratio 1.2 03/16/2022 13:06 EST Bilirubin Total 1.2 mg/dL 03/16/2022 13:06 EST Anion Gap 12.0 03/16/2022 13:06 EST Lactic Acid Lvl 2.6 mmol/L 03/16/2022 13:06 EST Osmolality 267 mOsm/kg 03/16/2022 13:06 EST Digoxin Level 0.60 ng/mL 03/16/2022 12:30 EST Urine Srce Franks Cath 03/16/2022 13:06 EST UA Color YELLOW. 03/16/2022 13:06 EST UA Appear CLOUDY. 03/16/2022 13:06 EST UA Glucose NEGATIVE 03/16/2022 13:06 EST UA Bili NEGATIVE 03/16/2022 13:06 EST UA Ketones NEGATIVE 03/16/2022 13:06 EST UA Spec Grav 1.015 03/16/2022 13:06 EST UA Blood LARGE Clinitek 03/16/2022 13:06 EST UA pH 6.00 03/16/2022 13:06 EST UA Protein TRACE 03/16/2022 13:06 EST UA Urobilinogen 0.2 03/16/2022 13:06 EST UA Nitrite NEGATIVE 03/16/2022 13:06 EST UA Leuk Est LARGE Clinitek 03/16/2022 13:06 EST UA Culture Ind?. Yes 03/16/2022 13:06 EST UA WBC >=100 03/16/2022 13:06 EST UA RBC >=100 03/16/2022 13:06 EST UA Squam Epithelial 0-3 03/16/2022 13:06 EST UA Bacteria None Seen 03/16/2022 13:06 EST SARS-CoV-2 (COVID-19) PCR (GeneXpert) Neg-GeneXPert 03/16/2022 13:06 EST Employed in healthcare? No 03/16/2022 13:06 EST Symptomatic as defined by CDC? No 03/16/2022 13:06 EST Hospitalized due to COVID-19? No 03/16/2022 13:06 EST In ICU? No 03/16/2022 13:06 EST Group care resident? No 03/16/2022 13:06 EST status? Not 03/16/2022 13:06 EST Patient/Valet Parking Attendant Signature Patient Name:GINA JACOB I have received this information and my questions have been answered. Patient/Valet Parking Attendant Name: Patient/Valet Parking Attendant Signature: Relationship to Patient: Witness Name/Signature: Date: Electronically Signed on: 03/16/2022 15:09 ESTSigned by:PL Patient Care team information Care Team Personnel Name: Angel Abebe MD Position: No Access Member Role: Primary Care Physician Name: Malorie Rangel Position: Nurse Member Role: ED Nurse Name: Pete Howell DO Position: Physician Member Role: Attending Physician Address: Address: [address] [place] [phone] [place] Name: Jewel Zambrano MD Position: Physician Member Role: ED Physician Address: Address: [address] [place] [phone] [place] Care Team Related Persons Name: CECILBENOIT Address: Home
--- OUTSIDE RECORDS SUMMARY | 2023-10-20 22:25 | XMS_ITS | Continuity of Care Document ---
Author Name Unknown Organization [facility]ulatory [facility] Address [address] [place] [address] Care Team Providers Care Primer Expeditor And Drier Name Role Phone YUMIKO MUNOZ MD Primary Care Physician Encounter [facility] NBR [id number] Date(s): 12/09/22 - 12/09/22 [facility] [address] [place] [address]- Encounter Diagnosis BPH with obstruction/lower urinary tract symptoms(Discharge Diagnosis) - 12/10/22 Elevated PSA(Discharge Diagnosis) - 12/10/22 Discharge Disposition: Home or Self Care Attending Physician: Lucy Lee APRN Allergies, Adverse Reactions, Alerts Substance Reaction Severity Status doxycycline Severe Active tetracycline Severe Active Assessment and Plan Future Appointments Future Scheduled Tests Radiology* US Kidney Bladder 02/21/22 Functional Status 12/09/22 Other exposure to Infectious Disease Non e [...] # 14 tab, 0 Refill(s), Pharmacy: [facility], 177, cm, 03/16/22 12:14:00 EST, Height/Length [...] Daily, # 90 tab, 4 Refill(s), Pharmacy: [facility], 177, cm, 03/16/22 12:14:00 EST, Height/Length [...] [36-38 Deg C ] 36.4 Deg C (12/09/22 1:38 PM) Peripheral Pulse Rate [60-100 bpm] 76 bp m (12/09/22 1:38 PM) Respiratory Rate [12-24 br/min] 16 br/mi n (12/09/22 1:38 PM) Blood Pressure [90-140/60-90 mmHg] 124/7 6mmHg (12/09/22 1:38 PM) Social History Social History Type Response Tobacco Never tobacco user T obacco Use:. Sex Physician Outpatient Note * Rosa VANDANALucy Kameron: PERFORM Event Display: Office Clinic Note Physician Authored Date: [id number] GINA JACOB :1950 Age:72 years Sex:Male Visit Date:12/09/2022 Primary Care Physician: YUMIKO MUNOZ MD Chief Complaint routine indwelling franks catheter change History of Present Illness Mr. Jacob is a pleasant 72 year-old ??man who presents to the clinic today for franks catheter change.??He was last seen by us on 11/06/22. In the interim he was seen by [facility] urology department in referral and underwent voiding trial. Initially, he was able to void and he went home without a catheter. The next morning he could not void. Later in the day he went to [facility] for franks catheter placement. The [facility] urology department is aware of his urinary retention and he is waiting for a follow up appointment to be scheduled. He did have a conversation with them regarding definitive treatment via green light laser TURP. ?? He has BPH/LUTS and urinary retention [...] present illness Physical Exam Vitals & Measurements T:??36.4?C ??(Temporal Artery)?? HR:??76??(Peripheral)?? RR:??16?? BP:??124/76?? SpO2:??97%?? deferred Procedure Franks Catheter Change ?? The [...] Currently managing obstruction with indwelling franks catheter. [facility]. 3. Follow up in four weeks for routine franks change. 2.??Elevated PSA??R97.20 Assessed with pelvic MRI and resulted with PI-RADS 2. He has a 77 gm prostate. Mr. Jacob is a pleasant 72 year-old man with BPH, bladder outlet obstruction, and urinary??retention managing??his bladder with an??indwelling franks catheter. He has recently seen [facility] urology in referral. Initially passed a voiding trial but less then twenty four hours later could no longer void.??He is waiting next steps with [facility]. We will see him every four weeks for catheter change.? Problem List/Past Medical History Ongoing Atrial fibrillation [...] and Father. Stroke: Mother. Electronically Signed on 12/10/22 05:26 AM Lucy Lee APRN Patient Care team information Care Team Personnel Name: YUMIKO MUNOZ MD Position: No Access Member Role: Primary Care Physician Address: Address: [address] [place] [phone] [facility] Care Team Related Persons Name: BENOIT JACOB Address: Home
--- OUTSIDE RECORDS SUMMARY | 2023-10-20 22:25 | XMS_ITS | Continuity of Care Document ---
Author Name Unknown Organization [facility] Ambulatory Clinics Address [address] [place] [address] Care Team Providers Care Insulator Tester Name Role Phone YUMIKO MUNOZ MD Primary Care Physician Encounter [facility]BR [id number] Date(s): 10/14/22 - 10/14/22 [facility] Ambulatory Clinics [address] [place], [place] [address] Discharge Disposition: Home or Self Care Attending Physician: Lucy Lee APRN Referring Physician: YUMIKO MUNOZ MD Allergies, Adverse Reactions, Alerts Substance Reaction Severity Status doxycycline Severe Active tetracycline Severe Active Assessment and Plan Future Appointments Future Scheduled Tests Radiology* US Kidney Bladder 02/21/22 Functional Status 10/14/22 Other exposure to Infectious Disease Non e [...] hr, # 14 tab, 0 Refill(s), Pharmacy: [facility], 177, cm, 03/16/22 12:14:00 EST, Height/Length [...] # 90 tab, 4 Refill(s), Pharmacy: [facility], 177, cm, 03/16/22 12:14:00 EST, Height/Length [...] Temperature Temporal Artery [36-38 Deg C ] 36.6 Deg C (10/14/22 2:25 PM) Peripheral Pulse Rate [60-100 bpm] 85 bp m (10/14/22 2:25 PM) Respiratory Rate [12-24 br/min] 18 br/mi n (10/14/22 2:25 PM) Blood Pressure [90-140/60-90 mmHg] 142/7 6mmHg *HI* (10/14/22 2:25 PM) Social History Social History Type Response Tobacco Never tobacco user T obacco Use:. Sex Patient Care team information Care Team Personnel Name: YUMIKO MUNOZ MD Position: No Access Member Role: Primary Care Physician Address: Address: [address] [place] [phone] [facility] Care Team Related Persons Name: BENOIT JACOB Address: Home
--- OUTSIDE RECORDS SUMMARY | 2023-10-20 22:25 | XMS_ITS | Continuity of Care Document ---
Author Name Unknown Organization [facility] Address [address] [place] [address] Care Team Providers Care Trimming Inspector Name Role Phone Andrae GONZALEZ, Angel Primary Care Physician Mile vailable Encounter [facility] NBR [id number] Date(s): 04/04/22 - 04/04/22 [facility] [address] [place] [address]- [place] Discharge Disposition: Home or Self Care Attending Physician: Lucy Lee APRN Allergies, Adverse Reactions, Alerts Substance Reaction Severity Status doxycycline Severe Active tetracycline Severe Active Assessment and Plan Future Appointments Future Scheduled Tests Radiology* US Kidney Bladder 02/21/22 Functional Status 04/04/22 Living Environment Home Environment No qualifying data [...] hr, # 14 tab, 0 Refill(s), Pharmacy: [facility], 177, cm, 03/16/22 12:14:00 EST, Height/Length [...] # 365 cap, 3 Refill(s), Pharmacy: [facility], 175, cm, 02/09/22 15:04:00 EDT, Height/Length Dosing, 100, kg, 02/09/22 15:04:00 EDT, Weight Dosing Start Date: 02/13/22 Stop Date: 02/12/26 Status: Ordered warfarin 5 mg oral tablet 100 EA, TAKE 0-2 TABLETS BY MOUTH DAILY DIRECTED BY [facility]; DOSE BASE INR, 0 Refill(s) [...] [36-38 Deg C ] 36.5 Deg C (04/04/22 2:53 PM) Apical Heart Rate [60-100 bpm] 73 bpm (04/04/22 2:53 PM) Respiratory Rate [12-24 br/min] 18 br/mi n (04/04/22 2:53 PM) Blood Pressure [90-140/60-90 mmHg] 136/7 8mmHg (04/04/22 2:53 PM) Weight 93 kg (04/04/22 2:53 PM) Weight Measured (lbs) 205.03 lb (04/04/22 2:53 PM) [place] Body Weight Calculated 73.181 kg (04/04/22 2:53 PM) Height 178 cm (04/04/22 2:53 PM) Height/Length Measured (inches) 70.08 in ch (04/04/22 2:53 PM) BSA Measured 2.14 m2 (04/04/22 2:53 PM) Body Mass Index 29.35 kg/m2 (04/04/22 2:53 PM) Social History Social History Type Response Tobacco Never tobacco user T obacco Use:. Sex Patient Care team information Personnel Name: Angel Abebe MD
--- OUTSIDE RECORDS SUMMARY | 2023-10-20 22:25 | XMS_ITS | Continuity of Care Document ---
Author Name Unknown Organization [facility] Address [address] [place] [address] Care Team Providers Care Seed Technician Name Role Phone Andrae GONZALEZ, Angel Primary Care Physician Mile vailable Encounter [facility] NBR [id number] Date(s): 02/09/22 - 02/09/[address] [address]- Encounter Diagnosis Urinary retention(Discharge Diagnosis) - 02/09/22 Discharge Disposition: Home-No Follow Up Attending Physician: Pete Howell DO Admitting Physician: Pete Howell DO Allergies, Adverse Reactions, Alerts Substance Reaction Severity Status doxycycline Severe Active tetracycline Severe Active Assessment and Plan Diagnostic Tests Pending * Urine Culture 02/09/22 Functional Status 02/09/22 Other exposure to Infectious Disease Non e Medications dilTIAZem 0 Refill(s) Start Date: 02/09/22 Status: Ordered metoprolol succinate 0 Refill(s) Start Date: 02/09/22 Status: Ordered omeprazole 0 Refill(s) Start Date: 02/09/22 Status: Ordered warfarin 0 Refill(s) Start Date: 02/09/22 Status: Ordered Mental Status 02/09/22 Eye Opening Response Keegan Spontaneous ly Best Verbal Response Keegan Oriented Best Motor Response Keegan Obeys comman ds [place] Coma Score 15 Results Laboratory List Name Date .Manual Differential (LTTL) 02/09/22 CBC w/ Diff 02/09/22 Comprehensive Metabolic Panel 02/09/22 Lipase Level 02/09/22 Magnesium Level 02/09/22 Urinalysis Microscopic 02/09/22 Urinalysis with Micro if Indicated and C ulture if Indicated 02/09/22 Most recent to oldest [Reference Range]: 1 WBC [4.8-10.8 K/mcL] 17.6 K/mcL *HI* (02/09/22 3:35 PM) RBC [4.20-6.10 Million/mcL] 5.65 Million /mcL (02/09/22 3:35 PM) Segs Man 76 *NA* (02/09/22 3:35 PM) Lymph Man 11 *NA* (02/09/22 3:35 PM) Cidra Man 13 *NA* (02/09/22 3:35 PM) Eos Man 0 *NA* (02/09/22 3:35 PM) BUN [8-26 mg/dL] 24 mg/dL (02/09/22 3:35 PM) UA Color [Yellow] Yellow (02/09/22 3:10 PM) UA WBC [0-3] 0-3 (02/09/22 3:10 PM) Glucose Level [74-106 mg/dL] 112 mg/dL *HI* (02/09/22 3:35 PM) Potassium Level [3.5-5.1 mmol/L] 4.0 mmo l/L (02/09/22 3:35 PM) MCV [80.0-99.0 fL] 88.5 fL (02/09/22 3:35 PM) UA Urobilinogen [0.2] 0.2 (02/09/22 3:10 PM) RBC Morph [Normal] Normal (02/09/22 3:35 PM) UA Bili [Negative] Negative (02/09/22 3:10 PM) UA Ketones [Negative] Negative (02/09/22 3:10 PM) AST [15-41 IntlUnit/L] 32 IntlUnit/L (02/09/22 3:35 PM) ALT [17-63 IntlUnit/L] 21 IntlUnit/L (02/09/22 3:35 PM) MCHC [32.0-36.0 g/dL] 33.8 g/dL (02/09/22 3:35 PM) Osmolality [275-295 mOsm/kg] 267 mOsm/kg *LOW* (02/09/22 3:35 PM) Sodium Level [134-143 mmol/L] 131 mmol/L *LOW* (02/09/22 3:35 PM) UA RBC [0-3] 4-6 *ABN* (02/09/22 3:10 PM) UA Leuk Est [Negative] Negative (02/09/22 3:10 PM) UA Nitrite [Negative] Negative (02/09/22 3:10 PM) UA Glucose [Negative] Negative (02/09/22 3:10 PM) Hct [37.0-52.0 %] 50.0 % (02/09/22 3:35 PM) UA Bacteria [None Seen] 1+ *ABN* (02/09/22 3:10 PM) Lipase Level [18-51 unit/L] 33 unit/L (02/09/22 3:35 PM) Calcium Level [8.9-10.3 mg/dL] 9.8 mg/dL (02/09/22 3:35 PM) Albumin Level [3.5-5.0 g/dL] 4.2 g/dL (02/09/22 3:35 PM) Protein Total [6.5-8.1 g/dL] 7.5 g/dL (02/09/22 3:35 PM) UA Protein [Negative] Trace *ABN* (02/09/22 3:10 PM) MCH [27.0-31.0 pg] 29.9 pg (02/09/22 3:35 PM) Magnesium Level [1.8-2.5 mg/dL] 1.9 mg/d L (02/09/22 3:35 PM) Bilirubin Total [0.2-1.2 mg/dL] 1.8 mg/d L *HI* (02/09/22 3:35 PM) Hgb [12.0-18.0 g/dL] 16.9 g/dL (02/09/22 3:35 PM) Alk Phos [38-130 IntlUnit/L] 65 IntlUnit /L (02/09/22 3:35 PM) UA Blood [Negative] Small *ABN* (02/09/22 3:10 PM) MPV [7.4-10.4 fL] 11.4 fL *HI* (02/09/22 3:35 PM) UA Spec Grav 1.010 *NA* (02/09/22 3:10 PM) Platelets [130-400 K/mcL] 227 K/mcL (02/09/22 3:35 PM) CO2 [22-32 mmol/L] 21 mmol/L *LOW* (02/09/22 3:35 PM) UA Squam Epithelial [0-3] 4-6 (02/09/22 3:10 PM) UA pH 7.50 *NA* (02/09/22 3:10 PM) eGFR Non-AA 54 *NA* (02/09/22 3:35 PM) eGFR AA 54 *NA* (02/09/22 3:35 PM) UA Appear [Clear] Slightly Cloudy *ABN* (02/09/22 3:10 PM) Chloride Level [98-111 mmol/L] 97 mmol/L *LOW* (02/09/22 3:35 PM) RDW-CV [11.5-14.5 %] 13.8 % (02/09/22 3:35 PM) A/G Ratio 1.3 *NA* (02/09/22 3:35 PM) BUN/Creat Ratio [8.0-20.0] 17.1 (02/09/22 3:35 PM) Globulin 3.3 *NA* (02/09/22 3:35 PM) UA Culture Ind?. [No] Yes (02/09/22 3:10 PM) Abs Baso Man 0 *NA* (02/09/22 3:35 PM) Abs Eos Man 0 *NA* (02/09/22 3:35 PM) Abs Lymph Man 2 *NA* (02/09/22 3:35 PM) Abs Cidra Man 2 *NA* (02/09/22 3:35 PM) Abs Neut Man 13 *NA* (02/09/22 3:35 PM) Creatinine Level [0.61-1.24 mg/dL] 1.40 mg/dL *HI* (02/09/22 3:35 PM) Plt Estimation Normal (02/09/22 3:35 PM) Anion Gap [3.0-12.0] 13.0 *HI* (02/09/22 3:35 PM) Baso Man 0 *NA* (02/09/22 3:35 PM) Radiology Reports * Exam Date Time Procedure Performing Provider Status 02/09/22 4:[address] Abdomen and Pelvi s w/o Contrast Tom Serrano; Auth (Verified) Notes: (CT Abdomen and Pelvis w/o Contrast) Reason For Exam: lower abdominal pain with urinary frequency CT Abdomen and Pelvis w/o Contrast PROCEDURE INFORMATION: Exam: CT Abdomen And Pelvis Without Contrast Exam date and time: 02/09/2022 3:43 PM Age: 71 years old Clinical indication: Abdominal pain; Localized; Lower; Additional info: Lower abdominal pain with urinary frequency TECHNIQUE: Imaging protocol: Computed tomography of the abdomen and pelvis without contrast. Radiation optimization: All CT scans at this facility use at least one of these dose optimization techniques: automated exposure control; mA and/or kV adjustment per patient size (includes targeted exams where dose is matched to clinical indication); or iterative reconstruction. COMPARISON: No relevant prior studies available. FINDINGS: Diaphragm: Large hiatal hernia Liver: Normal. No mass. Gallbladder and bile ducts: Normal. No calcified stones. No ductal dilation. Pancreas: Normal. No ductal dilation. Spleen: Normal. No splenomegaly. Adrenal glands: Normal. No mass. Kidneys and ureters: Simple 3 cm left renal cyst. Bilateral pelvicaliectasis without antwan hydronephrosis Stomach and bowel: Unremarkable. No obstruction. No mucosal thickening. Appendix: No evidence of appendicitis. Intraperitoneal space: Unremarkable. No free air. No significant fluid collection. Vasculature: Unremarkable. No abdominal aortic aneurysm. Lymph nodes: Unremarkable. No enlarged lymph nodes. Urinary bladder: Mild distention of urinary bladder with diverticulum off of bladder dome. Reproductive: Unremarkable as visualized. Bones/joints: Unremarkable. No acute fracture. Soft tissues: Unremarkable. IMPRESSION: 1. Distended urinary bladder with bladder diverticulum-- possibly sequela of longstanding neurogenic bladder and or bladder outlet obstruction 2. Moderate to large hiatal hernia. COMMENTS: Consistent with the [employer]'s Incidental Findings Committee white paper (J Am Armen Radiol 2018): Any incidental renal lesion less than 1 cm or classified as too small to characterize, or any incidental cystic renal lesion characterized as simple-appearing, is likely benign. No follow-up imaging is recommended for these lesions per consensus recommendations based on imaging criteria. THIS DOCUMENT HAS BEEN ELECTRONICALLY SIGNED BY VAISHALI FARRIS MD on 02/09/2022 05:50 PM Final Signed by: DomainUseJessie ramos Signed (Electronic Signature): 02/09/2022 5:50 pm Vital Signs Most recent to oldest [Reference Range]: 1 2 3 Temperature Temporal Artery [36-38 Deg C] 36.5 Deg C (02/09/22 6:00 PM) 36.7 Deg C (02/09/22 2:22 PM) Temperature Temporal Artery (DegF) [97.3-100 Deg F] 97.7 Deg F (02/09/22 6:00 PM) Peripheral Pulse Rate [60-100 bpm] 84 bpm (02/09/22 6:00 PM) 80 bpm (02/09/22 3:14 PM) 74 bpm (02/09/22:22 PM) Respiratory Rate [12-24 br/min] 16 br/min (02/09/22 6:00 PM) 16 br/min (02/09/22 3:14 PM) 16 br/min (02/09/22:22 PM) Blood Pressure [90-140/60-90 mmHg] 148/76mmHg *HI* (02/09/22 6:00 PM) 150/80mmHg *HI* (02/09/22 3:14 PM) 160/86mmHg *HI* (02/09/22:22 PM) Weight 100.00 kg (02/09/22 2:22 PM) Weight Dosing 100.00 kg (02/09/22 3:04 PM) Height 175.000 cm (02/09/22 2:22 PM) Height/Length Dosing 175.000 cm (02/09/22 3:04 PM) Social History Social History Type Response Tobacco Never tobacco user T obacco Use:. Sex Hospital Discharge Instructions Patient Education 02/09/2022 17:30:39 Acute Urinary Retention, Male Mr. Jacob, Follow up with Dr. Irene Bryan, Urology this week for recheck. Casper Abebe PCP for recheck, should have labs repeated as your white blood cell count is elevated. If any worsening,fever, return of pain, confusion occur then return to ER right away. Acute Urinary Retention, Male Acute urinary retention is a condition in which a person is unable to pass urine or can only pass alittle urine. This condition can happen suddenly and last for a short time. If left untreated, it can become long-term (chronic) and result in kidney damage or other serious complications. What are the causes? This condition may be caused by: ??? Obstruction or narrowing of the tube that drains the bladder (urethra). This may be caused by surgery, problems with nearby organs, or injury to the bladder or urethra. ??? Problems with the nerves in the bladder. ??? Tumors in the area of the pelvis, bladder, or urethra. ??? Certain medicines. ??? Bladder or urinary tract infection. ??? Constipation. What increases the risk? This condition is more likely to develop in older men. As men age, their prostate may become largerand may start to press or squeeze on the bladder or the urethra. Other chronic health conditions can increase the risk of acute urinary retention. These include: ??? Diseases such as multiple sclerosis. ??? Spinal cord injuries. ??? Diabetes. ??? Degenerative cognitive conditions, such as delirium or dementia. ??? Psychological conditions. A man may hold his urine due to trauma or because he does not want touse the bathroom. What are the signs or symptoms? Symptoms of this condition include: ??? Trouble urinating. ??? Pain in the lower abdomen. How is this diagnosed? This condition is diagnosed based on a physical exam and your medical history. You may also have other tests, including: ??? An ultrasound of the bladder or kidneys or both. ??? Blood tests. ??? A urine analysis. ??? Additional tests may be needed, such as a CT scan, MRI, and kidney or bladder function tests. How is this treated? Treatment for this condition may include: ??? Medicines. ??? Placing a thin, sterile tube (catheter) into the bladder to drain urine out of the body. This is called an indwelling urinary catheter. After it is inserted, the catheter is held in place with a small balloon that is filled with sterile water. Urine drains from the catheter into a collection bag outside of the body. ??? Behavioral therapy. ??? Treatment for other conditions. If needed, you may be treated in the hospital for kidney function problems or to manage other complications. Follow these instructions at home: Medicines ??? Take [id number] and prescription medicines only as told by your health care provider. Avoid certain medicines, such as decongestants, antihistamines, and some prescription medicines. Do nottake any medicine unless your health care provider approves. ??? If you were prescribed an antibiotic medicine, take it as told by your health care provider. Donot stop using the antibiotic even if you start to feel better. General instructions ??? Do not use any products that contain nicotine or tobacco. These products include cigarettes, chewing tobacco, and vaping devices, such as e-cigarettes. If you need help quitting, ask your health care provider. ??? Drink enough fluid to keep your urine pale yellow. ??? If you have an indwelling urinary catheter, follow the instructions from your health care provider. ??? Monitor any changes in your symptoms. Tell your health care provider about any changes. ??? If instructed, monitor your blood pressure at home. Report changes as told by your health care provider. ??? Keep all follow-up visits. This is important. Contact a health care provider if: ??? You have uncomfortable bladder contractions that you cannot control (spasms). ??? You leak urine with the spasms. Get help right away if: ??? You have chills or a fever. ??? You have blood in your urine. ??? You have a catheter and the following happens: ??? Your catheter stops draining urine. ??? Your catheter falls out. Summary ??? Acute urinary retention is a condition in which a person is unable to pass urine or can only pass a little urine. If left untreated, this condition can result in kidney damage or other serious complications. ??? An enlarged prostate may cause this condition. As men age, their prostate gland may become larger and may press or squeeze on the bladder or the urethra. ??? Treatment for this condition may include medicines and placement of an indwelling urinary catheter. ??? Monitor any changes in your symptoms. Tell your health care provider about any changes. This information is not intended to replace advice given to you by your health care provider. Make sure you discuss any questions you have with your health care provider. Document Revised: 01/09/2021 Document Reviewed: 01/09/2021 [employer] Patient Education ?? 2021 [employer] 02/09/2022 17:28:53 Indwelling Urinary Catheter Insertion, Care After Indwelling Urinary Catheter Insertion, Care After This sheet gives you information about how to care for yourself after your procedure. Your health care provider may also give you more specific instructions. If you have problems or questions, contact your health care provider. What can I expect after the procedure? After the procedure, it is common to have: ??? Slight discomfort around your urethra where the catheter enters your body. Follow these instructions at home: General instructions ??? Keep the drainage bag at or below the level of your bladder. By doing this, your urine can onlydrain out instead of going back into your body. ??? Secure the catheter tubing and drainage bag to your leg or thigh to keep it from moving. ??? Check the catheter tubing regularly to make sure there are no kinks or blockages. ??? Take showers daily to keep the catheter clean. Do not take a bath. ??? Do not pull on your catheter. ??? Disconnect the tubing and drainage bag as little as possible. ??? Empty the drainage bag every 2???4 hours, or more often if needed. Do not let the bag get completely full. ??? Wash your hands with soap and water before and after touching the catheter, tubing, or drainagebag. ??? Do not let the drainage bag or catheter tubing touch the floor. ??? Drink enough fluids to keep your urine pale yellow, or as told by your health care provider. How to remove the catheter Remove the catheter only if told by your health care provider. Follow instructions from your healthcare provider about when and how to remove the catheter. For most catheters, you will need to take the following steps: 1. Prepare your supplies. You will need a: ??? Syringe. This would be given to you by your health care provider. ??? Towel. ??? Wastebasket. 2. Empty the drainage bag if needed. 3. Wash your hands with soap and warm water. 4. Remove the tape that secures the catheter to your leg or thigh. 5. Get into a comfortable position, such as: ??? Lying down with your head raised on pillows and your knees pointing to the ceiling. ??? Sitting on a chair or the edge of a bed. 6. Place the towel under you to catch any spilled urine. 7. Put the syringe into the balloon port of the catheter. Use a firm push and twist motion to fit the syringe into the balloon port. 8. The water from the balloon will empty into the syringe. 9. Gently pull out the catheter once the balloon is empty. ??? If the catheter doesn't slide easily, do not use force. Let your health care provider know thatyou are not able to remove the catheter. 10. Throw the used catheter and the syringe in the wastebasket. 11. Wipe any spilled urine or water with the towel. 12. Wash your hands with soap and warm water. Safety Let your health care provider know if: ??? Your bladder is full, but you are not able to urinate. ??? You have removed the catheter, but you are not able to urinate after 8 hours. Contact a health care provider if: ??? Your urine: ??? Looks cloudy. ??? Has a bad smell. ??? Stops flowing into the drainage bag. ??? Your catheter: ??? Gets clogged. ??? Starts to leak. ??? You feel pain or pressure in the bladder area. ??? You have back pain. ??? Your drainage bag or tubing looks dirty. Get help right away if: ??? You have a fever or chills. ??? You have severe pain in your back or your lower abdomen. ??? You have warmth, redness, swelling, or pain in the urethra area. ??? You notice blood in your urine. ??? Your catheter gets pulled out. Summary ??? Wash your hands with soap and water before and after touching the catheter, tubing, or drainagebag. ??? Do not pull on your catheter or try to remove it. ??? Keep the drainage bag at or below the level of your bladder, but do not let the drainage bag orcatheter tubing touch the floor. ??? Get help right away if you have a fever, chills, or any other signs of infection. This information is not intended to replace advice given to you by your health care provider. Make sure you discuss any questions you have with your health care provider. Document Revised: 07/10/2021 Document Reviewed: 04/05/2021 Elsevier Patient Education ?? 2021 [employer] Follow Up Care 02/09/2022 14:22:55 With:Angel Abebe MD Address: When:1 week With:Kelsea Bryan MD Address: [address] [place] [id number] When:[address] Abdomen and Pelvis WO contrast * Len, Generated: VERIFY, VERIFY Event Display: Report PROCEDURE INFORMATION: Exam: CT Abdomen And Pelvis Without Contrast Exam date and time: 02/09/2022 3:43 PM Age: 71 years old Clinical indication: Abdominal pain; Localized; Lower; Additional info: Lower abdominal pain with urinary frequency TECHNIQUE: Imaging protocol: Computed tomography of the abdomen and pelvis without contrast. Radiation optimization: All CT scans at this facility use at least one of these dose optimization techniques: automated exposure control; mA and/or kV adjustment per patient size (includes targeted exams where dose is matched to clinical indication); or iterative reconstruction. COMPARISON: No relevant prior studies available. FINDINGS: Diaphragm: Large hiatal hernia Liver: Normal. No mass. Gallbladder and bile ducts: Normal. No calcified stones. No ductal dilation. Pancreas: Normal. No ductal dilation. Spleen: Normal. No splenomegaly. Adrenal glands: Normal. No mass. Kidneys and ureters: Simple 3 cm left renal cyst. Bilateral pelvicaliectasis without antwan hydronephrosis Stomach and bowel: Unremarkable. No obstruction. No mucosal thickening. Appendix: No evidence of appendicitis. Intraperitoneal space: Unremarkable. No free air. No significant fluid collection. Vasculature: Unremarkable. No abdominal aortic aneurysm. Lymph nodes: Unremarkable. No enlarged lymph nodes. Urinary bladder: Mild distention of urinary bladder with diverticulum off of bladder dome. Reproductive: Unremarkable as visualized. Bones/joints: Unremarkable. No acute fracture. Soft tissues: Unremarkable. IMPRESSION: 1. Distended urinary bladder with bladder diverticulum-- possibly sequela of longstanding neurogenic bladder and or bladder outlet obstruction 2. Moderate to large hiatal hernia. COMMENTS: Consistent with the [employer]'s Incidental Findings Committee white paper (J Am Armen Radiol 2018): Any incidental renal lesion less than 1 cm or classified as too small to characterize, or any incidental cystic renal lesion characterized as simple-appearing, is likely benign. No follow-up imaging is recommended for these lesions per consensus recommendations based on imaging criteria. THIS DOCUMENT HAS BEEN ELECTRONICALLY SIGNED BY VAISHALI FARIRS MD on 02/09/2022 05:50 PM Final Signed by: Jessie Harrington Signed (Electronic Signature): 02/09/2022 5:50 pm Patient Care team information Personnel Name: Angel Abebe MD
--- OUTSIDE RECORDS SUMMARY | 2023-10-20 22:25 | XMS_ITS | Continuity of Care Document ---
Author Name Unknown Organization [facility] Address [address] [place] [address] Care Team Providers Care Parallel Computing Software Engineer Name Role Phone Andrae GONZALEZ, Angel Primary Care Physician Mile vailable Encounter [facility] FIN NBR [id number] Date(s): 02/13/22 - 02/13/22 [facility] [address] [place] [address]- [place] Discharge Disposition: Home or Self Care Attending Physician: Kelsea Bryan MD Admitting Physician: Kelsea Bryan MD Referring Physician: Kelsea Bryan MD Allergies, Adverse Reactions, Alerts Substance Reaction Severity Status doxycycline Severe Active tetracycline Severe Active Assessment and Plan Future Appointments Future Scheduled Tests Radiology* US Kidney Bladder 02/13/22 Medications Acetaminophen Extra Strength Gelcaps 500 mg [...] bedtime, # 365 cap, 3 Refill(s), Pharmacy: [facility], 175, cm, 02/09/22 15:04:00 EDT, Height/Length Dosing, 100, kg, 02/09/22 15:04:00 EDT, Weight Dosing Start Date: 02/13/22 Stop Date: 02/12/26 Status: Ordered warfarin 5 mg oral tablet 100 EA, TAKE 0-2 TABLETS BY MOUTH DAILY DIRECTED BY [facility]; DOSE BASE INR, 0 Refill(s) Start Date: 02/13/22 Status: Ordered Xopenex HFA 45 mcg/inh inhalation aerosol 1 Unknown, 0 Refill(s) Start Date: 02/13/22 Status: Ordered Results Laboratory List Name Date PSA Diagnostic 02/13/22 Most recent to oldest [Reference Range]: 1 PSA Total Diagnostic [<=4.000 ng/mL] 10. 482 ng/mL *HI* (02/13/22 1:04 PM) Social History Social History Type Response Tobacco Never tobacco user T obacco Use:. Sex Patient Care team information Personnel Name: Angel Abebe MD
[2023-10-20 22:27] VITALS: BP 158/78; PULSE 60; RESP 16; TEMP 36.6; O2SAT 99
--- NOTE | 2023-10-20 22:38 | W.ED.GENAD ---
Discharge Plan Disposition Patient Disposition: Home Condition: Stable Discharge Details Clinical Impression: Acute bacterial conjunctivitis of both eyes Primary Care Provider: Angel Abebe ED Provider: Lili Dejesus [place] Meds and New Rx's Prescriptions: Continued hydrocortisone [Preparation H Hydrocortisone] 1 % cream 1 applic topical BID PRN amlodipine 5 mg tablet 5 mg PO DAILY Qty: 90 4RF furosemide [Lasix] 40 mg tablet 40 mg PO DAILY PRN (Reason: edema) Qty: 90 3RF omeprazole 20 mg capsule,delayed release(DR/EC) 20 mg PO DAILY Qty: 90 4RF fluticasone propion-salmeterol [Advair Diskus] 500-50 mcg/dose blister with device 1 ea Inhalation BID Qty: 3 4RF warfarin 5 mg tablet See Rx Instructions PO .COMPLEX Qty: 100 3RF Protocol: Dose Management Condition: Thursday Dose/Route: 5 mg Instruction: 1 x 5 mg tablet Condition: Thursday Dose/Route: 5 mg Instruction: 1 x 5 mg tablet Condition: Thursday Dose/Route: 5 mg Instruction: 1 x 5 mg tablet Condition: Thursday Dose/Route: 2.5 mg Instruction: 0.5 x 5 mg tablets Condition: Dose/Route: 5 mg Instruction: 1 x 5 mg tablet Condition: Thursday Dose/Route: 5 mg Instruction: 1 x 5 mg tablet Condition: Thursday Dose/Route: 2.5 mg Instruction: 0.5 x 5 mg tablets Protocol Text: Adjustment Start Date: Thursday09/18/23 INR Value: 2.2 INR Date: 09/18/23 Recheck Date: 10/18/23 Dose Instruction: 0-2 tabs PO Daily; DOSE BASED ON INR Rx Instructions: 0-2 tabs PO Daily as directed by [facility]; DOSE BASED ON INR levalbuterol tartrate [Xopenex HFA] 45 mcg/actuation HFA aerosol inhaler 2 puff Inhalation QID PRN (Reason: shortness of breath or wheezing) Qty: 3 4RF tamsulosin 0.4 mg capsule 0.4 mg PO DAILY magnesium oxide [MagOx] 400 mg (241.3 mg magnesium) tablet 400 mg PO BID Qty: 180 4RF metoprolol tartrate 25 mg tablet 12.5 mg PO BID Qty: 90 3RF Rx Instructions: take an additional half tablet as needed for sustained HR over 120 bpm losartan 100 mg tablet 100 mg PO DAILY Qty: 90 3RF donepezil 10 mg tablet 10 mg PO DAILY Qty: 90 3RF digoxin 250 mcg (0.25 mg) tablet 250 mcg PO DAILY Qty: 90 3RF acetaminophen [Mapap Extra Strength] 500 MG tablet 1,000 mg PO Q6H PRN PRN Patient Comments: Pt states he took it a couple of weeks ago Discharge Instructions Instructions: How to Use Eye Drops, Conjunctivitis ([facility]) ED Additional Instructions: Please use 2 drops to both eyes every 3-4 hours while awake for the next 5 to 7 days. Wash all pillowcases blankets and washcloths. Wash your hands after touching your eyes or touching surfaces. Follow up with primary care provider in 3-5 days. Return to ED sooner if any worsening or concerns. Referrals: Angel Abebe MD [Primary Care Provider] - 5 days Discharge Data Discharge Date/Time-TO BE ENTERED AT DEPARTURE: 10/20/23 23:03 HPI General Mode of arrival: ambulatory. Date/Time Provider Initiated Documentation: 10/20/23 22:38. Limitations to Documentation: no limitations. Information obtained by: patient, family, RN notes reviewed and old records reviewed. HPI Narrative: 72-year-old male who presents to the ER with bilateral eye redness, discharge itching and drainage. You presented with his who is diagnosed with pinkeye and conjunctivitis. He has similar symptoms. Other past medical history includes asthma hypertension atrial fibrillation. Related Data Home Medications Medication Instructions Recorded Confirmed acetaminophen 500 mg tablet (Mapap 1,000 mg PO Q6H PRN PRN 02/07/13 08/25/23 Extra Strength) hydrocortisone 1 % topical cream 1 applic topical BID PRN 04/05/20 08/25/23 (Preparation H Hydrocortisone) levalbuterol tartrate 45 2 puff inhalation QID PRN 01/08/21 08/25/23 mcg/actuation aerosol inhaler shortness of breath or wheezing ##3 (Xopenex HFA) tamsulosin 0.4 mg capsule 0.4 mg PO DAILY 02/20/22 08/25/23 magnesium oxide 400 mg (241.3 mg 400 mg PO BID #180 tabs 07/28/22 08/25/23 magnesium) tablet (MagOx) metoprolol tartrate 25 mg tablet 12.5 mg (1/2 x 25 mg) PO BID #90 10/18/22 08/25/23 tab-caps losartan 100 mg tablet 100 mg PO DAILY #90 tabs 01/20/23 08/25/23 donepezil 10 mg tablet 10 mg PO DAILY #90 tabs 02/09/23 08/25/23 amlodipine 5 mg tablet 5 mg PO DAILY #90 tab-caps 04/08/23 08/25/23 furosemide 40 mg tablet (Lasix) 40 mg PO DAILY PRN edema #90 tabs 04/08/23 08/25/23 omeprazole 20 mg capsule,delayed 20 mg PO DAILY #90 tab-caps 04/08/23 08/25/23 release digoxin 250 mcg (0.25 mg) tablet 250 mcg PO DAILY #90 tabs 05/19/23 08/25/23 warfarin 5 mg tablet See Rx Instructions PO .COMPLEX 05/21/23 08/25/23 #100 tab-caps fluticasone 500 mcg-salmeterol 50 1 ea inhalation BID ##3 07/15/23 08/25/23 mcg/dose blistr powdr for inhalation (Advair Diskus) Previous Rx's Medication Instructions Recorded levalbuterol tartrate 45 2 puff inhalation QID PRN 01/08/21 mcg/actuation aerosol inhaler shortness of breath or wheezing ##3 (Xopenex HFA) magnesium oxide 400 mg (241.3 mg 400 mg PO BID #180 tabs 07/28/22 magnesium) tablet (MagOx) metoprolol tartrate 25 mg tablet 12.5 mg (1/2 x 25 mg) PO BID #90 10/18/22 tab-caps losartan 100 mg tablet 100 mg PO DAILY #90 tabs 01/20/23 donepezil 10 mg tablet 10 mg PO DAILY #90 tabs 02/09/23 amlodipine 5 mg tablet 5 mg PO DAILY #90 tab-caps 04/08/23 furosemide 40 mg tablet (Lasix) 40 mg PO DAILY PRN edema #90 tabs 04/08/23 omeprazole 20 mg capsule,delayed 20 mg PO DAILY #90 tab-caps 04/08/23 release digoxin 250 mcg (0.25 mg) tablet 250 mcg PO DAILY #90 tabs 05/19/23 warfarin 5 mg tablet See Rx Instructions PO .COMPLEX 05/21/23 #100 tab-caps fluticasone 500 mcg-salmeterol 50 1 ea inhalation BID ##3 07/15/23 mcg/dose blistr powdr for inhalation (Advair Diskus) Allergies Allergy/AdvReac Type Severity Reaction Status Date / Time doxycycline Allergy Intermediate FACIAL RASH Verified 08/25/23 14:18 Tetracyclines Allergy Intermediate FACIAL RASH Verified 08/25/23 14:18 TAMI Inhibitors AdvReac Intermediate cough Verified 08/25/23 14:18 General Stated Complaint: EyeProblem DANIA: 5 Review of Systems All systems reviewed & are unremarkable except as noted in HPI and below Constitutional Constitutional: Reports as per HPI Eyes Eyes: Reports eye discharge, Reports irritation and Reports itchy eyes Allergic/Immunologic Allergic/Immunologic: Reports itchy eyes Exam Eyes Alignment and Position: alignment normal Periorbital: periorbital findings normal Eyelids: eyelids normal Conjunctivae: conjunctival abnormality bilaterally conjunctival injection diffuse Cornea: corneas normal EOM: EOM intact bilaterally Direct ophthalmoscopy: normal light reflex Course Vital Signs Vital signs: Vital Signs Temperature 36.6 C 10/20/23 22:27 Pulse 60 10/20/23 22:27 Respiratory Rate 16 10/20/23 22:27 Blood Pressure 158/78 H 10/20/23 22:27 Pulse Oximetry 99 10/20/23 22:27 Temperature 36.6 C 10/20/23 22:27 Pulse 60 10/20/23 22:27 Respiratory Rate 16 10/20/23 22:27 Respiratory Effort Normal 10/20/23 22:31 Blood Pressure 158/78 H 10/20/23 22:27 Blood Pressure Position Sitting 10/20/23 22:27 Pulse Oximetry 99 10/20/23 22:27 Oxygen Delivery Method Room Air 10/20/23 22:27 Oxygen Flow Rate 0 10/20/23 22:27 Pain Level 0 10/20/23 22:27 Medical Decision Making 72-year-old male who presents to the ER with bilateral eye redness, discharge itching and drainage. presented with his who is diagnosed with pinkeye and conjunctivitis. He has similar symptoms. Other past medical history includes asthma hypertension atrial fibrillation. Denies any other associated symptoms or concerns. Patient given Polytrim ophthalmic drops and instructed on use 2 drops each eye every 3-4 hours while awake x 5 to 7 days. Instructed to follow-up with PCP return for any worsening. This text was generated using M2G dictation system, please disregard any oddities of phrase or misspellings. 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) Cellulitis (Acute) Chronic anticoagulation (Acute) Hypotension (Acute) BPH w urinary obs/LUTS (Acute) Dyspnea on exertion (Acute) Daytime sleepiness (Acute) Screening for colon cancer (Acute) Right-sided chest wall pain (Acute) Peripheral edema (Acute) Cognitive change (Acute) Memory impairment (Acute) Urinary retention (Acute) Per Jael urologist Hypoalbuminemia (Acute) Right upper lobe pulmonary nodule (Acute) Elevated white blood cell count (Acute) Hiatal hernia (Chronic) Medical History Abnormal weight loss (04/14/12) Asthma Hypertension Atrial fibrillation Surgical History Status post inguinal hernia repair Repair of inguinal hernia LEFT Family History Mother Diabetes Stroke Alcohol abuse Hypertension Father Asthma Prostate cancer Heart disease Sister Alzheimer disease Sister Essential hypertension Depression Sister No problems noted. Sister No problems noted. Sister No problems noted. Brother Diabetes Essential hypertension Stroke Brother No problems noted. Son ADHD Alcohol abuse Former Daughter Alcohol abuse Depression Hypertension Other Family hx of prostate cancer Social History Smoking/Tobacco Use Status: Former Tobacco Use Second Hand Exposure: Yes Smoking risk assessment performed?: Yes Alcohol Intake: former Drug use: Never Substance use type: does not use Household members: spouse and children Housing: house Number of Children: 2 number of grandchildren: 3 Communication Needs: Hard of Hearing, Corrective Lenses, Cannot Read and Language Barriers Education Level: elementary school Details: 8th grade Do you need help understanding health information?: Often current occupation: Disabled Pets and animals: Yes (chicken, ernesto) Pets and animals: cat(s), farm animals and other Details: Ernesto Sexually active: No Do you think of yourself as: straight/heterosexual Current gender identity: male What is your relationship status?: How often do you talk on the phone with friends or family?: once per week Do you belong to any clubs or organized social groups?: no Panel score (0-1 are the most socially isolated patients): 1 What type of physical activity do you participate in: none Christine/Jewish: Spiritism Special christine needs: No Agree to transfusion: Yes Seatbelt use: always Drive intox or ride w/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
[2023-10-20] MEDS: Polymyxin B/Trimethoprim Ophth Soln 10 ML BTL OU (23:02)
== END 2023-10-20 23:03 | disposition home or self-care (01) ==
PROVIDERS: Emergency Provider Registered Nurse Emergency; PCP Family Medicine
DX: H10.023 Other mucopurulent conjunctivitis, bilateral (principal); I10 Essential (primary) hypertension; I48.91 Unspecified atrial fibrillation; Z79.01 Long term (current) use of anticoagulants; Z87.891 Personal history of nicotine dependence
CPT/HCPCS: 99283

== ENCOUNTER 2023-11-19 14:46 | Outpatient (CLI) | payer OTHER, SELFPAY ==
[2023-11-19 15:15] LABS: INR 2.2 (0.9-1.1)
== END 2023-11-19 14:47 | disposition home or self-care (01) ==
LOC: LBO 14:46
PROVIDERS: PCP Family Medicine; Visit Provider Family Medicine
DX: Z79.01 Long term (current) use of anticoagulants (principal); I48.21 Permanent atrial fibrillation
CPT/HCPCS: 36415; 85610

== ENCOUNTER 2024-01-06 17:04 | Outpatient (CLI) | payer OTHER, SELFPAY ==
[2024-01-06 16:07] LABS: INR 2.2 (0.9-1.1); Prothrombin Time 20.8 sec (9.1-11.1)
--- OUTSIDE RECORDS SUMMARY | 2024-01-06 17:06 | XMS_ITS | Data Portability ---
Author Organization [facility], [facility] Address [address] [place] [address] Assessment No assessment recorded. Plan of Treatment Reminders Order Date Submit Date Provider Last Modified By Organization Details Last Modified Time Details Appointments None record ed. Lab None record ed. Referral None record ed. Procedures None record ed. Surgeries None record ed. Imaging None record ed. Medication Orders None record ed. Patient TargetsNo targets recorded. Patient InstructionsNo instructions recorded. Reason for Referral None Reported. Procedures Surgical History Date Name Laterality Status Provider Name and Address Organization Details Recorded Time Cerumen Removal completed [address], [place], [address], [facility] 10/05/2023 11:29:26 Imaging Results None recorded. Procedure Notes None recorded. Medical Equipment None Reported. Allergies Allergen ID Allergen Name Allergen Category Reaction Reaction Severity Criticality Documentation Date Start Date Code Code System Note Provider Name and Address Organization Details Recorded Time 61365 doxycycli ne Not available rash severe high 10/05/2023 3640 RxNorm SHIRA Ceron, [facility] 10:37:50 Medications Name Sig Start Date Stop Date Status Note LastModified by Organization Details LastModified Time omeprazole 10 mg capsule,del ayed release Take 2 capsules every day by oral route. active Not Available Not Available No t Available Fernisone 5 mg tablet Take 1 tablet every day by oral route. active Not Available Not Available No t Available folic acid 0.8 mg capsule Take by oral route. 10/04 completed Not Available Not Available Not Available Vitals Date Recorded Respiratory rate Body height Body mass index (BMI) Body weight Oxygen saturation Oxygen saturation in Arterial blood by Pulse oximetry Heart rate Body temperature Systolic blood pressure Diastolic blood pressure Provider Name and Address Organization Details Last Updated DateTime 18 /min 170.18 cm 31.2 kg/m2 70357.5 8 g 98 % 98 % 62 /min 98 [degF] 132 mm[Hg] 84 mm[Hg] Fabiola SHIRA Moore [facility] 10:42:33 Social History Question Answer Notes LastModified by Organizat ion Details LastModified Time Tobacco Smoking Status Never Smoker Fabiola Oscar SHIRA null, [facility] 10/05/2023 10:40:41 What Was The Date Of Your Most Recent Tobacco Screening? 10/05/2023 [email or web address] Information not available 10/05/2023 Has Tobacco Cessation Counseling Been Provided? No Information not available 10/05/2023 Do You Or Have You Ever Used Any Other Forms Of Tobacco Or Nicotine? No [email or web address] Information not available 10/05/2023 Sex: Male Functional Status None recorded. Mental Status None recorded. Family History Nothing Reported. Medical History No medical history recorded. Past Encounters Encounter ID Performer Location Encounter Start Date Encounter Closed Date Diagnosis/Indication Diagnosis SNOMED-CT Code Diagnosis ICD10 Code [id number] SANDEEP BURRELL PA-C [address] [address] 10/05/2023 10:12:05 10/05/2023 11:22:02 Impacted cerumen of bilateral ears [id number] 659148 H61.23 Health Concerns Section Related Observation LastModified by Organization Detai ls LastModified Time None Recorded Concern Status LastModified by Organization Details LastModified Time None Recorded Advance Directives Directive None Recorded Payers Encounter Date Sequence Insurance Name Policy Number Policy Suanders Covered Member ID Saunders Member ID Guarantor Name 10/05/2023 1 [employer] (MEDICARE REPLACEMENT HMO) Jesse Carranza [id number] Jesse Carranza Notes Date Note Type Note Provider Name and Address Organization Details Recorded Time 10/05/2023 text/html HPI Notes: Patient is a 72-year-old male presenting for cerumen impaction. [facility] as he had bilateral impaction and was unable to get hearing aid test done. Does have a history of cerumen impaction has been putting in mineral oil for the past week or so. No ear pain or drainage. SANDEEP BURRELL PA-C [address], [place], [address], [facility]. 10/05/2023 11:31:08
--- OUTSIDE RECORDS SUMMARY | 2024-01-06 17:07 | XMS_ITS | Encounter Summary ---
Author Organization Formerly [facility] Address [facility] [place] [address] Care Team Providers Care Mechanical Assembly Technician Name Role Phone Angel Abebe MD Primary Care Provider [phone] Encounter Details Date Type Department Care Team (Latest Contact Info) Description 11/21/2022 1:20 PM EDT TH Visit (TeleHealth) Urology at [facility] [place] [address] Tasha Hazel APRN [facility] [place] [address] BPH with obstruction/lower urinary tract symptoms; Urinary retention Social History Tobacco Use Types Packs/Day Years Used Date Smoking Tobacco: Never Pipe Smokeless Tobacco: Never Alcohol Use Standard Drinks/Week Comments Not Asked 0 (1 standard drink = 0.6 oz pur e alcohol) Sex and Gender Information Value Date Recorded Sex Assigned at Not on file Gender Identity Not on file Sexual Orientation Not on file documented as of this encounter Patient Instructions * Patient Instructions* Tasha Hazel APRN - 11/21/2022 1:20 PM EDT Instructions Prior to Surgery Prior to this procedure it is important to have normal blood clotting. Please discuss with your Primary Care Provider or the provider managing your blood thinner medication(s) listed below, to stop your medications safely before your surgical procedure. Aspirin Coumadin (Warfarin) Plavix (Clopidogrel); Prasugrel (Effient); OR Ticagrelor (Brilinta) Xarelto (Rivaroxaban) OR Eliquis (Apixaban) Pradaxa (Dabigatran Etextilate) If you cannot confirm the safety of stopping your medications with your provider, or the provider does not approve of stopping these medications at an appropriate time frame, please contact the Urology Clinic to cancel the planned surgery and discuss other appropriate options. documented in this encounter Progress Notes * Tasha Hazel APRN - 11/21/2022 1:20 PM EDT Images from the original note were not included. Jesse Carranza consented to conduct this clinical encounter by telephone. The patient acknowledgesthat the insurance may be billed for the care provided, similar to an in person appointment. The patient is currently in [facility] SECTION OF UROLOGY UROLOGY CLINIC VISIT Name: Jesse Carranaz : 1950 Date: 11/21/2022 Chief Complaint: BPH with LUTS History of Present Illness Follow up regarding his BPH with Lower urinary tract symptoms. He has had a franks catheter in place for the past year. This has been changed monthly at [facility]. Patient previously followed by Dr. Bryan in [place]. He had a voiding trial up there several months ago and then a recent voiding trial at last week. He initially passed the voiding trial and did fine until the next morning when he was unable to pass any urine. He presented to the emergency department at [facility] and had the franks replaced. He is currently taking Finasteride and Silodosin. He tried Tamsulosin, but it made him nauseated. PVR = franks in place. Prostate size on MRI was measured as 77cc. PSA density 0.13 with PiRADS 2. Patient has previously had a negative prostate biopsy. 09/2022. 11 Last PSA 10.42 in March 2022. No reported bowel issues. Patient is currently taking Coumadin for afib . 11/21/22: Follow up via telehealth today. Patient initially passed his void trial last week, however, the following morning, he was unable to urinate and presented to the emergency department at [facility] for foleycathter placement. He is taking Finasteride and Silodosin. They feel strongly that they would like to proceed with urolift. Patient Active Problem List Diagnosis Code Permanent atrial fibrillation I48.21 Asthma J45.909 GERD (gastroesophageal reflux disease) K21.9 Migraines G43.909 Bradycardia R00.1 Past Surgical History: Procedure Laterality Date HERNIA REPAIR Bilateral inguinal hernia 11/12/2022 9:31 AM REVIEW OF SYSTEMS Constitutional Weight loss Weakness Fatigue, lack of energy Drowsiness Pain Ear / nose / throat / mouth Hearing difficulty Eyes None of the above Respiratory Cough Thick mucous or spit (Sputum or Phlegm) Shortness of breath Cardiovascular Swelling of legs Musculoskeletal Muscle stiffness Neurological Muscular weakness Hematologic / Lymphatic Easy bruising or bleeding Genitourinary Blood in urine . Physical Examination: There were no vitals taken for this visit. Constitutional: The patient is well developed, well nourished, alert and oriented, and appears his stated age. Cardiovascular: Good peripheral pulses Respiratory: Breathing comfortably. No audible wheezes are appreciated. Abdomen: , soft, non-tender, non-distended. : Phallus flaccid, no lesions. Scrotum with no swelling, erythema, or masses. Bilateral testes with no masses, tenderness, or swelling. Extremities: Appear warm and well perfused. no LE Edema Neuro: Awake and alert. Oriented to person/place/time. No gross motor defects. Silodosin (Rapaflo) 4 mg capsule COVID-19 VACC,MRNA,MODERNA,-PF IM finasteride (Proscar) 5 mg Tablet oglmyptp-fyyqnlgyc-gxrsilpbajganb (CORTISPORIN) 3.5-10,000-1 mg/mL-unit/mL-% Drops, Suspension digoxin (LANOXIN) 250 mcg Tablet amLODIPine (NORVASC) 5 mg Tablet lisinopril (PRINIVIL;ZESTRIL) 40 mg Tablet metoprolol tartrate (LOPRESSOR) 25 mg tablet omeprazole (PRILOSEC) 20 mg capsule Magnesium 84 mg TbSR warfarin (COUMADIN) 5 mg tablet dilTIAZem CD (Cardizem CD) 180 mg Capsule, Sust. Release 24 hr fexofenadine (RADHA) 60 mg tablet acetaminophen (TYLENOL EXTRA STRENGTH) 500 mg tablet fluticasone-salmeterol (ADVAIR) 250-50 mcg/dose diskus inhaler Levalbuterol Tartrate 45 mcg/Actuation inhaler Mometasone (NASONEX) 50 mcg/Actuation [place] Review of Tests: No results found for: WBC, RBC, HGB, HCT, MCV, MCH, MCHC Lab Results Component Value Date NA 137 06/07/2018 K 3.7 06/07/2018 CL 100 06/07/2018 CO2 25 06/07/2018 BUN 11 06/07/2018 CREATININE 0.87 06/07/2018 GLUCOSE 103 06/07/2018 CALCIUM 9.3 06/07/2018 ANIONGAP 12 06/07/2018 Urine Studies Performed today: Voiding trial. Patient was backfilled with 180cc sterile water. Franks removed. Patient urinated 100cc. He was then given some time to drink fluids and wait. He returned to clinic 2 hours later and was able to urinate a large amount with good flow. PVR 118cc. ASSESSMENT Jesse Carranza is a 72 y.o. male with BPH with urinary retention. He passed voiding trial today. I spent this consultation with Mr Carranza discussing the causes, sequelae, and management of an enlarged prostate. I explained that enlargement of the prostate is common among men and there is increasing prevalence among older men. The severity of symptoms of an enlarged prostate, however, can vary widely. These symptoms are often obstructive, characterized by weak urinary stream, straining, andhesitancy. Additionally, over time, the bladder itself may change becoming thick-walled, less compliant, and overactive with a lower capacity resulting in the irritative symptoms of urinary frequency and urgency. Medical management with alpha-blockers, which facilitates bladder emptying, is the fi rst-line therapy. 5-alpha reductase inhibitors can also be used to shrink the prostate, but the effects may not be realized for 6-12mo. Furthermore, anticholinergics and/or beta3-agonists may be usedto relax the bladder and reduce irritative symptoms. Indications for surgical intervention include s ymptoms refractory to medical management, urinary retention, urinary tract infection, evidence of uropathy and worsening renal function, bladder stones, and gross hematuria. PLAN/RECOMMENDATIONS Discussed causes of urinary retention including obstruction from BPH vs atonic bladder. Discussed that bladder outlet surgery may be helpful in up to 50% of patient with retention who have both bladder outlet obstruction and an atonic bladder. Discussed utilization of urodynamic study to differentiate between obstructive voiding and atonic bladder.Will defer UDS for now. Continue finasteride. Continue Silodosin 4mg daily. Discussed mechanism of action as well pros and cons. Discussed indications for surgical intervention include symptoms refractory to medical management, urinary retention, urinary tract infection, evidence of uropathy and worsening renal function, bladder stones, and gross hematuria. Discussed surgical options of Urolift, REZUM, PVP, and PVeP. These options were discussed using informational handout and descriptive diagram so patient is able to make an informed decision and engage in a shared decision. Specifically discussed pros and cons of each including limitations, anesthesia needs, catheter requirement, retreatment rate, ejaculatory preservation, incontinence risk, and expected post operative recovery. Discussed that with urinary retention, PVP or PVeP are the most effective options. Patient states that he had a friend that had PVP laser surgery and had horrible pain afterwards. Patient feels very strongly that he would like to proceed with Urolift. Discussed that he may not get the results that he is looking for with this, however, he would like to try. Schedule Cystoscopy to look for median lobe.for possible urolift The patient expressed understanding and agreement with the above. Tasha Hazel APRN I spent 20 minutes reviewing the patient's diagnostic tests, speaking with the patient, and documenting in the record. * Tasha Hazel APRN - 11/21/2022 1:20 PM EDT Patient called in today. After much thought, he would like to proceed with Green light laser surgery. Will schedule next available for him. documented in this encounter Miscellaneous Notes * Addendum Note - Tasha Hazel APRN - 11/21/2022 1:20 PM EDTAddended by: TASHA HAZEL on: 12/12/2022 05:14 PM Modules accepted: Orders documented in this encounter Plan of Treatment Scheduled Orders Name Type Priority Associated Diagnoses Orde r Schedule Cystoscopy PROCEDURE Routine BPH with obstruction/lower urinary tract symptoms Ordered: 11/21/2022 documented as of this encounter Visit Diagnoses Diagnosis BPH with obstruction/lower urinary tract symptoms Hypertrophy of prostate with urinary obstruction and other lower urinary tract symptoms (LUTS) Urinary retention Retention of urine, unspecified documented in this encounter Care Teams Mechanical Assembly Technician Relationship Specialty Start Date End Date Angel Abebe MD [address] [place] [address] PCP - General Family Medicine 01/22/22 documented as of this encounter
--- OUTSIDE RECORDS SUMMARY | 2024-01-06 17:07 | XMS_ITS | Encounter Summary ---
[place] [address] Care Team Providers Care Cardiac Exercise Physiologist Name Role Phone Angel Abebe MD Primary Care Provider [phone] Reason for Referral * Diagnostic Test (Routine) - Closed Specialty Diagnoses / Procedures Referred By Contac t Referred To Contact Radiology Diagnoses Elevated PSA Procedures MRI Pelvis wwo (Prostate) Kelsea Bryan MD [address] [place] [address] [place] [address] Referral ID Status Reason Start Date Expiration Date V isits Requested Visits Authorized [id number] Closed Specialty Service Requested 02/28/2022 08/30/2023 1 1 Reason for Visit * Diagnostic Test (Routine) - Closed Specialty Diagnoses / Procedures Referred By Contac t Referred To Contact Radiology Diagnoses Elevated PSA Procedures MRI Pelvis wwo (Prostate) Kelsea Bryan MD [address] [place] [address] [place] [address] Referral ID Status Reason Start Date Expiration Date V isits Requested Visits Authorized [id number] Closed Specialty Service Requested 02/28/2022 08/30/2023 1 1 Encounter Details Date Type Department Care Team (Late st Contact Info) Description 03/25/2022 5:06 PM EST - 03/25/2022 11:59 PM EST Hospital [place] [id number] Kelsea Bryan MD [address] [place] [id number] Elevated PSA Discharge Disposition: Home Social History Tobacco Use Types Packs/Day Years Used Date Smoking Tobacco: Never Pipe Smokeless Tobacco: Never Alcohol Use Standard Drinks/Week Comments Not Asked 0 (1 standard drink = 0.6 oz pur e alcohol) Sex and Gender Information Value Date Recorded Sex Assigned at Not on file Gender Identity Not on file Sexual Orientation Not on file documented as of this encounter Medications at Time of Discharge Medication Sig Dispensed Refills Start Date End Date COVID-19 VACC,MRNA,MODERNA,-PF IM Inject into the muscle. Both Shots finasteride (Proscar) 5 mg Tablet TAKE ONE TABLET BY MOUTH EVERY DAY 08/16/2020 bghjxysl-sgqykjdao-avuq ocortisone (CORTISPORIN) 3.5-10,000-1 mg/mL-unit/mL-% Drops, Suspension Place 3 drops into the right ear 4 times daily. 10 mL 1 01/05/2019 digoxin (LANOXIN) 250 mcg Tablet TAKE ONE TABLET BY MOUTH EVERY DAY 4 12/31/2017 amLODIPine (NORVASC) 5 mg Tablet TAKE ONE TABLET BY MOUTH EVERY DAY 4 01/14/2018 metoprolol tartrate (LOPRESSOR) 25 mg tablet Take 1 tablet by mouth 2 times daily. 30 tablet 12 10/10/2013 omeprazole (PRILOSEC) 20 mg capsule Take 20 mg by mouth daily. Magnesium 84 mg TbSR Take by mouth 2 times daily. 11/29/2010 warfarin (COUMADIN) 5 mg tablet Take 5 mg by mouth See Admin Instructions. 11/29/2010 dilTIAZem CD (Cardizem CD) 180 mg Capsule, Sust. Release 24 hr Take 360 mg by mouth daily. fexofenadine (RADHA) 60 mg tablet 60MG = 1 Tablet(s), PO, Twice daily 05/24/2010 acetaminophen (TYLENOL EXTRA STRENGTH) 500 mg tablet 05/24/2010 fluticasone-salmeterol (ADVAIR) 250-50 mcg/dose diskus inhaler 1 Disk(s), Inh, Twice daily 05/24/2010 Levalbuterol Tartrate 45 mcg/Actuation inhaler 45 MC-2 Puff(s), Inh, PRN 05/24/2010 Mometasone (NASONEX) 50 mcg/Actuation [place] 2 [place](s), Nasal, Twice daily each nostril 05/24/2010 lisinopril (PRINIVIL;ZESTRIL) 40 mg Tablet TAKE 1 TABLET BY MOUTH DAILY 4 04/29/2016 12/18/2022 documented as of this encounter Plan of Treatment Not on file documented as of this encounter Procedures Procedure Name Priority Date/Time Associated Diagnosis Comments MRI PELVIS WWO (PROSTATE) Routine 03/25/2022 5:43 PM EST Elevated PSA documented in this encounter Results * MRI Pelvis wwo (Prostate) (03/25/2022 5:43 PM EST) Anatomical Region Laterality Modality Pelvis Magnetic Resonan ce Impressions 03/28/2022 12:55 PM EST No focal lesions. BPH. PI-RADS 2. PI-RADS v2.1 Assessment Categories PI-RADS 1 -- Very low (clinically significant cancer is highly unlikely to be present) PI-RADS 2 -- Low (clinically significant cancer is unlikely to be present) PI-RADS 3 -- Intermediate (the presence of clinically significant cancer is equivocal) PI-RADS 4 -- High (clinically significant cancer is likely to be present) PI-RADS 5 -- Very high (clinically significant cancer is highly likely to be present) I have personally reviewed the image(s) and the resident's interpretation and agree with the findings, Reginald Deras MD at 03/28/2022 12:55 PM Thank you for letting us participate in the care of this patient. ??If you are a health care provider and have any questions regarding this report, please contact the number below. ??For patients who have questions please contact the health animal care taker that requested your imaging first. ? Electronically signed by: Reginald Deras MD, [facility] ([phone]), at 03/28/2022 12:55 PM Narrative 03/28/2022 12:55 PM EST EXAMINATION: MRI PELVIS WWO (PROSTATE) CLINICAL HISTORY: Elevated PSA HAS PATIENT HAD PREVIOUS BIOPSY?:No MOST RECENT PSA LEVEL:10.48 TECHNIQUE: Multiparametric MRI of the prostate prior to and following IV administration of 19 cc of Dotarem contrast. ?? QUALITY: Meets PI-RADS technical criteria. COMPARISON: None FINDINGS: Prostate dimensions: 5.5 x 5.0 x 5.4cm. Estimated prostate volume: 77.7cc (X x Y x Z x 0.52) PSA density: 0.13 (PSA/prostate volume >0.15 susp, 0.25 highly susp) Peripheral zone: No focal lesions. T2: Diffuse mild hypointensity. PI-RADs: 2. DWI: ??No abnormality on ADC and high b-value DWI. PI-RADs: 1. DCE-MRI: (-) No early arterial enhancement.. ? Combined PI-RADs: 1. Transition zone: No focal lesions T2: Typical encapsulated and homogenous circumscribed nodules with intervening areas of Homogenous mildly hypointense signal. PI-RADs: 2. DWI: ??No abnormality on ADC and high b-value DWI. PI-RADs: 1. DCE-MRI: ??(-) No early arterial enhancement.. ? Combined PI-RADs: 2. Extraprostatic disease: Seminal vesicle involvement:No Lymphadenopathy:No Sphincter involvement:No Bladder involvement:No Osseous metastases: No . Other findings: Paz catheter noted within the bladder. Procedure Note Reginald Deras MD - 03/28/2022 EXAMINATION: MRI PELVIS WWO (PROSTATE) CLINICAL HISTORY: Elevated PSA HAS PATIENT HAD PREVIOUS BIOPSY?:No MOST RECENT PSA LEVEL:10.48 TECHNIQUE: Multiparametric MRI of the prostate prior to and following IV administration of 19 cc of Dotarem contrast. QUALITY: Meets PI-RADS technical criteria. COMPARISON: None FINDINGS: Prostate dimensions: 5.5 x 5.0 x 5.4cm. Estimated prostate volume: 77.7cc (X x Y x Z x 0.52) PSA density: 0.13 (PSA/prostate volume >0.15 susp, 0.25 highly susp) Peripheral zone: No focal lesions. T2: Diffuse mild hypointensity. PI-RADs: 2. DWI: No abnormality on ADC and high b-value DWI. PI-RADs: 1. DCE-MRI: (-) No early arterial enhancement.. Combined PI-RADs: 1. Transition zone: No focal lesions T2: Typical encapsulated and homogenous circumscribed nodules withintervening areas of Homogenous mildly hypointense signal. PI-RADs: 2. DWI: No abnormality on ADC and high b-value DWI. PI-RADs: 1. DCE-MRI: (-) No early arterial enhancement.. Combined PI-RADs: 2. Extraprostatic disease: Seminal vesicle involvement:No Lymphadenopathy:No Sphincter involvement:No Bladder involvement:No Osseous metastases: No . Other findings: Paz catheter noted within the bladder. IMPRESSION No focal lesions. BPH. PI-RADS 2. PI-RADS v2.1 Assessment Categories PI-RADS 1 -- Very low (clinically significant cancer is highly unlikely antwon present) PI-RADS 2 -- Low (clinically significant cancer is unlikely to bepresent) PI-RADS 3 -- Intermediate (the presence of clinically significant canceris equivocal) PI-RADS 4 -- High (clinically significant cancer is likely to bepresent) PI-RADS 5 -- Very high (clinically significant cancer is highly likely antwon present) I have personally reviewed the image(s) and the resident's interpretationand agree with the findings, Reginald Deras MD at 03/28/2022 12:55 PM Thank you for letting us participate in the care of this patient. If youare a health care provider and have any questions regarding this report,please contact the number below. For patients who have questions please contactthe health animal care taker that requested your imaging first. Electronically signed by: Reginald Deras MD, [facility]([phone]), at 03/28/2022 12:55 PM Kelsea Bryan MD IMG MRI ORDERABLES documented in this encounter Visit Diagnoses Diagnosis Elevated PSA Elevated prostate specific antigen (PSA) documented in this encounter Administered Medications Inactive Administered Medications - up to 3 most recent administrations Medication Order MAR Action Action Date Dose Rate Site gadoterate meglumine (Dotarem) (0.5 mMol/mL) injection solution 0-100 mL 0-100 mL, Intravenous, ONCE PRN, 1 dose, Starting on Thu03/25/22 at 1800, Until Thu03/25/22 at 1812, Per Protocol, Radiology Contrast, Routine Given 03/25/2022 6:12 PM EST 19 mLs documented in this encounter Care Teams Cardiac Exercise Physiologist Relationship Specialty Start Date End Date Angel Abebe MD [address] [place] [address] PCP - General Family Medicine 01/22/22 documented as of this encounter
--- OUTSIDE RECORDS SUMMARY | 2024-01-06 17:07 | XMS_ITS | Encounter Summary ---
Author Organization [facility] [place] [address] Care Team Providers Care Learning Design Specialist Name Role Phone Angel Abebe MD Primary Care Provider [phone] Encounter Details Date Type Department Care Team (Latest Contact Info) Description 12/18/2022 Travel Social History Tobacco Use Types Packs/Day Years Used Date Smoking Tobacco: Never Pipe Smokeless Tobacco: Never Alcohol Use Standard Drinks/Week Comments Not Asked 0 (1 standard drink = 0.6 oz pur e alcohol) Sex and Gender Information Value Date Recorded Sex Assigned at Not on file Gender Identity Not on file Sexual Orientation Not on file documented as of this encounter Plan of Treatment Not on file documented as of this encounter Visit Diagnoses Not on filedocumented in this encounter Care Teams Learning Design Specialist Relationship Specialty Start Date End Date Angel Abebe MD [address] [place] [address] PCP - General Family Medicine 01/22/22 documented as of this encounter
--- OUTSIDE RECORDS SUMMARY | 2024-01-06 17:07 | XMS_ITS | Encounter Summary ---
Author Organization [facility] Address [facility] [place] [address] Care Team Providers Care Wic Site Coordinator Name Role Phone Angel Abebe MD Primary Care Provider [phone] Encounter Details Date Type Department Care Team (Late st Contact Info) Description 02/16/2023 [place] [id number] [facility] [place] [address] Social History Tobacco Use Types Packs/Day Years Used Date Smoking Tobacco: Never Pipe Smokeless Tobacco: Never Alcohol Use Standard Drinks/Week Comments Not Asked 0 (1 standard drink = 0.6 oz pur e alcohol) DH IPV Inpatient Questions Answer Date Recorded Does Anyone Try to Keep You From Having Contact with Others or Doing Things Outside Your Home? no 02/17/2023 Feels Threatened by Someone no 02/01 Feels Unsafe at Home or Work/School no 02/17/2023 Physical Signs of Abuse Present no 02/17/2023 Sex and Gender Information Value Date Recorded Sex Assigned at Not on file Gender Identity Not on file Sexual Orientation Not on file documented as of this encounter Miscellaneous Notes * Telephone Encounter - Ayaz Lawler MD - 02/16/2023 1:04 PM EDT Attempted to call patient multiple times, sent to voice mail. Left voicemail with instructions to sheepskin pickler antibiotic and take tonight. documented in this encounter Plan of Treatment Not on file documented as of this encounter Visit Diagnoses Not on filedocumented in this encounter Care Teams Wic Site Coordinator Relationship Specialty Start Date End Date Angel Abebe MD [address] [facility] [place] [address] PCP - General Family Medicine 01/22/22 documented as of this encounter
--- OUTSIDE RECORDS SUMMARY | 2024-01-06 17:07 | XMS_ITS | Encounter Summary ---
[place] [address] Care Team Providers Care Harm Reduction Worker Name Role Phone Angel Abebe MD Primary Care Provider [phone] Reason for Referral * Consultation (Routine) - Closed Specialty Diagnoses / Procedures Referred By Misty bales Referred To Contact Neurology Diagnoses Neoplasm, brain Angel Abebe MD [address] [place] [address] [facility] [address] [place] [phone] Referral ID Status Reason Start Date Expiration Date V isits Requested Visits Authorized [id number] Closed Consult, Test & Treat PCP Updated and/or Approved 01/22/2022 01/22/2023 6 6 Encounter Details Date Type Department Care Team (Late st Contact Info) Description 01/22/2022 Transcribe Orders eDH Incoming Referrals [phone] Angel Abebe MD [address] [place], [place] [id number] Neoplasm, brain Social History Tobacco Use Types Packs/Day Years [...] as of this encounter Plan of Treatment Scheduled Referrals Name Type Priority Associated Diagnoses Orde r Schedule Referral to Neurology Outpatient Referral Routine Neoplasm, brain Ordered: 01/22/2022 documented as of this encounter Visit Diagnoses Diagnosis Neoplasm, 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
--- OUTSIDE RECORDS SUMMARY | 2024-01-06 17:07 | XMS_ITS | Encounter Summary ---
[place] [address] Care Team Providers Care Waste Collection Driver Name Role Phone Angel Abebe MD Primary Care Provider [phone] Reason for Referral * Consultation (Routine) - Closed Specialty Diagnoses / Procedures Referred By Misty bales Referred To Contact Urology Diagnoses Benign prostatic hyperplasia with lower urinary tract symptoms, symptom details unspecified BPH with LUTS Lucy Lee, ENVIRONMENTAL ENGINEERING TECHNICIAN [address] [place] [address] [facility] [place] [address] Referral ID Status Reason Start Date Expiration Date V isits Requested Visits Authorized [id number] Closed Consult, Test & Treat PCP Updated and/or Approved 10/20/2022 10/20/2023 6 6 Encounter Details Date Type Department Care Team (Late st Contact Info) Description 10/20/2022 Transcribe Orders eD Incoming Referrals [phone] Lucy Lee ENVIRONMENTAL ENGINEERING TECHNICIAN [address] [place], [place] [id number] Benign prostatic hyperplasia with lower urinary tract symptoms, symptom details unspecified Social History Tobacco Use Types Packs/Day Years [...] Associated Diagnoses Orde r Schedule Referral to Urology Outpatient Referral Routine Benign Prostatic Hyperplasia With Lower Urinary Tract Symptoms, Symptom Details Unspecified Ordered: 10/20/2022 documented as of this encounter Visit Diagnoses Diagnosis Benign prostatic hyperplasia with lower urinary tract symptoms, symptom details unspecified documented in this encounter Care Teams Waste Collection Driver Relationship Specialty Start Date End Date Angel Abebe MD [address] [place] [address] [address] PCP - General Family Medicine 01/22/22 documented as of this encounter
--- OUTSIDE RECORDS SUMMARY | 2024-01-06 17:07 | XMS_ITS | Encounter Summary ---
Author Organization [facility] Address [facility] [place] [address] Care Team Providers Care Unattended Ground Sensor Specialist Name Role Phone Dylan Easton MD Primary Care Provider [phone] Reason for Visit * Reason Comments Follow-up still hard of hearin g in both ears, feels full/clogged. Encounter Details Date Type Department Care Team (Late st Contact Info) Description 09/12/2020 2:00 PM EDT Office Visit [place] [phone] Wale Prakash III, MD [facility] [address] Impacted cerumen of right ear Social History Tobacco Use Types Packs/Day Years Used Date Smoking Tobacco: Never Pipe Smokeless Tobacco: Never Alcohol Use Standard Drinks/Week Comments Not Asked 0 (1 standard drink = 0.6 oz pur e alcohol) Sex and Gender Information Value Date Recorded Sex Assigned at Not on file Gender Identity Not on file Sexual Orientation Not on file documented as of this encounter Last Filed Vital Signs Vital Sign Reading Time Taken Comments Blood Pressure - - Pulse - - Temperature - - Respiratory Rate - - Oxygen Saturation - - Inhaled Oxygen Concentration - - Weight 94.3 kg (207 lb 14.4 oz) 09/12/2020 1:59 PM EDT Height 177.8 cm (5' 10) 09/12/2020 1:59 PM EDT Body Mass Index 29.83 09/12/2020 1:59 PM EDT documented in this encounter Progress Notes * Wale Prakash III, MD - 09/12/2020 2:00 PM EDT Otolaryngology Follow Up Note: Jesse Carranza returns for ear care. He notes blockage on the right. There is no pian or drainage.. Review of Systems: A complete review of constitutional, eyes, cardiovascular, respiratory, GI, , musculo-skeletal, skin, endocrine, psychiatric, hematologic, lymphatic and immunologic systems is completed and is as noted in the HPI. All other systems are otherwise negative. Examination shows the following: GENERAL: Well developed, well appearing, no acute distress. Vitals reviewed. HEAD/FACE/EYES: Normocephalic with no gross deformity. Extraocular movements intact. EARS: Right cerumen impaction, removed with curette and suction, restoring his hearing. NOSE: Normal external nasal exam. Septum midline. Turbinates are normal. SALIVARY: Parotid and submandibular glands are normal to inspection and palpation. ORAL CAVITY: Normal exam of oral tongue Normal mucosa without lesion Floor of mouth is soft. Dentition good repair OROPHARYNX: Normal tonsils. Normal soft palate and uvula. Posterior pharyngeal wall normal. LARYNX: Vocal cords normal. Vocal mobility normal. No mucosal lesions noted. NECK: No asymmetry on inspection No adenopathy. Normal thyroid. RESPIRATORY: Normal voice. No stridor. Normal respirations. CV: Normal carotid pulses. NEURO/PSYCH: Normal affect. Alert and oriented x 3. Responds appropriately to questions. CN II-XII grossly intact. PROCEDURES: Procedure: Cerumen removal with microscope Indication: Cerumen impaction Involved ear: Right ear Description: Cerumen was removed using a combination of curettes and suction under direct microscopic visualization. The patient tolerated the procedure well. IMPRESSION: Cerumen impaction. Adhere to a six month schedule. documented in this encounter Plan of Treatment Not on file documented as of this encounter Visit Diagnoses Diagnosis Impacted cerumen of right ear Impacted cerumen documented in this encounter Care Teams Unattended Ground Sensor Specialist Relationship Specialty Start Date End Date Dylan Easton MD [address] [place] [address] PCP - General Family Medicine 08/08/15 01/21/22 documented as of this encounter
--- OUTSIDE RECORDS SUMMARY | 2024-01-06 17:07 | XMS_ITS | Encounter Summary ---
Author Organization [facility] [place] [address] Care Team Providers Care Trouble Tracer Name Role Phone Angel Abebe MD Primary Care Provider [phone] Encounter Details Date Type Department Care Team (Latest Contact Info) Description 11/12/2022 Travel Social History Tobacco Use Types Packs/Day [...] on filedocumented in this encounter Care Teams Trouble Tracer Relationship Specialty Start Date End Date Angel Abebe MD [address] [place] [address] PCP - General Family Medicine 01/22/22 documented as of this encounter
--- OUTSIDE RECORDS SUMMARY | 2024-01-06 17:07 | XMS_ITS | Encounter Summary ---
[place] [address] Care Team Providers Care Business Systems Lead Name Role Phone Angel Abebe MD Primary Care Provider [phone] Encounter Details Date Type Department Care Team (Late st Contact Info) Description 12/12/2022 [place] [address] Tanya Flowers, RN Social History Tobacco Use Types Packs/Day Years [...] encounter Miscellaneous Notes * Telephone Encounter - Tasha Blue APRN - 12/12/2022 5:14 PM EDT Order placed for PVP laser. * Telephone Encounter - Tanya Flowers, RN - 12/12/2022 1:28 PM EDT Copied from [facility] #[id number]. Topic: Specialty Dept CRMs - Generic Call >> Dec 12, 2022 12:51 PM Kelley Allen wrote: Specialist: Urology - Tasha Blue Relationship (if other than patient-full name): Karlene Carranza - Reason for Call: Patient's wanted to let Tasha Blue know the patient has decided to fore go anytesting and have chosen to go with the green laser surgery. Karlene states they would like to get this scheduled as soon as possible. documented in this encounter Plan of Treatment Not on file documented as of this encounter Visit Diagnoses Not on filedocumented in this encounter Care Teams Business Systems Lead Relationship Specialty Start Date End Date Angel Abebe MD [address] [place] [address] PCP - General Family Medicine 01/22/22 documented as of this encounter
--- OUTSIDE RECORDS SUMMARY | 2024-01-06 17:07 | XMS_ITS | Encounter Summary ---
Author Organization [facility] [address] Care Team Providers Care Certified Master Locksmith Name Role Phone Angel Abebe MD Primary Care Provider [phone] Reason for Visit * Reason Onset Date Comments Other 01/23/2023 MRI Encounter Details Date Type Department Care Team (Late st Contact Info) Description 01/23/2023 [place] [phone] Alondra Tuttle, VANDANA [facility] [place] [address] Other (MRI) Social History Tobacco Use Types Packs/Day Years Used Date Smoking Tobacco: Never Pipe Smokeless Tobacco: Never Alcohol Use Standard Drinks/Week Comments Not Asked 0 (1 standard drink = 0.6 oz pur e alcohol) [facility] Inpatient Questions Answer Date Recorded Does Anyone [...] encounter Miscellaneous Notes * Telephone Encounter - Tricia Simmons RN - 01/26/2023 1:57 PM EDT Alondra Response: Unable to perform peer to peer and open case. Only appeal will open the case to attempt to have denial overturned. Reports denied because no TSH, Vitamin B12, or MMSE/MoCA done. PCP ordered vitamin B12. TSH would likely be needed. Unable to perform MMSE or MoCA due to his educational level. He also has dysarthria, which warrants imaging. Call reference # lauri Lowery E: [id number] Phone # for appeal: [phone] * Telephone Encounter - Tricia Simmons RN - 01/23/2023 3:10 PM EDT Spoke with Karlene regarding MRI. Informed her of process with authorizations and currently waiting for further information. * Telephone Encounter - Tricia Simmons RN - 01/23/2023 8:55 AM EDT Copied from [facility] #[id number]. Topic: Specialty Dept CRMs - Generic Call >> Jan 22, 2023 3:22 PM Juan Ramon Macedo wrote: Specialist: Alondra Tuttle APRN Relationship (if other than patient-full name): Karlene Carranza patient's Reason for Call: Karlene stated the contacted [facility] regarding the MRIfor the patient and stated they need more information in order to schedule the patient however theydid not elaborate as to what that information was. Karlene stated she can be reached at [phone] documented in this encounter Plan of Treatment Not on file documented as of this encounter Visit Diagnoses Not on filedocumented in this encounter Care Teams Certified Master Locksmith Relationship Specialty Start Date End Date Angel Abebe MD [address] [place] [address] [address] [facility] [address] [place] [address] PCP - General Family Medicine 01/22/22 documented as of this encounter
--- OUTSIDE RECORDS SUMMARY | 2024-01-06 17:07 | XMS_ITS | Encounter Summary ---
Author [facility] [place] [address] Care Team Providers Care Juice Scaleman Name Role Phone Angel Abebe MD Primary Care Provider [phone] Reason for Visit * Auth/Cert (Routine) Specialty Diagnoses / Procedures Referred By Misty bales Referred To Contact Diagnoses Benign prostatic hyperplasia with lower urinary tract symptoms Other obstructive and reflux uropathy Retention of urine, unspecified BPH wiht urinary retention 79cc prostate Procedures PRO LASER VAPORIZATION SURGERY PROSTATE, COMPLETE CYSTO, LASER TURP (WRVU 12.15) MODIFIER,GREENLIGHT LASER MODIFIER, UROLOGY MODERATE Tom Barros MD [facility] [place] [address] [facility] [[email or web address]] Referral ID Status Reason Start Date Expiration Date Visits Re quested Visits Authorized [id number] 1 1 Encounter Details Date Type Department Care Team (Late st Contact Info) Description 02/17/2023 10:37 AM EDT Anesthesia [place] [phone] Chase Pnieda MD [facility] [place] [address] Mraci Flannery [place] [address] Anesthesia Record Procedure Summary Procedure Name Responsible Anesthesiologist Anesthesia Start Time Anesthesia Stop Time CYSTO, LASER TURP (WRVU 12.15) (Bladder) Chase Pineda MD 02/17/23 1037 02/17/23 1212 Events Date Time Event Comment 02/17/2023 1032 1037 AN Verify 1037 Start 1040 An Start Data 1048 An Induction 1050 An Intubation 1051 Anesthesia Ready 1104 Procedure Start 1203 Extubation/LMA Out 1207 an stop data 1212 Recovery or ICU Handoff Melia ent care was transferred to the destination unit staff after review of the patient's medical history, current anesthetic/surgical status and plan, according to the Provider Handoff Checklist. 1212 Stop Meds Name Total Propofol 170 mg Propofol INF 648.28 mg fentaNYL 100 mcg IV Lidocaine 50 mg Dexamethasone 4 mg Ondansetron 4 mg ePHEDrine 10 mg gentamicin (Garamycin) 311.6 mg in sodiu m chloride 0.9% 107.79 mL infusion 311.6 mg ampicillin (Omnipen) 2 g via l attach to sodium chloride 0.9% 100 mL Mini-Bag Plus 2 g lactated ringers infusion 1,000 mL * Agents Name O2 * Blood No blood administrations on file. Lines, Drains, and Airways Type Details Placement Removal Incision 02/17/23; urethral m eatus; other (see comments); Green light laser TURP 02/17/23 0000 by Lorena Caldera RN PIV 02/17/23; 0950; mmhb-rae-oswxiu catheter system; 20 gauge; metacarpal vein (top of hand), left; Anatomical Landmarks; Eva WITT; distraction, tolerated well, appears comfortable; no longer indicated, catheter/device intact; 02/18/23; 1117 02/17/23 0950 by Eva Ruiz RN 02/18/23 1117 by Benjamín Fine RN Supraglottic Mask Ventilation: No t Attempted (0); LMA Type: iGel; LMA Size: 4; Inserted by: TABATHA Taveras; Removal Date: 02/17/23; Removal Time: 1203 02/17/23 1050 by Jane Taveras 02/17/23 1203 by Jane Taveras Urethral Catheter 02/17/23; 1155; Urol ogic surgery; indwelling triple lumen catheter; latex; 20; inserted at this facility; 1; 30; 40; intraurethral Xylocaine gel; drainage bag; catheter connected to continuous bladder irrigation and secured with tube secure; 02/18/23; 0410 02/17/23 1155 by Lorena Caldera RN 02/18/23 0410 by Toribio Phillips RN documented in this encounter Social History Tobacco Use Types Packs/Day Years Used Date Smoking Tobacco: Never Pipe Smokeless Tobacco: Never Alcohol Use Standard Drinks/Week Comments Not Currently 0 (1 standard drink = 0.6 oz [...] on file documented as of this encounter OR Notes * Anesthesia Postprocedure Evaluation - Chase Pineda MD - 02/17/2023 1:44 PM EDT Department of Anesthesiology Post-procedure Note Patient: Jesse Carranza Procedure Summary Date: 02/17/23 Room / Location: [address] MAIN OR Anesthesia Start: 1037 Anesthesia Stop: 1212 Procedures: CYSTO, LASER TURP (WRVU 12.15) (Bladder) MODIFIER,GREENLIGHT LASER MODIFIER, UROLOGY MODERATE Diagnosis: BPH with obstruction/lower urinary tract symptoms Urinary retention (BPH wiht urinary retention 79cc) Surgeons: Tom Barros MD Responsible Provider: Chase Pineda MD Anesthesia Type: general ASA Status: 3 All Anesthesia Providers: Anesthesiologist: Chase Pineda MD Student Nurse Form Maker Plaster: Jane Taveras Vitals Value Taken Time BP 104/88 02/17/23 1315 Temp 36.6 ??C (97.9 ??F) 02/17/23 1300 Pulse 60 02/17/23 1317 Resp 14 02/17/23 1317 SpO2 97 % 02/17/23 1343 Pain Level 0 02/17/23 1300 Vitals shown include unfiled device data. Patient Location: PACU/[facility] Level of Consciousness: Awake and Alert Pain Management: Satisfactory Analgesia PONV: None Cardiovascular Status: Hemodynamically Stable Respiratory Status: Stable Respiratory Status Postoperative Fluid Status: Intravascular EUvolemia Possible Anesthetic Complications: NONE apparent at time of evaluation Final Primary Anesthesia Type: General (The anesthetic type performed was the same as planned.) Comments: * Anesthesia Preprocedure Evaluation - Chase Pineda MD - 02/16/2023 12:43 PM EDT Pre-Anesthesia Evaluation for: Jesse Carranza a 72 y.o. male. Procedure(s): CYSTO, LASER TURP (WRVU 12.15) MODIFIER,GREENLIGHT LASER MODIFIER, UROLOGY MODERATE Patient Active Problem List Diagnosis Date Noted ??? Permanent atrial fibrillation ??? Bradycardia 03/19/2016 ??? Asthma ??? GERD (gastroesophageal reflux disease) ??? Migraines No past medical history on file. Past Surgical History: Procedure Laterality Date ??? HERNIA REPAIR Bilateral inguinal hernia Social History Tobacco Use ??? Smoking status: Never ??? Smokeless tobacco: Never Substance Use Topics ??? Alcohol use: Not on file Social History Substance and Sexual Activity Drug Use Not on file Allergies Allergen Reactions ??? Pascual Inhibitors Other Reaction(s): cough ??? Tetracyclines Other Reaction(s): FACIAL RASH ??? Doxycycline Hyclate Rash ??? Tetracycline Medications: MAR and/or home medications have been reviewed. Physical Exam: Preprocedure Vitals Current as of 02/16/23 1243 No BP, pulse, respiration, SpO2, or temperature recorded. Height: Weight: BMI: IBW: Airway Assessment: Mallampati: II TM distance: >3 FB Neck ROM: full Cardiovascular Assessment: Rhythm: irregular Pulmonary Assessment: breath sounds clear to auscultation Dental Assessment: Misc Assessment: IV access: Peripheral line Last Filed Perioperative Cognitive Screening None Anesthesia Plan: ASA 3 general, with a(n) intravenous induction 72M BPH presenting for TURP PMH: afib (metoprolol, digoxin, warfarin), HTN (amlodipine), asthma (albuterol), GERD (omeprazole),migraines, neurological cognitive impairment Echo 2017: ef55%, no WMA Plan for GA/LMA Region - Other Informed Consent: Anesthetic plan and risks discussed with patient. Plan discussed with SYSTEMS TECHNOLOGIST and attending. Anesthesia Screening documented in this encounter Plan of Treatment Not on file documented as of this encounter Visit Diagnoses Not on filedocumented in this encounter Administered Medications Inactive Administered Medications - up to 3 most recent administrations Medication Order MAR Action Action Date Dose Rate Site ampicillin (Omnipen) 2 g vial attach to sodium chloride 0.9% 100 mL Mini-Bag Plus 2,000 mg (2 g), Intravenous, TREE SHEAR OPERATOR TO O.R., 1 dose, On Thu02/17/23 at 1000, Administer over 15 Minutes, Warning Vesicant/Irritant Medication , Day of Surgery (Day of Procedure), Indication for (Active or Suspected): Prophylaxis New Bag 02/17/2023 10:52 AM EDT 2 g dexAMETHasone (Decadron) injection Intravenous, PRN, Starting on Thu02/17/23 at 1051, Until Thu02/17/23 at 1214, Anesthesia Intra-op, Routine Given 02/17/2023 10:51 AM EDT 4 mg ePHEDrine sulfate (5 mg/mL) multi-dose injection Intravenous, PRN, Starting on Thu02/17/23 at 1102, Until Thu02/17/23 at 1214, Anesthesia Intra-op, Routine Given 02/17/2023 11:02 AM EDT 5 mg Given 02/17/2023 10:47 AM EDT 5 mg fentaNYL (pf) (50 mcg/mL) multi-dose injection Intravenous, PRN, Starting on Thu02/17/23 at 1037, Until Thu02/17/23 at 1214, Anesthesia Intra-op, Routine Given 02/17/2023 11:13 AM EDT 25 mcg Given 02/17/2023 11:03 AM EDT 25 mcg Given 02/17/2023 10:48 AM EDT 25 mcg gentamicin (Garamycin) 311.6 mg in sodium chloride 0.9% 107.79 mL infusion 311.6 mg (4 mg/kg/dose ? 77.9 kg Adjusted weight), Intravenous, TREE SHEAR OPERATOR TO O.R., 1 dose, On Thu02/17/23 at 1000, Administer over 60 Minutes, Day of Surgery (Day of Procedure), Indication for (Active or Suspected): Prophylaxis New Bag 02/17/2023 10:58 AM EDT 15 mg/kg/hr 404.213 mL/hr lactated ringers infusion 1,000 mL, at 100 mL/hr, Intravenous, CONTINUOUS, Starting on Thu02/17/23 at 1000, Until Thu02/17/23 at 1447, Day of Surgery (Day of Procedure) New Bag 02/17/2023 9:54 AM EDT New Bag 02/17/2023 9:53 AM EDT 1,000 mLs 100 mL/hr New Bag 02/17/2023 9:50 AM EDT lidocaine (pf) (Xylocaine) (20 mg/mL) 2% injection syringe Intravenous, PRN, Starting on Thu02/17/23 at 1048, Until Thu02/17/23 at 1214, Anesthesia Intra-op, Routine Given 02/17/2023 10:48 AM EDT 50 mg ondansetron (pf) (Zofran) (2 mg/mL) injection Intravenous, PRN, Starting on Thu02/17/23 at 1125, Until Thu02/17/23 at 1214, Anesthesia Intra-op, Routine Given 02/17/2023 11:25 AM EDT 4 mg propofoL (Diprivan) (10 mg/mL) infusion Intravenous, CONTINUOUS PRN, Starting on Thu02/17/23 at 1049, Until Thu02/17/23 at 1214, Anesthesia Intra-op, Routine Rate/Dose Change 02/17/2023 11:50 AM EDT 75 mcg/kg/min 38.385 mL/hr Rate/Dose Change 02/17/2023 11:27 AM EDT 125 mcg/kg/min 63 .975 mL/hr Rate/Dose Change 02/17/2023 11:18 AM EDT 100 mcg/kg/min 51 .18 mL/hr propofoL (Diprivan) 10 mg/mL bolus injection (Anesthesia) Intravenous, PRN, Starting on Thu02/17/23 at 1048, Until Thu02/17/23 at 1214, Anesthesia Intra-op Given 02/17/2023 11:05 AM EDT 20 mg Given 02/17/2023 10:49 AM EDT 50 mg Given 02/17/2023 10:48 AM EDT 100 mg documented in this encounter Care Teams Juice Scaleman Relationship Specialty Start Date End Date Angel Abebe MD [address] [place] [address] PCP - General Family Medicine 01/22/22 documented as of this encounter
--- OUTSIDE RECORDS SUMMARY | 2024-01-06 17:07 | XMS_ITS | Encounter Summary ---
Author Organization [facility] [place] [address] Care Team Providers Care Vacuum Cleaner Repairer Name Role Phone Angel Abebe MD Primary Care Provider [phone] Encounter Details Date Type Department Care Team (Late st Contact Info) Description 11/19/2022 [place] [address] Felipa Hoover RN Social History Tobacco Use Types Packs/Day [...] encounter Miscellaneous Notes * Telephone Encounter - Felipa Hoover RN - 11/19/2022 2:37 PM EDT Returned Karlene's call, verified patients name and . Reason for call is to inform Tasha that around 4 am on 11/13, the morning after having the catheter removed the patient woke up with discomfort and was unable to urinate. Patient had a franks catheter placed at [facility]. also wants to discuss with Tasha about moving forward with whatever procedure Tasha suggests. This RN informed the that I would let Tasha know, would like a call back from Tasha. * Telephone Encounter - Felipa Hoover RN - 11/19/2022 2:33 PM EDT Copied from [facility] #[id number]. Topic: Specialty Dept CRMs - Triage >> Nov 19, 2022 2:17 PM Michelle Bloom wrote: Triage Message Specialist: Tasha Blue Relationship (if other than patient-full name): Karlene, Symptom: Patient's , Karlene (no DPR on file) states she was given instructions by Tasha louie if prostate problems occur. While Karlene did not want to get into it, she asked to speak with Tasha Bule or a nurse regarding catheter changes. When this field underwriter asked if this involved patient being unable to urinate, Karlene stated this is not a 911 situation, she is just following Tasha's instructions to call back if prostate problems happen. Please call patient back to discuss. Has patient experienced symptom before unknown If patient has experienced symptom before, when was the last time this occurred Is patient currently having symptom When did symptom begin Additional Comments: documented in this encounter Plan of Treatment Not on file documented as of this encounter Visit Diagnoses Not on filedocumented in this encounter Care Teams Vacuum Cleaner Repairer Relationship Specialty Start Date End Date Angel Abebe MD [address] [place] [address] PCP - General Family Medicine 01/22/22 documented as of this encounter
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
--- OUTSIDE RECORDS SUMMARY | 2024-01-06 17:07 | XMS_ITS | Encounter Summary ---
[place] [address] Care Team Providers Care Underwear Welter Name Role Phone Angel Abebe MD Primary Care Provider [phone] Reason for Visit * Reason Onset Date Comments Prior Authorization 12/19/2022 Encounter Details Date Type Department Care Team (Late st Contact Info) Description 12/19/2022 Telephone [place] [id number] Alondra Tuttle APRN [facility] [place] [address] Prior Authorization Social History Tobacco Use Types Packs/Day Years [...] encounter Miscellaneous Notes * Telephone Encounter - Sarah Gaitan - 01/22/2023 9:21 AM EDT Images from the original note were not included. Letter from Alondra Tuttle was faxed and received with the insurance company. MRI denied: JESSE JACOB [id number]: Brain MRI [id number] - None 12/22/2022 Denied 01/02/2023 * Telephone Encounter - Sarah Gaitan - 01/14/2023 10:04 AM EDT As of 01/14/2023 - MRI approval is still being reviewed by [facility] insurance * Telephone Encounter - Sarah Gaitan - 01/01/2023 1:41 PM EDT Letter from Alondra Tuttle faxed to [facility] for PA for brain MRI * Telephone Encounter - Sarah Gaitan - 12/26/2022 9:24 AM EDT Brain MRI needs additional clinical documentation in order to receive a prior authorization. Please see media tab document dated 12/22/2022 for information needed by the insurance company. * Telephone Encounter - Sarah Gaitan - 12/22/2022 5:08 PM EDT Brain MRI needs additional clinical documentation in order to receive a prior authorization. Please see media tab document dated 12/22/2022 for information needed by the insurance company. * Telephone Encounter - Sarah Gaitan - 12/22/2022 10:29 AM EDT Images from the original note were not included. MRI brain is pending authorization * Telephone Encounter - Zuleyma Reeves RN - 12/19/2022 3:25 PM EDT Copied from [facility] #[id number]. Topic: Specialty Dept CRMs - Orders >> Dec 19, 2022 3:19 PM Benjy Darling wrote: Orders Request Specialist: Alondra Tuttle, VANDANA Relationship (if other than patient-full name): Irene - [facility] Radiology Type of Request: Irene states that they have the order, but would need a hardcopy of the insurance authorization before they can schedule. Please fax to [phone] Type/Name of Order: Imaging If Labs and Imaging list name of specific test(s): MRI Brain wo Contrast Date of Lab/Imaging/Testing Appt: None Date of Provider Appt: None Appt Type with Provider: Other: NA Patient Requesting to Have Orders Sent to Facility Outside of [facility]: Yes If Yes, Name of Facility: [facility] Address: [facility] Phone #: [phone] Fax #: [phone] documented in this encounter Plan of Treatment Not on file documented as of this encounter Visit Diagnoses Not on filedocumented in this encounter Care Teams Underwear Welter Relationship Specialty Start Date End Date Angel Abebe MD [address] [place] [address] PCP - General Family Medicine 01/22/22 documented as of this encounter
--- OUTSIDE RECORDS SUMMARY | 2024-01-06 17:07 | XMS_ITS | Encounter Summary ---
Author Organization [facility] Address [facility] [place] [address] Care Team Providers Care Plant Nursery Worker Name Role Phone Angel Abebe MD Primary Care Provider [phone] Encounter Details Date Type Department Care Team (Late st Contact Info) Description 02/13/2023 Orders Only Urology at [facility] [place] [address] Estelle Del Castillo APRN [facility] [place] [address] Urinary retention; BPH with obstruction/lower urinary tract symptoms Social History Tobacco Use Types Packs/Day Years [...] of this encounter Plan of Treatment Scheduled Orders Name Type Priority Associated Diagnoses Orde r Schedule Urine culture Clean Catch Urine Microbiology Routine BPH with obstruction/lower urinary tract symptoms Expected: 02/13/2023, Expires: 02/14/2024 documented as of this encounter Visit Diagnoses Diagnosis Urinary retention Retention of urine, unspecified BPH with obstruction/lower urinary tract symptoms Hypertrophy of prostate with urinary obstruction and other lower urinary tract symptoms (LUTS) documented in this encounter Care Teams Plant Nursery Worker Relationship Specialty Start Date End Date Angel Abebe MD [address] [place] [address] PCP - General Family Medicine 01/22/22 documented as of this encounter
--- OUTSIDE RECORDS SUMMARY | 2024-01-06 17:07 | XMS_ITS | Encounter Summary ---
Author Organization [place] [address] Care Team Providers Care Insurance Sales Producer Name Role Phone Angel Abebe MD Primary Care Provider [phone] Encounter Details Date Type Department Care Team (Latest Contact Info) Description 03/25/2022 Travel Social History Tobacco Use Types Packs/Day [...] on filedocumented in this encounter Care Teams Insurance Sales Producer Relationship Specialty Start Date End Date Angel Abebe MD [address] [place] [address] PCP - General Family Medicine 01/22/22 documented as of this encounter
--- OUTSIDE RECORDS SUMMARY | 2024-01-06 17:07 | XMS_ITS | Encounter Summary ---
Author Organization [facility] Address [facility] [place] [address] Care Team Providers Care Operations Boardman Name Role Phone Angel Abebe MD Primary Care Provider [phone] Encounter Details Date Type Department Care Team (Late st Contact Info) Description 02/20/2023 [place] [address] Tanya Flowers, RN Social History Tobacco Use Types Packs/Day Years Used Date Smoking Tobacco: Never Pipe Smokeless Tobacco: Never Alcohol Use Standard Drinks/Week Comments Not Currently 0 (1 standard drink = 0.6 oz pur e alcohol) IPV Inpatient Questions Answer Date Recorded Does [...] encounter Miscellaneous Notes * Telephone Encounter - Tanya Flowers, RN - 02/20/2023 3:00 PM EDT I called Jesse and let him know that hi urine culture came back positive for an infection and thatStacia Yousif would like him to finish the course of cipro he is currently on. No additional questions at this time. documented in this encounter Plan of Treatment Not on file documented as of this encounter Visit Diagnoses Not on filedocumented in this encounter Care Teams Operations Boardman Relationship Specialty Start Date End Date Angel Abebe MD [address] [place] [address] PCP - General Family Medicine 01/22/22 documented as of this encounter
--- OUTSIDE RECORDS SUMMARY | 2024-01-06 17:07 | XMS_ITS | Encounter Summary ---
[facility] Organization [facility] [place] [address] Care Team Providers Care Log Inspector Name Role Phone Angel Abebe MD Primary Care Provider [phone] Reason for Visit * Reason Onset Date Comments Appointment 02/28/2022 Encounter Details Date Type Department Care Team (Late st Contact Info) Description 02/28/2022 [place] [id number] Alondra Tuttle APRN [facility] [address] Appointment Social History Tobacco Use Types Packs/Day Years [...] encounter Miscellaneous Notes * Telephone Encounter - Prabha Ashley - 02/28/2022 1:18 PM EDT Copied from CRM #[id number]. Topic: Specialty Dept CRMs - Appointment Needed >> Feb 28, 2022 12:47 PM Khalida Abebe wrote: Appt Needed Specialist Alondra Tuttle Relationship (if other than patient-full name): becky, Appt. Type Needed: Other Reason for Visit: Patient would like appt card please be mailed to him. documented in this encounter Plan of Treatment Not on file documented as of this encounter Visit Diagnoses Not on filedocumented in this encounter Care Teams Log Inspector Relationship Specialty Start Date End Date Angel Abebe MD [address] [facility] [address] [place] [address] PCP - General Family Medicine 01/22/22 documented as of this encounter
--- OUTSIDE RECORDS SUMMARY | 2024-01-06 17:07 | XMS_ITS | Encounter Summary ---
Author Organization [facility] [place] [address] Care Team Providers Care [employer] Faculty Member Name Role Phone Angel Abebe MD Primary Care Provider [phone] Reason for Visit * Auth/Cert (Routine) Specialty Diagnoses / Procedures Referred By Misty bales Referred To Contact Diagnoses Benign prostatic hyperplasia with lower urinary tract symptoms Other obstructive and reflux uropathy Retention of urine, unspecified BPH wiht urinary retention 79cc prostate Procedures PRO LASER VAPORIZATION SURGERY PROSTATE, COMPLETE CYSTO, LASER TURP (WRVU 12.15) MODIFIER,GREENLIGHT LASER MODIFIER, UROLOGY MODERATE Tom Barros MD [facility] [place] [address] [facility] Referral ID Status Reason Start Date Expiration Date Visits Re quested Visits Authorized [id number] 1 1 Encounter Details Date Type Department Care Team (Late st Contact Info) Description 02/17/2023 10:00 AM EDT - 02/17/2023 12:15 PM EDT Surgery [place] [address] Tom Barros MD [facility] [address] CYSTO, LASER TURP (WRVU 12.15) Social History Tobacco Use Types Packs/Day Years Used Date Smoking Tobacco: Never Pipe Smokeless Tobacco: Never Tobacco Cessation:Counseling Given: Not Answered Alcohol Use Standard Drinks/Week Comments Not Currently 0 (1 standard drink = 0.6 oz pur e alcohol) [facility] Inpatient Questions Answer Date Recorded Does Anyone [...] Sign Reading Time Taken Comments Blood Pressure 112/67 02/17/2023 12:15 PM EDT Pulse 61 02/17/2023 12:15 PM EDT Temperature 36.5 ??C (97.7 ??F) 02/17/2023 12:11 PM E DT Respiratory Rate 15 02/17/2023 12:15 PM EDT Oxygen Saturation 100% 02/17/2023 12:15 PM EDT Inhaled Oxygen Concentration - - Weight 85.3 kg (188 lb) 02/17/2023 9:33 AM EDT Height 177.8 cm (5' 10) 02/17/2023 9:33 AM EDT Body Mass Index 26.98 02/17/2023 9:33 AM EDT documented in this encounter Discharge Summaries * Yo Glez PA - 02/17/2023 7:00 AM EDT Discharge Summary Patient Name: Jesse Carranza Patient Age: 72 y.o. Language: Jordanian Race: White Ethnicity: Not nor Admit date: 02/17/2023 Discharge date: 02/18/2023 Attending Physician: Tom Barros MD Discharge Diagnoses (Hospital Problems) and Secondary Diagnoses (Chronic Problems): Active Hospital Problems Diagnosis BPH (benign prostatic hyperplasia) Resolved Hospital Problems No resolved problems to display. Active Non-Hospital Problems Diagnosis Permanent atrial fibrillation Bradycardia Asthma GERD (gastroesophageal reflux disease) Migraines Operations/Major Procedures: Procedure(s): CYSTO, LASER TURP (WRVU 12.15) MODIFIER,GREENLIGHT LASER MODIFIER, UROLOGY MODERATE 02/17/2023 History of Presentation: Jesse Carranza is a 72 y.o. male with history of asthma, presenting for planned PVP. No recent changes to health status He is currently taking Finasteride and Silodosin. He tried Tamsulosin, but it made him nauseated. PVR = franks in place. Prostate size on MRI was measured as 77cc. PSA density 0.13 with PiRADS 2. Patient has previously had a negative prostate biopsy. 09/2022. 11 Last PSA 10.42 in March 2022. OR Findings 02/17/23: Bilobar hypertrophy, successful PVP Hospital Course: Patient was admitted electively to [facility] via the same day surgery program and underwent the above procedure. He tolerated surgery well and was tranferred from the PACU to the general floor in good condition a few hours after surgery. A urine culture was collected in the OR and is growing GNRs so far. Patient's hospital course was uncomplicated. He remained afebrile, with stable vital signs throughout his hospital stay. CBI was running overnight and was stopped in the scene shifter. His urine waslight red later in the morning and his Franks was removed. He then voided spontaneously w/ low PVRs. Today, on POD# 1 he has met all criteria for discharge home: his pain is well controlled with medications by mouth, he is tolerating a regular diet, is voiding spontaneously without difficulties, andis up and ambulating without complications. He has been deemed safe for discharge. Plan: -Follow up in 8 weeks w/ Dr. Barros (requested) -Cx: GNRs, home with cipro for 5 days. Added to cx book. - Home with fluconazole for severe smegma -Continue finasteride for one month -Stop silodosin Vital Signs at Discharge: Weight: Wt Readings from Last 1 Encounters: 02/17/23 85.3 kg (188 lb) Height: Ht Readings from Last 1 Encounters: 02/17/23 177.8 cm (5' 10) BMI: Body mass index is 26.98 kg/m??. Last value Range last 24 hrs Temperature Temp: 36.9 ??C (98.4 ??F) Temp: [36.3 ??C (97.3 ??F)-36.9 ??C (98.4 ??F)] Heart Rate Heart Rate: 65 Heart Rate: [61-65] Blood Pressure BP: 134/80 BP: (104-138)/(67-97) Respiratory Rate Resp: 18 Resp: [14-19] SpO2 SpO2: 98 % SpO2: [96 %-100 %] Exam at Discharge: General: NAD, resting comfortably. HEENT: NCAT, EOMI, MMM. Neck supple. Cardiac: Nontachycardic. Chest: Equal chest rise. Normal WOB on RA. Abdomen/: Abdomen soft, non-distended, non-tender. No rebounding or guarding. No Franks. MSK: Well perfused Neuro/Psych: A&Ox3. Appropriate mood. Functional and Cognitive Status: Ambulating and cognitively intact. Important Studies and Lab Data: Labs:Last 3 wbc, hgb, hct plt No results for input(s): WBC, HGB, HCT, PLATELET in the last 7068 hours. Last 3 Lytes No results for input(s): NA, K, CL, CO2, BUN, CREATININE in the last 7068 hours. Studies: None Pending Studies and Lab Data: No current labs Discharge Conditions/Prognosis: Stable; Medically appropriate for discharge. Discharge to: Home Updated Allergies/ADRs: Allergies Allergen Reactions Pascual Inhibitors Other Reaction(s): cough Tetracyclines Other Reaction(s): FACIAL RASH Doxycycline Hyclate Rash Tetracycline Immunizations Given this Hospitalization: Immunization History Administered Date(s) Administered Influenza Vaccine, Whole 04/08/2006, 02/24/2008 Td, adult 01/01/2004 Discharge Medications: Your Medications New Medications Dose Details ciprofloxacin 500 mg tablet Commonly known as: Cipro Take 1 tablet by mouth 2 times daily for 5 days. 500 mg Quantity: 10 tablet Refills: 0 fluconazole 200 mg tablet Commonly known as: Diflucan Take 1 tablet by mouth daily for 7 days. 200 mg Quantity: 7 tablet Refills: 0 Continued medications, unchanged Dose Details Bridgette 60 mg tablet 60MG = 1 Tablet(s), PO, Twice daily Generic drug: fexofenadine Refills: 0 amLODIPine 5 mg tablet Commonly known as: Norvasc TAKE ONE TABLET BY MOUTH EVERY DAY Refills: 4 COVID-19 VACC,MRNA(MODERNA)-PF IM Inject into the muscle. Both Shots Refills: 0 digoxin 250 mcg (0.25 mg) tablet Commonly known as: Lanoxin TAKE ONE TABLET BY MOUTH EVERY DAY Refills: 4 dilTIAZem CD 180 mg CD (ER) 24 hr casule Commonly known as: Cardizem CD Take 360 mg by mouth daily. 360 mg Refills: 0 finasteride 5 mg tablet Commonly known as: Proscar TAKE ONE TABLET BY MOUTH EVERY DAY Refills: 0 fluticasone propion-salmeteroL 250-50 mcg/dose Disk with Device Commonly known as: ADVAIR 1 Disk(s), Inh, Twice daily Refills: 0 levalbuteroL 45 mcg/actuation HFA Aerosol Inhaler Commonly known as: XOPENEX HFA 45 MC-2 Puff(s), Inh, PRN Refills: 0 Magnesium 84 mg Tablet Sustained Release Take by mouth 2 times daily. Refills: 0 metoproloL tartrate 25 mg tablet Commonly known as: Lopressor Take 1 tablet by mouth 2 times daily. 25 mg Quantity: 30 tablet Refills: 12 Nasonex 50 mcg/actuation [place], Non-Aerosol 2 [place](s), Nasal, Twice daily each nostril Generic drug: mometasone Refills: 0 melaqpud-qrlzftyxc-kqnidnxgaxgyur 3.5-10,000-1 mg/mL-unit/mL-% Drops, Suspension Commonly known as: Cortisporin Place 3 drops into the right ear 4 times daily. 3 drop Quantity: 10 mL Refills: [address] capsule Commonly known as: PriLOSEC Take 20 mg by mouth daily. 20 mg Refills: 0 Tylenol Extra Strength 500 mg tablet Generic drug: acetaminophen Refills: 0 warfarin 5 mg tablet Commonly known as: Coumadin Take 5 mg by mouth See Admin Instructions. 5 mg Refills: 0 STOPPED Medications Silodosin 4 mg capsule Commonly known as: Rapaflo Smoking Status at Discharge: Social History Tobacco Use Smoking Status Never Smokeless Tobacco Never Instructions Given to Patient at Discharge: Patient Instructions [facility] Urology Post-Operative Discharge Instructions PHOTO-SELECTIVE VAPORIZATION OF PROSTATE (PVP) Procedure: You have just had a photo-selective vaporization of the prostate, known as a PVP. During this procedure, the surgeon utilized a Greenlight laser to vaporize and remove prostate tissue. The purpose ofthis procedure is to widen the prostatic channel for easier passage of urine. Activity: For the first 4 weeks after surgery: Limit your exercise to short walks (< 3miles). Avoid jogging or heavy workouts. Avoid lifting objects >20 lbs. No strenuous yard work You may increase your level of activity after 4 weeks as long as urine is not bloody. Day after surgery: you may shower. 3 Days after surgery: you may drive as long as you are not taking narcotic medication. 1 Week after surgery: you may return to work. Please continue to follow lift restrictions. 3 Weeks after surgery: you may resume sexual activity. Diet: You may resume regular diet upon discharge from hospital. Drink at least 4 glasses of fluids daily for the first 6 weeks after surgery. Additional intake is necessary when blood is present in urine. Medication: Resume your daily medications the day after surgery, EXCEPT blood thinners. Start taking Coumadin tomorrow. Follow up with your provider who checks your INR testing. Please take Colace, a stool softener, twice a day as needed for constipation. Please take up to Tylenol 650 mg every 6 hours as needed for pain control. NSAIDs can be taken in addition as needed (e.g. Ibuprofen 600mg every 8hrs with meals) Narcotics such as oxycodone are usually not required but can be used if necessary. Note: may cause constipation and drowsiness. - You may be prescribed a narcotic pain medication (oxycodone, dilaudid, etc.). Use ice/heat and over the counter pain relievers (i.e. Tylenol) to treat pain first. If youare still having pain, take your narcotic pain medication. Narcotics have many side effects such asconstipation, lightheadedness, dizziness, sedation, confusion, nausea and vomiting. Do not drive oroperate machinery or use alcohol while using narcotic pain medications. As you heal after surgery, your pain will decrease. Stop taking pain medication in the following order: opioids, then motrin, then tylenol, then ice/heat. The goal is to minimize the medications with the most risks and stop those first (i.e. narcotics). You may stop taking Silodosin Continue Finasteride You have been given a prescription for antibiotics (ciprofloxacin and fluconazole). Please take themedication as prescribed and be sure to complete the entire course of antibiotics. In the next few weeks, you may experience some of the following signs or symptoms: Bleeding: Your urine may appear red due to blood originating from the lower urinary tract. It will range from pink to cranberry colored, which is normal. The bleeding may also be present at the beginning and/or at the end of urination. This may be present up to 6-8 weeks after surgery. As the internal wound heals, small amounts of bleeding are a normal part of the healing process. There is usually passage of small amount of clot/tissue with some bleeding 7-10 days after your surgery Please drink at least 4 glasses of water a day. This will dilute your urine and help prevent clots from forming. Avoid straining when moving your bowels as this puts pressure on the prostate and increase the riskof bleeding. Take a stool softener, such as Colace, as needed to minimize straining. When to be concerned: when urine is opaque red or persistent and difficult passage of large blood clots. Urination: You may also see brown or beige color pieces of tissue pass in your urine. This is a result of the normal healing process and is not cause for concern. You may have some urgency or frequency for the first few weeks. This is normal and can be managed by drinking more water. If these symptoms are severe, please call you doctor to discuss treatment options. Call your Doctor If: You are unable to pass your urine. You have a fever of 101 F or higher. You have pain which is not relieved by pain medication. Your urine becomes bloody (like the color of tomato juice). You are passing large blood clots in your urine. before 5 PM weekdays for urgent concerns after 5 PM and weekends. Ask for the on-call Urology resident Follow Up: A routine follow-up appointment will be scheduled approximately 8 weeks after your surgery. Our office will call you to arrange this. Please call the Urology Clinic during normal business hours at [phone] if you have questions/concerns regarding your appointment. General Instructions None Follow-Up: No future appointments. Primary Care Provider: Angel Abebe MD [phone] Call your doctor if: Please call your doctor immediately or go to an Emergency Department if you notice worsening pain not controlled by pain medications, uncontrolled headache, vision changes, chest pain, difficulty breathing, persistent nausea and vomiting, new redness or swelling in any extremities, new onset weakness or changes in sensation, or for any fevers greater than 101.3 F. Your care was managed by the Urology Team at [facility]. If you have any questions or concerns, please feel free to contact us. Provider Contact Information: Urology Clinic: [facility] (after business hours): Time spent on discharge plannin minutes MÓNICA Perez 02/18/2023 documented in this encounter Discharge Instructions * Patient Instructions* Yo Glez PA - 02/17/2023 12:42 PM EDT [facility] Urology Post-Operative Discharge Instructions PHOTO-SELECTIVE VAPORIZATION OF PROSTATE (PVP) Procedure: You have just had a photo-selective vaporization of the prostate, known as a PVP. During this procedure, the surgeon utilized a Greenlight laser to vaporize and remove prostate tissue. The purpose ofthis procedure is to widen the prostatic channel for easier passage of urine. Activity: For the first 4 weeks after surgery: Limit your exercise to short walks (< 3miles). Avoid jogging or heavy workouts. Avoid lifting objects >20 lbs. No strenuous yard work You may increase your level of activity after 4 weeks as long as urine is not bloody. Day after surgery: you may shower. 3 Days after surgery: you may drive as long as you are not taking narcotic medication. 1 Week after surgery: you may return to work. Please continue to follow lift restrictions. 3 Weeks after surgery: you may resume sexual activity. Diet: You may resume regular diet upon discharge from hospital. Drink at least 4 glasses of fluids daily for the first 6 weeks after surgery. Additional intake is necessary when blood is present in urine. Medication: Resume your daily medications the day after surgery, EXCEPT blood thinners. Start taking Coumadin tomorrow. Follow up with your provider who checks your INR testing. Please take Colace, a stool softener, twice a day as needed for constipation. Please take up to Tylenol 650 mg every 6 hours as needed for pain control. NSAIDs can be taken in addition as needed (e.g. Ibuprofen 600mg every 8hrs with meals) Narcotics such as oxycodone are usually not required but can be used if necessary. Note: may cause constipation and drowsiness. - You may be prescribed a narcotic pain medication (oxycodone, dilaudid, etc.). Use ice/heat and over the counter pain relievers (i.e. Tylenol) to treat pain first. If youare still having pain, take your narcotic pain medication. Narcotics have many side effects such asconstipation, lightheadedness, dizziness, sedation, confusion, nausea and vomiting. Do not drive oroperate machinery or use alcohol while using narcotic pain medications. As you heal after surgery, your pain will decrease. Stop taking pain medication in the following order: opioids, then motrin, then tylenol, then ice/heat. The goal is to minimize the medications with the most risks and stop those first (i.e. narcotics). You may stop taking Silodosin Continue Finasteride You have been given a prescription for antibiotics (ciprofloxacin and fluconazole). Please take themedication as prescribed and be sure to complete the entire course of antibiotics. In the next few weeks, you may experience some of the following signs or symptoms: Bleeding: Your urine may appear red due to blood originating from the lower urinary tract. It will range from pink to cranberry colored, which is normal. The bleeding may also be present at the beginning and/or at the end of urination. This may be present up to 6-8 weeks after surgery. As the internal wound heals, small amounts of bleeding are a normal part of the healing process. There is usually passage of small amount of clot/tissue with some bleeding 7-10 days after your surgery Please drink at least 4 glasses of water a day. This will dilute your urine and help prevent clots from forming. Avoid straining when moving your bowels as this puts pressure on the prostate and increase the riskof bleeding. Take a stool softener, such as Colace, as needed to minimize straining. When to be concerned: when urine is opaque red or persistent and difficult passage of large blood clots. Urination: You may also see brown or beige color pieces of tissue pass in your urine. This is a result of the normal healing process and is not cause for concern. You may have some urgency or frequency for the first few weeks. This is normal and can be managed by drinking more water. If these symptoms are severe, please call you doctor to discuss treatment options. Call your Doctor If: You are unable to pass your urine. You have a fever of 101 F or higher. You have pain which is not relieved by pain medication. Your urine becomes bloody (like the color of tomato juice). You are passing large blood clots in your urine. before 5 PM weekdays for urgent concerns after 5 PM and weekends. Ask for the on-call Urology resident Follow Up: A routine follow-up appointment will be scheduled approximately 8 weeks after your surgery. Our office will call you to arrange this. Please call the Urology Clinic during normal business hours at [phone] if you have questions/concerns regarding your appointment. documented in this encounter Medications at Time of Discharge Medication Sig Dispensed Refills Start Date End Date COVID-19 VACC,MRNA,MODERNA,-PF IM Inject into the muscle. Both Shots finasteride (Proscar) 5 mg Tablet TAKE ONE TABLET BY MOUTH EVERY DAY 08/16/2020 zsifagou-nynnyoclp-rtjn ocortisone (CORTISPORIN) 3.5-10,000-1 mg/mL-unit/mL-% Drops, Suspension Place [...] Take 360 mg by mouth daily. fexofenadine (BRIDGETTE) 60 mg tablet 60MG = 1 Tablet(s), PO, Twice daily 05/24/2010 acetaminophen (TYLENOL EXTRA STRENGTH) 500 mg tablet 05/24/2010 fluticasone-salmeterol (ADVAIR) 250-50 mcg/dose diskus inhaler 1 Disk(s), Inh, Twice daily 05/24/2010 Levalbuterol Tartrate 45 mcg/Actuation inhaler 45 MC-2 Puff(s), Inh, PRN 05/24/2010 Mometasone (NASONEX) 50 mcg/Actuation [place] 2 [place](s), Nasal, Twice daily each nostril 05/24/2010 ciprofloxacin (Cipro) 500 mg tablet Take 1 tablet by mouth 2 times daily for 5 days. 10 tablet 02/18/2023 02/23/2023 fluconazole (Diflucan) 200 mg tablet Take 1 tablet by mouth daily for 7 days. 7 tablet 02/18/2023 02/25/2023 documented as of this encounter Progress Notes * Benjamín Fine RN - 02/18/2023 11:[address] [facility] Short Stay Unit Discharge Note All relevant discharge milestones have been met by the patent. After Visit Summary and discharge teaching reviewed with the patient and a family member. IV access has been discontinued. All personal belongings have been returned to the patient/family upon their departure from the unit. Patient has been discharged to home The patient has been discharged without VNA services. * Toribio Phillips RN - 02/18/2023 6:19 AM EDT Patient alert and oriented throughout shift. Vital signs stable. CBI clamped at midnight. Franks removed at 0400 with void trial and patient able to void. Ambulating to bathroom with no issues. Call hastings within reach and patient ringing appropriately. Will continue to monitor. * Cristy Rojas RN - 02/17/2023 12:25 PM EDT Pt arrived to PACU from OR in bed. All monitors attached and alarms set appropriately. VSS on RA, in Afib & bradycardic in 50's. - pt drowsy Ox4. Denies SOB/Nausea/Pain. - Urinary catheter in place, CBI dripping in, UOP unobstructed. Light pink in color. 1250: MD Pineda at bedside, per MD HR is baseline. : pt meets phase II criteria. Denies pain, nausea,SOB. A&Ox4. Reported n/t in hands & feet and said it was baseline, on phase II assessment reported funny feeling in hands, denies it in feet and denies it was baseline. 1315: pt reports hands feel normal and they just fell asleep but they feel good now. - tolerating PO ice chips and sips of water. - CBI titrated to clear/light pink output. 1338: MD at bedside, EKG ordered, EKG paged for. 1343: EKG resulted. 1435: Report given to EDUAR Hartmann SSU. * Lorena Caldera RN - 02/17/2023 11:58 AM EDT Patient wood calker room with urinary catheter which was removed after positioning. Catheter intact andremoved without difficulty . documented in this encounter H&P Notes * Ayaz Lawler MD - 02/16/2023 10:56 PM EDT Patient Name: Jesse Carranza Age: 72 y.o. Date of : 1950 Attending Provider: Tom Barros MD Jesse Carranza is a 72 y.o. male with history of asthma, presenting for planned PVP. No recent changes to health status He is currently taking Finasteride and Silodosin. He tried Tamsulosin, but it made him nauseated. PVR = franks in place. Prostate size on MRI was measured as 77cc. PSA density 0.13 with PiRADS 2. Patient has previously had a negative prostate biopsy. 09/2022. 11 Last PSA 10.42 in March 2022. MEDICAL AND SURGICAL HISTORY History reviewed. No pertinent past medical history. Past Surgical History: Procedure Laterality Date HERNIA REPAIR Bilateral inguinal hernia ALLERGIES Allergies Allergen Reactions Pascual Inhibitors Other Reaction(s): cough Tetracyclines Other Reaction(s): FACIAL RASH Doxycycline Hyclate Rash Tetracycline MEDICATIONS No current facility-administered medications on file prior to encounter. Current Outpatient Medications on File Prior to Encounter Medication Sig Dispense Refill Silodosin (Rapaflo) 4 mg capsule Take 1 capsule by mouth daily. 90 capsule 3 finasteride (Proscar) 5 mg Tablet TAKE ONE TABLET BY MOUTH EVERY DAY zrbfnkaj-ccrsoftjm-anhhmqwxidrubg (CORTISPORIN) 3.5-10,000-1 mg/mL-unit/mL-% Drops, Suspension Place 3 drops into the right ear 4 times daily. 10 mL 1 digoxin (LANOXIN) 250 mcg Tablet TAKE ONE [...] TbSR Take by mouth 2 times daily. dilTIAZem CD (Cardizem CD) 180 mg Capsule, Sust. Release 24 hr Take 360 mg by mouth daily. fexofenadine (BRIDGETTE) 60 mg tablet 60MG = 1 Tablet(s), PO, Twice daily acetaminophen (TYLENOL EXTRA STRENGTH) 500 mg tablet fluticasone-salmeterol (ADVAIR) 250-50 mcg/dose diskus inhaler 1 Disk(s), Inh, Twice daily Levalbuterol Tartrate 45 mcg/Actuation inhaler 45 MC-2 Puff(s), Inh, PRN COVID-19 VACC,MRNA,MODERNA,-PF IM Inject into the muscle. Both Shots warfarin (COUMADIN) 5 mg tablet Take 5 mg by mouth See Admin Instructions. Mometasone (NASONEX) 50 mcg/Actuation [place] 2 [place](s), Nasal, Twice daily each nostril PHYSICAL EXAM Temp: [36.9 ??C (98.4 ??F)] Heart Rate: [62] Resp: [16] BP: (141)/(84) SpO2: [98 %] Heart Rate from SpO2: -- GEN: Resting comfortably in bed, conversant, NAD. CHEST: Normal work of breathing. CV: Sinus rhythm. 2+ pulses bilaterally. ABD: Soft, non-tender, non-distended. EXTR: Moving spontaneously. SKIN: Warm and dry. NEURO: Alert and follows commands. ASSESSMENT / PLAN 72 y.o. male presenting for PVP. Patient appears fit for surgery. The details, alternatives, risks,and benefits of the procedure were reviewed, and the patient wishes to proceed. Informed consent has been obtained. All questions were answered to the patient's satisfaction. Proceed with surgery. The patient's history and physical exam have been reviewed and completed. There has been no interval change from that of the pre-operative history and physical exam performed within the last 30 days. documented in this encounter Miscellaneous Notes * Op Note - Ayaz Lawler MD - 02/17/2023 11:06 AM EDT [facility] Operative Note Patient Name: Jesse Carranza : [id number] MR#: [id number] Case Date: 02/17/2023 Surgeon: Surgeon(s) and Role: * Tom Barros MD - Primary * Ayaz Lawler MD - Resident - Assisting Preoperative diagnosis: BPH wiht urinary retention 79cc prostate Postoperative diagnosis: BPH wiht urinary retention 79cc Procedure(s) (LRB): CYSTO, LASER TURP (WRVU 12.15) (N/A) MODIFIER,GREENLIGHT LASER (N/A) MODIFIER, UROLOGY MODERATE (N/A) Findings: Bilobar hypertrophy, successful PVP Anesthesia: General Estimated Blood Loss: 10 mL Specimens removed during surgery: None Drains: 20Fr 3 way Disposition: awakened from anesthesia, extubated and taken to the recovery room in a stable condition, having suffered no apparent untoward event. Condition: doing well without problems (Please see the Surgical Encounter Summary for any Implant and Specimen details pertinent to this patient.) HPI/Surgical Indications: Jesse Carranza is a 72 y.o. male with history of asthma, presenting for planned PVP. No recent changes to health status He is currently taking Finasteride and Silodosin. He tried Tamsulosin, but it made him nauseated. PVR = franks in place. Prostate size on MRI was measured as 77cc. PSA density 0.13 with PiRADS 2. Patient has previously had a negative prostate biopsy. 09/2022. 11 Last PSA 10.42 in March 2022. Procedure Description: The patient was brought to the Procedure Room and placed in a supine position. General anesthesia was induced. Antibiotic prophylaxis was injected intravenously. The patient's position was changed tolithotomy and all the pressure sites were padded and protected. Prep and drape was performed in gene [facility] standard sterile fashion. With a 23.5French cystoscopy sheath and 30-degree lens, we entered the urethra. The entire urethra was scoped, which revealed Normal pendulous and bulbous urethra. We gently passed through this area without any mucosal disruption. The prostatic urethra was 6.0cm long and obstructed mainly due to coapting lateral lobes We entered the bladder. The bladder was scoped systematically. This revealed Moderate bladder trabeculation, otherwise unremarkable. Bladder mucosa was normal except some moderate cystitis cystica changes, consistent with indwelling franks catheterization. Ureteral orifices were in a normal shape and normal location. At this point, we used a Moxy Greenlight laser fiber with a setting of 120 to 180 sarmiento for vaporization and ?? 10 to 30 sarmiento for coagulation, and started vaporizing the prostatic adenoma circumferentially from the bladder neck down to verumontanum. Special attention was drawn to avoid any thermalinjury to the trigone and ureteral orifices proximally and external sphincter distally, by limitingthe energy between the bladder neck and verumontanum. After adequate removal of obstructive prostatic adenoma and achieving adequate hemostasis, decision was made to conclude the procedure by removing the sheath and placing an 20 Tunisian 3-way Franks catheter. The patient tolerated the procedure very well and after adequate recovery, he was transferred to the Recovery Room in stable condition. TOTAL ENERGY USED: [id number] joules. LASING TIME: 32 minutes and 00 seconds. Associated attestation - Tom Barros MD - 02/17/2023 12:55 PM EDT Attestation: Case Date: 02/17/2023 I was present and I participated during the entire procedure (does not need to include opening and closing). Tom Barros MD 02/17/2023 documented in this encounter Plan of Treatment Not on file documented as of this encounter Procedures Procedure Name Priority Date/Time Associated Diagnosis Comments EKG 12-LEAD STAT 02/17/2023 1:49 PM EDT QT prolongation URINE CULTURE Routine 02/17/2023 11:07 AM EDT MODIFIER, UROLOGY MODERATE 02/17/2023 10:40 AM EDT BPH with obstruction/lower urinary tract symptoms Urinary retention MODIFIER,GREENLIGHT LASER 02/17/2023 10:40 AM EDT BPH with obstruction/lower urinary tract symptoms Urinary retention Laser Vaporization Surgery Prostate, Complete ([id number]) 02/17/2023 10:40 AM EDT BPH with obstruction/lower urinary tract symptoms Urinary retention PROTHROMBIN TIME STAT 02/17/2023 9:02 AM EDT CYSTO,LASER TURP Routine 02/16/2023 4:31 PM EDT BPH with obstruction/lower urinary tract symptoms Urinary retention documented in this encounter Results * EKG 12 Lead (02/17/2023 1:49 PM EDT) Ventricular rate 58 BPM MUSE SYSTEM QRS Duration 106 ms MUSE SYSTEM Q-T Interval 384 ms MUSE SYSTEM QTC Calculated (Bezet) 376 ms MUSE SYSTEM Calculated R Graham 25 degrees MUSE SYSTEM Calculated T Graham -74 degrees MUSE SYSTEM INTERPRETATION Atrial fibrillation with slow ventricular response ST & T wave abnormality, consider lateral ischemia Abnormal ECG When compared with ECG of 10-SEP-2020 13:49, Nonspecific T wave abnormality now evident in Inferior leads QT has shortened Confirmed by MD Iris, Mini ([id number]) on 02/22/2023 10:14:13 PM MUSE SYSTEM 02/17/2023 1:49 PM EDT 02/22/2023 10:14 PM EDT Tom Barros MD ECG ORDERABLES MUSE SYSTEM * (ABNORMAL) Urine culture Cystoscopic Urine (02/17/2023 11:07 AM EDT) Urine Culture Greater than 50,000 cfu/mL Klebsiella oxytoca(A) [facility] Organism Klebsiella oxytoca(A) [facility] Cystoscopic Urine 02/17/2023 11:07 AM EDT 02/17/2023 11:45 AM EDT Narrative Resulting Agency Comment Spec In Lab Organism Antibiotic Method Susceptibility Klebsiella oxytoca Amikacin VITEK 2 METHOD Sensitive Klebsiella oxytoca Ampicillin + Sulbactam VITEK 2 METH OD Sensitive Klebsiella oxytoca Aztreonam VITEK 2 METHOD Sensitive Klebsiella oxytoca Cefazolin VITEK 2 METHOD Sensitive Klebsiella oxytoca Cefepime VITEK 2 METHOD <=1: Sensitive Klebsiella oxytoca Ceftazidime VITEK 2 METHOD <=1: Sensitive Klebsiella oxytoca Ceftriaxone VITEK 2 METHOD Sensitive Klebsiella oxytoca Ertapenem VITEK 2 METHOD Sensitive Klebsiella oxytoca Gentamicin VITEK 2 METHOD Sensitive Klebsiella oxytoca Levofloxacin VITEK 2 METHOD Sensitive Comment: Levofloxacin and Ciprofloxacin may not adequately treat infections in critically ill patients even when isolates test susceptible in the laboratory. Contact Infectious Disease before using in critically ill patients. Klebsiella oxytoca Meropenem VITEK 2 METHOD <=0.25: Sensitive Klebsiella oxytoca Nitrofurantoin VITEK 2 METHOD Sensitive Klebsiella oxytoca Piperacillin/Tazobactam VITEK 2 MET HOD <=4: Sensitive Klebsiella oxytoca Tetracycline VITEK 2 METHOD Sensitive Klebsiella oxytoca Tobramycin VITEK 2 METHOD Sensitive Klebsiella oxytoca Trimethoprim/Sulfa VITEK 2 METHOD Sensitive Tom Barros MD MICROBIOLOGY - GENER AL ORDERABLES [facility] [place] [address] * (ABNORMAL) Prothrombin Time (02/17/2023 9:02 AM EDT) Prothrombin Time 17.1(H) 9.4 - 12.5 sec [facility] International Normalization Ratio 1.5 [facility] Comment: An INR <2.0 indicates adequate procoagulant activity for hemostasis in most patients without underlying bleeding disorders, though the INR may not adequately reflect hemostatic capacity in patients with liver disease and synthetic impairment. The recommended target INR range for therapeutic anticoagulation is 2.0 ? 3.0 for most applications, though lower and higher ranges may be appropriate depending on clinical circumstances. Blood 02/17/2023 9:02 AM EDT 02/17/2023 9:30 AM EDT Narrative Resulting Agency Comment Spec In Lab Marci Flannery [facility] ORDERAB LES [facility] [place] [address] documented in this encounter Visit Diagnoses Diagnosis BPH with obstruction/lower urinary tract symptoms Hypertrophy of prostate with urinary obstruction and other lower urinary tract symptoms (LUTS) Urinary retention Retention of urine, unspecified QT prolongation Nonspecific abnormal electrocardiogram (ECG) (EKG) BPH with obstruction/lower urinary tract symptoms Hypertrophy of prostate with urinary obstruction and other lower urinary tract symptoms (LUTS) Urinary retention Retention of urine, unspecified documented in this encounter Admitting Diagnoses Diagnosis BPH (benign prostatic hyperplasia) Unspecified hyperplasia of prostate without urinary obstruction and other lower urinary tract symptoms (LUTS) documented in this encounter Administered Medications Inactive Administered Medications - up to 3 most recent administrations Medication Order MAR Action Action Date Dose Rate Site acetaminophen (Tylenol) tablet 975 mg 975 mg, Oral, ONCE, 1 dose, On Thu02/17/23 at 1000, Administer with a SIP of water only. Maximum dose of acetaminophen is 4,000 mg from all sources in 24 hours., Day of Surgery (Day of Procedure), Routine Given 02/17/2023 9:57 AM EDT 975 mg acetaminophen (Tylenol) tablet 975 mg 975 mg, Oral, EVERY 6 HOURS PRN, Starting on Thu02/17/23 at 1250, Until Thu02/18/23 at 1439, Pain, Start with acetaminophen first, if no relief then give ibuprofen. Maximum dose of acetaminophen is 4,000 mg from all sources in 24 hours., Routine Given 02/18/2023 8:15 AM EDT 975 mg amLODIPine (Norvasc) tablet 5 mg 5 mg, Oral, DAILY, First dose on Thu02/17/23 at 1545, Until Discontinued, Routine Given 02/18/2023 8:14 AM EDT 5 mg Given 02/17/2023 8:17 PM EDT 5 mg ciprofloxacin (Cipro) tablet 500 mg 500 mg, Oral, 2 TIMES DAILY, First dose on Thu02/17/23 at 2100, Until Discontinued, Routine, Indication for (Active or Suspected): Urinary Tract/Pyelonephritis Given 02/18/2023 8:13 AM EDT 500 mg Given 02/17/2023 8:17 PM EDT 500 mg digoxin (Lanoxin) tablet 250 mcg 250 mcg, Oral, DAILY, First dose on Thu02/17/23 at 1545, Until Discontinued, Routine Given 02/17/2023 9:28 PM EDT 250 mcg dilTIAZem CD (Cardizem CD) capsule 360 mg 360 mg, Oral, DAILY, First dose on Thu02/17/23 at 1545, Until Discontinued, DO NOT CRUSH OR OPEN, Routine Given 02/18/2023 8:15 AM EDT 360 mg docusate sodium (Colace) capsule 100 mg 100 mg, Oral, 2 TIMES DAILY, First dose on Thu02/17/23 at 2100, Until Discontinued, Routine Given 02/18/2023 8:14 AM EDT 100 mg Given 02/17/2023 8:17 PM EDT 100 mg finasteride (Proscar) tablet 5 mg 5 mg, Oral, DAILY, First dose on Thu02/17/23 at 1430, Until Discontinued, DO NOT SPLIT, CRUSH OR OPEN, Routine Given 02/18/2023 8:14 AM EDT 5 mg Given 02/17/2023 2:28 PM EDT 5 mg fluconazole (Diflucan) tablet 200 mg 200 mg, Oral, DAILY, First dose on Thu02/17/23 at 1430, Until Discontinued, DO NOT SPLIT, CRUSH OR OPEN, Routine, Indication for (Active or Suspected): Urinary Tract/Pyelonephritis Given 02/18/2023 8:15 AM EDT 200 mg Given 02/17/2023 2:28 PM EDT 200 mg lactated ringers infusion 1,000 mL, at 100 mL/hr, Intravenous, CONTINUOUS, Starting on Thu02/17/23 at 1000, Until Thu02/17/23 at 1447, Day of Surgery (Day of Procedure) New Bag 02/17/2023 9:54 AM EDT New Bag 02/17/2023 9:53 AM EDT 1,000 mLs 100 mL/hr New Bag 02/17/2023 9:50 AM EDT lidocaine (Glydo) 2 % gel PRN, Starting on Thu02/17/23 at 1155, Until Thu02/18/23 at 1439, Intra-Operative (Intra-Procedure), Routine Given 02/17/2023 11:55 AM EDT 11 mLs 19- Surgical Site metoproloL tartrate (Lopressor) tablet 25 mg 25 mg, Oral, 2 TIMES DAILY, First dose on Thu02/17/23 at 2100, Until Discontinued, Routine Given 02/18/2023 8:14 AM EDT 25 mg Given 02/17/2023 8:17 PM EDT 25 mg sodium chloride (Aqua Care Sodium Chloride) 0.9 % irrigation 3,000 mL 3,000 mL, Irrigation, CONTINUOUS, Starting on Thu02/17/23 at 1315, Until Thu02/18/23 at 1439, Routine New Bag 02/17/2023 2:24 PM EDT 3,000 mLs New Bag 02/17/2023 1:02 PM EDT 3,000 mLs sodium chloride 0.9 % (flush) (BD PosiFlush Normal Saline 0.9) flush 5 mL 5 mL, Intravenous, 2 TIMES DAILY, First dose on Thu02/17/23 at 1300, Until Discontinued, Recovery (Recovery-Hospital Unit), Routine Given 02/18/2023 8:15 AM EDT 5 mLs Given 02/17/2023 8:21 PM EDT 5 mLs Given 02/17/2023 12:52 PM EDT 5 mLs sodium chloride 0.9% infusion 1,000 mL, at 100 mL/hr, Intravenous, CONTINUOUS, Starting on Thu02/17/23 at 1300, Until Thu02/18/23 at 1439, Recovery (Recovery-Hospital Unit) New Bag 02/17/2023 12:51 PM EDT 1,000 mLs 100 m L/hr documented in this encounter Active and Recently Administered Medications Times are shown in EDT. Scheduled Medication Order 02/16/2023 02/17/2023 02/18/2023 acetaminophen (Tylenol) tablet 975 mg (COMPLETED) 975 mg, Oral, ONCE, 1 dose, On Thu02/17/23 at 1000, Administer with a SIP of water only. Maximum dose of acetaminophen is 4,000 mg from all sources in 24 hours., Day of Surgery (Day of Procedure), Routine 956 (Given - Provider: Eva Ruiz RN) amLODIPine (Norvasc) tablet 5 mg 5 mg, Oral, DAILY, First dose on Thu02/17/23 at 1545, Until Discontinued, Routine 2016 (Given - Provider: Toribio Phillips RN) 813 (Given - Provider: Benjamín Fine RN) ampicillin (Omnipen) 2 g vial attach to sodium chloride 0.9% 100 mL Mini-Bag Plus (COMPLETED) 2,000 mg (2 g), Intravenous, SPICE CLEANER TO O.R., 1 dose, On Thu02/17/23 at 1000, Administer over 15 Minutes, Warning Vesicant/Irritant Medication , Day of Surgery (Day of Procedure), Indication for (Active or Suspected): Prophylaxis 1052 (New Bag - Provider: Jane Taveras) budesonide-formoteroL (Symbicort) 160-4.5 mcg/actuation inhaler 2 Inhalation 2 .Inhalation , Inhalation, 2 TIMES DAILY, First dose on Thu02/17/23 at 2100, Until Discontinued, Routine 2099 (Not Given - Provider: Toribio Phillips RN - Reason: Transfer to a Procedural area) 0900 (Not Given - Provider: Benjamín Fine RN - Reason: Medication not available) ciprofloxacin (Cipro) tablet 500 mg 500 mg, Oral, 2 TIMES DAILY, First dose on Thu02/17/23 at 2100, Until Discontinued, Routine, Indication for (Active or Suspected): Urinary Tract/Pyelonephritis 2016 (Given - Provider: Toribio Phillips RN) 08 (Given - Provider: Benjamín Fine RN) digoxin (Lanoxin) tablet 250 mcg 250 mcg, Oral, DAILY, First dose on Thu02/17/23 at 1545, Until Discontinued, Routine 2127 (Given - Provider: Toribio Phillips RN) 0813 (Not Given - Provider: Benjamín Fine RN - Reason: Patient/family refused) dilTIAZem CD (Cardizem CD) capsule 360 mg 360 mg, Oral, DAILY, First dose on Thu02/17/23 at 1545, Until Discontinued, DO NOT CRUSH OR OPEN, Routine 1545 (Not Given - Provider: Toribio Phillips RN - Reason: See comment) 0815 (Given - Provider: Benjamín Fine RN) docusate sodium (Colace) capsule 100 mg 100 mg, Oral, 2 TIMES DAILY, First dose on Thu02/17/23 at 2100, Until Discontinued, Routine 2017 (Given - Provider: Toribio Phillips RN) 0814 (Given - Provider: Benjamín Fine RN) finasteride (Proscar) tablet 5 mg 5 mg, Oral, DAILY, First dose on Thu02/17/23 at 1430, Until Discontinued, DO NOT SPLIT, CRUSH OR OPEN, Routine 1428 (Given - Provider: Cristy Rojas RN) 0814 (Given - Provider: Benjamín Fine RN) fluconazole (Diflucan) tablet 200 mg 200 mg, Oral, DAILY, First dose on Thu02/17/23 at 1430, Until Discontinued, DO NOT SPLIT, CRUSH OR OPEN, Routine, Indication for (Active or Suspected): Urinary Tract/Pyelonephritis 1428 (Given - Provider: Cristy Rojas RN) 0815 (Given - Provider: Benjamín Fine RN) gentamicin (Garamycin) 311.6 mg in sodium chloride 0.9% 107.79 mL infusion (COMPLETED) 311.6 mg (4 mg/kg/dose ? 77.9 kg Adjusted weight), Intravenous, SPICE CLEANER TO O.R., 1 dose, On Thu02/17/23 at 1000, Administer over 60 Minutes, Day of Surgery (Day of Procedure), Indication for (Active or Suspected): Prophylaxis 1058 (New Bag - Provider: Jane Taveras)1114 (Stopped - Provider: Jane Taveras) metoproloL tartrate (Lopressor) tablet 25 mg 25 mg, Oral, 2 TIMES DAILY, First dose on Thu02/17/23 at 2100, Until Discontinued, Routine 2017 (Given - Provider: Toribio Phillips, EDUAR) 0814 (Given - Provider: Benjamín Fine, RN) sodium chloride 0.9 % (flush) (BD PosiFlush Normal Saline 0.9) flush 5 mL 5 mL, Intravenous, 2 TIMES DAILY, First dose on Thu02/17/23 at 1300, Until Discontinued, Recovery (Recovery-Hospital Unit), Routine 1252 (Given - Provider: Cristy Rojas RN)2020 (Given - Provider: Toribio Phillips RN) 0815 (Given - Provider: Benjamín Fine, EDUAR) Continuous Medication Order 02/16/2023 02/17/2023 02/18/2023 lactated ringers infusion (CANCELED) 1,000 mL, at 100 mL/hr, Intravenous, CONTINUOUS, Starting on Thu02/17/23 at 1000, Until Thu02/17/23 at 1447, Day of Surgery (Day of Procedure) 0950 (New Bag - Provider: Jane Taveras)0953 (New Bag - Provider: Eva Ruiz RN)0953 (Paused - Provider: Jane Taveras - Comment: Switch to gravity)0954 (New Bag - Provider: Jane Taveras)1106 (Anesthesia Volume Adjustment - Provider: Jane Taveras)1129 (Anesthesia Volume Adjustment - Provider: Jane Taveras)1205 (Anesthesia Volume Adjustment - Provider: Jane Taveras) sodium chloride (Aqua Care Sodium Chloride) 0.9 % irrigation 3,000 mL 3,000 mL, Irrigation, CONTINUOUS, Starting on Thu02/17/23 at 1315, Until Thu02/18/23 at 1439, Routine 1302 (New Bag - Provider: Cristy Rojas, EDUAR)1424 (New Bag - Provider: Cristy Rojas, EDUAR) 1439 (Due: Stopped) sodium chloride 0.9% infusion 1,000 mL, at 100 mL/hr, Intravenous, CONTINUOUS, Starting on Thu02/17/23 at 1300, Until Thu02/18/23 at 1439, Recovery (Recovery-Hospital Unit) 1251 (New Bag - Provider: Cristy Rojas, EDUAR) 1439 (Due: Stopped) PRN Medication Order 02/16/2023 02/17/202302/1802/18/2023 acetaminophen (Tylenol) tablet 975 mg 975 mg, Oral, EVERY 6 HOURS PRN, Starting on Thu02/17/23 at 1250, Until Thu02/18/23 at 1439, Pain, Start with acetaminophen first, if no relief then give ibuprofen. Maximum dose of acetaminophen is 4,000 mg from all sources in 24 hours., Routine 0815 (Given - Provid er: Benjamín Fine RN) bisacodyL (Dulcolax) suppository 10 mg 10 mg, Rectal, DAILY PRN, Starting on Thu02/17/23 at 1459, Until Thu02/18/23 at 1439, Constipation, Administer if needed per patient's routine or if no bowel movement within 48 hours to achieve: (1) One bowel movement at least every 48 hours, AND (2) Without straining., Routine ipratropium-albuteroL (Duoneb) 0.5 mg-3 mg(2.5 mg base)/3 mL nebulizer solution 3 mL 3 mL, Nebulization, EVERY 4 HOURS PRN, Starting on Thu02/17/23 at 1250, Until Thu02/18/23 at 1439, Wheezing, Routine lidocaine (Glydo) 2 % gel (CANCELED) PRN, Starting on Thu02/17/23 at 1155, Until Thu02/18/23 at 1439, Intra-Operative (Intra-Procedure), Routine 1155 (Given - Provider: Ayaz Lawler MD) lidocaine (Xylocaine) 1% (10 mg/mL) injection 3 mg 3 mg (0.3 mL), Subcutaneous, ONCE PRN, 1 dose, Starting on Thu02/17/23 at 1244, Until Thu02/18/23 at 1439, for discomfort with PIV insertion, Recovery (Recovery-Hospital Unit), Routine oxyCODONE (Roxicodone) tablet 5 mg 5 mg, Oral, EVERY 6 HOURS PRN, Starting on Thu02/17/23 at 1250, Until Thu02/18/23 at 1439, Pain, If pain not relieved by acetaminophen or ibuprofen, if ordered., Routine sodium chloride 0.9 % (flush) (BD PosiFlush Normal Saline 0.9) flush 5-20 mL 5-20 mL, Intravenous, EVERY 1 MIN PRN, Starting on Thu02/17/23 at 1244, Until Thu02/18/23 at 1439, flush, Flush pertains to all indwelling lines. Flush per protocol found in the job aid using the link provided on this medication record., Recovery (Recovery-Hospital Unit), Routine documented in this encounter Care Teams Earth Science Faculty Member Relationship Specialty Start Date End Date Angel Abebe MD [address] [place] [address] [address] [facility] [address] [place] [address] PCP - General Family Medicine 01/22/22 documented as of this encounter
--- OUTSIDE RECORDS SUMMARY | 2024-01-06 17:07 | XMS_ITS | Encounter Summary ---
Author Organization [facility] Address [facility] [address] [facility] [place] [address] Care Team Providers Care Director Learning And Development Name Role Phone Angel Abebe MD Primary Care Provider [phone] Encounter Details Date Type Department Care Team (Late st Contact Info) Description 01/07/2023 [place] [id number] Tom Barros MD [facility] [place] [address] Social History Tobacco Use Types Packs/Day Years [...] encounter Miscellaneous Notes * Telephone Encounter - Estephania Kowalski - 01/07/2023 9:14 AM EDT Spoke with Karlene. Surgical date offered and confirmed. Patient is to discuss blood thinners with primary care provider - Angel Abebe prior to surgery. documented in this encounter Plan of Treatment Not on file documented as of this encounter Visit Diagnoses Not on filedocumented in this encounter Care Teams Director Learning And Development Relationship Specialty Start Date End Date Angel Abebe MD [address] [place] [address] PCP - General Family Medicine 01/22/22 documented as of this encounter
--- OUTSIDE RECORDS SUMMARY | 2024-01-06 17:07 | XMS_ITS | Encounter Summary ---
Author Organization [facility] Address [facility] [place] [address] Care Team Providers Care Assortment Planner Name Role Phone Angel Abebe MD Primary Care Provider [phone] Reason for Visit * Reason Comments Follow-up Doesn't use hearing aids. Using mineral oil. Encounter Details Date Type Department Care Team (Late st Contact Info) Description 02/05/2022 4:20 PM EDT Office [place] [id number] Wale Prakash III, MD [facility] [place] [address] Impacted cerumen of right ear Social History [...] - Inhaled Oxygen Concentration - - Weight 93.4 kg (206 lb) 02/05/2022 4:40 PM EDT Height 177.8 cm (5' 10) 02/05/2022 4:40 PM EDT Body Mass Index 29.56 02/05/2022 4:40 PM EDT documented in this encounter Progress Notes * Wale Prakash III, MD - 02/05/2022 4:20 PM EDT Otolaryngology Follow Up Note: Jesse Carranza returns for ear cleaning. He has been using mineral oil drops. Review of Systems: A complete review of constitutional, eyes, cardiovascular, respiratory, GI, , musculo-skeletal, skin, endocrine, psychiatric, hematologic, lymphatic and immunologic systems is completed and is as noted in the HPI. All other systems are otherwise negative. Examination shows the following: GENERAL: Well developed, well appearing, no acute distress. Vitals reviewed. HEAD/FACE/EYES: Normocephalic with no gross deformity. Extraocular movements intact. EARS: Right cerumen impaction removed with suction. . NECK: PROCEDURES:Procedure: Cerumen removal with microscope Indication: Cerumen impaction Involved ear: Right ear Description: Cerumen was removed using a combination of curettes and suction under direct microscopic visualization. The patient tolerated the procedure. IMPRESSION: He will be seen again for ear care in 6 months. documented in this encounter Plan of Treatment Not on file documented as of this encounter Visit Diagnoses Diagnosis Impacted cerumen of right ear Impacted cerumen documented in this encounter Care Teams Assortment Planner Relationship Specialty Start Date End Date Angel Abebe MD [address] [place] [address] PCP - General Family Medicine 01/22/22 documented as of this encounter
--- OUTSIDE RECORDS SUMMARY | 2024-01-06 17:07 | XMS_ITS | Encounter Summary ---
[place] [address] Care Team Providers Care Cte Teacher Name Role Phone Angel Abebe MD Primary Care Provider [phone] [phone] Reason for Visit * Auth/Cert (Routine) Specialty Diagnoses / Procedures Referred By Misty bales Referred To Contact Diagnoses Benign prostatic hyperplasia with lower urinary tract symptoms Other obstructive and reflux uropathy Retention of urine, unspecified BPH wiht urinary retention 79cc prostate Procedures PRO LASER VAPORIZATION SURGERY PROSTATE, COMPLETE CYSTO, LASER TURP (WRVU 12.15) MODIFIER,GREENLIGHT LASER MODIFIER, UROLOGY MODERATE Tom Barros MD [facility] [place] [place] [address] [facility] Referral ID Status Reason Start Date Expiration Date Visits Re quested Visits Authorized [id number] 1 1 Encounter Details Date Type Department Care Team (Latest Contact Info) Description 02/17/2023 8:37 AM EDT - 02/18/2023 12:04 PM EDT Hospital Encounter [place] [address] Tom Barros MD [facility] [place] [address] BPH with obstruction/lower urinary tract symptoms; Urinary retention; QT prolongation Discharge Disposition: Home Social History Tobacco Use Types Packs/Day Years Used Date Smoking Tobacco: Never Pipe Smokeless Tobacco: Never Tobacco Cessation:Counseling Given: Not Answered Alcohol Use Standard Drinks/Week Comments Not Currently 0 (1 standard drink = 0.6 oz pur e alcohol) [facility] Inpatient Questions Answer Date Recorded Does Anyone [...] Sign Reading Time Taken Comments Blood Pressure 134/80 02/18/2023 8:13 AM EDT Pulse 65 02/18/2023 8:13 AM EDT Temperature 36.9 ??C (98.4 ??F) 02/18/2023 8:12 AM ED T Respiratory Rate 18 02/18/2023 8:12 AM EDT Oxygen Saturation 98% 02/18/2023 8:12 AM EDT Inhaled Oxygen Concentration - - Weight 85.3 kg (188 lb) 02/17/2023 9:33 AM EDT Height 177.8 cm (5' 10) 02/17/2023 9:33 AM EDT Body Mass Index 26.98 02/17/2023 9:33 AM EDT documented in this encounter Discharge Summaries * Yo Glez PA - 02/17/2023 7:00 AM EDT Discharge Summary Patient Name: Jesse Carranza Patient Age: 72 y.o. 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 His urine waslight red later in the [...] 30 tablet Refills: 12 Nasonex 50 mcg/actuation [place], Non-Aerosol 2 [place](s), Nasal, Twice daily each nostril Generic drug: mometasone Refills: 0 xstthkbd-sdtzrykas-ahglvgufyzrwmj 3.5-10,000-1 mg/mL-unit/mL-% Drops, Suspension Commonly known as: [...] Given to Patient at Discharge: Patient Instructions [facility] Urology Post-Operative Discharge Instructions PHOTO-SELECTIVE VAPORIZATION OF [...] Urology Clinic during normal business hours at [phone] if you have questions/concerns regarding your appointment. General Instructions None Follow-Up: No future appointments. Primary Care Provider: Angel Abebe MD [phone] Call your doctor if: Please call your [...] was managed by the Urology Team at [facility]. If you have any questions or concerns, please feel free to contact us. Provider Contact Information: Urology Clinic: [facility] (after business hours): Time spent on discharge plannin minutes MÓNICA Perez 02/18/2023 documented in this encounter Discharge Instructions * Patient Instructions* Yo Glez PA - 02/17/2023 12:42 PM EDT [facility] Urology Post-Operative Discharge Instructions PHOTO-SELECTIVE VAPORIZATION OF [...] Urology Clinic during normal business hours at [phone] if you have questions/concerns regarding your appointment. documented in this encounter Medications at Time of Discharge Medication Sig Dispensed Refills Start Date End Date COVID-19 VACC,MRNA,MODERNA,-PF IM Inject into the muscle. Both Shots finasteride (Proscar) 5 mg Tablet TAKE ONE TABLET BY MOUTH EVERY DAY 08/16/2020 dclcbwtz-ouhnypcgr-qumy ocortisone (CORTISPORIN) 3.5-10,000-1 mg/mL-unit/mL-% Drops, Suspension Place [...] Inh, PRN 05/24/2010 Mometasone (NASONEX) 50 mcg/Actuation [place] 2 [place](s), Nasal, Twice daily each nostril 05/24/2010 ciprofloxacin (Cipro) 500 mg tablet Take 1 tablet by mouth 2 times daily for 5 days. 10 tablet 02/18/2023 02/23/2023 fluconazole (Diflucan) 200 mg tablet Take 1 tablet by mouth daily for 7 days. 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 Mometasone (NASONEX) 50 mcg/Actuation [place] 2 [place](s), Nasal, Twice daily each nostril PHYSICAL EXAM [...] Lawler MD - 02/17/2023 11:06 AM EDT [facility] Operative Note Patient Name: Jesse Carranza : [id number] MR#: [id number] Case Date: 02/17/2023 Surgeon: Surgeon(s) and Role: [...] protected. Prep and drape was performed in [facility] standard sterile fashion. With a 23.5French [...] removing the sheath and placing an 20 Malay 3-way Franks catheter. The patient tolerated the procedure very well and after adequate recovery, he was transferred to the Recovery Room in stable condition. TOTAL ENERGY USED: [id number] joules. LASING TIME: 32 minutes and 00 [...] Urinary retention Laser Vaporization Surgery Prostate, Complete ([id number]) 02/17/2023 10:40 AM EDT BPH with obstruction/lower [...] (Bezet) 376 ms MUSE SYSTEM Calculated R Tamms 25 degrees MUSE SYSTEM Calculated T Tamms -74 degrees MUSE SYSTEM INTERPRETATION Atrial fibrillation [...] Culture Greater than 50,000 cfu/mL Klebsiella oxytoca(A) [facility] Organism Klebsiella oxytoca(A) [facility] Cystoscopic Urine 02/17/2023 11:07 AM EDT [...] Barros MD MICROBIOLOGY - GENER AL ORDERABLES [facility] [place] [address] * (ABNORMAL) Prothrombin Time (02/17/2023 9:02 AM EDT) Prothrombin Time 17.1(H) 9.4 - 12.5 sec [facility] International Normalization Ratio 1.5 [facility] Comment: An INR <2.0 indicates adequate [...] Lab Marci Flannery VANDANA HEMATOLOGY ORDERAB LES [facility] [place] [address] documented in this encounter Visit Diagnoses Diagnosis BPH (benign prostatic hyperplasia)- Primary Unspecified hyperplasia of prostate without urinary obstruction and other lower urinary tract symptoms (LUTS) BPH with obstruction/lower urinary tract symptoms Hypertrophy of prostate with urinary obstruction and other lower urinary tract symptoms (LUTS) Urinary retention Retention of urine, unspecified QT prolongation Nonspecific abnormal electrocardiogram (ECG) (EKG) documented in this encounter Admitting Diagnoses Diagnosis [...] mL/hr New Bag 02/17/2023 9:50 AM EDT metoproloL tartrate (Lopressor) tablet 25 mg 25 mg, Oral, 2 TIMES DAILY, First dose on Thu02/17/23 at 2100, Until Discontinued, Routine Given 02/18/2023 8:1 4 AM EDT 25 mg Given 02/17/2023 8:17 [...] Day of Surgery (Day of Procedure), Routine 09 (Given - Provider: Eva Ruiz RN) amLODIPine (Norvasc) tablet 5 mg 5 mg, Oral, DAILY, First dose on Thu02/17/23 at 1545, Until Discontinued, Routine 2016 (Given - Provider: Toribio Phillips RN) 813 (Given - Provider: Benjamín Fine RN) ampicillin (Omnipen) 2 g vial attach to sodium chloride 0.9% 100 mL Mini-Bag Plus (COMPLETED) 2,000 mg (2 g), Intravenous, MEDICAL APPLIANCE MAKER TO O.R., 1 dose, On Thu02/17/23 at [...] 2127 (Given - Provider: Toribio Phillips RN) 08 (Not Given - Provider: Benjamín Fine RN [...] Cristy Rojas RN) 0815 (Given - Provider: Benjamní Fine RN) gentamicin (Garamycin) 311.6 mg in sodium chloride 0.9% 107.79 mL infusion (COMPLETED) 311.6 mg (4 mg/kg/dose ? 77.9 kg Adjusted weight), Intravenous, MEDICAL APPLIANCE MAKER TO O.R., 1 dose, On Thu02/17/23 at [...] 0814 (Given - Provider: Benjamín Fine RN) sodium chloride 0.9 % (flush) (BD PosiFlush Normal Saline 0.9) flush 5 mL 5 mL, Intravenous, 2 TIMES DAILY, First dose on Thu02/17/23 at 1300, Until Discontinued, Recovery (Recovery-Hospital Unit), Routine 1252 (Given - Provider: Cristy Rojas RN)2021 (Given - Provider: Toribio Phillips RN) 0815 (Given - Provider: Benjamín Fine RN) Continuous Medication Order 02/16/2023 02/17/2023 02/18/2023 lactated [...] Routine 1302 (New Bag - Provider: Cristy Rojas RN)1424 (New Bag - Provider: Cristy Rojas RN) 1439 (Due: Stopped) sodium chloride 0.9% infusion 1,000 mL, at 100 mL/hr, Intravenous, CONTINUOUS, Starting on Thu02/17/23 at 1300, Until Thu02/18/23 at 1439, Recovery (Recovery-Hospital Unit) 1251 (New Bag - Provider: Cristy Rojas, [place]) 1439 (Due: Stopped) PRN Medication Order 02/16/2023 02/17/2023 02/18/2023 acetaminophen (Tylenol) tablet 975 mg 975 mg, [...] Routine documented in this encounter Care Teams Cte Teacher Relationship Specialty Start Date End Date Angel Abebe MD [address] [facility] [address] [place] [address] PCP - General Family Medicine 01/22/22 documented as of this encounter
--- OUTSIDE RECORDS SUMMARY | 2024-01-06 17:07 | XMS_ITS | Clinical Summary ---
Author Organization [facility] Address [facility] [place] [address] Care Team Providers Care Outcomes Analyst Name Role Phone Angel Abebe MD Primary Care Provider [phone] [phone] Allergies Active Allergy Reactions Criticality Noted Date Comments Pascual Inhibitors High 11/13/2022 Other Reaction(s): cough Doxycycline Hyclate Rash Tetracycline Tetracyclines High 01/16/2022 Other Reaction(s): FACIAL RASH Medications Medication Sig Dispensed Refills Start Date End Date Status fexofenadine (RADHA) 60 mg tablet 60MG = 1 Tablet(s), PO, Twice daily 05/24/2010 Active acetaminophen (TYLENOL EXTRA STRENGTH) 500 mg tablet 05/24/2010 Active fluticasone-salmetero l (ADVAIR) 250-50 mcg/dose diskus inhaler 1 Disk(s), Inh, Twice daily 05/24/2010 Active Levalbuterol Tartrate 45 mcg/Actuation inhaler 45 MC-2 Puff(s), Inh, PRN 05/24/2010 Active Mometasone (NASONEX) 50 mcg/Actuation [place] 2 [place](s), Nasal, Twice daily each nostril 05/24/2010 Active Magnesium 84 mg TbSR Take by mouth 2 times daily. 11/29/2010 Active warfarin (COUMADIN) 5 mg tablet Take 5 mg by mouth See Admin Instructions. 11/29/2010 Active dilTIAZem CD (Cardizem CD) 180 mg Capsule, Sust. Release 24 hr Take 360 mg by mouth daily. Active omeprazole (PRILOSEC) 20 mg capsule Take 20 mg by mouth daily. Active metoprolol tartrate (LOPRESSOR) 25 mg tablet Take 1 tablet by mouth 2 times daily. 30 tablet 12 10/10/2013 Active digoxin (LANOXIN) 250 mcg Tablet TAKE ONE TABLET BY MOUTH EVERY DAY 4 12/31/2017 Active amLODIPine (NORVASC) 5 mg Tablet TAKE ONE TABLET BY MOUTH EVERY DAY 4 01/14/2018 Active gijtyvna-spyevlafo-ls drocortisone (CORTISPORIN) 3.5-10,000-1 mg/mL-unit/mL-% Drops, Suspension Place 3 drops into the right ear 4 times daily. 10 mL 1 01/05/2019 Active COVID-19 VACC,MRNA,MODERNA,-PF IM Inject into the muscle. Both Shots Active finasteride (Proscar) 5 mg Tablet TAKE ONE TABLET BY MOUTH EVERY DAY 08/16/2020 Active Active Problems Problem Noted Date Diagnosed Date BPH (benign prostatic hyperplasia) 02/17/2023 Bradycardia 03/19/2016 Overview (03/19/2016): Afib with bradycardia to 30-40 reported on 03/08/2016 admission to [facility] - withdrew digoxin and diltiazem and heart rate improved Permanent atrial fibrillation Overview (11/29/2010): - initial 02/2004, started on PO cardizem CD 360mg - recurrence 06/2004, started on coumadin, atenolol - admitted [facility] ED with SOB, fatigue - AF with RVR 06/2004; poorly controlled with IV diltiazem - echo 02/2004 - sinus rhythm, EF 68%, LVH - TSH 1.26 (WNL) 06/2004 - echo 06/2004 - afib, ?anteroseptal hypokinesis; EF 53% - elective cardioversion w/ immediated recurrence of AF - digoxin and dofetilide therapy initiated 06/08 - frequent recurrences of atrial fibrillation so discontinued in Apr 2006 and started on Flecainide 50 mg twice daily Apr 08, up-titrating to 150mg bid - 04/08 - stress test - LV chamber size normal, no fixed or reversible perfusion defects , LVEF 55%, no ischemia - 07/09 - nuclear stress test [facility], normal LVEF, normal wall thicknes, no reversible defects - Flecainide discontinued may 2009 - rate control approach initiated- - Holter monitor 05/14/2009 reviewed - AF througout the recording, MIN hr 71, MAX 177, Mean 112 bpm. - Holter monitor 05/2010 - AF, mean ventricular rate 90 Asthma GERD (gastroesophageal reflux disease) Migraines Immunizations Name Administration Dates Next Due Influenza Vaccine, Whole 02/24/2008,04/08/2006 TD Adult 01/01/2004 Social History Tobacco Use Types Packs/Day Years [...] on file Sexual Orientation Not on file Last Filed Vital Signs Vital Sign Reading [...] Mass Index 26.98 02/17/2023 9:33 AM EDT Plan of Treatment Health Maintenance Due Date Last Done Comments CT Colonography 1950 Colonoscopy 1950 Colorectal Cancer Screening 1950 FIT DNA 1950 FIT 1950 Sigmoidoscopy (10 year) with FIT yearly 1950 Sigmoidoscopy 1950 Pneumoccocal Vaccine: 65+ (1 of 2 - PCV) 1956 Hepatitis C Screening 1968 Lipid Screening 1968 Tdap adult 1969 Zoster vaccine (1 of 2) 2000 Advance Directive 2005 Tetanus vaccine 12/31/2013 01/01/2004 Covid-19 Vaccine (2022-24 season) 2023 Influenza (Flu) vaccine (1 o f 1 - Influenza standard series) 01/03/2024 02/24/2008, 04/08/2006 Diabetes Screening (HgbA1C or Glucose) Discontinued Procedures Procedure Name Priority Date/Time Associated Diagnosis Comments BASIC METABOLIC PANEL Routine 06/07/2018 1:31 PM EST Permanent atrial fibrillation from Last 3 Months or Most Recently Relevant to Health Maintenance Results * Basic Metabolic Panel (non-fasting) (06/07/2018 1:31 PM EST) Glucose 103 65 - 199 mg/dL [facility] Comment:Diabetes: >=200 mg/d L plus symptoms Blood Urea Nitrogen 11 10 - 20 mg/dL [facility] Creatinine 0.87 0.80 - 1.50 mg/dL [facility] Sodium 137 135 - 145 mmol/L [facility] Potassium 3.7 3.5 - 5.0 mmol/L [facility] Comment: Please note: ??Patients with WBC >100,000 may have falsely elevated Potassium levels. ??For accurate Potassium quantification in these patients send serum separator tube (gold top) for subsequent determinations. ??Contact the Clinical Chemistry Laboratory if there are any questions. Chloride 100 98 - 107 mmol/L [facility] Carbon Dioxide 25 22 - 31 mmol/L [facility] Anion Gap 12 5 - 15 mmol/L [facility] Calcium 9.3 8.5 - 10.5 mg/dL [facility] Est Glomerular Filtration Rate 89 >=60 mL/min/1. 73 m?? [facility] Comment: The eGFR was calculated using the CKD-EPI equation. As with all creatinine based estimates of kidney function, eGFR values calculated with the CKD-EPI equation are not accurate in patients with acute kidney failure, extremes of body mass or the acutely ill. http://Workube/DHnkf eGFR 104 >=60 mL/min/1. 73 m?? [facility] Comment: The eGFR was calculated using the CKD-EPI equation. As with all creatinine based estimates of kidney function, eGFR values calculated with the CKD-EPI equation are not accurate in patients with acute kidney failure, extremes of body mass or the acutely ill. http://Workube/DHMCnkf Blood specimen (specimen) 06/07/2018 1:31 PM EST 06/07/2018 1:41 PM EST Narrative Resulting Agency Comment Spec In Lab Darryn Solorzano MD CHEMISTRY ORDERABLES [facility] [place] [address] from Last 3 Months or Most Recently Relevant to Health Maintenance Advance Directives * Attempt Cardiopulmonary Resuscitation - Inpatient (Latest Code Status on File) Date Activated Date Inactivated Comments 02/17/2023 12:41 PM 02/18/2023 2:44 PM Question Answer Comments Code Status decision made by: Patient Care Teams Outcomes Analyst Relationship Specialty Start Date End Date Angel Abebe MD [address] [place], [place] [id number] PCP - General Family Medicine 01/22/22
--- OUTSIDE RECORDS SUMMARY | 2024-01-06 17:07 | XMS_ITS | Encounter Summary ---
Author Organization [facility] Address [facility] [place] [address] Care Team Providers Care Professor Of Literature Name Role Phone Angel Abebe MD Primary Care Provider [phone] [phone] Reason for Visit * Reason Onset Date Comments Other 02/09/2023 PA question Encounter Details Date Type Department Care Team (Late st Contact Info) Description 02/09/2023 [place] [id number] Alondra Tuttle, VANDANA [facility] [place] [address] Other (PA question) Social History Tobacco Use Types Packs/Day Years Used Date Smoking Tobacco: Never Pipe Smokeless Tobacco: Never Alcohol Use Standard Drinks/Week Comments Not Asked 0 (1 standard drink = 0.6 oz pur e alcohol) [facility] Inpatient Questions Answer Date Recorded Does Anyone [...] Telephone Encounter - Tricia Simmons RN - 02/09/2023 4:35 PM EDT Copied from CRM #[id number]. Topic: Specialty Dept CRMs - Orders >> Feb 09, 2023 2:10 PM Rafale Portillo wrote: Orders Request Specialist: Alondra Tuttle APRN Relationship (if other than patient-full name): Moraima Sabillon - [place] Type of Request: Order Approval Status Type/Name of Order: Imaging If Labs and Imaging list name of specific test(s): MRI Brain wo Contrast Date of Lab/Imaging/Testing Appt: N/A Date of Provider Appt: 12/18/22 Appt Type with Provider: Other: NEW Patient Requesting to Have Orders Sent to Facility Outside of [facility]: Yes If Yes, Name of Facility: [facility] Address: [address] [place] [address] [place] [address] Phone #: [phone] Fax #: Moraima stated that they received this order in December and can only hold it for 90 days. Moraima asked for an update on the approval/status of this order as they will need to cancel the order and wait for a new request to be sent if not approved within the 90 days. Please contact Moraima to discuss. This is related to the 01/23/23 and 12/19/22 telephone encounters. documented in this encounter Plan of Treatment Not on file documented as of this encounter Visit Diagnoses Not on filedocumented in this encounter Care Teams Professor Of Literature Relationship Specialty Start Date End Date Angel Abebe MD [address] [place] [address] PCP - General Family Medicine 01/22/22 documented as of this encounter
--- OUTSIDE RECORDS SUMMARY | 2024-01-06 17:07 | XMS_ITS | Encounter Summary ---
[place] [address] Care Team Providers Care Plug Assembler Name Role Phone Angel Abebe MD Primary Care Provider [phone] [phone] Encounter Details Date Type Department Care Team (Late st Contact Info) Description 10/24/2022 [place] [address] Patrick Uriarte Social History Tobacco Use Types Packs/Day Years [...] encounter Miscellaneous Notes * Telephone Encounter - Patrick Uriarte - 10/24/2022 1:01 PM EDT Per 10/16/[address] Bryan' office ([place]) - returned call to advise that we did receive the referral for this patient and he should be contacted soon to make an appointment. documented in this encounter Plan of Treatment Not on file documented as of this encounter Visit Diagnoses Not on filedocumented in this encounter Care Teams Plug Assembler Relationship Specialty Start Date End Date Angel Abebe MD [address] [place] [address] PCP - General Family Medicine 01/22/22 documented as of this encounter
--- OUTSIDE RECORDS SUMMARY | 2024-01-06 17:07 | XMS_ITS | Encounter Summary ---
Author Organization [facility] [place] [address] Care Team Providers Care Legal Support Analyst Name Role Phone Angel Abebe MD Primary Care Provider [phone] [phone] Encounter Details Date Type Department Care Team (Late st Contact Info) Description 02/16/2023 [place] [address] Teddy Richardson MD [facility] [place] [address] Social History Tobacco Use Types Packs/Day Years [...] on filedocumented in this encounter Care Teams Legal Support Analyst Relationship Specialty Start Date End Date Angel Abebe MD [address] [place] [address] PCP - General Family Medicine 01/22/22 documented as of this encounter
--- OUTSIDE RECORDS SUMMARY | 2024-01-06 17:07 | XMS_ITS | Encounter Summary ---
Author Organization [facility] [place] [address] Care Team Providers Care Personnel Associate Name Role Phone Angel Abebe MD Primary Care Provider [phone] Reason for Visit * Consultation (Routine) - Closed Specialty Diagnoses / Procedures Referred By Misty bales Referred To Contact Urology Diagnoses Benign prostatic hyperplasia with lower urinary tract symptoms, symptom details unspecified BPH with LUTS Lucy Lee, [address] [place] [address] [facility] [place] [address] Referral ID Status Reason Start Date Expiration Date V isits Requested Visits Authorized [id number] Closed Consult, Test & Treat PCP Updated and/or Approved 10/20/2022 10/20/2023 6 6 Encounter Details Date Type Department Care Team (Late st Contact Info) Description 11/12/2022 9:20 AM EDT [place] [address] Tasha Blue RIFLE CASE REPAIRER [facility] [place] [address] BPH with obstruction/lower urinary tract symptoms; Urinary [...] on file documented as of this encounter Progress Notes * Tasha Blue, RIFLE CASE REPAIRER - 11/12/2022 9:20 AM EDT Images from the original note were not included. [facility] SECTION OF UROLOGY UROLOGY CLINIC VISIT Name: Jesse Carranza : 1950 Date: 11/12/2022 Referred by: Lucy Lee Chief Complaint: BPH with LUTS History of Present Illness I have been requested by Lucy Lee APRN to see this patient in consultation for recommendations regarding his BPH with Lower urinary tract symptoms. He has had a franks catheter in place for the past year. This has been changed monthly at [facility]. Patient previously followed by Dr. Bryan in [place]. He had a voiding trial one time about 9 months ago. He is currently taking Finasteride. He has not had another voiding trial since starting the Finasteride. He tried Tamsulosin, but it made him nauseated. PVR = franks in place. Prostate size on MRI was measured as 77cc. PSA density 0.13 with PiRADS 2. Patient has previously had a negative prostate biopsy. 09/2022. 11 Last PSA 10.42 in March 2022. No reported bowel issues. Patient is currently taking Coumadin for afib . Patient Active Problem List Diagnosis Code Permanent [...] Oriented to person/place/time. No gross motor defects. COVID-19 VACC,MRNA,MODERNA,-PF IM finasteride (Proscar) 5 mg Tablet hfidvxms-mdzqpwjsy-xdohyxehpujjsv (CORTISPORIN) 3.5-10,000-1 mg/mL-unit/mL-% Drops, Suspension digoxin (LANOXIN) [...] 45 mcg/Actuation inhaler Mometasone (NASONEX) 50 mcg/Actuation [place] Review of Tests: No results found for: [...] bladder.Will defer UDS for now. Continue finasteride. Start Silodosin 4mg daily. Discussed mechanism of action [...] incontinence risk, and expected post operative recovery. Passed voiding trial today. Call or go to local urology or ED if he is unable to urinate later. Advised to call me if he needs to have franks replaced. Follow up next week via telehealth. The patient expressed understanding and agreement with the above. Tasha Blue APRN documented in this encounter Plan of Treatment Not on file documented as of this encounter Visit Diagnoses Diagnosis BPH with obstruction/lower urinary tract symptoms Hypertrophy of prostate with urinary obstruction and other lower urinary tract symptoms (LUTS) Urinary retention Retention of urine, unspecified documented in this encounter Care Teams Personnel Associate Relationship Specialty Start Date End Date Angel Abebe MD [address] [place] [address] PCP - General Family Medicine 01/22/22 documented as of this encounter
--- OUTSIDE RECORDS SUMMARY | 2024-01-06 17:08 | XMS_ITS | Encounter Summary ---
Author Organization [facility] Address [facility] [place] [address] Care Team Providers Care Pharmacy General Manager Name Role Phone Nelia Franklin MD Primary Care Provider [phone] Reason for Visit * Reason Comments Other ear care Encounter Details Date Type Department Care Team (Late st Contact Info) Description 09/14/2013 10:45 AM EDT [place] [phone] Campbell Barraza PA [facility] [place] [address] Cerumen impaction, left (Primary Dx) Discharge Disposition: Home Social History Tobacco Use Types Packs/Day Years Used Date Smoking Tobacco: Former Pipe Smokeless Tobacco: Never Alcohol Use Standard Drinks/Week Comments Not Asked 0 (1 standard drink = 0.6 oz pur e alcohol) Sex and Gender Information Value Date Recorded Sex Assigned at Not on file Gender Identity Not on file Sexual Orientation Not on file documented as of this encounter Last Filed Vital Signs Vital Sign Reading Time Taken Comments Blood Pressure 135/97 09/14/2013 10:52 AM EDT Pulse 85 09/14/2013 10:52 AM EDT Temperature - - Respiratory Rate - - Oxygen Saturation - - Inhaled Oxygen Concentration - - Weight 86.6 kg (191 lb) 09/14/2013 10:52 AM EDT Height - - Body Mass Index 27.41 02/25/2012 2:57 PM EDT documented in this encounter Progress Notes * Campbell Barraza PA - 09/14/2013 11:20 AM EDT Jesse Carranza is 62 years of age and is generally seen on an annual basis for cerumen disimpaction.This primarily effects his left ear. It is been 2 years since his last visit. And he has been feeling the left ear plugged up with diminishment in his hearing. He is been using mineral oil in the ear to soften cerumen. On examination with the operating microscope the right external auditory canal demonstrates nonocclusive cerumen removed with suction. The left external auditory canal demonstrated impacted cerumen which was mobilized with loop and removed with suction. Tympanic membranes both are slightly atrophic and retracted but no middle ear pathology was appreciated today. He does have some complaint of hearing loss and feels that he may need hearing aids at some point. We did discuss this and his financial constraints. I did tell him that there are programs which can help in pain for hearing aids. He will give this some thought in contact a should he wish to pursue that otherwise I will see him in one year for cerumen disimpaction. Campbell Barraza PA-C Department of Otolaryngology [facility] [place] [address] Office Phone - documented in this encounter Plan of Treatment Not on file documented as of this encounter Visit Diagnoses Diagnosis Cerumen impaction, left- Primary documented in this encounter Care Teams Pharmacy General Manager Relationship Specialty Start Date End Date Nelia Franklin MD [address] [place] [address] PCP - General 06/19/11 09/18/14 documented as of this encounter
--- OUTSIDE RECORDS SUMMARY | 2024-01-06 17:08 | XMS_ITS | Encounter Summary ---
Author Organization [facility] Address [facility] [place] [address] Care Team Providers Care Polisher Sand Name Role Phone Dylan Easton MD Primary Care Provider Encounter Details Date Type Department Care Team (Late st Contact Info) Description 01/18/2019 Telephone [place] [id number] Sarah Sanchez Social History Tobacco Use Types Packs/Day Years [...] Miscellaneous Notes * Telephone Encounter - Sarah Sanchez - 01/18/2019 3:21 PM EDT Called patient to schedule Return in about 1 week (around 01/12/2019) for cleaning right ear with RS. Lft VM to contact clinic to schedule documented in this encounter Plan of Treatment Not on file documented as of this encounter Visit Diagnoses Not on filedocumented in this encounter Care Teams Polisher Sand Relationship Specialty Start Date End Date Dylan Easton MD [address] [place] [address] PCP - General Family Medicine 08/08/15 01/21/22 documented as of this encounter
--- OUTSIDE RECORDS SUMMARY | 2024-01-06 17:08 | XMS_ITS | Encounter Summary ---
Author Organization [facility] Address [facility] [place] [address] Care Team Providers Care Braiding Machine Tender Name Role Phone Dylan Easton MD Primary Care Provider Reason for Visit * Reason Comments Follow-up Encounter Details Date Type Department Care Team (Late st Contact Info) Description 05/21/2016 1:00 PM EST Office Visit Cardiology at [address] [address] Red Pryor PA [facility] [place] [address] Permanent atrial fibrillation Social History Tobacco Use Types Packs/Day Years [...] Sign Reading Time Taken Comments Blood Pressure 128/90 05/21/2016 12:51 PM EST Pulse 91 05/21/2016 12:51 PM EST 80- 98 Temperature - - Respiratory Rate - - Oxygen Saturation 98% 05/21/2016 12:51 PM EST Inhaled Oxygen Concentration - - Weight 88.9 kg (196 lb) 05/21/2016 12:51 PM EST Height 177.8 cm (5' 10) 05/21/2016 12:51 PM EST Body Mass Index 28.12 05/21/2016 12:51 PM EST documented in this encounter Progress Notes * Red Pryor PA - 05/21/2016 1:00 PM EST Subjective: Patient ID: Jesse Carranza is a 65 y.o. male. HPI 65yo man presents for follow up of permanent afib on rate control strategy. He was seen at [facility] ED in March 2016 for slow afib in the 30-40s at which time his diltiazem and digoxin were discontinued. He had improved by the time I saw him in follow up later that month. In the interim, we have obtained the records of that hospitalization and subsequently applied a Zio patch and obtained a new stress echocardiogram. His afib now appears reasonably well rate controlled on metoprolol and diltiazem. He does have brief periods of rapid conduction at times though these appear to be asymptomatic. He denies recurrent chest pain and his stress echo is normal without suggestion of ischemia. Patient Active Problem List Diagnosis ??? Permanent atrial fibrillation Overview Note: - initial 02/2004, started on PO cardizem CD 360mg - recurrence 06/2004, started on coumadin, atenolol - admitted [facility] ED with SOB, fatigue - AF [...] ischemia - 07/09 - nuclear stress [place] [facility], normal LVEF, normal wall thicknes, no reversible defects - Flecainide discontinued may 2009 - rate control approach initiated- - Holter monitor 05/14/2009 reviewed - AF througout the recording, MIN hr 71, MAX 177, Mean 112 bpm. - Holter monitor 05/2010 - AF, mean ventricular rate 90 ??? Bradycardia Overview Note: Afib with bradycardia to 30-40 reported on 03/08/2016 admission to [facility] - withdrew digoxin and diltiazem and heart rate improved ??? Asthma ??? GERD (gastroesophageal reflux disease) Overview Note: ??? Migraines Overview Note: Review of Systems Constitutional: Positive for fatigue. Negative for chills, diaphoresis and fever. Respiratory: Negative for chest tightness and shortness of breath. Cardiovascular: Negative for chest pain and palpitations. Gastrointestinal: Negative for diarrhea, nausea and vomiting. Genitourinary: Negative for dysuria, frequency and hematuria. Neurological: Negative for syncope and light-headedness. Social History Substance Use Topics ??? Smoking status: Never Smoker ??? Smokeless tobacco: Never Used ??? Alcohol use None Current Outpatient Prescriptions Medication Sig Note Dispense Refill ??? metoprolol tartrate (LOPRESSOR) 25 mg tablet Take 1 tablet by mouth 2 times daily. 30 tablet 12 ??? omeprazole (PRILOSEC) 20 mg capsule Take 20 mg by mouth daily. 09/19/2014: On hold until Magnesium level drawn ??? Magnesium 84 mg TbSR Take by mouth 2 times daily. ??? warfarin (COUMADIN) 5 mg tablet Take 5 mg by mouth See Admin Instructions. ??? DILTiazem (DILT-CD) 180 mg 24 hr capsule Take 360 mg by mouth daily. ??? fexofenadine (RADHA) 60 mg tablet 60MG = 1 Tablet(s), PO, Twice daily ??? fluticasone-salmeterol (ADVAIR) 250-50 mcg/dose diskus inhaler 1 Disk(s), Inh, Twice daily ??? Levalbuterol Tartrate 45 mcg/Actuation inhaler 45 MC-2 Puff(s), Inh, PRN ??? Mometasone (NASONEX) 50 mcg/Actuation [place] 2 [place](s), Nasal, Twice daily each nostril 09/19/2014: occasionally ??? lisinopril (PRINIVIL;ZESTRIL) 40 mg Tablet TAKE 1 TABLET BY MOUTH DAILY 05/21/2016: Received from: External Pharmacy 4 ??? acetaminophen (TYLENOL EXTRA STRENGTH) 500 mg tablet Objective: Physical Exam Constitutional: He is oriented to person, place, and time. No distress. Neck: No JVD present. Cardiovascular: Normal rate, normal heart sounds and intact distal pulses. An irregularly irregularrhythm present. Pulmonary/Chest: Effort normal. Musculoskeletal: Normal range of motion. He exhibits no edema. Neurological: He is alert and oriented to person, place, and time. Skin: Skin is warm and dry. He is not diaphoretic. Stress echocardiogram: 05/21/2016 1. Results: This is a negative echocardiogram stress test without evidence of ischemia at an adequate level of stress. There are [address] depression in the inferolateral leads in recovery. The exercise capacity was average and the patient expressed symptoms of dyspnea. 2. Baseline: The left ventricle is probably normal in size. There is normal global left ventricular systolic function. Ejection fraction is estimated to be 55%. There are no left ventricular segmental wall motion abnormalities. EKG: atrial fibrillation. 3. Stress: Patient followed a Alan protocol. The patient exercised into stage 2. The total exercise duration was: 4:46 min. The patient achieved a level of 7 METS. Exercise capacity was average. The study was terminated because of fatigue. The patient did not express feelings of chest discomfort. There was ST segment depression in the inferior leads. Global left ventricular systolic function appears hyperdynamic. There are no left ventricular segmental wall motion abnormalities. Zio: 03/19/2016 13 days, 15 hours (03/19/2016 until 04/02/2016) Atrial fibrillation was present for the entire duration of recording, the minimum heart rate of 51 bpm, maximum heart rate 235 bpm, average heart rate of 98 bpm ?? Ectopic beats rare ventricular premature beats (VPC's) 0 atrial premature beats (APC???s) ?? There are 4 episodes of wide-complex tachycardia The fastest episode is 5 beats, lasting 1.9 seconds at an average heart rate of 221 bpm This appears to be an episode of non sustained ventricular tachycardia. ?? Triggered and Patient Diary Events There were 3 triggered and 0 patient diary events: The 3 triggered events correlate with atrial fibrillation with ventricular rates ranging from 94-185 bpm ?? Conclusion(s): 1. The predominant rhythm is atrial fibrillation 2. Less than ideal ventricular control 3. A brief episode of non sustained ventricular tachycardia 4. Symptoms may correlate with awareness of more rapid ventricular conduction Assessment and Plan: 65yo man now with permanent afib, reasonably well rate controlled on 50mg of metoprolol and 360mg of diltiazem. He is chronically anticoagulated on coumadin. His main complaint is fatigue though he is able to perform all daily activity including strenuous work around the house., Plan follow up in one year in EP clinic with Dr. Solorzano or me, with 12 lead EKG, BMP, unless symptoms worsen or new sx occur. Provider: MÓNICA Mcqueen Provider#: [id number] Consult attending physician: Aries Bautista MD documented in this encounter Plan of Treatment Not on file documented as of this encounter Visit Diagnoses Diagnosis Permanent atrial fibrillation Atrial fibrillation documented in this encounter Care Teams Braiding Machine Tender Relationship Specialty Start Date End Date Dylan Easton MD [address] [place] [address] PCP - General Family Medicine 08/08/15 01/21/22 documented as of this encounter
--- OUTSIDE RECORDS SUMMARY | 2024-01-06 17:08 | XMS_ITS | Encounter Summary ---
Author Organization [facility] Address [facility] [place] [address] Care Team Providers Care Road Freight Conductor Name Role Phone Dylan Easton MD Primary Care Provider [phone] Encounter Details Date Type Department Care Team (Late st Contact Info) Description 09/16/2016 1:30 PM EDT Office [place] [address] Campbell Barraza PA [facility] [place] [address] Excessive cerumen in both ear canals Social History Tobacco Use Types Packs/Day Years [...] as of this encounter Progress Notes * Campbell Barraza PA - 09/16/2016 1:30 PM EDT Jesse Carranza is 64 years of age and is seen on an annual basis for cerumen removal. He has a history of cerumen impaction, on his first in 2003 it required 3 different visits before Icould totally disimpact his left ear. ?? 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 He is investigating ways to get a hearing aid with financial support. Jesse also reports a hearing loss after a recent upper respiratory tract infection. This has improved. ?? On examination with the operating microscope the right external auditory canal was cleaned of peripheral cerumen. He does have a deep retraction pocket in the posterior aspects of the tympanic membrane which did demonstrate some crusting. This was lifted out and I was able to view the bottom of this pocket. No sign of cholesteatoma formation was noted. There was a perforation in the posterior infe rior quadrant. ?? The left external auditory canal also cleaned of peripheral cerumen with alligator forceps and suction. Tympanic membrane demonstrated a serous effusion. He was able to auto-inflate the middle ear with the valsalva. His hearing was improved. I have recommended he auto inflate the middle ear space from time to time to keep the middle ear pneumatized. I am hesitant to perform myringotomy due to the perforation on the right side. ?? Impression: History of cerumen impaction, here for regular care to prevent impaction from occurringin the future. ?? Recommendations been made for 1 year follow-up for ear care. ?? Campbell Barraza PA-C Department of Otolaryngology [facility] [place] [address] Office Phone - documented in this encounter Plan of Treatment Not on file documented as of this encounter Visit Diagnoses Diagnosis Excessive cerumen in both ear canals documented in this encounter Care Teams Road Freight Conductor Relationship Specialty Start Date End Date Dylan Easton MD [address] [place] [address] PCP - General Family Medicine 08/08/15 01/21/22 documented as of this encounter
--- OUTSIDE RECORDS SUMMARY | 2024-01-06 17:08 | XMS_ITS | Encounter Summary ---
Author Organization [facility] [place] [address] Care Team Providers Care Buffer Nickel Name Role Phone Dylan Easton MD Primary Care Provider [phone] Reason for Referral * Diagnostic Test (Routine) - Closed Specialty Diagnoses / Procedures Referred By Misty bales Referred To Contact Diagnoses Atrial fibrillation, unspecified type Procedures Echocardiogram Stress (Treadmill) Bhavin Pryor PA [facility] [place] [address] [facility] [place] [address] Referral ID Status Reason Start Date Expiration Date V isits Requested Visits Authorized [id number] Closed Specialty Service Requested 03/19/2016 03/19/2017 1 1 Reason for Visit * Diagnostic Test (Routine) - Closed Specialty Diagnoses / Procedures Referred By Contac t Referred To Contact Diagnoses Atrial fibrillation, unspecified type Procedures Echocardiogram Stress (Treadmill) Bhavin Pryor PA [facility] [place] [address] [facility] [place] [address] Referral ID Status Reason Start Date Expiration Date V isits Requested Visits Authorized [id number] Closed Specialty Service Requested 03/19/2016 03/19/2017 1 1 Encounter Details Date Type Department Care Team (Latest Contact Info) Description 05/21/2016 9:47 AM EST - 05/21/2016 11:59 PM EST Hospital Encounter Non-Invasive Cardiology Lab [facility] [place] [address] Darryn Solorzano MD [facility] [place] [address] [place] [address] Atrial fibrillation, unspecified type Discharge Disposition: Home Social History Tobacco Use [...] Sig Dispensed Refills Start Date End Date metoprolol tartrate (LOPRESSOR) 25 mg tablet Take [...] Inh, PRN 05/24/2010 Mometasone (NASONEX) 50 mcg/Actuation [place] 2 [place](s), Nasal, Twice daily each nostril 05/24/2010 lisinopril (PRINIVIL;ZESTRIL) 40 mg Tablet TAKE 1 TABLET BY MOUTH DAILY 4 04/29/2016 12/18/2022 documented as of this encounter Plan of Treatment Not on file documented as of this encounter Procedures Procedure Name Priority Date/Time Associated Diagnosis Comments STRESS ECHO W CONTRAST W LMTD SPEC DOPP COLOR DOPP Routine 05/21/2016 10:59 AM EST Atrial fibrillation, unspecified type documented in this encounter Results * STRESS ECHO W CONTRAST W LMTD SPEC DOPP COLOR DOPP (05/21/2016 10:59 AM EST) EF 55 HEARTLAB SYSTEM Anatomical Region Laterality Modality Other 05/21/2016 Narrative 05/21/2016 12:17 PM EST Procedure: ?Stress Echocardiogram Patient: ?DILLON Hyde ? (Age): 1950(65y) Med Rec#: ? [id number] ?Sex: ?M ? Site Loc: ? [facility] ?Ht / Wt: ??178(cm)/91(kg) Pt. Loc: ?Echo Lab ?BSA: ?2.09 Study Date: ?? 05/21/2016 ?Pt. Type: Tape: ? Referring: Darryn Solorzano Referring: SYLVIE Reading: Hugo Jacobs ??([id number]) Bottle Washer: Bishop Yang Radio Maintainer: Gale Lin Diagnosis: *ICD-10-PCS Unspecified atrial fibrillation (I48.91) CPT Codes: *Stress Echo (52946) *Color Doppler (84069) *Doppler LTD (48041) *ECG Interpretation (77809) *Definity (86671GW) Stage ? BP ?HR ? Rest ?128/88 ?95 ? Peak ?164/90 ?166 ? Recovery ?136/86 ?90 ? SUMMARY: 1. Results: This is a negative echocardiogram stress test without evidence of ischemia at an adequate level of stress. There are [address] depression in the inferolateral leads in recovery. The eercise capacity was average and the patient expressed symptoms of dyspnea. 2. Baseline: ??The left ventricle is probably normal in size. There is normal global left ventricular systolic function. ??Ejection fraction is estimated to be 55%. There are no left ventricular segmental wall motion abnormalities. EKG: atrial fibrillation. 3. Stress: ??Patient followed a Alan protocol. The patient exercised into stage 2. The total exercise duration was: 4:46 min. The patient achieved a level of 7 METS. Exercise capacity was average. ??The study was terminated because of fatigue. The patient did not express feelings of chest discomfort. There was ST segment depression in the inferior leads. Global left ventricular systolic function appears hyperdynamic. There are no left ventricular segmental wall motion abnormalities. Findings Rest: Left Ventricle: ? The left ventricle is probably normal in size. ?There is no evidence of LVOT obstruction. ?There is normal global left ventricular systolic function. ??Ejection fraction is estimated to be 55%. ?There are no left ventricular segmental wall motion abnormalities. Right Ventricle: ? Right ventricular chamber size, wall thickness, and systolic function are within normal limits. ?The estimated pulmonary artery systolic pressure is 16 mmHg.plus RAP. ?? Aortic Valve: ? The aortic valve is tricuspid. ?There is no evidence of aortic valve thickening. ?Systolic excursion of the aortic valve is normal. ?There is no evidence of aortic valve stenosis. ?There is no evidence of aortic regurgitation. Mitral Valve: ? The mitral valve leaflets appear normal. ?There is trace mitral regurgitation present. Tricuspid Valve: ? The tricuspid valve leaflets are morphologically normal. ?There is mild (1+/4+) tricuspid regurgitation present. Aorta: ? The ascending aorta is normal in size. Stress: ? EKG: atrial fibrillation. ?The patient's oxygen saturation was 99%. ?The patient is taking a beta jatin. ?The patient is taking a calcium channel jatin. ?The patient is taking warfarin. Misc: ? Definity contrast (one 1.5 ml vial)was used to enhance endocardial definition. Excess contrast was discarded. ?Stress echo, limited spectral Doppler, color Doppler and ECG interpretation performed. Findings Peak: Predicted Values:The patient achieved a maximum heart rate of 166 which is 107% of the maximum predicted heart rate (155 beats/min). ??The target heart rate was achieved. Left Ventricle: ? Global left ventricular systolic function appears hyperdynamic. ?There are no left ventricular segmental wall motion abnormalities. Stress: ? Patient followed a Alan protocol. ?The patient exercised into stage 2. ?The total exercise duration was:4:46 min. ?The study was terminated because of fatigue. ?The patient did not express feelings of chest discomfort. ?The blood pressure response was normal. ?Exercise capacity was average. ?The patient achieved a level of 7 METS. ?There were occasional ventricular premature beats. ?There was ST segment depression in the inferior leads. ?This was a positive electrocardiographic stress test. ?This was a negative echocardiographic stress test. ?The patient's oxygen saturation was 98%. Chambers 2D ?Value ?Units (Range) ? Ascending Ao ?3 ?cm (2 - 3.5) ? Tricuspid Valve ?Value ?Units (Range) ? RVSP ?16 ? mmHg ? Wall Motion: Segment Name ?Rest ?Peak ? Base-Anteroseptal ?? Normal ?Normal ? Base-Anterior ? Normal ?Normal ? Base-Anterolateral ??Normal ?Normal ? Base-Posterolateral Normal ?Normal ? Base-Inferior ? Normal ?Normal ? Base-Inferoseptal ?? Normal ?Normal ? Mid-Anteroseptal ?Normal ?Normal ? Mid-Anterior ?Normal ?Normal ? Mid-Anterolateral ?? Normal ?Normal ? Mid-Posterolateral ??Normal ?Normal ? Mid-Inferior ?Normal ?Normal ? Mid-Inferoseptal ?Normal ?Normal ? [place]-Septal ? Normal ?Normal ? [place]-Anterior ? Normal ?Normal ? [place]-Lateral ?Normal ?Normal ? [place]-Inferior ? Normal ?Normal ? [place]-Tip ?Normal ?Normal ? This report has been electronically signed by: Hugo ??Emeli Jacobs MD ? 05/21/2016 12:17:22 Images reviewed and interpretation verified [facility] Cardiac Ultrasound Laboratory Procedure Note Hugo Jacobs MD - 05/21/2016 Procedure: Stress Echocardiogram Patient: DILLON TRINH(Age): 1950(65y) Med Rec#: [id number] Sex: M Site Loc: [facility] Ht / Wt: 178(cm)/91(kg) Pt. Loc: Echo Lab BSA: 2.09 Study Date: 05/21/2016 Pt. Type: Tape: Referring: Darryn Solorzano Referring: KISHOREBHAVINRao Reading: Hugo Jacobs ([id number]) Bottle Washer: Bishop Yang Radio Maintainer: Gale Lni Diagnosis: *ICD-10-PCS Unspecified atrial fibrillation (I48.91) CPT Codes: *Stress Echo (00780) *Color Doppler (11834) *Doppler LTD (01838) *ECG Interpretation (81144) *Definity (63159KH) Stage BP HR Rest 128/88 95 Peak 164/90 166 Recovery 136/86 90 SUMMARY: 1. Results: This is a negative echocardiogram stress test without evidence of ischemia at an adequate level of stress. There are [address] depression in the inferolateral leads in recovery. The eercise capacity was average and the patient expressed [...] no left ventricular segmental wall motion abnormalities. Findings Rest: Left Ventricle: The left ventricle is probably normal in size. There is no evidence of LVOT obstruction. There is normal global left ventricular systolic function. Ejection fraction is estimated to be 55%. There are no left ventricular segmental wall motion abnormalities. Right Ventricle: Right ventricular chamber size, wall thickness, and systolic function are within normal limits. The estimated pulmonary artery systolic pressure is 16 mmHg.plus RAP. Aortic Valve: The aortic valve is tricuspid. There is no evidence of aortic valve thickening. Systolic excursion of the aortic valve is normal. There is no evidence of aortic valve stenosis. There is no evidence of aortic regurgitation. Mitral Valve: The mitral valve leaflets appear normal. There is trace mitral regurgitation present. Tricuspid Valve: The tricuspid valve leaflets are morphologically normal. There is mild (1+/4+) tricuspid regurgitation present. Aorta: The ascending aorta is normal in size. Stress: EKG: atrial fibrillation. The patient's oxygen saturation was 99%. The patient is taking a beta jatin. The patient is taking a calcium channel jatin. The patient is taking warfarin. Misc: Definity contrast (one 1.5 ml vial)was used to enhance endocardial definition. Excess contrast was discarded. Stress echo, limited spectral Doppler, color Doppler and ECG interpretation performed. Findings Peak: Predicted Values:The patient achieved a maximum heart rate of 166 which is 107% of the maximum predicted heart rate (155 beats/min). The target heart rate was achieved. Left Ventricle: Global left ventricular systolic function appears hyperdynamic. There are no left ventricular segmental wall motion abnormalities. Stress: Patient followed a Alan protocol. The patient exercised into stage 2. The total exercise duration was:4:46 min. The study was terminated because of fatigue. The patient did not express feelings of chest discomfort. The blood pressure response was normal. Exercise capacity was average. The patient achieved a level of 7 METS. There were occasional ventricular premature beats. There was ST segment depression in the inferior leads. This was a positive electrocardiographic stress test. This was a negative echocardiographic stress test. The patient's oxygen saturation was 98%. Chambers 2D Value Units (Range) Ascending Ao 3 cm (2 - 3.5) Tricuspid Valve Value Units (Range) RVSP 16 mmHg Wall Motion: Segment Name Rest Peak Base-Anteroseptal Normal Normal Base-Anterior Normal Normal Base-Anterolateral Normal Normal Base-Posterolateral Normal Normal Base-Inferior Normal Normal Base-Inferoseptal Normal Normal Mid-Anteroseptal Normal Normal Mid-Anterior Normal Normal Mid-Anterolateral Normal Normal Mid-Posterolateral Normal Normal Mid-Inferior Normal Normal Mid-Inferoseptal Normal Normal [place]-Septal Normal Normal [place]-Anterior Normal Normal [place]-Lateral Normal Normal [place]-Inferior Normal Normal [place]-Tip Normal Normal This report has been electronically signed by: Hugo Jacobs MD 05/21/2016 12:17:22 Images reviewed and interpretation verified [facility] Cardiac Ultrasound Laboratory Darryn Solorzano MD ECHO ORDERABLES documented in this encounter Visit Diagnoses Diagnosis Atrial fibrillation, unspecified type documented in this encounter Administered Medications Inactive Administered Medications - up to 3 most recent administrations Medication Order MAR Action Action Date Dose Rate Site perflutren lipid microspheres (DEFINITY) injection 1.1 mL 1.1 mL (rounded from 1.05 mL), Intravenous, ONCE PRN, 1 dose, Starting on Thu05/21/16 at 1100, Until Thu05/21/16 at 1030, Other, Routine Given 05/21/2016 10:30 AM EST 1.1 mLs documented in this encounter Care Teams Buffer Nickel Relationship Specialty Start Date End Date Dylan Easton MD [address] [place] [address] PCP - General Family Medicine 08/08/15 01/21/22 documented as of this encounter
--- OUTSIDE RECORDS SUMMARY | 2024-01-06 17:08 | XMS_ITS | Encounter Summary ---
Author Organization [facility] Address [facility] [place] [address] Care Team Providers Care Tennis Net Maker Name Role Phone Dylan Easton MD Primary Care Provider [phone] Encounter Details Date Type Department Care Team (Latest Contact Info) Description 03/19/2016 3:45 PM EST - 03/19/2016 11:59 PM [facility] Hospital Encounter Non[place] [phone] Darryn Solorzano MD [facility] [place] [address] Atrial fibrillation, unspecified type Discharge Disposition: Home [...] Inh, PRN 05/24/2010 Mometasone (NASONEX) 50 mcg/Actuation [place] 2 [place](s), Nasal, Twice daily each nostril 05/24/2010 documented as of this encounter Plan of Treatment Not on file documented as of this encounter Procedures Procedure Name Priority Date/Time Associated Diagnosis Comments ZIOPATCH Routine 03/19/2016 4:12 PM EST Atrial fibrillation, unspecified type documented in this encounter Results * Ziopatch (03/19/2016 4:12 PM EST) Anatomical Region Laterality Modality Other Narrative 04/11/2016 9:42 AM EST [facility] ? Zio Patch? Ambulatory Cardiac Event Monitor Report Duration of recording ? 13 days, 15 hours (03/19/2016 until 04/02/2016) Summary Data Atrial fibrillation was present for the entire duration of recording, the minimum heart rate of 51 bpm, maximum heart rate 235 bpm, average heart rate of 98 bpm Ectopic beats rare ventricular premature beats (VPC's) 0 atrial premature beats (APC? s) There are 4 episodes of wide-complex tachycardia The fastest episode is 5 beats, lasting 1.9 seconds at an average heart rate of 221 bpm This appears to be an episode of non sustained ventricular tachycardia. Triggered and Patient Diary Events There were 3 triggered and 0 patient diary events: The 3 triggered events correlate with atrial fibrillation with ventricular rates ranging from 94-185 bpm Conclusion(s): ?? 1) The predominant rhythm is atrial fibrillation 2) Less than ideal ventricular control ?? 3) A brief episode of non sustained ventricular tachycardia ?? 4) Symptoms may correlate with awareness of more rapid ventricular conduction Darryn Solorzano MD CARDIAC SERVICES ORD ERABLES documented in this encounter Visit Diagnoses Diagnosis Atrial fibrillation, unspecified type documented in this encounter Care Teams Tennis Net Maker Relationship Specialty Start Date End Date Dylan Easton MD [address] [facility] [address] [place] [address] PCP - General Family Medicine 08/08/15 01/21/22 documented as of this encounter
--- OUTSIDE RECORDS SUMMARY | 2024-01-06 17:08 | XMS_ITS | Encounter Summary ---
Author Organization [facility] Address [facility] [place] [address] Care Team Providers Care Golf Instructor Name Role Phone Nelia Franklin MD Primary Care Provider [phone] Reason for Visit * Reason Onset Date Comments Other 02/26/2012 24hr Holter Josephine pickering Encounter Details Date Type Department Care Team (Late st Contact Info) Description 02/26/2012 Telephone Cardiology at [address] [id number] Darryn Solorzano MD [facility] [place] [address] Other (24hr Holter Monitor) Social History Tobacco Use Types Packs/Day Years [...] encounter Miscellaneous Notes * Telephone Encounter - Abiola Botello - 02/26/2012 7:37 AM EDT Hi, Please sign the attached order. Jaime, Sherron documented in this encounter Plan of Treatment Not on file documented as of this encounter Visit Diagnoses Diagnosis Atrial fibrillation- Primary documented in this encounter Care Teams Golf Instructor Relationship Specialty Start Date End Date Nelia Franklin MD [address] [place] [address] PCP - General 06/19/11 09/18/14 documented as of this encounter
--- OUTSIDE RECORDS SUMMARY | 2024-01-06 17:08 | XMS_ITS | Encounter Summary ---
Author Organization [facility] Address [address] [place] [address] Care Team Providers Care Floor Manager Name Role Phone Angel Abebe MD Primary Care Provider [phone] Encounter Details Date Type Department Care Team (Late st Contact Info) Description 01/16/2022 Lab Requisition [facility] Pathology & Laboratory Medicine - [facility] [address], [place] [id number] Outr Resulting Lab, Provider Social History Tobacco Use Types Packs/Day Years Used Date Smoking Tobacco: Never Assessed Sex and Gender Information Value Date Recorded Sex Assigned at Not on file Gender Identity Not on file Sexual Orientation Not on file documented as of this encounter Plan of Treatment Not on file documented as of this encounter Procedures Procedure Name Priority Date/Time Associated Diagnosis Comments SYPHILIS SEROLOGY Routine 01/15/2022 9:15 EDT documented in this encounter Results * SYPHILIS SEROLOGY (01/15/2022 9:15 EDT) Syphilis Serology Negative Negative 01/17/2022 10:12 EDT [facility] Blood VENOUS BLOOD / Unknown 01/15/2022 9:15 EDT 01/16/2022 17:20 EDT Provider Outr Resulting Lab IMMUNOLOGY A ND SEROLOGY ORDERABLES [facility] [address] [place] [address] documented in this encounter Visit Diagnoses Not on filedocumented in this encounter Care Teams Floor Manager Relationship Specialty Start Date End Date Angel Abebe MD [address] [place] [address], [place] [address] PCP - General Family Medicine - Primary Care 09/01/22 documented as of this encounter
--- OUTSIDE RECORDS SUMMARY | 2024-01-06 17:08 | XMS_ITS | Encounter Summary ---
Author Organization [facility] Address [facility] [place] [address] Care Team Providers Care Pallet Stone Positioner Name Role Phone Dylan Easton MD Primary Care Provider Reason for Visit * Reason Comments Other ear cleaning Encounter Details Date Type Department Care Team (Late st Contact Info) Description 01/05/2019 1:00 PM EDT Office [place] [phone] Wale Prakash III, MD [facility] [place] [address] Excessive cerumen in both ear canals; Acute diffuse otitis externa of right ear Social History Tobacco Use [...] - Inhaled Oxygen Concentration - - Weight 86.2 kg (190 lb) 01/05/2019 1:23 PM EDT Height 177.8 cm (5' 10) 01/05/2019 1:23 PM EDT Body Mass Index 27.26 01/05/2019 1:23 PM EDT documented in this encounter Progress Notes * Wale Prakash III, MD - 01/05/2019 1:00 PM EDT Otolaryngology Outpatient Consultation Note This note created with Jaiden speech recognition software. Date of Visit: 01/05/2019 Location of Visit: Otolaryngology Clinic, [facility] Patient: Jesse Carranza ([id number]; 1950) Primary Care Provider: Dylan Easton MD Referring Provider: No ref. provider found Reason for Visit: Jesse is a 68 y.o. male seen for ear care. He has a history of bilateral cerumenimpactions, care for previously here. He has been using oil drops. Past Medical History: No past medical history on file. Past Surgical History: No past surgical history on file. Medications: Current Outpatient Medications on File Prior to Visit Medication Sig Dispense Refill ??? digoxin (LANOXIN) 250 mcg Tablet TAKE ONE TABLET BY MOUTH EVERY DAY 4 ??? amLODIPine (NORVASC) 5 mg Tablet TAKE ONE TABLET BY MOUTH EVERY DAY 4 ??? lisinopril (PRINIVIL;ZESTRIL) 40 mg Tablet TAKE 1 TABLET BY MOUTH DAILY 4 ??? metoprolol tartrate (LOPRESSOR) 25 mg tablet Take 1 tablet by mouth 2 times daily. 30 tablet 12 ??? omeprazole (PRILOSEC) 20 mg capsule Take 20 mg by mouth daily. ??? Magnesium 84 mg TbSR Take by mouth 2 times daily. ??? warfarin (COUMADIN) 5 mg tablet Take 5 mg by mouth See Admin Instructions. ??? DILTiazem (DILT-CD) 180 mg 24 hr capsule Take 360 mg by mouth daily. ??? fexofenadine (RADHA) 60 mg tablet 60MG = 1 Tablet(s), PO, Twice daily ??? acetaminophen (TYLENOL EXTRA STRENGTH) 500 mg tablet ??? fluticasone-salmeterol (ADVAIR) 250-50 mcg/dose diskus inhaler 1 Disk(s), Inh, Twice daily ??? Levalbuterol Tartrate 45 mcg/Actuation inhaler 45 MC-2 Puff(s), Inh, PRN ??? Mometasone (NASONEX) 50 mcg/Actuation [place] 2 [place](s), Nasal, Twice daily each nostril No current facility-administered medications on file prior to visit. Allergies: Doxycycline hyclate and Tetracycline Social History: Lives [place] [facility] [id number], Tobacco:No Alcohol:NO Other: Immunizations UTD. Family History: No family history on file. Review of Systems: Pertinent positive findings discussed above. No other findings on review of constitutional, visual, cardiovascular, respiratory, gastrointestinal, genitourinary, musculoskeletal, dermatologic, neurological, psychiatric, endocrine, hematologic or immunologic systems. Physical Examination: Vitals: Height 177.8 cm (5' 10), weight 86.2 kg (190 lb). General: No acute distress. Face: Full and symmetric facial movement. No dysmorphic facial features. Eyes: Periocular structures and conjunctiva healthy without lesions. Pupils are equal, round, and reactive to light. Extraocular movement is full and intact. No dysconjugate gaze. No evidence of nystagmus. Ears: Auricles symmetric without lesions. External auditory canals cerumen impactions bilaterally, otitis externa right noted after removal.. Right tympanic membrane normal, right middle ear normal. Left tympanic membrane normal, left middle ear normal. Nose: Patent anteriorly with adequate airflow, healthy pink mucosa. Septum is midline without significant deviation. Inferior turbinates normal. Mouth: Lips and gingiva pink, moist, without lesions. Dentition healthy. Tongue and floor of mouth soft without lesions or masses. Hard palate without lesions. Pharynx: Soft palate without lesions. Uvula is intact. Oropharynx symmetric. Larynx: Vocal mobility and morphology normal. Neck: Soft, supple, without significant lymphadenopathy. Thyroid gland without masses or asymmetry.Trachea midline without deviation. Lymphatic: Negative for additional peripheral lymphadenopathy or lymphedema. Neurologic: Cranial nerves II-XII intact and symmetric. Procedure - Otologic Microscopic Examination: External auditory canal visualized under the operating microscope. Findings: Bilateral occlusive cerumen casts. Procedure: Cerumen removal with microscope Indication: Cerumen impaction Involved ear: Bilateral Description: Cerumen was removed using a combination of curettes and suction under direct microscopic visualization. The patient tolerated the procedure. Findings: Bilateral ceruminous casts with otitis externa right. Impression: Cerumen impactions Recommendations: For the otitis externa he will use a course of cortisporin, and he will return in one weeks for cleaning of the right ear. documented in this encounter Plan of Treatment Not on file documented as of this encounter Visit Diagnoses Diagnosis Excessive cerumen in both ear canals Acute diffuse otitis externa of right ear documented in this encounter Care Teams Pallet Stone Positioner Relationship Specialty Start Date End Date Dylan Easton MD [address] [place] [address] PCP - General Family Medicine 08/08/15 01/21/22 documented as of this encounter
--- OUTSIDE RECORDS SUMMARY | 2024-01-06 17:08 | XMS_ITS | Encounter Summary ---
Author Organization [facility] Address [facility] [place] [address] Care Team Providers Care Rn Bariatric Name Role Phone Portillo Conde MD Primary Care Provider [phone] Encounter Details Date Type Department Care Team (Late st Contact Info) Description 05/24/2010 1:40 PM EST Follow-Up Cardiology at [address] [id number] Darryn Solorzano MD [facility] [place] [address] Discharge Disposition: Home Social History Tobacco Use [...] on filedocumented in this encounter Care Teams Rn Bariatric Relationship Specialty Start Date End Date Portillo Conde MD [address] [place], [place] [address] PCP - General 03/26/10 06/18/11 documented as of this encounter
--- OUTSIDE RECORDS SUMMARY | 2024-01-06 17:08 | XMS_ITS | Encounter Summary ---
Author Organization [facility] Address [facility] [place] [address] Care Team Providers Care Pyrometer Temperature Regulator Name Role Phone None Primary Care Provider Unavailabl e Reason for Visit * Reason Comments Cerumen Impaction Encounter Details Date Type Department Care Team (Late st Contact Info) Description 09/19/2014 9:45 AM EDT [place] [address] Campbell Barraza PA [facility] [place] [address] Excessive cerumen in both ear canals Discharge Disposition: Home Social History Tobacco Use [...] Sign Reading Time Taken Comments Blood Pressure 132/96 09/19/2014 10:01 AM EDT Pulse 83 09/19/2014 10:01 AM EDT Temperature - - Respiratory Rate - - Oxygen Saturation - - Inhaled Oxygen Concentration - - Weight 88.9 kg (196 lb) 09/19/2014 10:01 AM EDT Height 177.8 cm (5' 10) 09/19/2014 10:01 AM EDT Body Mass Index 28.12 09/19/2014 10:01 AM EDT documented in this encounter Progress Notes * Campbell Barraza PA - 09/19/2014 10:17 AM EDT Jesse Carranza is 63 years of age and is seen on an annual basis for cerumen removal. He has a history of cerumen impaction, on his first in 2003 it required 3 different visits before Icould totally disimpact his left ear. The patient continues to complain of hearing loss. We have spoken about amplification in the past. He is now more motivated to pursue this. His accompanied him to the appointment today and does report that TV volume is very excessive. On examination with the operating microscope the right external auditory canal demonstrated nonocclusive cerumen. This was removed with suction. Tympanic membrane is retracted with areas of tympanosclerosis but no middle ear pathology was appreciated. The left external auditory canal demonstrated partially occlusive cerumen removed with suction. Tympanic membrane also demonstrated areas of tympanosclerosis but no middle ear pathology was identified. Recommendation is made for regular annual followups for cerumen removal. I see no contraindication to proceed with hearing aid fitting if he wishes. Campbell Barraza PA-C Department of Otolaryngology [facility] [place] [address] Office Phone - documented in this encounter Plan of Treatment Not on file documented as of this encounter Visit Diagnoses Diagnosis Excessive cerumen in both ear canals documented in this encounter Care Teams Pyrometer Temperature Regulator Relationship Specialty Start Date End Date None None PCP - General 09/19/14 08/07/15 documented as of this encounter
--- OUTSIDE RECORDS SUMMARY | 2024-01-06 17:08 | XMS_ITS | Encounter Summary ---
Author Organization [facility] Address [address] [place] [address] Care Team Providers Care Fret Saw Operator Name Role Phone Angel Abebe MD Primary Care Provider [phone] Encounter Details Date Type Department Care Team (Late st Contact Info) Description 01/03/2020 Lab Requisition [facility] [address] [place], [place] [id number] Outr Resulting Lab, Provider Social History Tobacco [...] Procedure Name Priority Date/Time Associated Diagnosis Comments DO NOT ORDER STANDALONE - BROAD COVID TEST Today 01/03/2020 9:14 EDT COVID-19 TESTING Routine 01/03/2020 9:14 EDT documented in this encounter Results * DO NOT ORDER STANDALONE - BROAD COVID TEST (01/03/2020 9:14 EDT) COVID-19 rt-PCR Result NEGATIVE Negative 01/04/2020 15:36 EDT [facility] Comment: 2019-novel Coronavirus (2019-nCoV) not detected by the qRT-PCR assay. Consider testing for other respiratory viruses or re-collecting for 2019-nCoV testing. Note: Optimum timing for peak viral levels during infections caused by 2019-nCoV have not been determined. Collection of multiple specimens from the same patient may be necessary to detect the virus. Limitations Positive results are indicative of active infection with SARS-CoV-2 but do not rule out bacterial infection or co-infection with other viruses. The agent detected may not be the definite cause of disease. In addition, detection of viral RNA may not indicate the presence of infectious virus or that SARS-CoV-2 is the causative agent for clinical symptoms. Negative results do not preclude SARS-CoV-2 infection and should not be used as the sole basis for patient management decisions. Negative results must be combined with clinical observations, patient history, and epidemiological information. False negative results may also occur if amplification inhibitors are present in the specimen or if inadequate numbers of organisms are present in the specimen. Optimum specimen types and timing for peak viral levels during infections caused by SARS-CoV-2 have not been fully determined. Collection of multiple specimens (types and time points) from the same patient may be necessary to detect the virus. The test was validated for use with upper respiratory specimens obtained via nasopharyngeal or oropharyngeal swabs in VTM, UTM, M4, M5, M6, saline, and MTM media. The performance of this test has not been established for other specimens. Specimens collected using other FDA recommended Specimen Collection Materials listed in the FDA COVID-19 [employer] communication (July 28, 2019) are processed with the caveat that they were not all validated for use with this test and the result must be interpreted in this context. Furthermore, a false negative results may occur if a specimen is improperly collected, transported or handled. If the virus mutates in the RT-PCR target region, SARS-CoV-2 may not be detected or may be detected less predictably. Inhibitors or other types of interference may produce a false negative result. An interference study evaluating the effect of common cold medications was not performed. This test is not FDA-cleared but its performance characteristics were established by our CLIA-certified, CAP-accredited, high complexity laboratory in accordance with CLIA regulations, [employer] (CAP) guidelines (Jul 21, 2019), and FDA guidance (Jul 02, 2019). This test is only for use under the Food and Drug Administration's Emergency Use Authorization. Swab ENTIRE NASOPHARYNX / Unknown 01/03/2020 9:14 EDT 01/03/2020 15:38 EDT Provider Outr Resulting Lab MICROBIOLOGY - GENERAL ORDERABLES [facility] [place] [place] * COVID-19 TESTING (01/03/2020 9:14 EDT) COVID-19 rt-PCR Result NEGATIVE Negative 01/04/2020 17:18 EDT [facility] Comment: 2019-novel Coronavirus (2019-nCoV) not detected by the qRT-PCR assay. Consider testing for other respiratory viruses or re-collecting for 2019-nCoV testing. Note: Optimum timing for peak viral levels during infections caused by 2019-nCoV have not been determined. Collection of multiple specimens from the same patient may be necessary to detect the virus. Limitations Positive results are indicative of active infection with SARS-CoV-2 but do not rule out bacterial infection or co-infection with other viruses. The agent detected may not be the definite cause of disease. In addition, detection of viral RNA may not indicate the presence of infectious virus or that SARS-CoV-2 is the causative agent for clinical symptoms. Negative results do not preclude SARS-CoV-2 infection and should not be used as the sole basis for patient management decisions. Negative results must be combined with clinical observations, patient history, and epidemiological information. False negative results may also occur if amplification inhibitors are present in the specimen or if inadequate numbers of organisms are present in the specimen. Optimum specimen types and timing for peak viral levels during infections caused by SARS-CoV-2 have not been fully determined. Collection of multiple specimens (types and time points) from the same patient may be necessary to detect the virus. The test was validated for use with upper respiratory specimens obtained via nasopharyngeal or oropharyngeal swabs in VTM, UTM, M4, M5, M6, saline, and MTM media. The performance of this test has not been established for other specimens. Specimens collected using other FDA recommended Specimen Collection Materials listed in the FDA COVID-19 [employer] communication (July 28, 2019) are processed with the caveat that they were not all validated for use with this test and the result must be interpreted in this context. Furthermore, a false negative results may occur if a specimen is improperly collected, transported or handled. If the virus mutates in the RT-PCR target region, SARS-CoV-2 may not be detected or may be detected less predictably. Inhibitors or other types of interference may produce a false negative result. An interference study evaluating the effect of common cold medications was not performed. This test is not FDA-cleared but its performance characteristics were established by our CLIA-certified, CAP-accredited, high complexity laboratory in accordance with CLIA regulations, [employer] (CAP) guidelines (Jul 21, 2019), and FDA guidance (Jul 02, 2019). This test is only for use under the Food and Drug Administration's Emergency Use Authorization. Performing Lab [facility] 01/04/2020 17:18 EDT [facility] Swab 01/03/2020 9:14 EDT 01/03/2020 15:38 EDT Provider Outr Resulting Lab MICROBIOLOGY - GENERAL ORDERABLES [facility] [address] [place] [address] [facility] [place], [place] documented in this encounter Visit Diagnoses Not on filedocumented in this encounter Care Teams Fret Saw Operator Relationship Specialty Start Date End Date Angel Abebe MD [address] [place] [address] [place] [address] PCP - General Family Medicine - Primary Care 09/01/22 documented as of this encounter
--- OUTSIDE RECORDS SUMMARY | 2024-01-06 17:08 | XMS_ITS | Encounter Summary ---
Author Organization [facility] Address [facility] [place] [address] Care Team Providers Care Loading Unit Operator Name Role Phone Dylan Easton MD Primary Care Provider [phone] Encounter Details Date Type Department Care Team (Late st Contact Info) Description 09/10/2020 12:45 PM EDT Office Visit Cardiology at [address] [place] [address] Red Kruger PA [facility] [address] Permanent atrial fibrillation Social History Tobacco Use [...] Sign Reading Time Taken Comments Blood Pressure 152/98 09/10/2020 1:31 PM EDT Pulse 82 09/10/2020 1:31 PM EDT Temperature - - Respiratory Rate 20 09/10/2020 1:31 PM EDT Oxygen Saturation 99% 09/10/2020 1:31 PM EDT Inhaled Oxygen Concentration - - Weight 94 kg (207 lb 3.2 oz) 09/10/2020 1:31 PM EDT Height 177.8 cm (5' 10) 09/10/2020 1:31 PM EDT Body Mass Index 29.73 09/10/2020 1:31 PM EDT documented in this encounter Progress Notes * Red Kruger PA - 09/10/2020 12:45 PM EDT Cardiac Electrophysiology Clinic Note Patient: Jesse Carranza : 1950 Brief HPI: Jesse Carranza is a 69 year-old male with a PMH significant for GERD, asthma, COPD, bradycardia and permanent atrial fibrillation on warfarin who presents feeling fatigued and presents for EKG and evaluation. Mr Carranza has been feeling very fatigued lately and has very little stamina. He has also noticed leg swelling for the last 1 1/2 - 2 weeks. He checks his BP and pulse regularly and has not seen any slow heart rates, reporting that generally he is in the 60s. He presents today in the upper 80s. He is currently taking Lopressor 25 mg BID and Diltiazem 360 mg QD. He also takes digoxin 250 mcg QD. ROS: Constitutional: + fatigue, + activity intolerance, - fever, - chills Respiratory: - shortness of breath, - cough, - apnea, - wheezing Cardiovascular: - chest pain, - palpitations, - unusual rates Extremities: + Leg swelling Gastrointestinal: - nausea, - vomiting, - abdominal pain, - diarrhea Neurological: - lightheadedness, - dizziness, - syncope, - weakness Psychiatric: - anxious Vitals: Last Set of Vitals and range of vitals over past 24 hours: Last value Range last 24 hrs Temperature Temp: -- Heart Rate Heart Rate: 82 Heart Rate: [82] Blood Pressure BP: (!) 152/98 BP: (152)/(98) Respiratory Rate Resp: 20 Resp: [20] SpO2 SpO2: 99 % SpO2: [99 %] Physical Exam: General- No acute distress, sitting comfortably in exam room chair HEENT- Head atraumatic, normocephalic Skin- Warm and dry Cardiovascular- Irregularly irregular rate and rhythm. No murmur, rub or gallop Lungs- Clear to auscultation bilaterally Extremities- Pulses equal bilaterally. 1+ pitting LE edema bilaterally to mid ankle Neuro- A&Ox3 EKG - Atrial fibrillation at [address] and T-wave abnormalities Stress Echocardiogram (): 1. Results: This is a negative echocardiogram stress test without evidence of ischemia at an adequate level of stress. There are [address] depression in the inferolateral leads in recovery. The exercise capacity was average and the patient expressed symptoms of dyspnea. 2. The LV is probably normal in size. There is normal global LV systolic function. LVEF is estimated to be 55%. There are no LV segmental wall motion abnormalities. EKG: atrial fibrillation. 3. Right ventricular chamber size, wall thickness, and systolic function are within normal limits. The estimated pulmonary artery systolic pressure is 16 mmHg.plus RAP. Assessment & Plan: - 69 year-old male with a PMH significant for GERD, asthma, bradycardia and permanent atrial fibrillation on warfarin who presents feeling fatigued. - Patient complains of leg swelling and presents with LE pitting edema. - There is no indication of bradycardia. - Last echocardiogram was done 3 years ago and showed LVEF 55%. It is possible that patient's heartfunction has deteriorated and this would explain his edema and activity intolerance. - Schedule echocardiogram to assess heart function. If poor function, refer to heart failure team. - If heart function is adequate, a 14 day Ziopatch study would be warranted to investigate possiblebradycardia. MÓNICA Recio 09/10/2020 Pager: [phone] documented in this encounter Plan of Treatment Not on file documented as of this encounter Procedures Procedure Name Priority Date/Time Associated Diagnosis Comments EKG 12-LEAD Routine 09/10/2020 1:49 PM EDT Permanent atrial fibrillation documented in this encounter Results * EKG 12 Lead (09/10/2020 1:49 PM EDT) Ventricular rate 77 BPM MUSE SYSTEM Atrial Rate 59 BPM MUSE SYSTEM QRS Duration 108 ms MUSE SYSTEM Q-T Interval 382 ms MUSE SYSTEM QTC Calculated (Bezet) 432 ms MUSE SYSTEM Calculated R [place] -9 degrees MUSE SYSTEM Calculated T [place] 115 degrees MUSE SYSTEM INTERPRETATION Atrial fibrillation ST & T wave abnormality, consider lateral ischemia Abnormal ECG When compared with ECG of 07-JUN-2018 14:05, Nonspecific T wave abnormality no longer evident in Inferior leads Confirmed by Radha Lamas (Seng) on 09/12/2020 6:37:44 PM MUSE SYSTEM 09/10/2020 1:49 PM EDT 09/12/2020 6:37 PM EDT Darryn Solorzano MD ECG ORDERABLES [facility] documented in this encounter Visit Diagnoses Diagnosis Permanent atrial fibrillation Atrial fibrillation documented in this encounter Care Teams Loading Unit Operator Relationship Specialty Start Date End Date Dylan Easton MD [address] [place] [address] PCP - General Family Medicine 08/08/15 01/21/22 documented as of this encounter
--- OUTSIDE RECORDS SUMMARY | 2024-01-06 17:08 | XMS_ITS | Encounter Summary ---
Author Organization [facility] [place] [address] Care Team Providers Care Sheriffs Detective Name Role Phone Dylan Easton MD Primary Care Provider [phone] Reason for Referral * Diagnostic Test (Routine) - Closed Specialty Diagnoses / Procedures Referred By Contac t Referred To Contact Diagnoses Atrial fibrillation, unspecified type Procedures Echocardiogram Stress (Treadmill) Red Pryor PA [facility] [place] [address] [facility] [place] [address] Referral ID Status Reason Start Date Expiration Date V isits Requested Visits Authorized [id number] Closed Specialty Service Requested 03/19/2016 03/19/2017 1 1 Reason for Visit * Reason Comments Bradycardia Encounter Details Date Type Department Care Team (Late st Contact Info) Description 03/19/2016 3:00 PM EST Office Visit Cardiology at [address] [phone] Red Pryor PA [facility] [place] [address] Atrial fibrillation, unspecified type; Bradycardia Social History Tobacco Use Types Packs/Day Years [...] Sign Reading Time Taken Comments Blood Pressure 155/99 03/19/2016 3:03 PM EST Pulse 100 03/19/2016 3:03 PM EST Temperature - - Respiratory Rate - - Oxygen Saturation 98% 03/19/2016 3:03 PM EST room air Inhaled Oxygen Concentration - - Weight 91.3 kg (201 lb 3.2 oz) 03/19/2016 3:03 P M EST Height 177.8 cm (5' 10) 03/19/2016 3:03 PM EST Body Mass Index 28.87 03/19/2016 3:03 PM EST documented in this encounter Progress Notes * Red Pryor PA - 03/19/2016 3:00 PM EST Subjective: Patient ID: Jesse Carranza is a 65 y.o. male. HPI 65yo man with hx of permanent afib(since at least 2009) who was recently admitted to [facility] for several days presents for follow up. He developed sudden onset right sided chest pain(he points to costal margin area) and was found to be in afib with slow ventricular response reportedly 30-40s. I do not have records of that hospitalization available to me for review. His reports that hisdiltiazem and digoxin were discontinued(digoxin not on AVS of 08/[address] Solorzano) and his heart rate gradually improved. He was eventually discharged(03/11) continuing on metoprolol 25mg BID and anticoagulated on coumadin. He denies any recurrent symptoms and his heart rate at home is reported to be 70-100. Patient Active Problem List Diagnosis Code ??? Permanent atrial fibrillation I48.2 ??? Asthma J45.909 ??? GERD (gastroesophageal reflux disease) K21.9 ??? Migraines G43.909 ??? Bradycardia R00.1 Review of Systems Constitutional: Negative for chills, diaphoresis, fatigue and fever. Respiratory: Negative for cough, chest tightness and shortness of breath. Cardiovascular: Negative for chest pain, palpitations and leg swelling. Gastrointestinal: Negative for diarrhea, nausea and vomiting. Genitourinary: Negative for dysuria, frequency and hematuria. Neurological: Negative for syncope, speech difficulty and light-headedness. Current Outpatient Prescriptions Medication Sig Note Dispense [...] mg by mouth See Admin Instructions. ??? fexofenadine (RADHA) 60 mg tablet 60MG = 1 Tablet(s), PO, Twice daily ??? acetaminophen (TYLENOL EXTRA STRENGTH) 500 mg tablet ??? fluticasone-salmeterol (ADVAIR) 250-50 mcg/dose diskus inhaler 1 Disk(s), Inh, Twice daily ??? Levalbuterol Tartrate 45 mcg/Actuation inhaler 45 MC-2 Puff(s), Inh, PRN ??? Mometasone (NASONEX) 50 mcg/Actuation [place] 2 [place](s), Nasal, Twice daily each nostril 09/19/2014: occasionally Objective: Physical Exam Constitutional: He is oriented to person, place, and time. No distress. Neck: No JVD present. Cardiovascular: Normal rate, normal heart sounds and intact distal pulses. An irregularly irregularrhythm present. Pulmonary/Chest: Effort normal and breath sounds normal. Musculoskeletal: Normal range of motion. He exhibits no edema. Neurological: He is alert and oriented to person, place, and time. Skin: Skin is warm and dry. He is not diaphoretic. Nursing note and vitals reviewed. 12 lead EK03/19/2016 Atrial fibrillation @ 91; QRS 94; QTc 420ms Assessment and Plan: 65yo man with hx of permanent afib on rate control strategy presents for follow up of recent inpt stay at [facility] for evaluation of right sided chest pain and reported bradycardia in afib that improved with medication adjustment. He is in afib today with HR of 91. He denies any symptoms. I have no previous evidence of bradycardia, sinus node or significant conduction disease. We discussed various evaluation and possible treatment strategies. It would be useful to obtain records regarding his recent hospitalization so I will request these. It would also be useful to gain more information regarding his current rate distribution in afib soI have ordered a hvac refrigeration technician([employer] if not cost prohibitive). He will remain on metoprolol 25mg BID and coumadin in the interim. Will schedule for follow up visit in a few weeks with treadmill stress echocardiogram(last in 2011). He will call if he has recurrent symptoms and if he develops lightheadedness, presyncope or syncopehe will call 911 for transport to nearest ED. Provider: MÓNICA Mcqueen Provider#: [id number] Consult attending physician: Dagoberto Solorzano MD documented in this encounter Plan of Treatment Not on file documented as of this encounter Procedures Procedure Name Priority Date/Time Associated Diagnosis Comments EKG 12-LEAD Routine 03/19/2016 3:12 PM EST Atrial fibrillation, unspecified type documented in this encounter Results * STRESS ECHO W CONTRAST W LMTD SPEC DOPP COLOR DOPP (05/21/2016 10:59 AM EST) EF 55 HEARTLAB SYSTEM Anatomical Region Laterality Modality Other 05/21/2016 Narrative 05/21/2016 12:17 PM EST Procedure: ?Stress Echocardiogram Patient: ?CECIL Hyde ? (Age): 1950(65y) Med Rec#: ? [id number] ?Sex: ?M ? [place] Loc: ? [facility]Ht / Wt: ??178(cm)/91(kg) Pt. Loc: ?Echo Lab ?BSA: ?2.09 Study Date: ?? 05/21/2016 ?Pt. Type: Tape: ? Referring: Darryn Solorzano Referring: SYLVIE Reading: Hugo Jacobs ??([id number]) Qa Intern: Bishop Yang Engineering Instructor: Gale Lin Diagnosis: *ICD-10-PCS Unspecified atrial fibrillation (I48.91) CPT Codes: *Stress Echo (44406) *Color Doppler (41549) *Doppler LTD (95039) *ECG Interpretation (67134) *Definity (07048ZM) Stage ? BP ?HR ? Rest ?128/88 [...] motion abnormalities. Stress: ? Patient followed a Laan protocol. ?The patient exercised into stage 2. [...] ?Normal ?Normal ? Mid-Inferoseptal ?Normal ?Normal ? [place]-Septal ? Normal ?Normal ? [place]-Anterior ? Normal ?Normal ? [place]-Lateral ?Normal ?Normal ? [place]-Inferior ? Normal ?Normal ? [place]-Tip ?Normal ?Normal ? This report has been electronically signed by: Hugo ??Emeli Jacobs MD ? 05/21/2016 12:17:22 Images reviewed and interpretation verified [facility] Cardiac Ultrasound Laboratory Procedure Note Hugo Jacobs MD - 05/21/2016 Procedure: Stress Echocardiogram Patient: CECIL Hyde DOB(Age): 1950(65y) Med Rec#: [id number] Sex: M Site Loc: [facility] Ht / Wt: 178(cm)/91(kg) Pt. Loc: Echo Lab BSA: 2.09 Study Date: 05/21/2016 Pt. Type: Tape: Referring: Darryn Solorzano Referring: SYLVIE Reading: Hugo Jacobs ([id number]) Qa Intern: Bishop Yang Engineering Instructor: Gale Lin Diagnosis: *ICD-10-PCS Unspecified atrial fibrillation (I48.91) CPT Codes: *Stress Echo (08217) *Color Doppler (21686) *Doppler LTD (15795) *ECG Interpretation (17676) *Definity (96671IU) Stage BP HR Rest 128/88 95 Peak [...] Normal Mid-Inferior Normal Normal Mid-Inferoseptal Normal Normal [place]-Septal Normal Normal [place]-Anterior Normal Normal [place]-Lateral Normal Normal [place]-Inferior Normal Normal [place]-Tip Normal Normal This report has been electronically signed by: Hugo Jacobs MD 05/21/2016 12:17:22 Images reviewed and interpretation verified [facility] Cardiac Ultrasound Laboratory Darryn Solorzano MD ECHO ORDERABLES * Ziop[place] (03/19/2016 4:12 PM EST) Anatomical Region Laterality Modality Other Narrative 04/11/2016 9:42 AM EST [facility] ? Zio Patch? Ambulatory Cardiac Event Monitor [...] Darryn Solorzano MD CARDIAC SERVICES ORD ERABLES * EKG 12 Lead (03/19/2016 3:12 PM EST) Ventricular rate 91 BPM MUSE SYSTEM Atrial Rate 92 BPM MUSE SYSTEM QRS Duration 94 ms MUSE SYSTEM Q-T Interval 342 ms MUSE SYSTEM QTC Calculated (Bezet) 420 ms MUSE SYSTEM Calculated R [place] -7 degrees MUSE SYSTEM Calculated T [place] 16 degrees MUSE SYSTEM INTERPRETATION Atrial fibrillation Possible Inferior infarct , age undetermined Abnormal ECG Confirmed by MD Kingsley, Fco ([id number]) on 03/19/2016 4:56:14 PM MUSE SYSTEM 03/19/2016 3:12 PM EST 03/19/2016 4:56 PM EST Darryn Solorzano MD ECG ORDERABLES MUSE SYSTEM documented in this encounter Visit Diagnoses Diagnosis Atrial fibrillation, unspecified type Bradycardia Other specified cardiac dysrhythmias Atrial fibrillation, unspecified type Atrial fibrillation, unspecified type documented in this encounter Care Teams Sheriffs Detective Relationship Specialty Start Date End Date Dylan Easton MD [address] [place] [address] PCP - General Family Medicine 08/08/15 01/21/22 documented as of this encounter
--- OUTSIDE RECORDS SUMMARY | 2024-01-06 17:08 | XMS_ITS | Encounter Summary ---
Author Organization [facility] Address [facility] [place] [address] Care Team Providers Care Seafood Harvester Name Role Phone Dylan Easton MD Primary Care Provider [phone] Encounter Details Date Type Department Care Team (Late st Contact Info) Description 08/08/2015 3:00 PM EDT Office Visit [place] [address] Campbell Barraza PA [facility] [place] [address] Excessive cerumen in both ear canals Social [...] Progress Notes * Campbell Barraza PA - 08/08/2015 12:47 PM EDT Jesse Carranza is 64 years of age and is seen on an annual basis for cerumen removal. He has a history of cerumen impaction, on his first in 2003 it required 3 different visits before Icould totally disimpact his left ear. 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 He is investigating ways to get a hearing aid with financial support. On examination with the operating microscope the right external auditory canal was cleaned of peripheral cerumen. He does have a deep retraction pocket in the posterior aspects of the tympanic membrane which did demonstrate some crusting. This was lifted out and I was able to view the bottom of this pocket. No sign of cholesteatoma formation was noted. There was some air-fluid levels present, and he does report a recent upper respiratory tract infection causing some ear symptoms. The symptoms are clearing. The left external auditory canal also cleaned of peripheral cerumen with alligator forceps and suction. Tympanic membrane slightly retracted, no middle ear pathology was noted. Impression: History of cerumen impaction, here for regular care to prevent impaction from occurringin the future. Recommendations been made for 1 year follow-up for ear care. Campbell Barraza PA-C Department of Otolaryngology [facility] [place] [address] Office Phone - documented in this encounter Plan of Treatment Not on file documented as of this encounter Visit Diagnoses Diagnosis Excessive cerumen in both ear canals documented in this encounter Care Teams Seafood Harvester Relationship Specialty Start Date End Date Dylan Easton MD [address] [place] [address] PCP - General Family Medicine 08/08/15 01/21/22 documented as of this encounter
--- OUTSIDE RECORDS SUMMARY | 2024-01-06 17:08 | XMS_ITS | Encounter Summary ---
Author Organization [facility] [place] [address] Care Team Providers Care Clinical Trials Specialist Name Role Phone Dylan Easton MD Primary Care Provider [phone] Encounter Details Date Type Department Care Team (Late st Contact Info) Description 09/05/2020 Orders Only Cardiology at [address] [phone] Nya Barahona RN Permanent atrial fibrillation Social History Tobacco Use [...] on file documented as of this encounter Results * EKG 12 Lead (09/10/2020 1:49 PM EDT) Ventricular rate 77 BPM MUSE SYSTEM Atrial Rate 59 BPM MUSE SYSTEM QRS Duration 108 ms MUSE SYSTEM Q-T Interval 382 ms MUSE SYSTEM QTC Calculated (Bezet) 432 ms MUSE SYSTEM Calculated R [place] -9 degrees MUSE SYSTEM Calculated T [place] 115 degrees MUSE SYSTEM INTERPRETATION Atrial fibrillation ST & T wave abnormality, consider lateral ischemia Abnormal ECG When compared with ECG of 07-JUN-2018 14:05, Nonspecific T wave abnormality no longer evident in Inferior leads Confirmed by Radha Lamas ([email or web address]) on 09/12/2020 6:37:44 PM MUSE SYSTEM 09/10/2020 1:49 PM EDT 09/12/2020 6:37 PM EDT Daryrn Solorzano MD ECG ORDERABLES Mobile Shareholder SYSTEM documented in this encounter Visit Diagnoses Diagnosis Permanent atrial fibrillation Atrial fibrillation documented in this encounter Care Teams Clinical Trials Specialist Relationship Specialty Start Date End Date Dylan Easton MD [address] [place] [address] PCP - General Family Medicine 08/08/15 01/21/22 documented as of this encounter
--- OUTSIDE RECORDS SUMMARY | 2024-01-06 17:08 | XMS_ITS | Encounter Summary ---
Author Organization [facility] Address [facility] [place] [address] Care Team Providers Care Disciplinary Hearing Officer Name Role Phone Dylan Easton MD Primary Care Provider [phone] Reason for Visit * Reason Comments Follow-up doing about the same as last week Encounter Details Date Type Department Care Team (Late st Contact Info) Description 02/01/2019 8:45 AM EDT Office [place] [address] Wale Prakash III, MD [facility] [place] [address] Acute diffuse otitis externa of right ear [...] as of this encounter Progress Notes * Wale Prakash III, MD - 02/01/2019 8:45 AM EDT This note created with yoone speech recognition software. Jesse Carranza returns for right ear care. He has been using his drops and feels the hearing has returned to normal. Review of Systems: A complete review of constitutional, eyes, cardiovascular, respiratory, GI, , musculo-skeletal, skin, endocrine, psychiatric, hematologic, lymphatic and immunologic systems is completed and is as noted in the HPI. All other systems are otherwise negative. Examination shows the following: GENERAL: Well developed, well appearing, no acute distress. Vitals reviewed. HEAD/FACE/EYES: Normocephalic with no gross deformity. Extraocular movements intact. EARS: Normal exam of the external ear, ear canal, and middle ear bilaterally. Small amount squamous debris suctioned from right ear. NOSE: Normal external nasal exam. Septum midline. [...] stridor. Normal respirations. CV: Normal carotid pulses. IMPRESSION: Resolved otitis externa. documented in this encounter Plan of Treatment Not on file documented as of this encounter Visit Diagnoses Diagnosis Acute diffuse otitis externa of right ear documented in this encounter Care Teams Disciplinary Hearing Officer Relationship Specialty Start Date End Date Dylan Easton MD [address] [place] [address] PCP - General Family Medicine 08/08/15 01/21/22 documented as of this encounter
--- OUTSIDE RECORDS SUMMARY | 2024-01-06 17:08 | XMS_ITS | Encounter Summary ---
Author Organization [facility] Address [facility] [place] [address] Care Team Providers Care Pony Worker Name Role Phone Nelia Franklin MD Primary Care Provider [phone] Encounter Details Date Type Department Care Team (Late st Contact Info) Description 02/25/2012 3:10 PM EDT Follow-Up Cardiology at [address] [phone] Darryn Solorzano MD [facility] [place] [address] Atrial fibrillation (Primary Dx) Discharge Disposition: Home Social History [...] Sign Reading Time Taken Comments Blood Pressure 102/70 02/25/2012 2:57 PM EDT Pulse 72 02/25/2012 2:57 PM EDT irreg ular Temperature - - Respiratory Rate - - Oxygen Saturation 97% 02/25/2012 2:57 PM EDT Inhaled Oxygen Concentration - - Weight 93.9 kg (207 lb) 02/25/2012 2:57 PM EDT Height 177.8 cm (5' 10) 02/25/2012 2:57 PM EDT Body Mass Index 29.7 02/25/2012 2:57 PM EDT documented in this encounter Patient Instructions * Patient Instructions* Darryn Solorzano MD - 02/25/2012 3:24 PM EDT Images from the original note were not included. It was good to see you in the Cardiac Electrophysiology Clinic today. We discussed the atrial fibrillation and the control of the heart rate You should continue with your medicines as before - I made no changes to your medicines today I will arrange for the following: A) 24 hour holter monitor to evaluate the heart rhythm control - we'll arrange this locally via Dr Franklin I will arrange for a routine follow up in about 12 months time For any questions, call my office: [phone] To access your health care information, go to the web at: [email or web address] [email or web address], Clinical Cardiac Electrophysiology, [facility], documented in this encounter Progress Notes * Darryn Solorzano MD - 02/25/2012 3:04 PM EDT Clinical Cardiac Electrophysiology Follow Up Patient ID: Jesse Mattson is a 61 y.o. male. HPI Mr Mattson is seen in the EP clinic for routine evaluation of his atrial fibrillation. He was last seen in November of last year. He has been doing reasonably well since then. He is feeling tired with routine physical activity, sweating, SOB. He can walk about 1/4 mile - then he has to catch his breath. No chest pain; wheezing is a little problematic. Occasional dizziness, 'floating on air' sensation - especially if he is active eg stacking wood. No syncope. No PND, orthopnea. He has lost a little weight since he was last seen. Patient Active Problem List Diagnoses ??? Paroxysmal atrial fibrillation - initial 02/2004, started on PO cardizem CD 360mg - recurrence 06/2004, started on coumadin, atenolol - admitted [facility] ED with SOB, fatigue - AF [...] ischemia - 07/09 - nuclear stress test [facility], normal LVEF, normal wall thicknes, no reversible defects - Flecainide discontinued may 2009 - rate control approach initiated- - Holter monitor 05/14/2009 reviewed - AF througout the recording, MIN hr 71, MAX 177, Mean 112 bpm. - Holter monitor 05/2010 - AF, mean ventricular rate 90 ??? Asthma ??? GERD (gastroesophageal reflux disease) ??? Migraines Current outpatient prescriptions Medication Sig Dispense Refill ??? omeprazole (PRILOSEC) 20 mg capsule Take 20 mg by mouth daily. ??? Magnesium 84 mg TbSR Take by mouth 2 times daily. ??? warfarin (COUMADIN) 5 mg tablet Take 5 mg by mouth See Admin Instructions. ??? DILTiazem (DILT-CD) 180 mg 24 hr capsule Take 360 mg by mouth daily. ??? lisinopril (PRINIVIL;ZESTRIL) 20 mg tablet 20mg, PO, Once daily ??? fexofenadine (RADHA) 60 mg tablet 60MG = 1 Tablet(s), PO, Twice daily ??? acetaminophen (TYLENOL EXTRA STRENGTH) 500 mg tablet ??? fluticasone-salmeterol (ADVAIR) 250-50 mcg/dose diskus inhaler 1 Disk(s), Inh, Twice daily ??? Levalbuterol Tartrate 45 mcg/Actuation inhaler 45 MC-2 Puff(s), Inh, PRN ??? Mometasone (NASONEX) 50 mcg/Actuation [place] 2 [place](s), Nasal, Twice daily each nostril ??? DISCONTD: hydroCODone-acetaminophen (VICODIN) 5-500 mg per tablet Take 1 tablet by mouth See Admin Instructions. Review of Systems Constitutional: Positive for weight loss (~ 10 lbs). Negative for weight gain. HENT: Negative. Cardiovascular: Positive for chest pain (brief - non cardiac) and dyspnea on exertion. Respiratory: Positive for shortness of breath (with exertion). Negative for cough, hemoptysis and snoring. Musculoskeletal: Positive for back pain. Objective: Filed Vitals: 02/25/12 1457 BP: 102/70 Pulse: 72 Physical Exam Constitutional: He appears well-developed. HENT: Head: Normocephalic. Eyes: Pupils are equal, round, and reactive to light. ? Early cataract left eye Neck: Normal range of motion. No JVD present. No thyromegaly present. Cardiovascular: Normal rate and normal heart sounds. Exam reveals no gallop. No murmur heard. Pulmonary/Chest: Effort normal. No respiratory distress. He has no wheezes. He has no rales. Abdominal: Soft. Musculoskeletal: Normal range of motion. He exhibits no edema. ECG: Atrial fibrillation, average ventricular response 78 bpm, QRS 100ms Assessment and Plan: Mr Mattson is doing reasonably well from the perspective of his atrial fibrillation. A rate control strategy was adopted a while ago, after extensive discussion with both Mr mattson and his spouse (we had previously discussed alternative anti-arrhythmics and ablation multiple times) His AF appears stable, but we do need to repeat his holter monitor - we'll have this done locally Plan: 1) No changes to his current meds 2) Will arrange for a 24 hour holter locally 3) Spouse mentioned cost of insurance, especially as they are transitioning to medicare - will contact the social science instructor about possible options \ DARRYN SOLORZANO MD documented in this encounter Procedure Notes * Provider, Scanning - 03/29/2012 11:41 AM ESTAssociated Order(s): SCAN DOC: STRESS TEST documented in this encounter Plan of Treatment Scheduled Orders Name Type Priority Associated Diagnoses Orde r Schedule EKG 12 Lead ECG Routine Atrial fibrillation Ordered: 02/25/2012 documented as of this encounter Procedures Procedure Name Priority Date/Time Associated Diagnosis Comments STRESS TEST SCAN 03/29/2012 11:4 1 AM EST EKG 12-LEAD Routine 02/25/2012 3:11 PM EDT Atrial fibrillation documented in this encounter Results * SCAN DOC: STRESS TEST (03/29/2012 11:41 AM EST) Anatomical Region Laterality Modality Other Narrative 03/29/2012 12:26 PM EST Procedure Note Provider, Scanning - 03/29/2012 11:41 AM EST Scanning Provider MEDIA MGR SCAN EXT O RDR/RSLT * EKG 12 Lead (02/25/2012 3:11 PM EDT) Ventricular rate 78 BPM MUSE SYSTEM Atrial Rate 500 BPM MUSE SYSTEM QRS Duration 92 ms MUSE SYSTEM Q-T Interval 364 ms MUSE SYSTEM QTC Calculated (Bezet) 414 ms MUSE SYSTEM Calculated R [place] 47 degrees MUSE SYSTEM Calculated T [place] -30 degrees MUSE SYSTEM INTERPRETATION Atrial fibrillation Nonspecific ST and T wave abnormality Abnormal ECG When compared with ECG of 24-MAY-2010 13:32, Nonspecific T wave abnormality has replaced inverted T waves in Inferior leads Confirmed by oMrgan GONZALEZ, [facility] ([id number]) on 02/26/2012 8:19:31 PM MUSE SYSTEM 02/25/2012 3:11 PM EDT 02/26/2012 8:19 PM EDT Darryn Solorzano MD ECG ORDERABLES MUSE SYSTEM documented in this encounter Visit Diagnoses Diagnosis Atrial fibrillation- Primary documented in this encounter Care Teams Pony Worker Relationship Specialty Start Date End Date Nelia Franklin MD [address] [place] [address] PCP - General 06/19/11 09/18/14 documented as of this encounter
--- OUTSIDE RECORDS SUMMARY | 2024-01-06 17:08 | XMS_ITS | Encounter Summary ---
Author Organization [facility] Address [facility] [place] [address] Care Team Providers Care Ratoprinter Name Role Phone Portillo Conde MD Primary Care Provider Encounter Details Date Type Department Care Team (Late st Contact Info) Description 06/25/2010 1:30 PM EST [place] [address] Campbell Barraza PA [facility] [address] [place] [address] Discharge Disposition: Home Social History Tobacco Use [...] on filedocumented in this encounter Care Teams Ratoprinter Relationship Specialty Start Date End Date Portillo Conde MD [address] [place] [address] PCP - General 03/26/10 06/18/11 documented as of this encounter
--- OUTSIDE RECORDS SUMMARY | 2024-01-06 17:08 | XMS_ITS | Encounter Summary ---
Author Organization [facility] Address [facility] [place] [address] Care Team Providers Care Respiratory Supervisor Name Role Phone Dylan Easton MD Primary Care Provider [phone] Encounter Details Date Type Department Care Team (Late st Contact Info) Description 03/10/2016 Telephone Cardiology at [address] [place] [phone] Darryn Solorzano MD [facility] [place] [address] Social History Tobacco Use Types Packs/Day Years [...] * Telephone Encounter - Abiola Botello - 03/10/2016 10:48 AM EST Good morning Nay Oviedo, a DISTRICT SERVICE MANAGER from [facility] called regarding patient. He is currently admitted at [facility] and he wants to leave [place]. Nay would like to speak with you before he leaves. Her cell phone is [phone]. Please call her when you get a chance. Thanks, Sherron documented in this encounter Plan of Treatment Not on file documented as of this encounter Visit Diagnoses Not on filedocumented in this encounter Care Teams Respiratory Supervisor Relationship Specialty Start Date End Date Dylan Easton MD [address] [place] [address] PCP - General Family Medicine 08/08/15 01/21/22 documented as of this encounter
--- OUTSIDE RECORDS SUMMARY | 2024-01-06 17:08 | XMS_ITS | Clinical Summary ---
Author Organization [facility] Address [address] [place] [address] Care Team Providers Care Pig Conveyor Operator Name Role Phone Angel Abebe MD Primary Care Provider [phone] Social History Tobacco Use Types Packs/Day Years Used Date Smoking Tobacco: Never Assessed Sex and Gender Information Value Date Recorded Sex Assigned at Not on file Gender Identity Not on file Sexual Orientation Not on file Plan of Treatment Health Maintenance Due Date Last Done Comments Hepatitis C Screen 1950 RSV Immunization ( o r 60+ Years) (1 - 1-dose 60+ series) 2010 Fall Risk Screening 11/03/2015 COVID-19 Vaccine ( season) 2024 Care Teams Pig Conveyor Operator Relationship Specialty Start Date End Date Angel Abebe MD [address] [place] [address] [place] [address] PCP - General Family Medicine - Primary Care 09/01/22
--- OUTSIDE RECORDS SUMMARY | 2024-01-06 17:08 | XMS_ITS | Encounter Summary ---
Author Organization [facility] [place] [address] Care Team Providers Care International Coordinator Name Role Phone Nelia Franklin MD Primary Care Provider [phone] Encounter Details Date Type Department Care Team (Late st Contact Info) Description 06/06/2014 Telephone Otolaryngology at [facility] [place] [phone] Yoselin Whiteside Social History Tobacco Use Types Packs/Day Years [...] encounter Miscellaneous Notes * Telephone Encounter - Yoselin Whiteside - 06/06/2014 12:58 PM EST Sent September 2014 reminder card out for MÓNICA Vaughan. documented in this encounter Plan of Treatment Not on file documented as of this encounter Visit Diagnoses Not on filedocumented in this encounter Care Teams International Coordinator Relationship Specialty Start Date End Date Nelia Franklin MD [address] [place] [address] PCP - General 06/19/11 09/18/14 documented as of this encounter
--- OUTSIDE RECORDS SUMMARY | 2024-01-06 17:08 | XMS_ITS | Encounter Summary ---
Author Organization [facility] Address [facility] [place] [address] Care Team Providers Care Air Brake Adjuster Name Role Phone Portillo Conde MD Primary Care Provider [phone] Reason for Visit * Reason Comments Skin Lesion Encounter Details Date Type Department Care Team (Late st Contact Info) Description 05/21/2011 11:30 AM EST [place] [address] Mariajose Deluca MD [facility] [place] [address] Neoplasm of unspecified nature of bone, soft tissue, and skin (Primary Dx) Discharge Disposition: Home Social History [...] as of this encounter Progress Notes * Mariajose Deluca MD - 05/21/2011 11:52 AM EST DERMATOLOGY SPOT-CHECK Date of service: 05/21/2011 Jesse Jaocb : 1950 Provider: Mariajose Deluca MD PROBLEM: Spot to check Chief Complaint Patient presents with ??? Skin Lesion The patient is seen at the request of Nelia Franklin, who instructed the patient to be seen for evaluation of above SKIN HX: 1.Benign nevus in the past HPI Jesse Jacob is a 60 y.o. year old male,new patient referred for a mole on his abdomen; present at least several years. He is unable to say with certainty whether or not this lesion is changing. Denies itching or bleeding of this spot.Family history negative.Does recall blistering sunburns in the past. Seen for one spot-check at this apointment. Knows this is a one-spot check clinic only. Knows will need to make appointment for full skin check if desired or to have other areas checked. ADR: Allergies Allergen Reactions ??? Doxycycline Hyclate Rash ??? Tetracycline MEDS: Current outpatient prescriptions ordered prior to encounter Medication Sig Dispense Refill ??? Magnesium 84 mg TbSR Take by mouth 2 times daily. ??? hydroCODone-acetaminophen (VICODIN) 5-500 mg per tablet Take 1 tablet by mouth See Admin Instructions. ??? warfarin (COUMADIN) 5 mg tablet Take [...] Inh, PRN ??? Mometasone (NASONEX) 50 mcg/Actuation [place] 2 [place](s), Nasal, Twice daily each nostril ROS General: feeling well EXAM A focused skin exam of the concerning spot was performed. General: NAD, pleasant, cooperative male. Focused exam of skin:abdomen Skin findings: A. 0.7cm bi-colored macule right upper abdomen ASSESSMENT/PLAN: A.Nevus ruleout atypia-Procedure: Skin biopsy. Location:right upper abdomen Discussed indications for procedure and expectations including risks and benefits. Verbal consent obtained. Skin prep with alcohol. Local anesthesia with 1% xylocaine, 1/100,000 epinephrine, 0.1 mEq/mL bicarbonate. A sample of the lesion was removed by shave technique to the level of the dermis andsubmitted to Pathology. Hemostasis obtained (AlCl and/or electrocautery). There were no complications; the pt. tolerated the procedure well. The wound was dressed. Post-procedure expectations, wound care and activity restrictions were reviewed. B. Follow-up based on pathology results or prn Note initiated by: SHY MACHADO M.D. Section of Dermatology [facility] cc: Nelia Franklin documented in this encounter Plan of Treatment Not on file documented as of this encounter Procedures Procedure Name Priority Date/Time Associated Diagnosis Comments SURGICAL PATHOLOGY REPORT Routine 05/21/2011 2:14 PM EST SPECIMEN TO PATHOLOGY Routine 05/21/2011 12:02 PM EST Neoplasm of unspecified nature of bone, soft tissue, and skin documented in this encounter Results * SURGICAL PATHOLOGY REPORT (05/21/2011 2:14 PM EST) Surgical Pathology Report ? [facility] ? Provider: ?? MARIAJOSE DELUCA ? Pt. Name: ?? JESSE JACOB ? Acc #: ?[id number] ? Pt. ? Col Date: ?? 05/21/2011 ? /Sex: ?1950,(60 years),Male ? Rec Date: ?? 05/21/2011 ? LOC: ?4M ? SURGICAL PATHOLOGY ? ---Pathologic Diagnosis--- ? Skin, right upper abdomen, shave biopsy: ?Compound nevus, focally extending to the peripheral specimen edge (see ? Comment). ? CR-0 ? 05/21/11 ? AJE ? 05/22/11 Verified by: ? Tyree Liu MD ? Dermatopathologist ? (Electronic Signature) ? The attending pathologist whose signature appears on this report has ? reviewed all diagnostic slides and has edited the gross and/or ? microscopic portion of the report in rendering the final pathologic ? diagnosis. ? ---Comment--- ? There is no significant atypia in the portion of lesion sampled. ? ---Microscopic Description--- ? Slides reviewed, microscopic description not recorded. ? ---Gross Description--- ? Labeled/Fixative: ? R upper abdomen, formalin. ? Qty/Size/Weight: ?Single shave, 0.7 cm, light and dark brown ? Sections/Processing: ??Trisected. ??(T1) aje/SNS ? ---Clinical Information--- ? Specimen Submitted: ? A - Skin, right upper abdomen, shave (1) ? Clinical History/Diagnosis: ? 0.7-cm bicolored macule / nevus R/O atypia AKI SOHAILJOHN 05/21/2011 2:14 PM EST Mariajose Deluca MD PATHOLOGY/CYTOLOGY O CHERRI AKI ZAMORA * Specimen to Pathology (surgical or derm) (05/21/2011 12:02 PM EST) AP Specimen 05/21/2011 12:0 2 PM EST 05/21/2011 12:03 PM EST Narrative AKI ZAMORA - 05/21/2011 12:03 PM EST Specimen requisition ordered. ??Separate Pathology report to follow Mariajose Deluca MD PATHOLOGY/CYTOLOGY O RDERABLES AKI ZAMORA documented in this encounter Visit Diagnoses Diagnosis Neoplasm of unspecified nature of bone, soft tissue, and skin- Primary documented in this encounter Care Teams Air Brake Adjuster Relationship Specialty Start Date End Date Portillo Conde MD [address] [place] [address] PCP - General 03/26/10 06/18/11 documented as of this encounter
--- OUTSIDE RECORDS SUMMARY | 2024-01-06 17:08 | XMS_ITS | Encounter Summary ---
Author Organization Formerly [facility] Address [facility] [place] [address] Care Team Providers Care Mortgage Specialist Name Role Phone Dylan Easton MD Primary Care Provider [phone] Reason for Visit * Reason Comments Atrial Fibrillation Bradycardia Follow-up Ekg Encounter Details Date Type Department Care Team (Late st Contact Info) Description 06/07/2018 2:00 PM EST Office Visit Cardiology at [address] [phone] Augustina Mayfield PA [facility] [place] [address] Permanent atrial fibrillation; Bradycardia Social History Tobacco Use Types Packs/Day [...] Sign Reading Time Taken Comments Blood Pressure 138/92 06/07/2018 1:49 PM EST Pulse 86 06/07/2018 1:49 PM EST Temperature - - Respiratory Rate - - Oxygen Saturation 96% 06/07/2018 1:49 PM EST Inhaled Oxygen Concentration - - Weight 90.3 kg (199 lb) 06/07/2018 1:49 PM EST Height 177.8 cm (5' 10) 06/07/2018 1:49 PM EST Body Mass Index 28.55 06/07/2018 1:49 PM EST documented in this encounter Progress Notes * Augustina Mayfield PA - 06/07/2018 2:00 PM EST Images from the original note were not included. Section of Cardiology/Cardiac Electrophysiology Patient: Jesse Carranza : 1950 CC: Atrial fibrillation follow-up HISTORY Jesse Carranza is a 67 y.o. male with a past medical history of GERD, asthma, bradycardia, and, permanent atrial fibrillation on warfarin who presents for atrial fibrillation management follow-up. In March 2016, Mr. Carranza was seen at [facility] and found to be in slow afib in the 30s-40s therefore diltiazem and digoxin were discontiued. He was then started on metoprolol and diltiazem and was reasonably well rate controlled with this. Today, he reports feeling tired with body aches for the past couple weeks. He went to [facility] for awork-up and ruled out for the flu via a swab. He denies subjective fevers, headaches, lightheadedness, chest pain, palpitations, cough, shortness of breath, N/V/D. Otherwise, his fatigue is no different than it was 2 years ago. He explains that his granddaughter stays with him and his on most days/nights of the week. Shesleeps in their room and tends to wake up throughout the night. Mr. Carranza adds that he is able to get to sleep but has difficulty staying asleep throughout the night. He had a stress test over the summer, but he is unsure of the results. YULISA Evaluation: +Snores; no apnea, no morning headaches AF Type: permanent Diagnosed: February 2004, started dilt Symptoms: SOB, fatigue Prior therapies: -DCCV 2004 (recurrence) -initiated dig and dofetilide (freq recurrences) --> d/c'd 2005 -initiated flecainide 2005 -discontinued flecainide 2009 to initiate rate control approach Anticoagulation: warfarin Pertinent medications: metoprolol tartrate 25mg BID diltiazem 360mg daily lisinopril 40mg daily Medications: Current Outpatient Medications Medication Sig Note Dispense Refill ??? digoxin (LANOXIN) 250 mcg Tablet TAKE ONE TABLET BY MOUTH EVERY DAY 4 ??? lisinopril (PRINIVIL;ZESTRIL) 40 mg Tablet TAKE 1 TABLET BY MOUTH DAILY 05/21/2016: Received from: External Pharmacy 4 ??? metoprolol tartrate (LOPRESSOR) 25 mg [...] Inh, PRN ??? Mometasone (NASONEX) 50 mcg/Actuation [place] 2 [place](s), Nasal, Twice daily each nostril 09/19/2014: occasionally ??? amLODIPine (NORVASC) 5 mg Tablet TAKE ONE TABLET BY MOUTH EVERY DAY 4 ROS: Constitutional: + fatigue (see HPI), - fever, - chills Respiratory: - shortness of breath, - cough, - apnea, - wheezing Cardiovascular: - chest pain, - palpitations, - unusual rates Gastrointestinal: - nausea, - vomiting, - abdominal pain, - diarrhea Neurological: - lightheadedness, - dizziness, - syncope, - weakness Psychiatric: - anxious Objective: Vitals: Vitals: 06/07/18 1349 BP: (!) 138/92 Pulse: 86 SpO2: 96% Weight: 90.3 kg (199 lb) Height: 177.8 cm (5' 10) Physical Exam: General- No acute distress, sitting comfortably in exam room chair HEENT- Head atraumatic, normocephalic, wearing glasses Neck- No JVD noted Cardiovascular- S1, S2, irregular rate and irregular rhythm. No murmur, rub or gallop Lungs- Clear to auscultation bilaterally Extremities- Pulses equal bilaterally. Trace non-pitting edema to ankles bilaterally Neuro- A&Ox3 ECG in office today shows atrial fibrillation with a ventricular rate of approximately 72bpm. Stress Echo 05/21/16: SUMMARY: 1. Results: This is a negative [...] no left ventricular segmental wall motion abnormalities. Assessment and Plan: 67 y.o. with medical history significant for GERD, asthma, bradycardia, and, permanent atrial fibrillation on warfarin who presents for atrial fibrillation management follow-up. It appears as though Mr. Carranza has not had significant change to his chief complaint of fatigue approximately 2 years ago. I am interested to hear about the results of his stress echo which he had this past summer, with intent to compare to his stress test here in May 2016. Notably, he is not getting sufficient sleep as he wakes up several times throughout the night and I anticipate that chronically, this is playing a role into his persistent fatigue. His acute complaint of fatigue does not appear to be infectious, and in the absence of any other symptoms (subjective fevers, chills, chest pain, lightheadedness, cough, N/V/D, new rash, changes in mood or memory) it is difficult to pin-point an etiology. Rather, it appears to be an exacerbation of an already underlying complaint of general fatigue. A sleep s tudy may be warranted but a trial of sleep without disruption would be beneficial as a preliminary treatment. With an elevated resting blood pressure today, I am not inclined to decrease his metoprolol. However, if fatigue does not resolve, consider alternative blood pressure management with intentto decrease metoprolol tartrate (currently, 25mg PO BID) if beta jatin is thought to be a contributor to his overall fatigue. Plan: 1. No medication changes today 2. Contact Dr. Easton for results of previous stress test 3. Follow-up with Dr. Solorzano in 6 months to discuss AF, symptoms, and possible medication adjustments I appreciate the opportunity to be involved with Mr. Carranza's care. Please do not hesitate to contact EP with any further questions (pager [phone]). MÓNICA Morris 06/07/18 2:21 PM documented in this encounter Plan of Treatment Not on file documented as of this encounter Procedures Procedure Name Priority Date/Time Associated Diagnosis Comments EKG 12-LEAD Routine 06/07/2018 2:05 PM EST Permanent atrial fibrillation documented in this encounter Results * EKG 12 Lead (06/07/2018 2:05 PM EST) Ventricular rate 76 BPM MUSE SYSTEM Atrial Rate 94 BPM MUSE SYSTEM QRS Duration 94 ms MUSE SYSTEM Q-T Interval 374 ms MUSE SYSTEM QTC Calculated (Bezet) 420 ms MUSE SYSTEM Calculated R Corona 14 degrees MUSE SYSTEM Calculated T [place] -36 degrees MUSE SYSTEM INTERPRETATION Atrial fibrillation Nonspecific ST and T wave abnormality Abnormal ECG When compared with ECG of 19-MAR-2016 15:12, Criteria for Inferior infarct are no longer Present Confirmed by Morgan GONZALEZ Yvon ([id number]) on 06/07/2018 4:10:00 PM MUSE SYSTEM 06/07/2018 2:05 PM EST 06/07/2018 4:10 PM EST Darryn Solorzano MD ECG ORDERABLES MUSE SYSTEM * Basic Metabolic Panel (non-fasting) (06/07/2018 1:31 PM EST) Glucose 103 65 - 199 mg/dL [facility] Comment:Diabetes: >=200 mg/d L plus symptoms Blood Urea Nitrogen 11 10 - 20 mg/dL [facility] Creatinine 0.87 0.80 - 1.50 mg/dL [facility] Sodium 137 135 - 145 mmol/L [facility] Potassium 3.7 3.5 - 5.0 mmol/L [facility] Comment: Please note: ??Patients with WBC >100,000 may have falsely elevated Potassium levels. ??For accurate Potassium quantification in these patients send serum separator tube (gold top) for subsequent determinations. ??Contact the Clinical Chemistry Laboratory if there are any questions. Chloride 100 98 - 107 mmol/L [facility] Carbon Dioxide 25 22 - 31 mmol/L [facility] Anion Gap 12 5 - 15 mmol/L [facility] Calcium 9.3 8.5 - 10.5 mg/dL [facility] Est Glomerular Filtration Rate 89 >=60 mL/min/1. 73 m?? [facility] Comment: The eGFR was calculated using the CKD-EPI equation. As with all creatinine based estimates of kidney function, eGFR values calculated with the CKD-EPI equation are not accurate in patients with acute kidney failure, extremes of body mass or the acutely ill. [email or web address] CITYnkf eGFR 104 >=60 mL/min/1. 73 m?? [facility] Comment: The eGFR was calculated using the CKD-EPI equation. As with all creatinine based estimates of kidney function, eGFR values calculated with the CKD-EPI equation are not accurate in patients with acute kidney failure, extremes of body mass or the acutely ill. [email or web address] Blood specimen (specimen) 06/07/2018 1:31 PM EST 06/07/2018 1:41 PM EST Narrative Resulting Agency Comment Spec In Lab Darryn Solorzano MD CHEMISTRY ORDERABLES [facility] [place] [address] documented in this encounter Visit Diagnoses Diagnosis Permanent atrial fibrillation Atrial fibrillation Bradycardia Other specified cardiac dysrhythmias documented in this encounter Care Teams Mortgage Specialist Relationship Specialty Start Date End Date Dylan Easton MD [address] [place] [address] [address] [place] [address] PCP - General Family Medicine 08/08/15 01/21/22 documented as of this encounter
--- OUTSIDE RECORDS SUMMARY | 2024-01-06 17:08 | XMS_ITS | Encounter Summary ---
Author Organization [facility] Address [address] [place] [address] Care Team Providers Care Section Chief Name Role Phone Unavailable Primary Care Provider Unavailabl e Encounter Details Date Type Department Care Team (Late st Contact Info) Description 10/15/2000 Results Only [facility] [address] [place] [address] Dylan Grayson MD [address] [place] [address] Social History Tobacco Use Types Packs/Day Years Used Date Smoking Tobacco: Never Assessed Sex and Gender Information Value Date Recorded Sex Assigned at Not on file Gender Identity Not on file Sexual Orientation Not on file documented as of this encounter Plan of Treatment Not on file documented as of this encounter Procedures Procedure Name Priority Date/Time Associated Diagnosis Comments SURGICAL PATHOLOGY Routine 10/15/2000 0:00 EDT documented in this encounter Results * SURGICAL PATHOLOGY (10/15/2000 0:00 EDT) Pathology Report: SURGICAL PATHOLOGY REPORT Reports generated via electronic interface contain original data; however they are lacking the format of the original report. Caution should be taken when reading/interpreti ng unformatted reports. Name: ? CECILSHALOMPHYLLIS ? Accession #: ? [id number] ? : ? 1950 (Age: 49) ??M ? Collect Date: ? 10/15/2000 ? Location: ? [facility] ? Receive Date: ? 10/16/2000 ? Provider: MIRIAM GRAYSON MD Copy to: DANILO SALVADOR MD ? Final Pathologic Diagnosis: ? Skin of arm, left, excisional biopsy: 1. ?Blue nevus. ? - Lesion does not extend to margins of excision specimen. Microscopic Description: ? Sections are of a low papule. ??The epidermis is generally unremarkable. The junctional melanocytes are generally normal in number. ??Occasional large melanocytes with hyperchromatic nuclei are present. ??There is no nest formation and the melanocytes do not show a tendency toward confluent growth. ??Within the reticular dermis, there is a proliferation of spindle-shaped melanocytes including bipolar and dendritic forms. ??The latter have elongate cytoplasmic processes containing abundant coarse melanin pigment. ??The nuclei are relatively uniform, elongate, and have tapered ends. ??The melanocytes are associated with thickened collagen bundles and clusters of melanophages. ??The proliferation is overall symmetric and wedge-shaped. ??(Dr. Enriquez)/yoana Document reviewed and electronically signed by: Flora Enriquez MD Report ??Date: 10/20/2000 16:03 By the signature above, the attending physician certifies that he/she has personally conducted a gross and/or microscopic examination of the described specimens and rendered or confirmed the above diagnosis. Specimen(s) Received: ? Suture is proximal Clinical History: ? Nevus vs melanoma Gross Description: ? Received in formalin labelled Walker and lesion left arm is an oriented elliptical excision of skin measuring 0.8 x 0.5 cm to a depth of 0.3 cm. ??There is a central black low papule that measures 0.3 cm in diameter. ??Two black sutures are present at one tip which is designated as 12 o' clock (proximal per Surgical Pathology requisition form). ??The surgical excision margin is inked as follows: 3 o' clock half ??black; 9 o' clock half ??blue. ??The specimen is serially sectioned from 12 o' clock to 6 o' clock and sequentially submitted as (A1) ??(A4). ??(Dr. Lucas)/[facility] End of Report [facility] 10/15/2000 10/16/2000 15: 10 EDT Dylan Grayson MD PATHOLOGY ORDERABLES [facility] [address] [place] [address] documented in this encounter Visit Diagnoses Not on filedocumented in this encounter
--- OUTSIDE RECORDS SUMMARY | 2024-01-06 17:08 | XMS_ITS | Encounter Summary ---
Author Organization [facility] Address [facility] [place] [address] Care Team Providers Care Graduate Assistant Name Role Phone Dylan Easton MD Primary Care Provider [phone] Encounter Details Date Type Department Care Team (Late st Contact Info) Description 08/16/2015 2:00 PM EDT Office Visit Cardiology at [address] [place] [address] Darryn Solorzano MD [facility] [place] [address] Permanent atrial fibrillation Social History Tobacco Use [...] Sign Reading Time Taken Comments Blood Pressure 162/110 08/16/2015 1:49 PM EDT Pulse 75 08/16/2015 1:49 PM EDT irreg Temperature - - Respiratory Rate - - Oxygen Saturation 98% 08/16/2015 1:49 PM EDT on room air Inhaled Oxygen Concentration - - Weight 88.9 kg (196 lb) 08/16/2015 1:49 PM EDT Height 177.8 cm (5' 10) 08/16/2015 1:49 PM EDT Body Mass Index 28.12 08/16/2015 1:49 PM EDT documented in this encounter Patient Instructions * Patient Instructions* Darryn Solorzano MD - 08/16/2015 2:06 PM EDT Images from the original note were not included. It was good to see you in the Cardiac Electrophysiology Clinic today. We discussed the atrial fibrillation, the medicines, the lightheadedness You should continue with your medicines as before - please increase the metoprolol to 25 mg three times daily If you continue to have episodes of lightheadedness, we should arrange for a heart rhythm monitor For any questions, call my office: [phone] To access your health care information, go to the web at: [email or web address] (you will need to register) For educational materials: [email or web address] Darryn KNOX.[facility], Clinical Cardiac Electrophysiology, [facility], [facility] A Healthy Heart: After Your Visit Your Care Instructions Heart disease occurs when the vessels that supply oxygen-rich blood to your heart become narrow or blocked. A heart attack happens when blood flow is completely blocked. A high-fat diet, smoking, andother factors increase the risk of heart disease. Abnormal heart rhythms can occur in the presence and absence of other heart disease. You can do lots of things to keep your heart healthy. It may not be easy, but you can change your diet, exercise more, and quit smoking. These steps really work to lower your chance of heart disease. Follow-up care is a brooks part of your treatment and safety. Be sure to make and go to all appointments, and call your doctor if you are having problems. It???s also a good idea to know your test results and keep a list of the medicines you take. How can you care for yourself at home? Diet ?? Use less salt when you cook and eat. This helps lower your blood pressure. Taste food before salting. Add only a little salt when you think you need it. With time, your taste buds will adjust to less salt. ?? Eat fewer snack items, fast foods, canned soups, and other high-salt, high- fat, processed foods. ?? Read food labels and try to avoid saturated and trans fats. They increase your risk of heart disease by raising cholesterol levels. ?? Limit the amount of solid fat--butter, margarine, and shortening--you eat. Use olive, peanut, orcanola oil when you cook. Bake, broil, and steam foods instead of frying them. ?? Eating fish can lower your risk for heart disease. Eat at least 2 servings of fish a week. Bell, mackerel, flores, sardines, and chunk light tuna are very good choices. These fish contain omega-3 fatty acids. ?? Eat a variety of fruit and vegetables every day. Dark green, deep orange, red, or yellow fruits and vegetables are especially good for you. Examples include spinach, carrots, peaches, and berries.You may need to eat these in moderation if you are taking coumadin or warfarin ?? Foods high in fiber can reduce your cholesterol and provide important vitamins and minerals. High-fiber foods include whole-grain cereals and breads, oatmeal, beans, brown rice, citrus fruits, andapples. ?? Limit drinks and foods with added sugar. These include candy, desserts, and soda pop. Lifestyle changes ?? If your doctor recommends it, get more exercise. Walking is a good choice. Bit by bit, increase the amount you walk every day. Try for at least 30 minutes on most days of the week. You also may want to swim, bike, or do other activities. ?? Do not smoke. If you need help quitting, talk to your doctor about stop- smoking programs and medicines. These can increase your chances of quitting for good. Quitting smoking may be the most important step you can take to protect your heart. It is never too late to quit. You will get health benefits right away. ?? Limit alcohol to 2 drinks a day for men and 1 drink a day for women. Too much alcohol can cause health problems. Medicines ?? Take your medicines exactly as prescribed. Call your doctor if you think you are having a problem with your medicine. ?? If your doctor recommends aspirin, take the amount directed each day. Make sure you take aspirinand not another kind of pain reliever, such as acetaminophen (Tylenol). If you take ibuprofen (suchas Advil or Motrin) for other problems, take aspirin at least 2 hours before taking ibuprofen. When should you call for help? Call 911 if you have symptoms of a heart attack. These may include: ?? You have chest pain or pressure. This may occur with: ?? Chest pain or pressure, or a strange feeling in the chest. ?? Sweating. ?? Shortness of breath. ?? Pain, pressure, or a strange feeling in the back, neck, jaw, or upper belly or in one or both shoulders or arms. ?? Lightheadedness or sudden weakness. ?? A fast or irregular heartbeat. After you call 911, the handle machine operator may tell you to chew 1 adult-strength or 2 to 4 low-dose aspirin. Wait for an ambulance. Do not try to drive yourself. Watch closely for changes in your health, and be sure to contact your doctor if: ?? Your symptoms are slowly getting worse. ?? You do not get better as expected. Where can you learn more? Visit our health information library at [email or web address] [email or web address]. You can alsoview health information on [employer], your personal patient account. Log in or sign up today. Enter F075 in the search box to learn more about A Healthy Heart: After Your Visit. ?? [id number] [employer]. documented in this encounter Progress Notes * Darryn Solorzano MD - 08/16/2015 1:46 PM EDT Clinical Cardiac Electrophysiology Follow Up Patient ID: Jesse Carranza is a 64 y.o. male. HPI Mr Carranza is seen in the EP clinic for routine evaluation of his atrial fibrillation. He was last seen in 2013. A rate control strategy has been adopted for his atrial fibrillation. He remains moderately physically active, perhaps a little better than at his last visit. Unfortunately, his had a stroke last year. She was initially affected with right side weaknessbut has made a good recovery from this. No antwan syncope. He can walk uphill, can one flight of stairs. Can lie flat, no PND, no dyspnea. He has lost some weight, intentionally. No lightheadedness, he does get occasional dizziness. 'feel like I'm going to faint' - episodes occur infrequently - the last event happened last night, he checked his pulse rate, ~ 80 bpm at that time. No palpitations. He has had a few episodes in the last year. He was last seen by Dr Easton - a few months ago, when he had what sounded like a PNA and was treated with Abx Hydrates well - drinks at least 64 ounces a day. No heart failure symptoms. Patient Active Problem List Diagnosis ??? Permanent atrial fibrillation - initial 02/2004, started on PO cardizem CD 360mg - recurrence 06/2004, started on coumadin, atenolol - admitted [facility] ED with SOB, fatigue - AF [...] ischemia - 07/09 - [place] [facility] [place] LVEF, normal wall thicknes, no reversible defects - Flecainide discontinued may 2009 - rate control approach initiated- - Holter monitor 05/14/2009 reviewed - AF througout the recording, MIN hr 71, MAX 177, Mean 112 bpm. - Holter monitor 05/2010 - AF, mean ventricular rate 90 ??? Asthma ??? GERD (gastroesophageal reflux disease) ??? Migraines Current Outpatient Prescriptions Medication Sig Dispense Refill ??? metoprolol tartrate (LOPRESSOR) 25 [...] Inh, PRN ??? Mometasone (NASONEX) 50 mcg/Actuation [place] 2 [place](s), Nasal, Twice daily each nostril No current facility-administered medications for this visit. Review of Systems Constitution: Positive for weight loss. Negative for weight gain. HENT: Negative. Cardiovascular: Positive for chest pain (brief - non cardiac) and dyspnea on exertion. Respiratory: Positive for shortness of breath (with exertion). Negative for cough, hemoptysis and snoring. Musculoskeletal: Positive for back pain. Neurological: Positive for light-headedness. Objective: Filed Vitals: 08/16/15 1349 BP: 162/110 Pulse: 75 Physical Exam Constitutional: He is oriented to person, place, and time. He appears well-developed. Body mass index is 28.12 kg/(m^2). HENT: Head: Normocephalic. Eyes: Pupils are equal, round, and reactive to light. ? Early cataract left eye Neck: Normal range of motion. No JVD present. No thyromegaly present. Cardiovascular: Normal rate and normal heart sounds. Exam reveals no gallop. No murmur heard. Pulmonary/Chest: Effort normal. No respiratory distress. He has no wheezes. He has no rales. Abdominal: Soft. Musculoskeletal: Normal range of motion. Edema: minimal. Neurological: He is oriented to person, place, and time. Skin: Skin is dry. Psychiatric: He has a normal mood and affect. Assessment and Plan: Mr Carranza is doing reasonably well from the perspective of his atrial fibrillation. A rate control strategy was adopted a while ago and in general he has done well with this. His last holter monitor showed reasonable ventricular rate control, his rate is also reasonable in clinic today, but his BP is quite elevated. I asked him to increase his metoprolol to three times daily and to keep a close eye on his BP - he has a BP machine at home. I am not certain as to the etiology of his occasional episodes of pre-syncope, but if these become more frequent, then an ambulatory monitor would be the next step. Plan: 1) Continue rate control strategy, I have increased his metoprolol to 25 mg three times daily for better blood pressure control 2) Mr Carranza will call me with symptoms if there are problems 3) No routine follow up planned if he continues to do wel. DARRYN SOLORZANO MD 20 minutes of this 25 minute encounter were spent in counselling ( discussion about atrial fibrillation, rate control, beta jatin) documented in this encounter Plan of Treatment Not on file documented as of this encounter Visit Diagnoses Diagnosis Permanent atrial fibrillation Atrial fibrillation documented in this encounter Care Teams Graduate Assistant Relationship Specialty Start Date End Date Dylan Easton MD [address] [place] [address] PCP - General Family Medicine 08/08/15 01/21/22 documented as of this encounter
--- OUTSIDE RECORDS SUMMARY | 2024-01-06 17:08 | XMS_ITS | Encounter Summary ---
Author Organization [facility] Address [facility] [place] [address] Care Team Providers Care Poultry Sexer Name Role Phone Nelia Franklin MD Primary Care Provider Encounter Details Date Type Department Care Team (Late st Contact Info) Description 03/15/2012 Orders Only Cardiology at [address] [place] [id number] Darryn Solorzano MD [facility] [place] [address] Ventricular tachycardia (Primary Dx) Social History Tobacco Use Types Packs/Day Years [...] as of this encounter Progress Notes * Darryn Solorzano MD - 03/15/2012 4:44 PM EST Review of recent holter monitor shows acceptable heart rate control in AF (rates 59-134, mean 84) 1 episode of WCT - 32 beats, monomorphic in appearance, consistent with VT. Given his symptoms of ALEXANDER, will order stress nuclear study for further evaluation (last in 2007) DARRYN SOLORZANO MD documented in this encounter Plan of Treatment Not on file documented as of this encounter Visit Diagnoses Diagnosis Ventricular tachycardia- Primary Paroxysmal ventricular tachycardia documented in this encounter Care Teams Poultry Sexer Relationship Specialty Start Date End Date Nelia Franklin MD [address] [place] [address] PCP - General 06/19/11 09/18/14 documented as of this encounter
--- OUTSIDE RECORDS SUMMARY | 2024-01-06 17:08 | XMS_ITS | Encounter Summary ---
[place] [address] Care Team Providers Care Supervisor Agency Appointments Name Role Phone Dylan Easton MD Primary Care Provider [phone] Encounter Details Date Type Department Care Team (Latest Contact Info) Description 06/07/2018 1:00 PM EST Laboratory Appointment Lab [address] [place] [id number] Permanent atrial fibrillation Social History Tobacco Use [...] 06/07/2018 1:31 PM EST Permanent atrial fibrillation documented in this encounter Results * Basic Metabolic Panel (non-fasting) (06/07/2018 1:31 PM EST) Glucose 103 65 - 199 mg/dL [facility] Comment:Diabetes: >=200 mg/d L plus symptoms Blood Urea Nitrogen 11 10 - 20 mg/dL [facility] Creatinine 0.87 0.80 - 1.50 mg/dL [facility] Sodium 137 135 - 145 mmol/L [facility] Potassium 3.7 3.5 - 5.0 mmol/L [facility] Comment: Please note: ??Patients with WBC >100,000 may have falsely elevated Potassium levels. ??For accurate Potassium quantification in these patients send serum separator tube (gold top) for subsequent determinations. ??Contact the Clinical Chemistry Laboratory if there are any questions. Chloride 100 98 - 107 mmol/L [facility] Carbon Dioxide 25 22 - 31 mmol/L [facility] Anion Gap 12 5 - 15 mmol/L [facility] Calcium 9.3 8.5 - 10.5 mg/dL [facility] Est Glomerular Filtration Rate 89 >=60 mL/min/1. 73 m?? [facility] Comment: The eGFR was calculated using the CKD-EPI equation. As with all creatinine based estimates of kidney function, eGFR values calculated with the CKD-EPI equation are not accurate in patients with acute kidney failure, extremes of body mass or the acutely ill. [email or web address] [email or web address] [email or web address] eGFR 104 >=60 mL/min/1. 73 m?? [facility] Comment: The eGFR was calculated using the CKD-EPI equation. As with all creatinine based estimates of kidney function, eGFR values calculated with the CKD-EPI equation are not accurate in patients with acute kidney failure, extremes of body mass or the acutely ill. [email or web address] Blood specimen (specimen) 06/07/2018 1:31 PM EST 06/07/2018 1:41 PM EST Narrative Resulting Agency Comment Spec In Lab Darryn Solorzano MD CHEMISTRY ORDERABLES [facility] [place] [address] documented in this encounter Visit Diagnoses Diagnosis Permanent atrial fibrillation Atrial fibrillation documented in this encounter Care Teams Supervisor Agency Appointments Relationship Specialty Start Date End Date Dylan Easton MD [address] [place] [address] PCP - General Family Medicine 08/08/15 01/21/22 documented as of this encounter
--- OUTSIDE RECORDS SUMMARY | 2024-01-06 17:08 | XMS_ITS | Encounter Summary ---
Author Organization [facility] Address [facility] [place] [address] Care Team Providers Care Director Instructional Material Name Role Phone Nelia Franklin MD Primary Care Provider [phone] Encounter Details Date Type Department Care Team (Late st Contact Info) Description 10/10/2013 9:40 AM EDT Follow-Up Cardiology at [address] [phone] Darryn Solorzano MD [facility] [place] [address] Atrial fibrillation (Primary Dx) Discharge Disposition: Home [...] Sign Reading Time Taken Comments Blood Pressure 118/72 10/10/2013 9:31 AM EDT Pulse 100 10/10/2013 9:31 AM EDT irregular/radial Temperature - - Respiratory Rate - - Oxygen Saturation 99% 10/10/2013 9:3 1 AM EDT Inhaled Oxygen Concentration - - Weight 86.6 kg (191 lb) 10/10/2013 9:31 AM EDT Height 177.8 cm (5' 10) 10/10/2013 9:3 1 AM EDT Body Mass Index 27.41 10/10/2013 9:31 AM EDT documented in this encounter Patient Instructions * Patient Instructions* Darryn Solorzano MD - 10/10/2013 10:57 AM EDT It was good to see you in the Cardiac Electrophysiology Clinic today. We discussed the atrial fibrillation, the rate control You should continue with your medicines as before, I added metoprolol at low dose 25 mg daily for the morning I will arrange for a routine follow up in about 12 months time For any questions, call my office: [phone] To access your health care information, go to the web at: [email or web address] (you will need to register) For educational materials: [email or web address] Darryn KNOX.[facility], Clinical Cardiac Electrophysiology, [facility], [facility] A Healthy Heart: After Your Visit Your [...] least 2 servings of fish a week. [place], mackerel, flores, sardines, and chunk light tuna [...] irregular heartbeat. After you call 911, the hydrate thickener operator may tell you to chew 1 [...] more? Visit our health information library at [email or web address]/[email or web address]. You can alsoview health information on [employer], your personal patient account. Log in or sign up today. Enter F075 in the search box to learn more about A Healthy Heart: After Your Visit. ?? [id number] [employer]. documented in this encounter Progress Notes * Darryn Solorzano MD - 10/10/2013 9:59 AM EDT Clinical Cardiac Electrophysiology Follow Up Patient ID: Jesse Carranza is a 62 y.o. male. HPI Mr Carranza is seen in the EP clinic for routine evaluation of his atrial fibrillation. He was last seen in 2011. A rate control strategy has been adopted for his atrial fibrillation. 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 About once per month he is short of breath, dizzy , feels weak. He feels his heart racing at that time. Usually lies down,takes things easy and these sensations resolve. He has lost weight over the last year 12-13 lbs in total - he has done some of this intentionally, by watching carbohydrate intake; eating a little less. No lightheadedness, dizziness or antwan syncope. He had a holter monitor September 2013 - AF for entire duration of recording, 66-150 bpm, mean 90 bpm Daytime rates a little faster than nighttime. Patient Active Problem List Diagnosis ??? Paroxysmal atrial fibrillation - initial 02/2004, started on PO cardizem CD 360mg - recurrence 06/2004, started on coumadin, atenolol - admitted [facility] ED with SOB, fatigue - AF [...] - 07/09 - nuclear stress test [facility] [place], normal LVEF, normal wall thicknes, no [...] Outpatient Prescriptions Medication Sig Dispense Refill ??? omeprazole (PRILOSEC) [...] Inh, PRN ??? Mometasone (NASONEX) 50 mcg/Actuation [place] 2 [place](s), Nasal, Twice daily each nostril Review of Systems Constitution: Positive for weight loss (~ 16 lbs since last 1.5 years). Negative for weight gain. HENT: Negative. Cardiovascular: Positive for chest pain (brief - non cardiac) and dyspnea on exertion. Respiratory: Positive for shortness of breath (with exertion). Negative for cough, hemoptysis and snoring. Musculoskeletal: Positive for back pain. Objective: Filed Vitals: 10/10/13 0931 BP: 118/72 Pulse: 100 Physical Exam Constitutional: He appears well-developed. Body mass index is 27.41 kg/(m^2). HENT: Head: Normocephalic. Eyes: Pupils are [...] Musculoskeletal: Normal range of motion. He exhibits edema (minimal). Assessment and Plan: Mr Carranza is doing reasonably well from the perspective of his atrial fibrillation. A rate control strategy was adopted a while ago and in general he has done well with this. He continues to have episodes of what sounds like rapid ventricular response in the setting of exertion. His holter monitor shows overall reasonably well controlled ventricular rate, perhaps a little faster during the day. I will add a low dose of beta jatin (toprol 25 mg daily - for improved control during the day) Plan: 1) Continue rate control strategy, with addition of small dose of metoprolol during the day 2) Mr Carranza will call me with symptoms if there are problems 3) Follow up in about 12 months DARRYN SOLORZANO MD 15 minutes of this 25 minute encounter were spent in counselling ( discussion about atrial fibrillation, rate control, beta jatin) documented in this encounter Plan of Treatment Not on file documented as of this encounter Visit Diagnoses Diagnosis Atrial fibrillation- Primary documented in this encounter Care Teams Director Instructional Material Relationship Specialty Start Date End Date Nelia Franklin MD [address] [place] [address] PCP - General 06/19/11 09/18/14 documented as of this encounter
--- OUTSIDE RECORDS SUMMARY | 2024-01-06 17:08 | XMS_ITS | Referral Summary ---
Author Organization [facility] Address [address] [place] [address] Care Team Providers Care Assistant Hvac Mechanic Name Role Phone Angel Abebe MD Primary Care Provider [phone] Social History Tobacco Use Types Packs/Day Years Used Date Smoking Tobacco: Never Assessed Sex and Gender Information Value Date Recorded Sex Assigned at Not on file Gender Identity Not on file Sexual Orientation Not on file Plan of Treatment Not on file Care Teams Assistant Hvac Mechanic Relationship Specialty Start Date End Date Angel Abebe MD [address] [place] [id number] PCP - General Family Medicine - Primary Care 09/01/22
--- OUTSIDE RECORDS SUMMARY | 2024-01-06 17:08 | XMS_ITS | Encounter Summary ---
Author Organization [facility] Address [address] [place] [address] Care Team Providers Care Reptile Farmer Name Role Phone Angel Abebe MD Primary Care Provider [phone] Encounter Details Date Type Department Care Team (Late st Contact Info) Description 09/02/2022 Lab Requisition [facility] Pathology & Laboratory Medicine - [facility] [address] [place] [address] Kelsea Bryan MD [address] [place] [address],[place] [address] Encounter for other general examination Social History Tobacco Use Types Packs/Day Years Used Date Smoking Tobacco: Never Assessed Sex and Gender Information Value Date Recorded Sex Assigned at Not on file Gender Identity Not on file Sexual Orientation Not on file documented as of this encounter Plan of Treatment Not on file documented as of this encounter Procedures Procedure Name Priority Date/Time Associated Diagnosis Comments SURGICAL PATHOLOGY Today 09/01/2022 14 :00 EDT Encounter for other general examination documented in this encounter Results * SURGICAL PATHOLOGY (09/01/2022 14:00 EDT) Note to Patient The following pathology results have been interpreted by your pathologist and may be available to you before your health provider has had the opportunity to review them. Please allow time for your provider to receive these results and explore management options, if applicable. 09/04/2022 9:17 EDT [facility] Final Diagnosis A. PROSTATE, RIGHT BASE, BIOPSY (2): - Focal atrophy with focal chronic inflammation. - Squamous mucosa, favor anal mucosa. B. PROSTATE, RIGHT MID, BIOPSY (2): - Atrophy with chronic inflammation. - Fibromuscular and adipose tissue. C. PROSTATE, RIGHT APEX, BIOPSY (2): - Focal atrophy with focal chronic inflammation. - Focal features suggestive of hyperplastic stroma. - Squamous mucosa, favor anal mucosa. D. PROSTATE, LEFT BASE, BIOPSY (2): - Focal atrophy. - Foal lymphoid aggregate. E. PROSTATE, LEFT MID, BIOPSY (2): - Focal atrophy. - Focal chronic inflammation. - Squamous mucosa, favor anal mucosa. F. PROSTATE, LEFT APEX, BIOPSY (2): - Focal atrophy. - Focal chronic inflammation. 09/04/2022 9:17 [facility] Attestation There was significant resident/fellow involvement in the diagnostic evaluation of this case. By the signature below, the attending physician certifies that they have personally conducted a gross and/or microscopic examination of the described specimens and rendered or confirmed the above diagnosis. 09/04/2022 9:17 [facility] at 0917 Clinical History Clinical diagnosis code: N40.1, R97.20 09/04/2022 9:17 [facility] Gross Description A. Received in formalin labelled with proper patient identification (initials W, E) and A. RT base are two church-white tissue cores (1.7 cm and 1.2 cm in length, and each less than 0.1 cm in diameter). Entirely submitted in A1. B. Received in formalin labelled with proper patient identification (initials W, E) and B. RT mid are two church-white tissue cores (1.8 cm and 0.8 cm in length, and each less than 0.1 cm in diameter). Entirely submitted in B1. C. Received in formalin labelled with proper patient identification (initials W, E) and C. RT apex are two church-white tissue cores (1.9 cm and 1.8 cm in length, and each 0.1 cm in diameter). Entirely submitted in C1. D. Received in formalin labelled with proper patient identification (initials W, E) and D. LT base are two church-white tissue cores (2.0 cm and 1.6 cm in length, and each 0.1 cm in diameter). Entirely submitted in D1. E. Received in formalin labelled with proper patient identification (initials W, E) and E. LT mid are two church-white tissue cores (2.3 cm and 1.7 cm in length, and each 0.1 cm in diameter). Entirely submitted in E1. F. Received in formalin labelled with proper patient identification (initials W, E) and F. LT apex are two church-white tissue cores (each 1.7 cm in length, and each 0.1 cm in diameter). Entirely submitted in F1. Christina Stevensi 09/02/2022 14:57 09/04/2022 9:17 EDT [facility] Resident/Leif w: Edith Loya MD 09/04/2022 9:17 T [facility] Performing Lab [facility] 09/04/2022 9:17 T [facility] Scanned Images 09/04/2022 9:17 EDT [facility] Tissue ENTIRE PROSTATE / Unknown 09/01/2022 14:00 EDT 09/02/2022 9:08 EDT Tissue specimen (specimen) PROSTATIC STRUCTURE / Unknown 09/01/2022 14:00 EDT 09/02/2022 9:08 EDT Tissue specimen (specimen) PROSTATIC STRUCTURE / Unknown 09/01/2022 14:00 EDT 09/02/2022 9:08 EDT Tissue specimen (specimen) PROSTATIC STRUCTURE / Unknown 09/01/2022 14:00 EDT 09/02/2022 9:08 EDT Tissue specimen (specimen) PROSTATIC STRUCTURE / Unknown 09/01/2022 14:00 EDT 09/02/2022 9:08 EDT Tissue specimen (specimen) PROSTATIC STRUCTURE / Unknown 09/01/2022 14:00 EDT 09/02/2022 9:08 EDT Kelsea Bryan MD PATHOLOGY ORDERABLES [facility] [address] [place] [address] documented in this encounter Visit Diagnoses Diagnosis Encounter for other general examination documented in this encounter Care Teams Reptile Farmer Relationship Specialty Start Date End Date Angel Abebe MD [address] [place] [id number] PCP - General Family Medicine - Primary Care 09/01/22 documented as of this encounter
--- OUTSIDE RECORDS SUMMARY | 2024-01-06 17:08 | XMS_ITS | Encounter Summary ---
Author Organization [facility] Address [facility] [place] [address] Care Team Providers Care Hydraulic Jack Operator Name Role Phone Nelia Franklin MD Primary Care Provider [phone] Reason for Visit * Reason Comments Follow-up Encounter Details Date Type Department Care Team (Late st Contact Info) Description 06/25/2011 2:45 PM EST [place] [id number] Campbell Barraza PA [facility] [place] [address] Nataly mattson (Primary Dx) Discharge Disposition: Home Social History [...] Sign Reading Time Taken Comments Blood Pressure 145/83 06/25/2011 3:14 PM EST Pulse 84 06/25/2011 3:14 PM EST Temperature - - Respiratory Rate - - Oxygen Saturation - - Inhaled Oxygen Concentration - - Weight 98 kg (216 lb) 06/25/2011 3:14 PM EST Height 177.8 cm (5' 10) 06/25/2011 3:14 PM EST Body Mass Index 30.99 06/25/2011 3:14 PM EST documented in this encounter Progress Notes * Campbell Barraza PA - 06/25/2011 3:30 PM EST Jesse Cruz is 60 years of age. He is seen on an annual basis for external auditory canal care. He has a history of cerumen impaction. On his initial visit with me a few years back, he had severe impaction which took three different visits to eventually clear. Since that time he has been well managed by regular cleanings every year. Last year he did have a serous effusion affecting the left ear. Nasal endoscopy revealed no nasopharyngeal pathology, and he opted not to undergo myringotomy with tube placement. Over the last year he reports his ear symptoms have been very stable. He has felt lightheaded on occasion, and I told him if it was more lightheadedness rather than dysequilibrium or imbalance it is most likely not his ears. He describes no vertigo. He does have atrial fibrillation, and it may be related to that. I asked him to check with his primary care physician. On exam with the operating microscope, both external auditory canals were cleaned of peripheral cerumen, partially occlusive on the right. He had crusting with canal defects on the left, which are typical for him, and all the crusting was easily removed as he has been using mineral oil applications. Tympanic membranes are both slightly retracted, atrophic in regions, but no sign of middle ear pathology today. We will continue annual visits with the understanding should he have any trouble in the meantime to call sooner. Campbell Barraza PA-C Department of Otolaryngology [facility] [place] [address] Office Phone - documented in this encounter Plan of Treatment Not on file documented as of this encounter Visit Diagnoses Diagnosis Impacted cerumen- Primary documented in this encounter Care Teams Hydraulic Jack Operator Relationship Specialty Start Date End Date Nelia Franklin MD [address] [place] [address] PCP - General 06/19/11 09/18/14 documented as of this encounter
--- OUTSIDE RECORDS SUMMARY | 2024-01-06 17:08 | XMS_ITS | Encounter Summary ---
Author Organization [facility] [place] [address] Care Team Providers Care Plant Technician Name Role Phone Nelia Franklin MD Primary Care Provider Encounter Details Date Type Department Care Team (Late st Contact Info) Description 07/18/2014 Telephone Otolaryngology at [facility] [place] [id number] Alfonso Piper CMA Social History Tobacco Use Types Packs/Day Years [...] encounter Miscellaneous Notes * Telephone Encounter - Alfonso Piper CMA - 07/18/2014 2:35 PM EDT Sent out second reminder card for the month of July with MÓNICA Vaughan documented in this encounter Plan of Treatment Not on file documented as of this encounter Visit Diagnoses Not on filedocumented in this encounter Care Teams Plant Technician Relationship Specialty Start Date End Date Nelia Franlkin MD [address] [place] [address] PCP - General 06/19/11 09/18/14 documented as of this encounter
--- OUTSIDE RECORDS SUMMARY | 2024-01-06 17:08 | XMS_ITS | Encounter Summary ---
Author Organization [facility] [place] [address] Care Team Providers Care Sheet Metal Helper Name Role Phone Dylan Easton MD Primary Care Provider [phone] Reason for Visit * Reason Onset Date Comments Results 04/10/2016 Encounter Details Date Type Department Care Team (Late st Contact Info) Description 04/10/2016 Telephone Cardiology at [address] [phone] Lenora Paulino, RN Results Social History Tobacco Use Types Packs/Day Years [...] encounter Miscellaneous Notes * Telephone Encounter - Lenora Paulino, RN - 04/10/2016 9:54 AM EST Received call from [employer] outer diameter technician reporting on pt's zio patch that he wore from 03/19/-04/02/16. It showed 100 % A. Fib burden. Did have some rapid a. Fib with average of 197 bpm lasting 30 seconds. Also had 4 short runs of [place]. Final report to MÓNICA Harmon. documented in this encounter Plan of Treatment Not on file documented as of this encounter Visit Diagnoses Not on filedocumented in this encounter Care Teams Sheet Metal Helper Relationship Specialty Start Date End Date Dylan Easton MD [address] [place] [address] PCP - General Family Medicine 08/08/15 01/21/22 documented as of this encounter
--- OUTSIDE RECORDS SUMMARY | 2024-01-06 17:08 | XMS_ITS | Encounter Summary ---
Author Organization [facility] Address [facility] [place] [address] Care Team Providers Care Income Tax Expert Name Role Phone Portillo Conde MD Primary Care Provider [phone] Reason for Visit * Reason Comments Follow-up paroxsysmal a fib Encounter Details Date Type Department Care Team (Late st Contact Info) Description 11/29/2010 2:40 PM EDT Follow-Up Cardiology at [address] [phone] Darryn Solorzano MD [facility] [place] [address] Paroxysmal atrial fibrillation (Primary Dx) Discharge Disposition: Home Social [...] Sign Reading Time Taken Comments Blood Pressure 106/64 11/29/2010 2:29 PM EDT Pulse 96 11/29/2010 2:29 PM EDT irreg ular Temperature - - Respiratory Rate 22 11/29/2010 2:29 PM EDT Oxygen Saturation 98% 11/29/2010 2:29 PM EDT room air Inhaled Oxygen Concentration - - Weight 100.7 kg (222 lb) 11/29/2010 2:29 PM EDT Height 177.8 cm (5' 10) 11/29/2010 2:29 PM EDT Body Mass Index 31.85 11/29/2010 2:29 PM EDT documented in this encounter Patient Instructions * Patient Instructions* Darryn Solorzano MD - 11/29/2010 2:52 PM EDT We discussed your atrial fibrillation and your pulmonary issues. I think that your shortness of breath may require some adjustments in your lung medicines - please discuss this with Dr Conde You should continue with your medicines as before - I have made no changes I will arrange for a routine follow up in about 12 months time documented in this encounter Progress Notes * Darryn Solorzano MD - 11/29/2010 2:37 PM EDT Clinical Cardiac Electrophysiology Follow Up Patient ID: Jesse Mattson is a 60 y.o. male. HPI Mr Mattson is seen in the EP clinic for routine evaluation of his atrial fibrillation. He is feeling tired with routine physical activity, sweating, SOB. Occasional chest pain but this is not prolonged. His spouse says that she hears him wheeze a little when he develops the dyspnea. NoPND, orthopnea, ankle edema. He has gained about 10 lbs, which is attributed to less exercise sincehe quit his job and a little more eating of unhealthy food. No lightheadedness or dizziness; no antwan syncope. He is marginally aware of his atrial fibrillation. Patient Active Problem List Diagnoses ??? Paroxysmal atrial fibrillation - initial 02/2004, started on PO cardizem CD 360mg - recurrence 06/2004, started on coumadin, atenolol - admitted [facility] ED with SOB, fatigue - AF with [...] ischemia - 07/09 - nuclear stress test [facility], normal LVEF, normal wall thicknes, no reversible defects - Flecainide discontinued may 2009 - rate control approach initiated- - Holter monitor 05/14/2009 reviewed - AF througout the recording, MIN hr 71, MAX 177, Mean 112 bpm. - Holter monitor 05/2010 - AF, mean ventricular rate 90 ??? Asthma ??? GERD (gastroesophageal reflux disease) ??? Migraines Current outpatient prescriptions:Magnesium 84 mg TbSR, Take by mouth 2 times daily., Disp: , Rfl: ;hydroCODone-acetaminophen (VICODIN) 5-500 mg per tablet, Take 1 tablet by mouth See Admin Instructions., Disp: , Rfl: ; warfarin (COUMADIN) 5 mg tablet, Take 5 mg by mouth See Admin Instructions., Disp: , Rfl: ; DILTiazem (DILT-CD) 180 mg 24 hr capsule, Take 360 mg by mouth daily., Disp: , Rfl: lisinopril (PRINIVIL;ZESTRIL) 20 mg tablet, 20mg, PO, Once daily, Disp: , Rfl: ; fexofenadine (RADHA) 60 mg tablet, 60MG = 1 Tablet(s), PO, Twice daily, Disp: , Rfl: ; acetaminophen (TYLENOL EXTRA STRENGTH) 500 mg tablet, , Disp: , Rfl: ; fluticasone-salmeterol (ADVAIR) 250-50 mcg/dose diskus inhaler, 1 Disk(s), Inh, Twice daily, Disp: , Rfl: ; Levalbuterol Tartrate 45 mcg/Actuation inhaler, 45 MC-2 Puff(s), Inh, PRN, Disp: , Rfl: Mometasone (NASONEX) 50 mcg/Actuation [place], 2 [place](s), Nasal, Twice daily each nostril, Disp: , Rfl: Review of Systems Constitutional: Positive for weight gain (10 lbs gain). HENT: Negative. Cardiovascular: Positive for chest pain (brief - non cardiac) and dyspnea on exertion. Respiratory: Positive for shortness of breath (with exertion). Negative for cough, hemoptysis and snoring. Musculoskeletal: Positive for back pain. Objective: Filed Vitals: 11/29/10 1429 BP: 106/64 Pulse: 96 Resp: 22 Physical Exam Constitutional: He appears well-developed. HENT: Head: Normocephalic. Eyes: Pupils are equal, round, and reactive to light. Neck: Normal range of motion. No JVD present. No thyromegaly present. Cardiovascular: Normal rate and normal heart sounds. Exam reveals no gallop. No murmur heard. Pulmonary/Chest: Effort normal. No respiratory distress. He has no wheezes. He has no rales. Abdominal: Soft. Musculoskeletal: Normal range of motion. He exhibits no edema. Assessment and Plan: Mr Mattson is doing reasonably well from the perspective of his atrial fibrillation. A rate control strategy was adopted a while ago, after extensive discussion with both Mr mattson and his spouse. HisAF appears stable; his rates were acceptable by holter monitor earlier this year. His symptoms of ALEXANDER appear to be more pulmonary in nature and he may benefit from more aggressive management of this. I have made no changes to his meds at this visit and would otherwise plan to see him in about 12 months time, unless there are changes in his condition. Plan: 1) No changes to his current meds 2) May need modification of his COPD regime - appears to have exertional SOB secondary to this 3) Routine follow up in about 1 year DARRYN SOLORZANO documented in this encounter Plan of Treatment Not on file documented as of this encounter Visit Diagnoses Diagnosis Paroxysmal atrial fibrillation- Primary Atrial fibrillation documented in this encounter Care Teams Income Tax Expert Relationship Specialty Start Date End Date Portillo Conde MD [address] [place] [address] PCP - General 03/26/10 06/18/11 documented as of this encounter
== END 2024-01-06 17:05 | disposition home or self-care (01) ==
LOC: LBO 17:05
PROVIDERS: PCP Family Medicine; Visit Provider Family Medicine
DX: I48.91 Unspecified atrial fibrillation (principal)
CPT/HCPCS: 36415; 85610

== ENCOUNTER 2024-03-21 14:01 | Outpatient (CLI) | payer OTHER, SELFPAY ==
[2024-03-21 15:18] LABS: INR 1.5 (0.9-1.1)
== END 2024-03-21 14:02 | disposition home or self-care (01) ==
LOC: LBO 14:02
PROVIDERS: PCP Family Medicine; Visit Provider Family Medicine
DX: I48.91 Unspecified atrial fibrillation (principal)
CPT/HCPCS: 36415; 85610

== ENCOUNTER 2024-03-28 15:36 | Outpatient (CLI) | payer OTHER, SELFPAY ==
[2024-03-28 15:00] LABS: INR 1.7 (0.9-1.1); Prothrombin Time 16.7 sec (9.1-11.1)
== END 2024-03-28 15:37 | disposition home or self-care (01) ==
LOC: LBO 15:37
PROVIDERS: PCP Family Medicine; Visit Provider Family Medicine
DX: I48.91 Unspecified atrial fibrillation (principal)
CPT/HCPCS: 36415; 85610

== ENCOUNTER 2024-04-05 14:04 | Outpatient (CLI) | payer OTHER, SELFPAY ==
[2024-04-05 14:27] LABS: INR 2.9 (0.9-1.1); Prothrombin Time 26.3 sec (9.1-11.1)
== END 2024-04-05 14:05 | disposition home or self-care (01) ==
LOC: LBO 14:05
PROVIDERS: PCP Family Medicine; Visit Provider Family Medicine
DX: I48.91 Unspecified atrial fibrillation (principal)
CPT/HCPCS: 36415; 85610

== ENCOUNTER 2024-04-24 12:50 | Emergency (ER) | payer OTHER, SELFPAY ==
[2024-04-24] VITALS (11 sets, daily range): BP systolic 144–160; BP diastolic 79–87; PULSE 56–74; RESP 13–22; TEMP 36.4; O2SAT 96–99
--- NOTE | 2024-04-24 13:00 | RT.EKG_ITS ---
APPROVED REPORT Exam: Resting ECG Reason for Exam: dizziness Patient Location: E HR:67 bpm ECG Measurements Heart Rate 67 AXIS MO 177 P 254 QRSd 111 QRS -40 QT 387 T 128 QTc 413 Conclusion Sinus or ectopic atrial rhythm...P axis (-45,135) Left axis deviation...QRS axis (-30,-90) Abnormal T, consider ischemia, lateral leads...T <-0.20mV, I aVL V5 V6
--- NOTE | 2024-04-24 13:09 | W.ED.GENAD ---
Discharge Plan Disposition Patient Disposition: Home Condition: Stable Discharge Details Clinical Impression: Bronchitis Primary Care Provider: Angel Abebe ED Provider: Beny Guerrero Home Meds and New Rx's Prescriptions: New amoxicillin-pot clavulanate 875-125 mg tablet 1 tab PO BID 5 Days Qty: 10 0RF Continued hydrocortisone [Preparation H Hydrocortisone] 1 % cream 1 applic topical BID PRN furosemide [Lasix] 40 mg tablet 40 mg PO DAILY PRN (Reason: edema) Qty: 90 3RF fluticasone propion-salmeterol [Advair Diskus] 500-50 mcg/dose blister with device 1 ea Inhalation BID Qty: 3 4RF warfarin 5 mg tablet See Rx Instructions PO .COMPLEX Qty: 100 3RF Protocol: Dose Management Condition: Thursday Dose/Route: 5 mg Instruction: 1 x 5 mg tablet Condition: Thursday Dose/Route: 5 mg Instruction: 1 x 5 mg tablet Condition: Thursday Dose/Route: 5 mg Instruction: 1 x 5 mg tablet Condition: Thursday Dose/Route: 5 mg Instruction: 1 x 5 mg tablet Condition: Dose/Route: 5 mg Instruction: 1 x 5 mg tablet Condition: Thursday Dose/Route: 5 mg Instruction: 1 x 5 mg tablet Condition: Thursday Dose/Route: 5 mg Instruction: 1 x 5 mg tablet Protocol Text: Adjustment Start Date: Thursday04/12/24 INR Value: 2.2 INR Date: 04/12/24 Recheck Date: 05/12/24 Dose Instruction: 0-2 tabs PO Daily; DOSE BASED ON INR Rx Instructions: 0-2 tabs PO Daily as directed by [facility]; DOSE BASED ON INR levalbuterol tartrate [Xopenex HFA] 45 mcg/actuation HFA aerosol inhaler 2 puff Inhalation QID PRN (Reason: shortness of breath or wheezing) Qty: 3 4RF magnesium oxide [MagOx] 400 mg (241.3 mg magnesium) tablet 400 mg PO BID Qty: 180 4RF tamsulosin 0.4 mg capsule 0.4 mg PO DAILY metoprolol tartrate 25 mg tablet 12.5 mg PO BID Qty: 90 3RF Rx Instructions: take an additional half tablet as needed for sustained HR over 120 bpm donepezil 10 mg tablet 10 mg PO DAILY Qty: 90 3RF digoxin 250 mcg (0.25 mg) tablet 250 mcg PO DAILY Qty: 90 3RF losartan 100 mg tablet 100 mg PO DAILY Qty: 90 3RF amlodipine 5 mg tablet 5 mg PO DAILY Qty: 90 4RF omeprazole 20 mg capsule,delayed release(DR/EC) 20 mg PO DAILY Qty: 90 4RF acetaminophen [Mapap Extra Strength] 500 MG tablet 1,000 mg PO Q6H PRN PRN Patient Comments: Pt states he took it a couple of weeks ago Discharge Instructions Instructions: Albuterol, Amoxicillin and Clavulanate, Bronchitis, Adult ED, Pneumonia, Adult ED Additional Instructions: You were seen in the ED for your cough- I am treating you with 5 days of antibiotics for possible bronchitis in the setting of many comorbidities- please take the Augmentin BID x5days sent to [facility] in [place]. I have sent you home with an inhaler to use for shortness of breath as needed. Please use therapeutic dosing of Tylenol (acetamenophen) & Advil (ibuprofen) in an alternating fashion as follows: Take 650mg of Tylenol every 6 hours without missing doses- that is 4 times per day. Please note that some common cold medications & prescription pain medications may contain acetamenophen and you need to read OTC drug labels and factor that in to maximum daily dosings. Please return for any worsening despite treatment especially with respiratory distress, chest pain, fever despite Tylenol use Referrals: Angel Abebe MD [Primary Care Provider] - Discharge Data Discharge Date/Time-TO BE ENTERED AT DEPARTURE: 04/24/24 15:28 HPI General Date/Time Provider Initiated Documentation: 04/24/24 13:09. HPI Narrative: 73 year-old male presents to ED today by POV/ambulating with his with a chief complaint of cough, fatigue, weakness with onset over the past 2-3 days. is concerned for pneumonia. Quality described as generalized cough, no radiation to post-tussive emesis, high fever, nausea/vomiting, respiratory distress, chest pain, headache. Severity is described as moderate. Palliating factors include nothing attempted yet. Provoking factors include nothing specific. Patient is anticoagulated. Related Data Home Medications ?Medication ?Instructions ?Recorded ?Confirmed acetaminophen 500 mg tablet (Mapap 1,000 mg PO Q6H PRN PRN 02/07/13 04/24/24 Extra Strength) hydrocortisone 1 % topical cream 1 applic topical BID PRN 04/05/20 04/24/24 (Preparation H Hydrocortisone) levalbuterol tartrate 45 2 puff inhalation QID PRN 01/08/21 04/24/24 mcg/actuation aerosol inhaler shortness of breath or wheezing ##3 (Xopenex HFA) tamsulosin 0.4 mg capsule 0.4 mg PO DAILY 02/20/22 04/24/24 metoprolol tartrate 25 mg tablet 12.5 mg (1/2 x 25 mg) PO BID #90 10/18/22 04/24/24 tab-caps donepezil 10 mg tablet 10 mg PO DAILY #90 tabs 02/09/23 04/24/24 furosemide 40 mg tablet (Lasix) 40 mg PO DAILY PRN edema #90 tabs 04/08/23 04/24/24 digoxin 250 mcg (0.25 mg) tablet 250 mcg PO DAILY #90 tabs 05/19/23 04/24/24 warfarin 5 mg tablet See Rx Instructions PO .COMPLEX 05/21/23 04/24/24 #100 tab-caps fluticasone 500 mcg-salmeterol 50 1 ea inhalation BID ##3 07/15/23 04/24/24 mcg/dose blistr powdr for inhalation (Advair Diskus) magnesium oxide 400 mg (241.3 mg 400 mg PO BID #180 tabs 10/29/23 04/24/24 magnesium) tablet (MagOx) losartan 100 mg tablet 100 mg PO DAILY #90 tabs 01/28/24 04/24/24 amlodipine 5 mg tablet 5 mg PO DAILY #90 tab-caps 04/15/24 04/24/24 omeprazole 20 mg capsule,delayed 20 mg PO DAILY #90 tab-caps 04/15/24 04/24/24 release amoxicillin 875 mg-potassium 1 tab PO BID 5 days #10 tabs 04/24/24 clavulanate 125 mg tablet Previous Rx's ?Medication ?Instructions ?Recorded levalbuterol tartrate 45 2 puff inhalation QID PRN 01/08/21 mcg/actuation aerosol inhaler shortness of breath or wheezing ##3 (Xopenex HFA) metoprolol tartrate 25 mg tablet 12.5 mg (1/2 x 25 mg) PO BID #90 10/18/22 tab-caps donepezil 10 mg tablet 10 mg PO DAILY #90 tabs 02/09/23 furosemide 40 mg tablet (Lasix) 40 mg PO DAILY PRN edema #90 tabs 04/08/23 digoxin 250 mcg (0.25 mg) tablet 250 mcg PO DAILY #90 tabs 05/19/23 warfarin 5 mg tablet See Rx Instructions PO .COMPLEX 05/21/23 #100 tab-caps fluticasone 500 mcg-salmeterol 50 1 ea inhalation BID ##3 07/15/23 mcg/dose blistr powdr for inhalation (Advair Diskus) magnesium oxide 400 mg (241.3 mg 400 mg PO BID #180 tabs 10/29/23 magnesium) tablet (MagOx) losartan 100 mg tablet 100 mg PO DAILY #90 tabs 01/28/24 amlodipine 5 mg tablet 5 mg PO DAILY #90 tab-caps 04/15/24 omeprazole 20 mg capsule,delayed 20 mg PO DAILY #90 tab-caps 04/15/24 release amoxicillin 875 mg-potassium 1 tab PO BID 5 days #10 tabs 04/24/24 clavulanate 125 mg tablet Allergies Allergy/AdvReac Type Severity Reaction Status Date / Time doxycycline Allergy Intermediate FACIAL RASH Verified 04/24/24 12:56 Tetracyclines Allergy Intermediate FACIAL RASH Verified 04/24/24 12:56 TAMI Inhibitors AdvReac Intermediate cough Verified 04/24/24 12:56 General Stated Complaint: GenMedical DANIA: 3 Review of Systems All systems reviewed & are unremarkable except as noted in HPI and below Exam Narrative Exam Narrative: GENERAL APPEARANCE: Well-nourished, non-toxic, awake and alert, atraumatic, no acute distress. SKIN: Warm, pink, dry, intact, without rashes/lesions/ulcerations. HEAD: Normocephalic, atraumatic, normal hair distribution for gender/age. EYES: Normal conjunctiva, no exudates on lids/lashes. ENT: Nares patent, no circumoral cyanosis, no facial swelling NECK: Supple, trachea midline, painless cervical ROM. LUNGS/CHEST: Rhonchi at bases, non-labored respirations, normal A/P diameter, symmetrical expansion, no chest wall deformity HEART (CV/PV): Irregular rate and rhythm without murmur, no peripheral edema, no JVD. ABDOMEN: Soft, non-distended, no guarding. MSK: Normal ROM, no swelling/deformity to bilateral UEs or LEs, moving all extremities without weakness, no cyanosis, spine midline without tenderness, normal curvature. NEURO: Mental Status AAOx4 - alert to person, place, time, events No facial droop, no forehead involvement. Motor: No focal weakness - strength 5/5 in bilateral UEs and LEs, proximal and distal, symmetric. Sensory: sensation intact to light touch globally. Gait normal: patient ambulated without ataxia into ED room. PSYCH: euthymic, cooperative, pleasant, appropriate speech Course Vital Signs Vital signs: Vital Signs Temperature 36.4 C 04/24/24 12:53 Pulse 70 04/24/24 12:53 Respiratory Rate 20 04/24/24 12:53 Blood Pressure 160/87 H 04/24/24 12:53 Pulse Oximetry 98 04/24/24 12:53 Temperature 36.4 C 04/24/24 12:56 Temperature Source Oral 04/24/24 12:56 Pulse 70 04/24/24 12:56 Respiratory Rate 20 04/24/24 12:56 Blood Pressure 160/87 H 04/24/24 12:56 Blood Pressure Position Sitting 04/24/24 12:56 Pulse Oximetry 98 04/24/24 12:56 Oxygen Delivery Method Room Air 04/24/24 12:56 Oxygen Flow Rate 0 04/24/24 12:56 Medical Decision Making This dictation utilizes [id number] dictation software and may contain unedited grammatical errors. 73 year-old male presents to ED today by POV/ambulating with his with a chief complaint of cough, fatigue, weakness with onset over the past 2-3 days. is concerned for pneumonia. Quality described as generalized cough, no radiation to post-tussive emesis, high fever, nausea/vomiting, respiratory distress, chest pain, headache. Severity is described as moderate. Palliating factors include nothing attempted yet. Provoking factors include nothing specific. Patients' medical history: Asthma, hypertension, atrial fibrillation, GERD, dyspnea on exertion, cognitive changes, peripheral edema, known hiatal hernia. Family and social history: Lives at home, no recent travel no sick contacts. Pertinent exam findings / vital signs include rhonchi at bases, benign abdomen, neuro intact. Differential / pathologies of concern include rhonchi at bases, no respiratory distress, benign cardiac exam, nontoxic and afebrile, benign abdomen. Diagnostic studies of: -XR chest, respiratory PCR swab -XR chest shows no pneumonia, PCR swab negative. Interventions of: -Improvement with DuoNeb, Rx for azithromycin/augmentin ED Course/Assessment/Plan: 73-year-old male presents with 2 to 3 days of respiratory infection with significant comorbidities, he has no pneumonia on chest x-ray but he does have a severe cough, his lungs have rhonchi at the bases I am treating him with azithromycin/augmentin for its anti-inflammatory properties to the pulmonary tissue as well as empiric treatment due to high risk of complication if the patient has an untreated bacterial infection. Patient was given DuoNeb with improvement and is in no respiratory distress, strict return criteria for any chest pain or respiratory distress. Findings not consistent with hypoxic respiratory failure, severe pneumonia, sepsis. Disposition of bronchitis. Patient verbalized understanding of the plan and return to ED criteria and engaged in shared decision making. Medical Records Medical records reviewed: Yes I reviewed the patient's medical records. Imaging Data Radiologic Study: Attestation: I personally reviewed and interpreted this imaging study as follows: Imaging: X-Ray Radiologist's impression: Exam: XR Chest Exam date and time: 04/24/2024 1:39 PM Age: 73 years old Clinical indication: Cough TECHNIQUE: Imaging protocol: Radiologic exam of the chest. Views: 2 views. COMPARISON: CR XR CHEST 1V IN DI DEPT 06/01/2023 2:43 PM FINDINGS: Lungs: Unremarkable. No consolidation. Pleural spaces: Unremarkable. No pleural effusion. No pneumothorax. Heart/Mediastinum: Large hiatal hernia again noted. Cardiomegaly unchanged from prior exam. Vasculature: Mild aortic ectasia. Bones/joints: Unremarkable. IMPRESSION: Nonacute changes, stable. No evidence for acute abnormality in the chest. Dictated and Authenticated by: Beti Sanchez MD. Lab Data Lab results reviewed: Yes I reviewed the patient's lab results. Labs: Laboratory Tests Range/Units 04/24/24 13:30 COVID-19 Source Nasopharynx SARS-CoV-2 (PCR) (Negative) Negative Influenza Type A (PCR) (Negative) Negative Influenza Type B (PCR) (Negative) Negative RSV (PCR) (Negative) Negative Quality:SDOH Health Related Social Needs: No Data to Display PFSH All Active Problems (Updated 04/24/24 @ 15:19 by MÓNICA Pleitez) Bronchitis (Acute) Right sided weakness (Acute) Hx of falling (Acute) Hearing loss (Acute) Tremor (Acute) Muscle pain (Acute) Low back pain (Acute) Lung nodule (Acute) Chronic atrial fibrillation (Chronic) GERD (gastroesophageal reflux disease) (Chronic) Neurodermatitis (Chronic) Hypomagnesemia (Chronic 08/22/13) Family hx of prostate cancer (Chronic) Essential hypertension (Chronic 02/21/13) Asthma (Chronic) Anticoagulated on warfarin (Chronic) A-fib INR goal 2-3 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) Cellulitis (Acute) Chronic anticoagulation (Acute) Hypotension (Acute) BPH w urinary obs/LUTS (Acute) Dyspnea on exertion (Acute) Daytime sleepiness (Acute) Screening for colon cancer (Acute) Right-sided chest wall pain (Acute) Peripheral edema (Acute) Cognitive change (Acute) Memory impairment (Acute) Urinary retention (Acute) Per Jael urologist Hypoalbuminemia (Acute) Right upper lobe pulmonary nodule (Acute) Elevated white blood cell count (Acute) Hiatal hernia (Chronic) Medical History (Updated 04/24/24 @ 15:19 by MÓNICA Pleitez) Abnormal weight loss (04/14/12) Asthma Hypertension Atrial fibrillation Surgical History Status post inguinal hernia repair Repair of inguinal hernia LEFT Family History Mother Diabetes Stroke Alcohol abuse Hypertension Father Asthma Prostate cancer Heart disease Sister Alzheimer disease Sister Essential hypertension Depression Sister No problems noted. Sister No problems noted. Sister No problems noted. Brother Diabetes Essential hypertension Stroke Brother No problems noted. Son ADHD Alcohol abuse Former Daughter Alcohol abuse Depression Hypertension Other Family hx of prostate cancer Social History Smoking/Tobacco Use Status: Former Tobacco Use Second Hand Exposure: Yes Smoking risk assessment performed?: Yes Alcohol Intake: former Drug use: Never Substance use type: does not use Household members: spouse and children Housing: house Number of Children: 2 number of grandchildren: 3 Communication Needs: Hard of Hearing, Corrective Lenses, Cannot Read and Language Barriers Education Level: elementary school Details: 8th grade Do you need help understanding health information?: Often current occupation: Disabled Pets and animals: Yes (chicken, ronn) Pets and animals: cat(s), farm animals and other Details: [place] Sexually active: No Do you think of yourself as: straight/heterosexual Current gender identity: male What is your relationship status?: How often do you talk on the phone with friends or family?: once per week Do you belong to any clubs or organized social groups?: no Panel score (0-1 are the most socially isolated patients): 1 What type of physical activity do you participate in: none Christine/Lutheran: Christianity Special christine needs: No Agree to transfusion: Yes Seatbelt use: always Drive intox or ride w/intox six horse hitch driver: No Working smoke detector in home: Yes Carbon monox detector in home: Yes Firearms in home: No Do you feel safe at home: Yes Do you feel safe in your relationship?: Yes Victim of physical abuse: No Victim of emotional abuse: No Victim of sexual abuse: No
--- NOTE | 2024-04-24 13:15 | DI.RAD_ITS ---
Exam(s) XR CHEST 2V PA LATERAL EXAM: XR CHEST 2V PA LATERAL CLINICAL HISTORY: cough TECHNIQUE: 2D digital imaging was performed of the chest. Two images were obtained. PA and lateral views were obtained. COMPARISON: CT CHEST FOR PULMONARY EMBOLUS from 11/03/2017 CR XR CHEST 1V IN DI DEPT from 06/01/2023 FINDINGS: MEDIASTINUM: There is again seen a large hiatal hernia. HEART: Normal. PULMONARY VASCULATURE: Normal. LUNGS: The lungs appear hyperinflated with flattened diaphragms suggesting underlying COPD. No focal consolidating infiltrates are present. PLEURAL SPACE: No pleural effusion or pneumothorax. BONE:Within normal limits for the patient's age. OTHER FINDINGS:Normal. IMPRESSION: No acute pulmonary findings. DATA REPOSITORY: RADIATION DOSE DELIVERED:
[2024-04-24] MEDS: Albuterol/Ipratropium 3 ML UPD VIAL UPD (13:26)
[2024-04-24 14:30] LABS: COVID-19 PCR Negative (Negative); Influenza A PCR Negative (Negative); Influenza B PCR Negative (Negative); RSV PCR Negative (Negative)
[2024-04-24 14:31] LABS: Source Nasopharynx
--- NOTE | 2024-04-24 15:12 | DI.VRAD_ITS ---
PROCEDURE INFORMATION: Exam: XR Chest Exam date and time: 04/24/2024 1:39 PM Age: 73 years old Clinical indication: Cough TECHNIQUE: Imaging protocol: Radiologic exam of the chest. Views: 2 views. COMPARISON: CR XR CHEST 1V IN DI DEPT 06/01/2023 2:43 PM FINDINGS: Lungs: Unremarkable. No consolidation. Pleural spaces: Unremarkable. No pleural effusion. No pneumothorax. Heart/Mediastinum: Large hiatal hernia again noted. Cardiomegaly unchanged from prior exam. Vasculature: Mild aortic ectasia. Bones/joints: Unremarkable. IMPRESSION: Nonacute changes, stable. No evidence for acute abnormality in the chest. Dictated and Authenticated by: Beti Sanchez MD. Ordering:HARMAN Swan MD
[2024-04-24] MEDS: Albuterol HFA 8 GM 60 PUFF INH IH (15:32)
[2024-04-24] MEDS: Inhaler, Assist Device 1 EACH MC (15:32)
== END 2024-04-24 15:28 | disposition home or self-care (01) ==
PROVIDERS: Emergency Provider Physician Assistant; PCP Family Medicine
DX: J40 Bronchitis, not specified as acute or chronic (principal); R94.31 Abnormal electrocardiogram [ECG] [EKG]; I10 Essential (primary) hypertension; I48.91 Unspecified atrial fibrillation; Z79.01 Long term (current) use of anticoagulants; Z87.891 Personal history of nicotine dependence
CPT/HCPCS: 87637; 93005; 94640; 99285; 71046; 93010; 99284; J7620

== ENCOUNTER 2024-05-10 16:10 | Outpatient (CLI) | payer MEDICARE, MEDICAID, SELFPAY ==
[2024-05-10 12:50] LABS: Prothrombin Time 18.8 sec (9.1-11.1)
== END 2024-05-10 16:11 | disposition home or self-care (01) ==
LOC: LBO 16:21
PROVIDERS: PCP Family Medicine; Visit Provider Family Medicine
DX: I48.91 Unspecified atrial fibrillation (principal)
CPT/HCPCS: 36415; 85610

== ENCOUNTER 2024-06-24 14:46 | Outpatient (CLI) | payer MEDICARE, SELFPAY ==
[2024-06-24 15:28] LABS: INR 2.6 (0.9-1.1); Prothrombin Time 24.2 sec (9.1-11.1)
[2024-06-24 15:35] LABS: Anion Gap 8.8 mmol/L (3-11); BUN 11 mg/dL (7-18); CO2 26.2 mmol/L (21.0-32.0); Calcium 9.1 mg/dL (8.5-10.1); Calculated LDL 64 mg/dL (<100); Chloride 105 mmol/L (98-107); Cholesterol 130 mg/dL (<200); Digoxin 0.92 ng/mL (0.90-2.00); Estimated GFR 79.47 (mL/min/1.73m2); Glucose 82 mg/dL (74-106); HDL Cholesterol 51 mg/dL (40-60); Magnesium 1.7 mg/dL (1.8-2.4); Potassium 3.9 mmol/L (3.5-5.1); Sodium 140 mmol/L (136-145); Triglyceride 77 mg/dL (<150)
== END 2024-06-24 14:47 | disposition home or self-care (01) ==
LOC: LBO 14:47
PROVIDERS: PCP Family Medicine; Visit Provider Family Medicine
DX: E83.42 Hypomagnesemia (principal); E78.5 Hyperlipidemia, unspecified; E87.1 Hypo-osmolality and hyponatremia; I48.91 Unspecified atrial fibrillation; Z79.01 Long term (current) use of anticoagulants
CPT/HCPCS: 36415; 80048; 80061; 80162; 83735; 85610

== ENCOUNTER 2024-08-12 10:03 | Outpatient (CLI) | payer MEDICARE, SELFPAY ==
[2024-08-12 12:22] LABS: INR 2.3 (0.9-1.1); Prothrombin Time 21.8 sec (9.1-11.1)
== END 2024-08-12 10:04 | disposition home or self-care (01) ==
LOC: LOS 10:03
PROVIDERS: PCP Family Medicine; Visit Provider Family Medicine
DX: I48.91 Unspecified atrial fibrillation (principal)
CPT/HCPCS: 36415; 85610

== ENCOUNTER 2024-09-07 14:30 | Outpatient (CLI) | payer MEDICARE, SELFPAY ==
[2024-09-07 15:04] LABS: Abs Immature Grans 0.06 10^3/uL (0.0-0.06); Absolute Basophil Count 0.08 10^3/uL (0.0-0.2); Absolute Eosinophil Count 0.38 10^3/uL (0.0-0.7); Absolute Lymphocyte Count 1.64 10^3/uL (1.2-3.4); Absolute Monocyte Count 1.23 10^3/uL (0.1-0.8); Absolute Neutrophil Count 7.53 10^3/uL (1.2-6.7); Basophils % 0.7 %; Eosinophils % 3.5 %; HCT 46.5 % (40.0-50.0); HGB 15.5 g/dL (13.5-17.5); Immature Grans % 0.5 %; MCH 28.1 pg (27.0-33.0); MCHC 33.3 % (32.0-36.0); MCV 84 fL (80-95); MPV 11.8 fL (8.0-11.0); Monocytes % 11.3 %; Platelet Count 197 10^3/uL (130-400); RBC 5.51 10^6/uL (4.36-5.78); RDW 14.5 % (11.8-14.1); RDW-SD 44.7 fL; WBC 10.92 10^3/uL (4.4-10.8)
[2024-09-07 15:15] LABS: INR 2.1 (0.9-1.1); Prothrombin Time 20.3 sec (9.1-11.1)
== END 2024-09-07 14:31 | disposition home or self-care (01) ==
LOC: LBO 14:31
PROVIDERS: PCP Family Medicine; Visit Provider Family Medicine
DX: D64.9 Anemia, unspecified (principal); E03.9 Hypothyroidism, unspecified; I48.91 Unspecified atrial fibrillation
CPT/HCPCS: 36415; 84443; 85025; 85610

== ENCOUNTER 2024-10-06 14:18 | Outpatient (CLI) | payer MEDICARE, SELFPAY ==
[2024-10-06 14:46] LABS: INR 2.6 (0.9-1.1); Prothrombin Time 24.7 sec (9.1-11.1)
== END 2024-10-06 14:19 | disposition home or self-care (01) ==
LOC: LBO 14:22
PROVIDERS: PCP Family Medicine; Visit Provider Family Medicine
DX: I48.91 Unspecified atrial fibrillation (principal)
CPT/HCPCS: 36415; 85610

== ENCOUNTER 2024-11-11 11:28 | Outpatient (CLI) | payer MEDICARE, SELFPAY ==
[2024-11-11 11:41] LABS: INR 2.2 (0.9-1.1); Prothrombin Time 20.7 sec (9.1-11.1)
== END 2024-11-11 11:29 | disposition home or self-care (01) ==
LOC: LBO 11:29
PROVIDERS: PCP Family Medicine; Visit Provider Family Medicine
DX: I48.91 Unspecified atrial fibrillation (principal)
CPT/HCPCS: 36415; 85610

== ENCOUNTER 2024-12-14 14:24 | Outpatient (CLI) | payer MEDICARE, SELFPAY ==
[2024-12-14 15:14] LABS: INR 2.4 (0.9-1.1); Prothrombin Time 22.7 sec (9.1-11.1)
== END 2024-12-14 14:25 | disposition home or self-care (01) ==
LOC: LBO 14:24
PROVIDERS: PCP Family Medicine; Visit Provider Family Medicine
DX: I48.91 Unspecified atrial fibrillation (principal)
CPT/HCPCS: 36415; 85610

== ENCOUNTER 2025-01-12 16:27 | Outpatient (CLI) | payer MEDICARE, SELFPAY ==
[2025-01-12 15:55] LABS: INR 2.3 (0.9-1.1); Prothrombin Time 21.5 sec (9.1-11.1)
== END 2025-01-12 16:28 | disposition home or self-care (01) ==
LOC: LBO 16:27
PROVIDERS: PCP Family Medicine; Visit Provider Family Medicine
DX: I48.91 Unspecified atrial fibrillation (principal)
CPT/HCPCS: 36415; 85610

== ENCOUNTER 2025-02-02 10:25 | Outpatient (CLI) | payer MEDICARE, SELFPAY ==
[2025-02-02 11:03] LABS: INR 1.5 (0.9-1.1); Prothrombin Time 14.4 sec (9.1-11.1)
== END 2025-02-02 10:26 | disposition home or self-care (01) ==
LOC: LBO 10:25
PROVIDERS: PCP Family Medicine; Visit Provider Family Medicine
DX: I48.91 Unspecified atrial fibrillation (principal)
CPT/HCPCS: 36415; 85610

== ENCOUNTER 2025-03-03 13:38 | Outpatient (CLI) | payer MEDICARE, SELFPAY ==
[2025-03-03 12:43] LABS: INR 2.7 (0.9-1.1); Prothrombin Time 25.2 sec (9.1-11.1)
== END 2025-03-03 13:39 | disposition home or self-care (01) ==
LOC: LBO 13:40
PROVIDERS: PCP Family Medicine; Visit Provider Family Medicine
DX: I48.91 Unspecified atrial fibrillation (principal)
CPT/HCPCS: 36415; 85610

== ENCOUNTER → 2025-04-12 00:11 | Outpatient (CLI) | payer MEDICARE, SELFPAY ==
--- NOTE | 2025-04-12 07:15 | DI.US_ITS ---
Exam(s) US SOFT TISSUE HEAD OR NECK EXAM: US SOFT TISSUE HEAD OR NECK CLINICAL HISTORY: Mass of neck,r22.1. TECHNIQUE: Ultrasound was performed using standard protocol. COMPARISON: None FINDINGS: There is abnormal non septated cystic structure in the suprapatellar clavicular region measuring 2.7 x 1.4 cm, located centrally and slightly left of center and intimately related to great vessels in this region but appearing separate from the great vessels.. This is fluid-filled and easily compressible. IMPRESSION: Abnormal 2.7 x 1.4 cm cystic structure in the central-slightly left of center supraclavicular region. This also appears to extend below the supraclavicular region beyond the field of view of the ultrasound probe. Recommend follow-up contrast infused CT scan. DATA REPOSITORY:
== END ==
LOC: DI 00:11
PROVIDERS: PCP Family Medicine; Visit Provider Nurse Practitioner Family
DX: R22.1 Localized swelling, mass and lump, neck (principal)
CPT/HCPCS: 76536

== ENCOUNTER 2025-04-12 14:08 | Outpatient (CLI) | payer MEDICARE, SELFPAY ==
[2025-04-12 14:16] LABS: INR 2.7 (0.9-1.1); Prothrombin Time 25.7 sec (9.1-11.1)
== END 2025-04-12 14:09 | disposition home or self-care (01) ==
LOC: LBO 14:09
PROVIDERS: PCP Family Medicine; Visit Provider Family Medicine
DX: I48.91 Unspecified atrial fibrillation (principal)
CPT/HCPCS: 36415; 76536; 85610